=== PATIENT | male | born 1965 | race Caucasian/White ===

== ENCOUNTER 2019-10-13 05:04 | Day surgery (SDC) | payer OTHER ==
[2019-10-12 11:59] VITALS: BMI 52.5
[~2019-10-13 05:04] MED LIST: LIDOCAINE HCL 1%, 10 MG/ML (20ML VIAL) PNB ONE
[2019-10-13] MEDS ORDERED: LIDOCAINE HCL 1%, 10 MG/ML (20ML VIAL) ONE (07:21)
[2019-10-13] MEDS ORDERED: HEPARIN NA (PORCINE) 5,000 UNITS/ML 1ML VIAL ONE (07:21)
[2019-10-13] MEDS ORDERED: POVIDONE-IODINE OINTMENT 10% - 28.4 GM TUBE ONE (07:33)
--- NOTE | 2019-10-13 08:04 | HP ---
Admitting History and Physical - Admission Chief Complaint: Pt here for creation of right avf History Source: Patient Limitations to Obtaining History: No Limitations - Smoking History Smoking history: Never smoked Have you smoked in the past 12 months: No Home Medications - Allergies Allergies/Adverse Reactions: Allergies Allergy/AdvReac Type Severity Reaction Status Date / Time No Known Allergies Allergy Verified 10/13/19 07:05 - Home Medications Home Medications: Ambulatory Orders Acetaminophen [Tylenol] 2 tab PO Q48H 08/29/19 Allopurinol [Zyloprim -] 1 tab PO Q48H 08/29/19 Calcium Acetate 667 mg PO TID 08/29/19 Hydralazine HCl 1 tab PO Q8H 08/29/19 Ketoconazole 2% Cream [Nizoral 2% Cream -] 1 appful TP DAILY 08/29/19 Ketoconazole 2% Shampoo [Nizoral 2% Shampoo -] 1 appful TP DAILY 08/29/19 Metolazone 1 tab PO DAILY 08/29/19 Metoprolol Succinate [Toprol Xl] 1 tab PO DAILY 08/29/19 Nifedipine ER [Procardia XL -] 90 mg PO DAILY 08/29/19 Potassium Chloride 40 meq PO BID 08/29/19 Silver Sulfadiazine [Silvadene] 1 applic TP DAILY 08/29/19 Torsemide [Demadex -] 20 mg PO DAILY 08/29/19 Review of Systems - Review of Systems Constitutional: reports: No Symptoms Eyes: reports: No Symptoms HENT: reports: No Symptoms Neck: reports: No Symptoms Cardiovascular: reports: No Symptoms Respiratory: reports: No Symptoms Gastrointestinal: reports: No Symptoms Genitourinary: reports: No Symptoms Breasts: reports: No Symptoms Reported Musculoskeletal: reports: No Symptoms Integumentary: reports: No Symptoms Neurological: reports: No Symptoms Endocrine: reports: No Symptoms Hematology/Lymphatic: reports: No Symptoms Psychiatric: reports: No Symptoms Physical Examination Vital Signs: Vital Signs Temperature 97.8 F 10/13/19 07:01 Pulse Rate 81 10/13/19 07:01 Respiratory Rate 20 10/13/19 07:01 Blood Pressure 137/68 10/13/19 07:01 O2 Sat by Pulse Oximetry (%) 99 10/13/19 07:01 Constitutional: Yes: Well Nourished, No Distress, Calm Eyes: Yes: WNL, Conjunctiva Clear, EOM Intact HENT: Yes: WNL, Atraumatic, Normocephalic Neck: Yes: WNL, Supple, Trachea Midline Cardiovascular: Yes: WNL, Regular Rate and Rhythm Respiratory: Yes: WNL, Regular, CTA Bilaterally Gastrointestinal: Yes: WNL, Normal Bowel Sounds Musculoskeletal: Yes: WNL Extremities: Yes: WNL Edema: No Peripheral Pulses WNL: Yes Integumentary: Yes: WNL Neurological: Yes: WNL, Alert, Oriented ...Motor Strength: WNL Psychiatric: Yes: WNL Problem List - Problems (1) ESRD (end stage renal disease) Assessment/Plan: for right cephalic vein fistula creation David Garcia dO Problems reviewed: Yes Code(s): N18.6 - END STAGE RENAL DISEASE
[2019-10-13] MEDS ORDERED: MIDAZOLAM HCL 2 MG/2 ML SINGLE DOSE VIAL ONE ×2 (08:08→08:22)
[2019-10-13] MEDS ORDERED: ceFAZolin SODIUM 1 GM VIAL IVPB ONE (08:21)
[2019-10-13] MEDS ORDERED: PROPOFOL 20 ML ONE (08:21)
[2019-10-13] MEDS ORDERED: ROCURONIUM BROMIDE 50 MG/5 ML SYRINGE ONE (08:21)
[2019-10-13] MEDS ORDERED: LIDOCAINE HCL 1%, 10 MG/ML (20ML VIAL) PNB ONE (08:41)
[2019-10-13] MEDS ORDERED: ONDANSETRON 4 MG/2 ML VIAL IVPUSH PRN (10:02)
--- NOTE | 2019-10-13 10:08 | OP ---
Operative Note - Note: Operative Date: 10/13/19 Pre-Operative Diagnosis: CRF Operation: Creation of right cephalic vein fistula Post-Operative Diagnosis: Same as Pre-op Surgeon: David Garcia Anesthesia: MAC Estimated Blood Loss (mls): 30
[2019-10-13 13:19] VITALS: BP 150/70; PULSE 90; TEMP 97.8
--- NOTE | 2019-10-13 17:37 | OP ---
DATE OF OPERATION: 10/13/2019 PREOPERATIVE DIAGNOSIS: Chronic renal failure. POSTOPERATIVE DIAGNOSIS: Chronic renal failure. PROCEDURE: Creation of right brachial artery to cephalic vein fistula. SURGEON: David Khalil MD. ANESTHESIA: Fractional. BLOOD LOSS: 30 mL. INDICATION: The patient is a 53-year-old male who has chronic renal failure and needs to be prepared for permanent dialysis access. It was decided that he would need a right AV fistula in the form of systolic vein. He had a preoperative ultrasound that showed he has a good systolic vein in his right arm. Patient is left handed. Patient was cleared by medicine and cardiology. Patient was found to be COVID negative. Patient then came into ambulatory surgery. Patient was consented for the procedure understanding all risks, benefits, and alternatives and taken to the operating room. DESCRIPTION OF PROCEDURE: Once in the operating room, she was laid on the operating table in a supine manner, and the area of the right arm was prepped and draped in sterile surgical manner. Under ultrasound guidance, we visualized the cephalic vein and the brachial artery below the antecubital fossa and a transverse incision using the skin marker was drawn for about 4 cm. We then went ahead and injected 10 to 15 mL of lidocaine 1% in the area. We then went ahead and a number 15-blade and made a 4-cm incision. Bovie cautery was used to control hemostasis, and we got down through all the subcutaneous tissue. We then dissected out our cephalic vein and ligated all branches using 4-0 silk. We then went medially and we were able to get through the fascia and dissect down to the brachial artery. Brachial artery was then dissected anteriorly and posteriorly and Vesseloops were placed proximally and distally. We then ligated our vein distally and 4-Mauritanian feeding tub was placed, and the feeding tube went all the way up to the proximal cephalic vein, and then vein dilated up appropriately as well. At this point, 5000 units of IV heparin were administered to the patient. We then after 3 minutes, we got distal and proximal control on our artery; using a 15-blade we made an arteriotomy extending it to 7 mm using Bynum scissors and 6-0 stay sutures were placed. We then used a micro Bynum and we made a 7-mm venotomy on our vein. We then used a and ran the suture on for anastomosis between the vein and the artery. Once completed, we opened the distal artery first and the proximal artery, and there was a good thrill in our AV fistula. We then went ahead and irrigated the wound copiously. Surgicel was placed, 3-0 Vicryl was used and subcutaneous tissue was approximated and skin was closed with skin fracisco. Area was wet and dried, 4x4s and Tegaderm were placed. Patient tolerated procedure with no complication. Patient transferred to PACU in stable condition. DAVID KHALIL DO [id number]
== END 2019-10-13 12:30 | disposition home or self-care (01) ==
LOC: JASU-SURG 05:04
PROVIDERS: ATTEND Surgery Vascular Surgery
PROC: 03170ZD Bypass Right Brachial Artery to Upper Arm Vein, Open Approach (ICD-10-PCS; principal; 2019-10-13 08:00)
DX: I12.0 Hypertensive chronic kidney disease with stage 5 chronic kidney disease or end stage renal disease (principal); N18.6 End stage renal disease
CPT/HCPCS: 86850; 86900; 86901; 94760; J1644

== ENCOUNTER 2019-11-16 23:29 | Inpatient (IN) | payer OTHER ==
--- NOTE | 2019-11-16 23:37 | PDOC ---
History of Present Illness - General Chief Complaint: Injury Stated Complaint: FALL Time Seen by Provider: 11/16/19 23:33 History Source: Patient Exam Limitations: No Limitations - History of Present Illness Initial Comments: 11/16/19 23:36 53yM w PMHx CKD stage 5, morbid obesity Past History - Medical History Allergies/Adverse Reactions: Allergies Allergy/AdvReac Type Severity Reaction Status Date / Time No Known Allergies Allergy Verified 10/13/19 07:05 Home Medications: Ambulatory Orders Acetaminophen [Tylenol] 2 tab PO Q48H 08/29/19 Allopurinol [Zyloprim -] 1 tab PO Q48H 08/29/19 Calcium Acetate 667 mg PO TID 08/29/19 Hydralazine HCl 1 tab PO Q8H 08/29/19 Metolazone 1 tab PO DAILY 08/29/19 Metoprolol Succinate [Toprol Xl] 1 tab PO DAILY 08/29/19 Nifedipine ER [Procardia XL -] 90 mg PO DAILY 08/29/19 Potassium Chloride 40 meq PO TID 08/29/19 Torsemide [Demadex -] 20 mg PO DAILY 08/29/19 Gabapentin 300 mg PO TID 11/14/19 Nifedipine ER 30 mg PO DAILY 11/14/19 Anemia: No Asthma: No Cancer: No Cardiac Disorders: No CVA: No COPD: No CHF: Yes Dementia: No Diabetes: No GI Disorders: No Disorders: Yes (tage 3 renal disease) HTN: Yes Hypercholesterolemia: No Liver Disease: No Seizures: No Thyroid Disease: No - Surgical History Orthopedic Surgery: Yes (Left Fx ankle s/p surgical repair) - Psycho-Social/Smoking History Smoking History: Unknown if ever smoked Have you smoked in the past 12 months: No *Physical Exam - Vital Signs Last Vital Signs Temp Pulse Resp BP Pulse Ox 103.1 F H 120 H 20 164/88 96 11/16/19 23:31 11/16/19 23:31 11/16/19 23:31 11/16/19 23:31 11/16/19 23:31 Discharge - Discharge Information Condition: Fair - Follow up/Referral - Patient Discharge Instructions - Post Discharge Activity
--- NOTE | 2019-11-16 23:41 | PDOC ---
Attending Attestation - Resident Resident Name: Tahir Alvarado - ED Attending Attestation I have performed the following: I have examined & evaluated the patient, The case was reviewed & discussed with the resident, I agree w/resident's findings & plan - HPI HPI: 11/17/19 03:18 see resident hpi - Physicial Exam PE: 11/17/19 03:18 see resident exam - Medical Decision Making 11/17/19 03:18 53-year-old morbidly obese male who [facility] a [facility] sent for evaluation of fever altered mental status and fall Labs consistent with urinary tract infection with significant white blood cell elevation Antibiotics initiated, will admit to medical service for further management Discharge - Discharge Information Problems reviewed: Yes Clinical Impression/Diagnosis: Sepsis, UTI (urinary tract infection), Morbid obesity Condition: Fair - Follow up/Referral Referrals: Nishant Mansfield MD [Primary Care Provider] - - Patient Discharge Instructions - Post Discharge Activity
[2019-11-16] MEDS ORDERED: SODIUM CHLORIDE IV ONE (23:59)
[2019-11-17] MEDS: PIPERACILLIN/TAZOB 2.25 GM 2.25 GM in DEXTROSE 5%-WATER - 50 ML IVPB SCH
[2019-11-17] MEDS ORDERED: ACETAMINOPHEN 1000 MG/100 ML VIAL (NON FORMULARY) IVPB ONE ×2 (00:25→08:51)
[2019-11-17] MEDS ORDERED: VANCOMYCIN HCL 2,000 MG in DEXTROSE 5%-WATER - 500 ML IVPB ONE (00:55)
[2019-11-17] MEDS ORDERED: PIPERACILLIN/TAZOB 2.25 GM 2.25 GM in DEXTROSE 5%-WATER - 50 ML IVPB ONE (00:58)
[2019-11-17] MEDS ORDERED: ACETAMINOPHEN INJECTION 100 ML IVPB ONE ×2 (01:17→08:54)
[2019-11-17] MEDS ORDERED: PIPERACILLIN/TAZOB 2.25 GM 2.25 GM/50 ML BAG IVPB ONE (01:18)
--- NOTE | 2019-11-17 01:30 | PDOC ---
History of Present Illness - General Chief Complaint: Injury Stated Complaint: FALL Time Seen by Provider: 11/16/19 23:33 - History of Present Illness Initial Comments: 11/17/19 02:57 53 M with CKD, HF, HTN BIBA from subacute rehab after unwitnessed fall. He stated when he stood up, he fell presyncope and fell. He denies head hitting, LOC, N/V/D, chest pain, abdominal pain. He endorsed shoulder pain, but admitted this is chronic. PMH: HF, CKD, HTN PSH: Med: 80mg Furosemide. ALlergy: none PCP: yolanda. ROS GENERAL/CONSTITUTIONAL: No fever or chills. No weakness. HEAD, EYES, EARS, NOSE AND THROAT: No change in vision. No ear pain or discharge. No sore throat. CARDIOVASCULAR: No chest pain or shortness of breath RESPIRATORY: No cough, wheezing, or hemoptysis. GASTROINTESTINAL: No nausea, vomiting, diarrhea or constipation. GENITOURINARY: No dysuria, frequency, or change in urination. MUSCULOSKELETAL: No joint or muscle swelling or pain. No neck or back pain. SKIN: No rash NEUROLOGIC: No headache, vertigo, loss of consciousness, or change in strength/sensation. ENDOCRINE: No increased thirst. No abnormal weight change HEMATOLOGIC/LYMPHATIC: No anemia, easy bleeding, or history of blood clots. ALLERGIC/IMMUNOLOGIC: No hives or skin allergy. PE HR 140. Tempt 103F GENERAL: AOx2 in mild acute distress, morbidly obese on 4 L NC. HEAD: No signs of trauma, normocephalic, atraumatic EYES: PERRLA, EOMI, sclera anicteric, conjunctiva clear ENT: Auricles normal inspection, hearing grossly normal, nares patent, oropharynx clear without exudates. Moist mucosa NECK: Normal ROM, supple, no lymphadenopathy, JVD, or masses LUNGS: No distress, speaks full sentences, clear to auscultation bilaterally HEART: Regular rate and rhythm, normal S1 and S2, no murmurs, rubs or gallops, peripheral pulses normal and equal bilaterally. ABDOMEN: Soft, nontender, normoactive bowel sounds. No guarding, no rebound. No masses. Protrubing, but nondistended. : wear diaper. EXTREMITIES : Bilateral elephanitist legs, Normal range of motion, No clubbing or cyanosis. AV fistula on the right arm. NEUROLOGICAL: Cranial nerves II through XII grossly intact. Normal speech, normal gait, no focal sensorimotor deficits SKIN: hot, Dry, normal turgor, no rashes or lesions noted 11/17/19 03:16 11/17/19 03:17 Past History - Medical History Allergies/Adverse Reactions: Allergies Allergy/AdvReac Type Severity Reaction Status Date / Time No Known Allergies Allergy Verified 11/16/19 23:36 Home Medications: Ambulatory Orders Acetaminophen [Tylenol] 2 tab PO Q48H 08/29/19 Allopurinol [Zyloprim -] 1 tab PO Q48H 08/29/19 Calcium Acetate 667 mg PO TID 08/29/19 Hydralazine HCl 1 tab PO Q8H 08/29/19 Metolazone 1 tab PO DAILY 08/29/19 Metoprolol Succinate [Toprol Xl] 1 tab PO DAILY 08/29/19 Nifedipine ER [Procardia XL -] 90 mg PO DAILY 08/29/19 Potassium Chloride 40 meq PO TID 08/29/19 Torsemide [Demadex -] 20 mg PO DAILY 08/29/19 Gabapentin 300 mg PO TID 11/14/19 Nifedipine ER 30 mg PO DAILY 11/14/19 Anemia: No Asthma: No Cancer: No Cardiac Disorders: No CVA: No COPD: No CHF: Yes Dementia: No Diabetes: No GI Disorders: No Disorders: Yes (tage 3 renal disease) HTN: Yes Hypercholesterolemia: No Liver Disease: No Seizures: No Thyroid Disease: No - Surgical History Orthopedic Surgery: Yes (Left Fx ankle s/p surgical repair) - Psycho-Social/Smoking History Smoking History: Unknown if ever smoked Have you smoked in the past 12 months: No *Physical Exam - Vital Signs Last Vital Signs Temp Pulse Resp BP Pulse Ox 103.1 F H 120 H 20 164/88 96 11/16/19 23:31 11/16/19 23:31 11/16/19 23:31 11/16/19 23:31 11/16/19 23:31 ED Treatment Course - LABORATORY CBC & Chemistry Diagram: 11/17/19 00:50 11/17/19 00:50 - RADIOLOGY Radiology Studies Ordered: Category Date Time Status CHEST X-RAY PORTABLE* [RAD] Stat Radiology 11/17/19 00:32 Taken - Medications Given in the ED: ED Medications Discontinued Medications Generic Name Dose Route Start Last Admin Trade Name Isabella PRN Reason Stop Dose Admin Acetaminophen 1,000 mg 11/17/19 00:25 11/17/19 01:23 Ofirmev Injection - IVPB 11/17/19 00:26 1,000 mg ONCE ONE Administration Sodium Chloride 4,899 mls @ 2,449.5 mls/hr 11/16/19 23:59 11/17/19 01:24 Normal Saline - 30 ml/kg infuse over 2 hr (4899 ml) 11/17/19 01:58 Not Given IV ONCE ONE Piperacillin Sod/Tazobactam 50 mls @ 100 mls/hr 11/17/19 00:58 11/17/19 01:29 Sod 2.25 gm/ Dextrose IVPB 11/17/19 01:27 100 mls/hr ONCE ONE Administration Protocol Medical Decision Making - Medical Decision Making 11/17/19 03:05 Patient BIBA from subacute rehab after a fall with tachycardic 140 , and fever 103. Will be doing a sepsis workup Head CT Med: tylenol for fever. EKG: nellie rate 129, sinus tachycardia with 1st degree AV block. QTc 325. 11/17/19 03:07 WBC 34 with left shift. Trop is 0.21 (no baseline). BUN/Cr 88/4.4 CT head showed no bleeding, but has periapical abcess in the maxilla. However, patient is not complain of the pain. 11/17/19 03:20 MBMD sent. 11/17/19 04:[address] esquivel. Per Miss Stein, will replenish Mag. New tempt is 99.1 Discharge - Discharge Information Problems reviewed: Yes Clinical Impression/Diagnosis: UTI (urinary tract infection), Morbid obesity Sepsis Qualifiers: Sepsis type: sepsis due to unspecified organism Condition: Fair - Admission Yes - Follow up/Referral - Patient Discharge Instructions - Post Discharge Activity
[2019-11-17 01:43] LABS: HEMATOCRIT 26.6 % (35.4-49); HEMOGLOBIN 8.2 GM/dL (11.7-16.9); LYMPH % 0.9 % (8-40); MCH 23.5 pg (25.7-33.7); MCHC 30.7 g/dl (32.0-35.9); MEAN CELL VOLUME 76.4 fl (80-96); MEAN PLT VOLUME 7.4 fl (7.5-11.1); MONO % 2.6 % (3.8-10.2); NEUT % 96.5 % (42.8-82.8); PLATELET COUNT 261 K/MM3 (134-434); RBC 3.48 M/mm3 (4.00-5.60); RDW 19.7 % (11.9-15.9)
[2019-11-17 01:58] LABS: INR 1.18 (0.83-1.09); PROTHROMBIN TIME (PATIENT) 13.9 SEC (9.7-13.0)
[2019-11-17 01:59] LABS: WHITE BLOOD COUNT 34.2 K/mm3 (4.0-10.0)
[2019-11-17 02:01] LABS: ACTIVATED PTT 29.5 SECONDS (25.2-36.5)
[2019-11-17 02:02] LABS: PHOSPHOROUS 1.9 mg/dL (2.5-4.9)
[2019-11-17 02:04] LABS: ALBUMIN 2.7 g/dl (3.4-5.0); CALCIUM 8.1 mg/dL (8.5-10.1); CREATININE 4.4 mg/dL (0.55-1.3); POTASSIUM 3.8 mmol/L (3.5-5.1)
[2019-11-17 02:05] LABS: BILIRUBIN,TOTAL 0.3 mg/dL (0.2-1)
[2019-11-17 03:10] LABS: EPI CELLS >36 /uL (0-25.1); HYALINE CASTS 2 /uL (0-3.1); URINE APPEARANCE CLEAR; URINE BACTERIA 7 /uL (0-1359); URINE BILIRUBIN NEGATIVE (NEGATIVE); URINE COLOR YELLOW; URINE GLUCOSE (UA) NEGATIVE (NEGATIVE); URINE KETONE NEGATIVE (NEGATIVE); URINE LEUK ESTERASE 1+ (NEGATIVE); URINE NITRITE NEGATIVE (NEGATIVE); URINE PROTEIN 3+ (NEGATIVE); URINE RBC 145 /uL (0-23.9); URINE UROBILINOGEN 0.2 mg/dL (0.2-1.0); URINE WBC 144 /uL (0-25.8)
[2019-11-17] MEDS ORDERED: MAGNESIUM SULF 50% (8.12 MEQ/2 ML-1 GM VIAL) IVPB ONE (03:44)
--- NOTE | 2019-11-17 03:47 | HP ---
Admitting History and Physical - Primary Care Physician PCP: Nishant Mansfield ([facility]) - Admission Chief Complaint: Fall, Syncope History of Present Illness: This is a 53 y/o male from [facility] with a significant PMHx of CHF, HTN, CKD Stage 3, Chronic Venous Stasis, Erythema Intertrigo, Severe Obesity. Who presents to the ED s/p unwitnessed fall. Patient reports while getting OOB he fell. Patient denies head trauma or LOC. Patient reports chronic lumbar pain exacerbated while laying on the stretcher. Patient denies fever, chills, cough, SOB, dizziness, HERNANDEZ, CP, palpitations, AP, N/V/D, constipation, dysura. History Source: Patient, Transfer Record Limitations to Obtaining History: Physical Impairment - Past Medical History Cardiovascular: Yes: CHF, HTN, Hyperlipdemia Renal/: Yes: Renal Failure Dermatology: Yes: Other (venous stasis) - Advance Directives Advance Directives: Yes: DNR, MOLST (DNR, DNI) - Smoking History Smoking history: Unknown if ever smoked Have you smoked in the past 12 months: No - Alcohol/Substance Use Hx Alcohol Use: No History of Substance Use: reports: None - Social History Usual Living Arrangement: Yes: [facility] ADL: Support Services History of Recent Travel: No Home Medications - Allergies Allergies/Adverse Reactions: Allergies Allergy/AdvReac Type Severity Reaction Status Date / Time No Known Allergies Allergy Verified 11/16/19 23:36 - Home Medications Home Medications: Ambulatory Orders Acetaminophen [Tylenol] 2 tab PO Q48H 08/29/19 Allopurinol [Zyloprim -] 1 tab PO Q48H 08/29/19 Calcium Acetate 667 mg PO TID 08/29/19 Hydralazine HCl 1 tab PO Q8H 08/29/19 Metolazone 1 tab PO DAILY 08/29/19 Metoprolol Succinate [Toprol Xl] 1 tab PO DAILY 08/29/19 Nifedipine ER [Procardia XL -] 90 mg PO DAILY 08/29/19 Potassium Chloride 40 meq PO TID 08/29/19 Torsemide [Demadex -] 20 mg PO DAILY 08/29/19 Gabapentin 300 mg PO TID 11/14/19 Nifedipine ER 30 mg PO DAILY 11/14/19 Family Medical History Family History: Unable to Obtain Physical Examination Vital Signs: Vital Signs Temperature 99.9 F H 11/17/19 03:43 Pulse Rate 120 H 11/16/19 23:31 Respiratory Rate 20 11/16/19 23:31 Blood Pressure 164/88 11/16/19 23:31 O2 Sat by Pulse Oximetry (%) 96 11/16/19 23:31 Constitutional: Yes: Anxious, Mild Distress, Obese Eyes: Yes: WNL, Conjunctiva Clear, EOM Intact, PERRL HENT: Yes: WNL, Atraumatic, Normocephalic Neck: Yes: Supple, Trachea Midline Cardiovascular: Yes: Tachycardia, S1, S2 Respiratory: Yes: Diminished, On Nasal O2, SOB on Exertion Gastrointestinal: Yes: Abdomen, Obese, Hypoactive Bowel Sounds Renal/: Yes: Other (erythema to groin folds, scrotum) Breast(s): Yes: WNL Musculoskeletal: Yes: Back Pain Edema: Yes Edema: LLE: 3+, RLE: 3+ Peripheral Pulses WNL: Yes Integumentary: Yes: Erythema, Venous Stasis Changes Neurological: Yes: WNL, Alert, Oriented, Cran Nerves II-XII Intact ...Motor Strength: WNL Psychiatric: Yes: WNL, Alert, Oriented Labs: CBC, BMP 11/17/19 00:50 11/17/19 00:50 Laboratory Results - last 24 hr 11/17/19 11/17/19 11/17/19 00:50 00:50 00:50 WBC 34.2 H* RBC 3.48 L Hgb 8.2 L Hct 26.6 L MCV 76.4 L MCH 23.5 L MCHC 30.7 L RDW 19.7 H Plt Count 261 MPV 7.4 L Absolute Neuts (auto) 33.0 H Total Counted 100 Neutrophils % 96.5 H Neutrophils % (Manual) 88.0 H Band Neutrophils % 7.0 Lymphocytes % 0.9 L Lymphocytes % (Manual) 1.0 L Monocytes % 2.6 L Monocytes % (Manual) 4 Eosinophils % 0.0 Basophils % 0.0 Nucleated RBC % 0 Hypochromia 2+ Platelet Estimate Adequate Platelet Comment No clotting detected Microcytosis 1+ PT with INR 13.90 H INR 1.18 H PTT (Actin FS) 29.5 Sodium Potassium Chloride Carbon Dioxide Anion Gap BUN Creatinine Est GFR (CKD-EPI)AfAm Est GFR (CKD-EPI)NonAf Random Glucose Lactic Acid Calcium Phosphorus Magnesium Total Bilirubin AST ALT Alkaline Phosphatase Creatine Kinase Troponin I 0.21 H Total Protein Albumin Urine Color Urine Appearance Urine pH Ur Specific [place] Urine Protein Urine Glucose (UA) Urine Ketones Urine Blood Urine Nitrite Urine Bilirubin Urine Urobilinogen Ur Leukocyte Esterase Urine WBC (Auto) Urine RBC (Auto) Urine Casts (Auto) U Epithel Cells (Auto) Urine Bacteria (Auto) 11/17/19 11/17/19 11/17/19 00:50 00:50 00:50 WBC RBC Hgb Hct MCV MCH MCHC RDW Plt Count MPV Absolute Neuts (auto) Total Counted Neutrophils % Neutrophils % (Manual) Band Neutrophils % Lymphocytes % Lymphocytes % (Manual) Monocytes % Monocytes % (Manual) Eosinophils % Basophils % Nucleated RBC % Hypochromia Platelet Estimate Platelet Comment Microcytosis PT with INR INR PTT (Actin FS) Sodium 141 Potassium 3.8 Chloride 106 Carbon Dioxide 23 Anion Gap 13 BUN 86.0 H Creatinine 4.4 H Est GFR (CKD-EPI)AfAm 16.65 Est GFR (CKD-EPI)NonAf 14.37 Random Glucose 93 Lactic Acid 1.7 Calcium 8.1 L Phosphorus 1.9 L Magnesium 1.0 L Total Bilirubin 0.3 AST 16 ALT 13 Alkaline Phosphatase 61 Creatine Kinase Troponin I Total Protein 7.0 Albumin 2.7 L Urine Color Urine Appearance Urine pH Ur Specific [place] Urine Protein Urine Glucose (UA) Urine Ketones Urine Blood Urine Nitrite Urine Bilirubin Urine Urobilinogen Ur Leukocyte Esterase Urine WBC (Auto) Urine RBC (Auto) Urine Casts (Auto) U Epithel Cells (Auto) Urine Bacteria (Auto) 11/17/19 11/17/19 02:00 02:45 WBC RBC Hgb Hct MCV MCH MCHC RDW Plt Count MPV Absolute Neuts (auto) Total Counted Neutrophils % Neutrophils % (Manual) Band Neutrophils % Lymphocytes % Lymphocytes % (Manual) Monocytes % Monocytes % (Manual) Eosinophils % Basophils % Nucleated RBC % Hypochromia Platelet Estimate Platelet Comment Microcytosis PT with INR INR PTT (Actin FS) Sodium Potassium Chloride Carbon Dioxide Anion Gap BUN Creatinine Est GFR (CKD-EPI)AfAm Est GFR (CKD-EPI)NonAf Random Glucose Lactic Acid Calcium Phosphorus Magnesium Total Bilirubin AST ALT Alkaline Phosphatase Creatine Kinase Cancelled Troponin I Cancelled Total Protein Albumin Urine Color Yellow Urine Appearance Clear Urine pH 5.0 Ur Specific [place] 1.012 Urine Protein 3+ H Urine Glucose (UA) Negative Urine Ketones Negative Urine Blood 1+ H Urine Nitrite Negative Urine Bilirubin Negative Urine Urobilinogen 0.2 Ur Leukocyte Esterase 1+ H Urine WBC (Auto) 144 Urine RBC (Auto) 145 Urine Casts (Auto) 2 U Epithel Cells (Auto) >36 Urine Bacteria (Auto) 7 Intake & Output 11/14/19 11/15/19 11/16/19 11/17/19 23:59 23:59 23:59 23:59 Weight 163.293 kg Imaging - Results Chest X-ray: Report Reviewed, Image Reviewed Cat Scan: Image Reviewed EKG: Image Reviewed Problem List - Problems (1) Sepsis Assessment/Plan: Likely due to UTI qSOFA 2, high risk Sepsis Criteria Met: T 103.1, P 120, R 24, BUN 86.0, WBC 34.2 UA- reviewed Urine Culture-pending Lactic Acid 1.7 Continue Zosyn ID Consulted appreciated Monitor CBC, CMP Monitor vitals Maintain MAP> 65 Code(s): A41.9 - SEPSIS, UNSPECIFIED ORGANISM Qualifiers: Sepsis type: sepsis due to unspecified organism (2) UTI (urinary tract infection) Assessment/Plan: UA-+3 protein, +1 blood, +1 leukocyte esterase, 144 wbc Urine Culture-pending T Max 103.1 Zosyn given in ED, will continue renal dosing Appreciate ID consult Moniotr CBC Monitor vitals Code(s): N39.0 - URINARY TRACT INFECTION, SITE NOT SPECIFIED (3) HTN (hypertension) Assessment/Plan: stable Monitor BP Continue home meds with parameters Monitor CMP Code(s): I10 - ESSENTIAL (PRIMARY) HYPERTENSION (4) CKD (chronic kidney disease) Assessment/Plan: unknown baseline Monitor CMP Avoid Nephrotoxic drugs Appreciate Nephrology consult Monitor vitals Code(s): N18.9 - CHRONIC KIDNEY DISEASE, UNSPECIFIED (5) HLD (hyperlipidemia) Assessment/Plan: stable Continue current med Monitor LFTs Code(s): E78.5 - HYPERLIPIDEMIA, UNSPECIFIED (6) Elevated troponin Assessment/Plan: Likely due to Demand Ischemia Cardiac Monitoring Serial Enzymes Appreciate Cardiology consult Monitor CMP Chest Xray- elevated right hemidiaphragm. Large Heart, clear lungs EKG reviewed Code(s): R79.89 - OTHER SPECIFIED ABNORMAL FINDINGS OF BLOOD CHEMISTRY (7) Hypomagnesemia Assessment/Plan: Likely secondary to medication To be repleted with Mg Sulfate discussed with ED resident Monitor Mg EKG-reviewed Code(s): E83.42 - HYPOMAGNESEMIA (8) Hypocalcemia Assessment/Plan: calcium corrected 9.1 Will continue to monitor CMP and treat with interventions accordingly Code(s): E83.51 - HYPOCALCEMIA (9) Morbid obesity Assessment/Plan: Counseled on weight reduction Code(s): E66.01 - MORBID (SEVERE) OBESITY DUE TO EXCESS CALORIES (10) Encounter for screening laboratory testing for COVID-19 virus Assessment/Plan: Low Risk COVID PCR-pending Isolation Precautions Code(s): Z11.59 - ENCOUNTER FOR SCREENING FOR OTHER VIRAL DISEASES Assessment/Plan This is a 53 y/o male from [facility] with a significant PMHx of CHF, HTN, CKD Stage 3, Chronic Venous Stasis, Erythema Intertrigo, Severe Obesity. Admitted to M/S for Sepsis, UTI, Fall for further evaluation of their emergent condition. Plan: See Problem List FEN Fluid Restriction 1L Replete lytes prn Low Na, Diabetic Diet- Thin liquids DVT ppx OOB SCDs Heparin SQ Code Status: MOLST- DNR/DNI Dispo: Requires Inpatient Care Visit type - Emergency Visit Emergency Visit: Yes ED Registration Date: 11/16/19 Care time: The patient presented to the Emergency Department on the above date and was hospitalized for further evaluation of their emergent condition. - New Patient This patient is new to me today: Yes Date on this admission: 11/17/19 - Critical Care Critical Care patient: No
[2019-11-17] MEDS ORDERED: MAGNESIUM 1GM/D5W 100ML - 100 ML IVPB IVPB ONE (04:00)
[2019-11-17] MEDS ORDERED: MAGNESIUM 1GM/D5W - 1 GM/100 ML IVPB IVPB ONE (04:03)
[2019-11-17 07:51] LABS: PLATELET ESTIMATE ADEQUATE
--- NOTE | 2019-11-17 08:07 | CONSULT ---
Consult Consult Specialty:: Nephrology Reason for Consultation:: CKD - History of Present Illness Chief Complaint: sent in s/p fall History of Present Illness: Pt is a 53 year old male with pmhx of chf, ckd, htn, and obesity who was sent in after a fall. 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 He has ckd and follows with me. He does have a fistula but is not yet on HD. He denies nausea. He has appetite. He does get chills at times. He complains of lower ext edema. He denies shortness of breath. - History Source History Provided By: Patient - Past Medical History Cardio/Vascular: Yes: CHF, HTN, Hyperlipdemia Renal/: Yes: Renal Failure, Renal Inusuff Dermatology: Yes: Other (venous stasis) - Past Surgical History Past Surgical History: Yes: AV Fistula/Graft - Alcohol/Substance Use Hx Alcohol Use: No History of Substance Use: reports: None - Smoking History Smoking history: Unknown if ever smoked Have you smoked in the past 12 months: No - Social History ADL: Support Services History of Recent Travel: No Home Medications - Allergies Allergies/Adverse Reactions: Allergies Allergy/AdvReac Type Severity Reaction Status Date / Time No Known Allergies Allergy Verified 11/16/19 23:36 - Home Medications Home Medications: Ambulatory Orders Acetaminophen [Tylenol] 2 tab PO Q48H 08/29/19 RX: Allopurinol [Zyloprim -] 1 tab PO Q48H 08/29/19 RX: Calcium Acetate 667 mg PO TID 08/29/19 RX: Hydralazine HCl 1 tab PO Q8H 08/29/19 RX: Metolazone 1 tab PO DAILY 08/29/19 RX: Metoprolol Succinate [Toprol Xl] 1 tab PO DAILY 08/29/19 RX: Nifedipine ER [Procardia XL -] 90 mg PO DAILY 08/29/19 RX: Potassium Chloride 40 meq PO TID 08/29/19 RX: Torsemide [Demadex -] 20 mg PO DAILY 08/29/19 Gabapentin 300 mg PO TID 11/14/19 Nifedipine ER 30 mg PO DAILY 11/14/19 Family Medical History Family History: Denies Review of Systems - Review of Systems Constitutional: reports: Weakness Eyes: reports: No Symptoms HENT: reports: No Symptoms Neck: reports: No Symptoms Cardiovascular: reports: No Symptoms Respiratory: reports: No Symptoms Gastrointestinal: reports: No Symptoms Genitourinary: reports: No Symptoms Musculoskeletal: reports: Muscle Weakness Integumentary: reports: Erythema Neurological: reports: No Symptoms Endocrine: reports: No Symptoms Hematology/Lymphatic: reports: No Symptoms Psychiatric: reports: No Symptoms Physical Exam Vital Signs: Vital Signs Temperature 99.8 F H 11/17/19 05:58 Pulse Rate 110 H 11/17/19 05:58 Respiratory Rate 20 11/17/19 05:58 Blood Pressure 161/72 11/17/19 05:58 O2 Sat by Pulse Oximetry (%) 95 11/17/19 05:58 Constitutional: Yes: Calm Eyes: Yes: Conjunctiva Clear HENT: Yes: Atraumatic Neck: Yes: Supple Cardiovascular: Yes: S1, S2 Respiratory: Yes: On Nasal O2 Gastrointestinal: Yes: Normal Bowel Sounds, Soft, Abdomen, Obese Renal/: Yes: Incontinence Musculoskeletal: Yes: Muscle Weakness Edema: Yes Edema: LLE: 2+, RLE: 2+ Neurological: Yes: Oriented Psychiatric: Yes: Oriented Labs: CBC, BMP 11/17/19 00:50 11/17/19 00:50 Imaging - Results Cat Scan: Report Reviewed Problem List - Problems (1) Anemia Code(s): D64.9 - ANEMIA, UNSPECIFIED (2) CKD (chronic kidney disease) Code(s): N18.9 - CHRONIC KIDNEY DISEASE, UNSPECIFIED (3) Fall Code(s): W19.XXXA - UNSPECIFIED FALL, INITIAL ENCOUNTER Assessment/Plan Current Medications Generic Name Dose Route Start Last Admin Trade Name Freq PRN Reason Stop Dose Admin Acetaminophen 650 mg 11/17/19 11:06 11/17/19 16:43 Tylenol - PO 650 mg Q4H PRN Administration fever>100.0F Allopurinol 100 mg 11/17/19 11:15 11/17/19 12:20 Zyloprim - PO 100 mg Q48H [place] Administration Calcium Acetate 667 mg 11/17/19 12:00 11/17/19 12:20 Phoslo - PO 667 mg TIDCM [place] Administration Ferrous Sulfate 325 mg 11/17/19 17:30 Feosol - PO BIDWM [place] Gabapentin 300 mg 11/17/19 14:00 11/17/19 15:25 Neurontin - PO 300 mg TID [place] Administration Heparin Sodium (Porcine) 5,000 unit 11/17/19 11:15 11/17/19 12:16 Heparin - SQ 5,000 unit BID [facility] Administration Hydralazine HCl 100 mg 11/17/19 09:00 11/17/19 15:25 Apresoline - PO 100 mg TID [place] Administration Vancomycin HCl 1,500 mg/ 500 mls @ 250 mls/hr 11/17/19 16:45 11/17/19 16:46 Dextrose IVPB 11/17/19 18:44 250 mls/hr ONCE ONE Administration Protocol Piperacillin Sod/Tazobactam 50 mls @ 100 mls/hr 11/17/19 18:00 Sod 2.25 gm/ Dextrose IVPB Q8H-IV [facility] Protocol Metoprolol Succinate 25 mg 11/17/19 10:00 11/17/19 09:38 Toprol Xl - PO 25 mg DAILY [facility] Administration Nifedipine 90 mg 11/17/19 10:00 11/17/19 09:34 Procardia Xl - PO 90 mg DAILY [place] Administration Impression 1. CKD 2. htn 3. dm 4. obesity 5. sepsis 6. cellulitis 7. gout 8. chf Plan - cont to monitor renal function - vascular to evaluate his fistula - repeat labs in am - restart torsemide - cont abx, renal dose - no indication for hd today
[2019-11-17] MEDS ORDERED: hydrALAZINE HCL 50 MG TABLET (FP) PO SCH (09:00)
--- NOTE | 2019-11-17 09:29 | CON.CARD ---
Consult Consult Specialty:: Cardiology Referred by:: Angela Reason for Consultation:: Status post fall - History of Present Illness Chief Complaint: Status post fall History of Present Illness: The patient is a 53-year-old morbidly obese man, with a history of hypertension, hyperlipidemia, congestive heart failure, chronic kidney disease approaching dialysis. Chronic venous stasis, now admitted after a fall. The patient stated that he was getting up from bed and could not sustain his weight and fell down. Denied chest pains and shortness of breath. No palpitations. Also denied paroxysmal nocturnal dyspnea and orthopnea. No loss of consciousness. The patient was supine in no apparent distress at the time of my exam. - History Source History Provided By: Patient, Medical Record Limitations to Obtaining History: No Limitations - Past Medical History Cardio/Vascular: Yes: CHF, HTN, Hyperlipdemia Renal/: Yes: Renal Failure Dermatology: Yes: Other (venous stasis) - Alcohol/Substance Use Hx Alcohol Use: No History of Substance Use: reports: None - Smoking History Smoking history: Unknown if ever smoked Have you smoked in the past 12 months: No - Social History ADL: Support Services History of Recent Travel: No Home Medications - Allergies Allergies/Adverse Reactions: Allergies Allergy/AdvReac Type Severity Reaction Status Date / Time No Known Allergies Allergy Verified 11/16/19 23:36 - Home Medications Home Medications: Ambulatory Orders Acetaminophen [Tylenol] 2 tab PO Q48H 08/29/19 Allopurinol [Zyloprim -] 1 tab PO Q48H 08/29/19 Calcium Acetate 667 mg PO TID 08/29/19 Hydralazine HCl 1 tab PO Q8H 08/29/19 Metolazone 1 tab PO DAILY 08/29/19 Metoprolol Succinate [Toprol Xl] 1 tab PO DAILY 08/29/19 Nifedipine ER [Procardia XL -] 90 mg PO DAILY 08/29/19 Potassium Chloride 40 meq PO TID 08/29/19 Torsemide [Demadex -] 20 mg PO DAILY 08/29/19 Gabapentin 300 mg PO TID 11/14/19 Nifedipine ER 30 mg PO DAILY 11/14/19 Review of Systems - Review of Systems Constitutional: reports: Lethargy, Weakness Eyes: reports: No Symptoms HENT: reports: No Symptoms Neck: reports: No Symptoms Cardiovascular: reports: No Symptoms Respiratory: reports: No Symptoms Gastrointestinal: reports: No Symptoms Genitourinary: reports: No Symptoms Breasts: reports: No Symptoms Reported Musculoskeletal: reports: Back Pain, Muscle Pain Integumentary: reports: No Symptoms Neurological: reports: No Symptoms Endocrine: reports: No Symptoms Hematology/Lymphatic: reports: No Symptoms Psychiatric: reports: No Symptoms Vital Signs: Vital Signs Temperature 99.9 F H 11/17/19 08:10 Pulse Rate 107 H 11/17/19 08:10 Respiratory Rate 30 H 11/17/19 08:10 Blood Pressure 127/84 11/17/19 08:10 O2 Sat by Pulse Oximetry (%) 97 11/17/19 08:10 Constitutional: Yes: Obese, Other (Severe obesity) Eyes: Yes: WNL, Conjunctiva Clear, EOM Intact HENT: Yes: WNL, Atraumatic, Normocephalic Neck: Yes: WNL, Supple, Trachea Midline Respiratory: Yes: WNL, Regular, CTA Bilaterally Gastrointestinal: Yes: WNL, Normal Bowel Sounds, Soft Renal/: Yes: WNL Cardiovascular: Yes: WNL, Regular Rate and Rhythm JVD: No Carotid Bruit: No PMI: Non-Displaced Heart Sounds: Yes: S1, S2 Murmur: Yes: Systolic Murmur, Grade 2 Musculoskeletal: Yes: Back Pain, Muscle Pain Extremities: Yes: Other (Chronic venous stasis) Edema: Yes Edema: LLE: 1+, RLE: 1+ Peripheral Pulses: 1+ Left Doralis Pedis, 1+ Right Dorsalis Pedis Neurological: Yes: WNL, Alert, Oriented ...Motor Strength: WNL - Other Data Labs, Other Data: CBC, BMP 11/17/19 00:50 11/17/19 00:50 INR, PTT INR 1.18 (0.83-1.09) H 11/17/19 00:50 Troponin, BNP 11/17/19 11/17/19 11/17/19 00:50 02:00 06:50 Troponin I 0.21 H Cancelled 0.36 H Troponin, BNP 11/17/19 11/17/19 11/17/19 00:50 02:00 06:50 Troponin I 0.21 H Cancelled 0.36 H Assessment/Plan The patient is a 53-year-old morbidly obese man, with a history of hypertension, hyperlipidemia, congestive heart failure, chronic kidney disease approaching dialysis. Chronic venous stasis, now admitted after a fall. The patient stated that he was getting up from bed and could not sustain his weight and fell down. Denied chest pains and shortness of breath. No palpitations. Also denied paroxysmal nocturnal dyspnea and orthopnea. No loss of consciousness. The patient was supine in no apparent distress at the time of my exam. Most likely an orthostatic event in this morbidly obese patient. There is no evidence of ischemia nor acute coronary syndrome. No CHF. No arrhythmias documented. Please perform orthostatics as possible. Adjust blood pressure medications accordingly. There is no need for cardiac monitoring. No need for further cardiac testing at this point. Please do not hesitate to call us PRN.
[2019-11-17] MEDS: hydrALAZINE HCL 50 MG TABLET (FP) PO SCH ×3 (09:34→22:00)
[2019-11-17] MEDS: NIFEdipine E.R. 90 MG TABLET PO SCH (09:34)
[2019-11-17] MEDS ORDERED: metoPROLOL SUCCINATE 25 MG TAB.SR.24H (FP) ONE (09:36)
[2019-11-17] MEDS: metoPROLOL SUCCINATE 25 MG TAB.SR.24H (FP) PO SCH (09:38)
--- NOTE | 2019-11-17 11:04 | PN ---
Progress Note, Physician Chief Complaint: Fall UTI Hypomagnesemia Anemia Leukocytosis Elevated troponin History of Present Illness: This is a 53 y/o male from [facility] with a significant PMHx of CHF, HTN, CKD Stage 3, Chronic Venous Stasis, Erythema Intertrigo, Severe Obesity. Who presents to the ED s/p unwitnessed fall. Patient reports while getting OOB he fell. Patient denies head trauma or LOC. Patient reports chronic lumbar pain exacerbated while laying on the stretcher. Patient denies fever, chills, cough, SOB, dizziness, HERNANDEZ, CP, palpitations, AP, N/V/D, constipation, dysura. MAD denies any SOB or pain Rigors noted- states he normally has tremors BLLE chronic lymphedema - Current Medication List Current Medications: Active Medications Hydralazine HCl (Apresoline -) 100 mg PO TID [facility] Last Admin: 11/17/19 09:34 Dose: 100 mg Documented by: Metoprolol Succinate (Toprol Xl -) 25 mg PO DAILY [facility] Last Admin: 11/17/19 09:38 Dose: 25 mg Documented by: Nifedipine (Procardia Xl -) 90 mg PO DAILY [facility] Last Admin: 11/17/19 09:34 Dose: 90 mg Documented by: - Objective Vital Signs: Vital Signs Temperature 99.9 F H 11/17/19 08:10 Pulse Rate 107 H 11/17/19 08:10 Respiratory Rate 30 H 11/17/19 08:10 Blood Pressure 127/84 11/17/19 08:10 O2 Sat by Pulse Oximetry (%) 97 11/17/19 08:10 Constitutional: Yes: Well Nourished, No Distress, Calm, Obese Cardiovascular: Yes: Regular Rate and Rhythm Respiratory: Yes: Regular, Diminished Gastrointestinal: Yes: Normal Bowel Sounds, Soft, Abdomen, Obese Genitourinary: Yes: WNL Musculoskeletal: Yes: Muscle Weakness Extremities: Yes: WNL Edema: Yes (BLLE non pitting edema) Peripheral Pulses WNL: Yes Neurological: Yes: Alert, Oriented Psychiatric: Yes: Alert, Oriented Labs: CBC, BMP 11/17/19 00:50 11/17/19 00:50 INR, PTT INR 1.18 (0.83-1.09) H 11/17/19 00:50 Problem List - Problems (1) Anemia Assessment/Plan: -no previous records available -Check Iron,B12,FA,Thyroid profile -Check stool OB Problems reviewed: Yes Code(s): D64.9 - ANEMIA, UNSPECIFIED (2) Fall Assessment/Plan: -Physical therapy -Safety precautions -Check orthostatic vitals Problems reviewed: Yes Code(s): W19.XXXA - UNSPECIFIED FALL, INITIAL ENCOUNTER (3) Elevated troponin Assessment/Plan: -likely demand ischemia -Seen by cardiology -recommended no telemetry Problems reviewed: Yes Code(s): R79.89 - OTHER SPECIFIED ABNORMAL FINDINGS OF BLOOD CHEMISTRY (4) HTN (hypertension) Assessment/Plan: -Resume home meds -Low sodium diet Problems reviewed: Yes Code(s): I10 - ESSENTIAL (PRIMARY) HYPERTENSION (5) Hypocalcemia Assessment/Plan: -nephrology consult Problems reviewed: Yes Code(s): E83.51 - HYPOCALCEMIA (6) Hypomagnesemia Assessment/Plan: -Received 1 gm Mg in ER -Repeat labs pending Problems reviewed: Yes Code(s): E83.42 - HYPOMAGNESEMIA (7) Morbid obesity Assessment/Plan: -RD consult -Low calorie diet Problems reviewed: Yes Code(s): E66.01 - MORBID (SEVERE) OBESITY DUE TO EXCESS CALORIES (8) Leukocytosis Problems reviewed: Yes Code(s): D72.829 - ELEVATED WHITE BLOOD CELL COUNT, UNSPECIFIED (9) UTI (urinary tract infection) Assessment/Plan: -UA + protein,+1 blood, -nitrites, +1 leuks -UC pending -ID consult Problems reviewed: Yes Code(s): N39.0 - URINARY TRACT INFECTION, SITE NOT SPECIFIED (10) Fever Assessment/Plan: -CXR negative -UC/BC pending -ID consult -acetaminophen for fever>100.0F -Received IV zosyn + Vanco in ER Problems reviewed: Yes Code(s): R50.9 - FEVER, UNSPECIFIED Assessment/Plan See problem list
[2019-11-17] MEDS ORDERED: HEPARIN NA (PORCINE) 5,000 UNITS/ML 1ML VIAL ONE (11:59)
[2019-11-17] MEDS: HEPARIN NA (PORCINE) 5,000 UNITS/ML 1ML VIAL SQ SCH ×2 (12:16→22:00)
[2019-11-17] MEDS: ALLOPURINOL 100 MG TABLET (FP) PO SCH (12:20)
[2019-11-17] MEDS: CALCIUM ACETATE 667 MG CAPSULE (FP) PO SCH ×2 (12:20→18:26)
[2019-11-17 13:33] LABS: BASO % 0.3 % (0-2.0); HEMATOCRIT 26.2 % (35.4-49); HEMOGLOBIN 8.1 GM/dL (11.7-16.9); LYMPH % 0.7 % (8-40); MCH 23.7 pg (25.7-33.7); MCHC 30.9 g/dl (32.0-35.9); MEAN CELL VOLUME 76.5 fl (80-96); MONO % 1.7 % (3.8-10.2); NEUT % 97.3 % (42.8-82.8); PLATELET COUNT 215 K/MM3 (134-434); RBC 3.43 M/mm3 (4.00-5.60); RDW 19.6 % (11.9-15.9)
[2019-11-17 14:08] LABS: WHITE BLOOD COUNT 38.4 K/mm3 (4.0-10.0)
[2019-11-17 14:14] LABS: ALBUMIN 2.4 g/dl (3.4-5.0); BILIRUBIN,TOTAL 0.4 mg/dL (0.2-1); BLOOD UREA NITROGEN 85.9 mg/dL (7-18); CALCIUM 7.9 mg/dL (8.5-10.1); CREATININE 4.6 mg/dL (0.55-1.3); POTASSIUM 4.2 mmol/L (3.5-5.1); TOT PROT 6.8 g/dl (6.4-8.2)
[2019-11-17] MEDS: GABAPENTIN 300 MG CAPSULE PO SCH ×2 (15:25→22:00)
--- NOTE | 2019-11-17 15:28 | EKG ---
Test Reason : Blood Pressure : / mmHG Vent. Rate : 129 BPM Atrial Rate : 129 BPM P-R Int : 240 ms QRS Dur : 082 ms QT Int : 222 ms P-R-T Axes : 050 060 152 degrees QTc Int : 325 ms SINUS TACHYCARDIA WITH 1ST DEGREE A-V BLOCK NONSPECIFIC T WAVE ABNORMALITY ABNORMAL ECG NO PREVIOUS ECGS AVAILABLE Confirmed by FRANCO BOWER MD ([id number]) on 11/17/2019 3:27:53 PM Referred By: Confirmed By:FRANCO BOWER MD
[2019-11-17 15:33] LABS: ANISOCYTOSIS 1+; MACROCYTOSIS 0; PLATELET ESTIMATE NORMAL
--- NOTE | 2019-11-17 16:09 | PN ---
Progress Note (short form) - Note Progress Note: SEPSIS HIGH GRADE FEVER/LEUKOCYTOSIS UTI R/O SEPSIS SECONDARY TO UTI ? B/L LE CELLULITIS CKD MORBID OBESITY PENDING SEPSIS W/U EMPIRIC VANCOMYCIN/ ZOSYN, ADJUSTED FOR RENAL FAILURE
[2019-11-17] MEDS ORDERED: ACETAMINOPHEN 325 MG TABLET (FP) ONE (16:42)
[2019-11-17] MEDS: ACETAMINOPHEN 325 MG TABLET (FP) PO PRN (16:43)
[2019-11-17] MEDS ORDERED: VANCOMYCIN HCL 1,500 MG in DEXTROSE 5%-WATER - 500 ML IVPB ONE (16:45)
--- NOTE | 2019-11-17 17:18 | CONS ---
DATE OF CONSULTATION: DATE OF DICTATION: 11/17/2019 INFECTIOUS DISEASE CONSULTATION HISTORY OF PRESENT ILLNESS: The patient is a 53-year-old morbidly obese male who is evaluated for sepsis. He is a senior living resident. He was transferred to the hospital on November 16, 2019, after he was noted to have fever, altered mental status, and an unwitnessed fall. Patient apparently had a mechanical fall without loss of consciousness or head trauma. He denied any associated fever or chills. He was brought to the emergency room, where he was noted to have a temperature of 103, markedly elevated white blood cell count of 38,000. In addition, he had urinary incontinence. Cultures were obtained. He was empirically treated with vancomycin and Zosyn. At the present time, he is awake. He looks like he is having rigors. He denies any focal complaint, no complaints of pain. He denies any chest pain, shortness of breath, cough, or sputum production. No complaints of vomiting or diarrhea. No complaints of dysuria or hematuria. PAST MEDICAL HISTORY: Positive for morbid obesity, chronic kidney disease, hypertension, hyperlipidemia, congestive heart failure, chronic venous stasis, dermatitis of the lower extremities. ALLERGIES: No known allergies. MEDICATION: Include vancomycin, Zosyn, iron, heparin, hydralazine, metoprolol, nifedipine, Tylenol, Neurontin, albuterol. SOCIAL HISTORY: He resides in a senior care facility. He is a nonsmoker, nondrinker. SYSTEMS REVIEW: Neurologic: No loss of consciousness, seizure activity, focal weakness. Cardiac: Negative for chest pain or palpitations. Respiratory: Negative for cough or sputum production. Gastrointestinal: Negative vomiting or diarrhea. Genitourinary: Negative for urinary tract infection. LABORATORY DATA: White count 34.2, 96 neutrophils, 7 bands, 1 lymphocytes, 2 monocytes. Hematocrit 36.6, platelet count 261, creatinine 4.4. Urinalysis 144 white cells. Liver enzymes normal. Blood and urine cultures pending. Chest x-ray, poor film, no gross infiltrate. PHYSICAL EXAMINATION: General: On exam, he is awake. He is noted to have rigors. Vital signs: Temperature 99.9, T-max 103.1, blood pressure 127/84, pulse 104 regular, respirations 30 per minute. HEENT: Sclerae anicteric. Patient is morbidly obese. Cardiovascular: Heart sounds tachycardic. S1, S2. Lungs: Grossly clear. Abdomen: Soft, nontender. Extremities: Positive for chronic venous stasis, dermatitis to lower extremities are warm to touch bilaterally. IMPRESSION: 1. Rigors, rule out sepsis. 2. Fever, marked leukocytosis. 3. Urinary tract infection, rule out sepsis secondary to urinary tract infection. 4. Bilateral lower extremity cellulitis/chronic venous stasis dermatitis. 5. Chronic kidney disease. Pending sepsis workup, empiric antibiotic coverage with vancomycin and Zosyn. Vancomycin and Zosyn adjusted for renal failure. Will follow. Thank you for the kind referral. IAN LUNA M.D. DANISH/[id number]
[2019-11-17] MEDS ORDERED: PIPERACILLIN/TAZOB 3.375 GM 3.375 GM/50 ML BAG IVPB ONE (18:21)
[2019-11-17] MEDS ORDERED: FERROUS SO4 325 MG TABLET (FP) ONE (18:21)
[2019-11-17] MEDS: FERROUS SO4 325 MG TABLET (FP) PO SCH (18:26)
[2019-11-17] MEDS: TORSEMIDE 20 MG TABLET (FP) PO SCH (18:26)
[2019-11-18] MEDS ORDERED: DEXTROSE 5%-WATER - 50 ML IVPB ONE ×3 (00:32→17:13)
[2019-11-18] MEDS ORDERED: PIPERACILLIN/TAZOBACTAM 2.25 GM VIAL IVPB ONE ×3 (00:32→17:12)
[2019-11-18] MEDS: PIPERACILLIN/TAZOB 2.25 GM 2.25 GM in DEXTROSE 5%-WATER - 50 ML IVPB SCH ×3 (01:15→17:19)
[2019-11-18] MEDS: GABAPENTIN 300 MG CAPSULE PO SCH ×3 (05:33→21:54)
[2019-11-18] MEDS: hydrALAZINE HCL 50 MG TABLET (FP) PO SCH ×3 (05:33→21:54)
[2019-11-18] MEDS: TORSEMIDE 20 MG TABLET (FP) PO SCH ×2 (05:33→15:18)
[2019-11-18] MEDS: ACETAMINOPHEN 325 MG TABLET (FP) PO PRN (06:13)
[2019-11-18] MEDS: CALCIUM ACETATE 667 MG CAPSULE (FP) PO SCH ×3 (08:28→17:19)
[2019-11-18] MEDS: FERROUS SO4 325 MG TABLET (FP) PO SCH ×2 (08:28→17:19)
--- NOTE | 2019-11-18 10:35 | PN ---
Progress Note, Physician Chief Complaint: Fall UTI Hypomagnesemia Anemia Leukocytosis Elevated troponin History of Present Illness: This is a 53 y/o male from [facility] with a significant PMHx of CHF, HTN, CKD Stage 3, Chronic Venous Stasis, Erythema Intertrigo, Severe Obesity. Who presents to the ED s/p unwitnessed fall. Patient reports while getting OOB he fell. Patient denies head trauma or LOC. Patient reports chronic lumbar pain exacerbated while laying on the stretcher. Patient denies fever, chills, cough, SOB, dizziness, HERNANDEZ, CP, palpitations, AP, N/V/D, constipation, dysura. denies any SOB or pain Rigors noted- states he normally has tremors BLLE chronic lymphedema 11/18/19: NAD, looks better, denies any pain or SOB Afebrile Labs pending UC +Lcatose fermenting GNB BC + On Zosyn - Current Medication List Current Medications: Active Medications Acetaminophen (Tylenol -) 650 mg PO Q4H PRN PRN Reason: fever>100.0F Last Admin: 11/18/19 06:13 Dose: 650 mg Documented by: Allopurinol (Zyloprim -) 100 mg PO Q48H [facility] Last Admin: 11/17/19 12:20 Dose: 100 mg Documented by: Calcium Acetate (Phoslo -) 667 mg PO TIDCM [facility] Last Admin: 11/18/19 08:28 Dose: 667 mg Documented by: Ferrous Sulfate (Feosol -) 325 mg PO BIDWM [facility] Last Admin: 11/18/19 08:28 Dose: 325 mg Documented by: Gabapentin (Neurontin -) 300 mg PO TID [facility] Last Admin: 11/18/19 05:33 Dose: 300 mg Documented by: Heparin Sodium (Porcine) (Heparin -) 5,000 unit SQ BID [facility] Last Admin: 11/17/19 22:00 Dose: 5,000 unit Documented by: Hydralazine HCl (Apresoline -) 100 mg PO TID [facility] Last Admin: 11/18/19 05:33 Dose: 100 mg Documented by: Piperacillin Sod/Tazobactam (Sod 2.25 gm/ Dextrose) 50 mls @ 100 mls/hr IVPB Q8H-IV [facility]; Protocol Last Admin: 11/18/19 01:15 Dose: 100 mls/hr Documented by: Metoprolol Succinate (Toprol Xl -) 25 mg PO DAILY [facility] Last Admin: 11/17/19 09:38 Dose: 25 mg Documented by: Nifedipine (Procardia Xl -) 90 mg PO DAILY [facility] Last Admin: 11/17/19 09:34 Dose: 90 mg Documented by: Torsemide (Demadex -) 40 mg PO BIDLASIX [facility] Last Admin: 11/18/19 05:33 Dose: 40 mg Documented by: - Objective Vital Signs: Vital Signs Temperature 98.6 F 11/18/19 06:00 Pulse Rate 116 H 11/18/19 06:00 Respiratory Rate 18 11/18/19 06:00 Blood Pressure 148/91 11/18/19 06:00 O2 Sat by Pulse Oximetry (%) 94 L 11/18/19 06:00 Constitutional: Yes: Well Nourished, No Distress, Calm, Obese Cardiovascular: Yes: Tachycardia Respiratory: Yes: Regular, Diminished Gastrointestinal: Yes: Normal Bowel Sounds, Soft, Abdomen, Obese Genitourinary: Yes: Incontinence Musculoskeletal: Yes: Muscle Weakness Extremities: Yes: WNL Edema: Yes (BLLE non pitting edema) Peripheral Pulses WNL: Yes Neurological: Yes: Alert, Oriented Psychiatric: Yes: Alert, Oriented Labs: CBC, BMP 11/17/19 13:15 11/17/19 13:15 INR, PTT INR 1.18 (0.83-1.09) H 11/17/19 00:50 Problem List - Problems (1) Anemia Assessment/Plan: -no previous records available -Iron% low -Start Feosol -B12,FA,Thyroid profile normal -Check stool OB Problems reviewed: Yes Code(s): D64.9 - ANEMIA, UNSPECIFIED (2) Fall Assessment/Plan: -Physical therapy -Safety precautions -Orthostatic vitals pending Problems reviewed: Yes Code(s): W19.XXXA - UNSPECIFIED FALL, INITIAL ENCOUNTER (3) Elevated troponin Assessment/Plan: -likely demand ischemia -Seen by cardiology -recommended no telemetry Problems reviewed: Yes Code(s): R79.89 - OTHER SPECIFIED ABNORMAL FINDINGS OF BLOOD CHEMISTRY (4) HTN (hypertension) Assessment/Plan: -Resume home meds -Low sodium diet -Monitor trend for now Problems reviewed: Yes Code(s): I10 - ESSENTIAL (PRIMARY) HYPERTENSION (5) Hypocalcemia Assessment/Plan: -nephrology consult Problems reviewed: Yes Code(s): E83.51 - HYPOCALCEMIA (6) Hypomagnesemia Assessment/Plan: -Received 1 gm Mg in ER -Repeat labs pending Problems reviewed: Yes Code(s): E83.42 - HYPOMAGNESEMIA (7) Morbid obesity Assessment/Plan: -RD consult -Low calorie diet Problems reviewed: Yes Code(s): E66.01 - MORBID (SEVERE) OBESITY DUE TO EXCESS CALORIES (8) Leukocytosis Problems reviewed: Yes Code(s): D72.829 - ELEVATED WHITE BLOOD CELL COUNT, UNSPECIFIED (9) UTI (urinary tract infection) Assessment/Plan: -UA + protein,+1 blood, -nitrites, +1 leuks -UC: Microbiology 11/17/19 02:45 Urine Culture - Final Urine - Urine Clean Catch Lactose Fermenting Neg Bacilli 11/17/19 00:50 Blood Culture - Preliminary Blood - Peripheral Venous NO GROWTH OBTAINED AFTER 24 HOURS, INCUBATION TO CONTINUE FOR 4 DAYS. 11/17/19 00:50 Blood Culture - Preliminary Blood - Peripheral Venous Pending Organism -ID consult -Continue IV zosyn Problems reviewed: Yes Code(s): N39.0 - URINARY TRACT INFECTION, SITE NOT SPECIFIED (10) Fever Assessment/Plan: -CXR negative -UC/BC: Microbiology 11/17/19 02:45 Urine Culture - Final Urine - Urine Clean Catch Lactose Fermenting Neg Bacilli 11/17/19 00:50 Blood Culture - Preliminary Blood - Peripheral Venous NO GROWTH OBTAINED AFTER 24 HOURS, INCUBATION TO CONTINUE FOR 4 DAYS. 11/17/19 00:50 Blood Culture - Preliminary Blood - Peripheral Venous Pending Organism -ID consult -acetaminophen for fever>100.0F -Received IV zosyn + Vanco in ER, continue zosyn for now Problems reviewed: Yes Code(s): R50.9 - FEVER, UNSPECIFIED (11) Sepsis Assessment/Plan: -as above Problems reviewed: Yes Code(s): A41.9 - SEPSIS, UNSPECIFIED ORGANISM Qualifiers: Sepsis type: sepsis due to unspecified organism Assessment/Plan See problem list
[2019-11-18 10:53] LABS: BASO % 0.3 % (0-2.0); EOS % 0.1 % (0-4.5); HEMATOCRIT 24.6 % (35.4-49); HEMOGLOBIN 7.5 GM/dL (11.7-16.9); LYMPH % 1.7 % (8-40); MCH 23.2 pg (25.7-33.7); MCHC 30.6 g/dl (32.0-35.9); MEAN CELL VOLUME 75.8 fl (80-96); MEAN PLT VOLUME 7.6 fl (7.5-11.1); MONO % 2.1 % (3.8-10.2); NEUT % 95.8 % (42.8-82.8); PLATELET COUNT 180 K/MM3 (134-434); RBC 3.25 M/mm3 (4.00-5.60)
[2019-11-18 11:06] LABS: ALBUMIN 2.3 g/dl (3.4-5.0); BILIRUBIN,TOTAL 0.4 mg/dL (0.2-1); BLOOD UREA NITROGEN 85.9 mg/dL (7-18); CALCIUM 7.9 mg/dL (8.5-10.1); CREATININE 5.1 mg/dL (0.55-1.3); MAGNESIUM 1.6 mg/dL (1.8-2.4); TOT PROT 6.7 g/dl (6.4-8.2)
[2019-11-18] MEDS: NIFEdipine E.R. 90 MG TABLET PO SCH (11:20)
[2019-11-18] MEDS: HEPARIN NA (PORCINE) 5,000 UNITS/ML 1ML VIAL SQ SCH ×2 (11:20→21:54)
[2019-11-18] MEDS: metoPROLOL SUCCINATE 25 MG TAB.SR.24H (FP) PO SCH (11:21)
--- NOTE | 2019-11-18 11:49 | PN ---
Progress Note (short form) - Note Progress Note: PULMONARY CONSULTATION DICTATED 11/18/19 IMP SEPSIS FEVERS ? CELULITIS,? ALTERED MENTAL STATUS LIKELY TOXIC METABOLIC ENCEPHALOPATHY DYSPNEA S/P MECHANICAL FALL CHF CKD HTN HLD MORBID OBESITY SUSPECTED OSAS/OHS ANEMIA PLAN SUPPLEMENTAL O2 ABG ABX PER ID CULTURES DVT PROPHYLAXIS OUTPATIENT SLEEP STUDIES MONITOR LYTES,RENAL FUNCTION,CBC MONITOR URINE OUTPUT F/U CHEST X-RAY DR ELY Problem List - Problems (1) Anemia Code(s): D64.9 - ANEMIA, UNSPECIFIED (2) CKD (chronic kidney disease) Code(s): N18.9 - CHRONIC KIDNEY DISEASE, UNSPECIFIED (3) Fall Code(s): W19.XXXA - UNSPECIFIED FALL, INITIAL ENCOUNTER (4) Fever Code(s): R50.9 - FEVER, UNSPECIFIED (5) HLD (hyperlipidemia) Code(s): E78.5 - HYPERLIPIDEMIA, UNSPECIFIED (6) HTN (hypertension) Code(s): I10 - ESSENTIAL (PRIMARY) HYPERTENSION (7) Leukocytosis Code(s): D72.829 - ELEVATED WHITE BLOOD CELL COUNT, UNSPECIFIED (8) Morbid obesity Code(s): E66.01 - MORBID (SEVERE) OBESITY DUE TO EXCESS CALORIES (9) Sepsis Code(s): A41.9 - SEPSIS, UNSPECIFIED ORGANISM Qualifiers: Sepsis type: sepsis due to unspecified organism (10) UTI (urinary tract infection) Code(s): N39.0 - URINARY TRACT INFECTION, SITE NOT SPECIFIED (11) ESRD (end stage renal disease) Code(s): N18.6 - END STAGE RENAL DISEASE
[2019-11-18 11:57] LABS: ANISOCYTOSIS 1+; MACROCYTOSIS 1+; PLATELET ESTIMATE NORMAL
--- NOTE | 2019-11-18 13:16 | CONSULT ---
- Consultation REQUESTING PROVIDER: CONSULT REQUEST: We have been asked to surgically evaluate this patient for rue avf Hospitalist:Nishant Mansfield HISTORY OF PRESENT ILLNESS: 53 y/o M from [facility] w/ PMHx CHF, HTN, CKD Stage 3, Chronic Venous Stasis, Erythema Intertrigo, morbid Obesity sent to ed after unwitnessed fall. vascular consulted for evaluation of RUE AVF. Pt had creation of RUE radio-cephalic avf on 10/12. Had a PC at that time for temporary dialysis, which has since been removed. No with UTI and mrsa bacteremia. PMHx: as above PSHx: as above Home Medications Medication Instructions Recorded Acetaminophen [Tylenol] 2 tab PO Q48H 08/29/19 Allopurinol [Zyloprim -] 1 tab PO Q48H 08/29/19 Calcium Acetate 667 mg PO TID 08/29/19 Hydralazine HCl 1 tab PO Q8H 08/29/19 Metolazone 1 tab PO DAILY 08/29/19 Metoprolol Succinate [Toprol Xl] 1 tab PO DAILY 08/29/19 Nifedipine ER [Procardia XL -] 90 mg PO DAILY 08/29/19 Potassium Chloride 40 meq PO TID 08/29/19 Torsemide [Demadex -] 20 mg PO DAILY 08/29/19 Gabapentin 300 mg PO TID 11/14/19 Nifedipine ER 30 mg PO DAILY 11/14/19 Allergies Allergy/AdvReac Type Severity Reaction Status Date / Time No Known Allergies Allergy Verified 11/16/19 23:36 REVIEW OF SYSTEMS: CONSTITUTIONAL: Absent: fever, chills CARDIOVASCULAR: Absent: chest pain, syncope RESPIRATORY: Absent: cough, shortness of breath GASTROINTESTINAL: Absent: abdominal pain, abdominal distension PHYSICAL EXAM: GENERAL: Awake, alert, and fully oriented, in no acute distress. HEAD: Normal with no signs of trauma. LUNGS: Unlabored on RA. No accessory muscle use. UPPER EXTREMITIES: RUE with well healed incision at AC fossa, + strong thrill palpable, hand warm, well-perfused. No cyanosis. Cap refill <2 seconds. Palpable radial/ulnar pulse LOWER EXTREMITIES: b/l les with chronic hyperkeratosis and papillomatosis, no open wounds visible, no erythema noted. Vital Signs Temperature 98.6 F 11/18/19 06:00 Pulse Rate 116 H 11/18/19 06:00 Respiratory Rate 18 11/18/19 06:00 Blood Pressure 148/91 11/18/19 06:00 O2 Sat by Pulse Oximetry (%) 94 L 11/18/19 06:00 Lab Results WBC 28.0 K/mm3 (4.0-10.0) H 11/18/19 07:30 RBC 3.25 M/mm3 (4.00-5.60) L 11/18/19 07:30 Hgb 7.5 GM/dL (11.7-16.9) L 11/18/19 07:30 Hct 24.6 % (35.4-49) L 11/18/19 07:30 MCV 75.8 fl (80-96) L 11/18/19 07:30 MCHC 30.6 g/dl (32.0-35.9) L 11/18/19 07:30 RDW 20.0 % (11.9-15.9) H 11/18/19 07:30 Plt Count 180 K/MM3 (134-434) 11/18/19 07:30 INR 1.18 (0.83-1.09) H 11/17/19 00:50 Sodium 137 mmol/L (136-145) 11/18/19 07:30 Potassium 4.0 mmol/L (3.5-5.1) 11/18/19 07:30 Chloride 101 mmol/L (98-107) 11/18/19 07:30 Carbon Dioxide 23 mmol/L (21-32) 11/18/19 07:30 Anion Gap 13 MMOL/L (8-16) 11/18/19 07:30 BUN 85.9 mg/dL (7-18) H 11/18/19 07:30 Creatinine 5.1 mg/dL (0.55-1.3) H 11/18/19 07:30 Random Glucose 111 mg/dL (74-106) H 11/18/19 07:30 Calcium 7.9 mg/dL (8.5-10.1) L 11/18/19 07:30 A/P: 53 y/o M from [facility] w/ PMHx CHF, HTN, CKD Stage 3, Chronic Venous Stasis, Erythema Intertrigo, morbid Obesity sent to ed after unwitnessed fall. vascular consulted for evaluation of RUE AVF. duplex done 11/08, reviewed by attending Dr Garcia, avf ready for use when pt needs HD Call with any questions/concerns d/w attending Dr Garcia
--- NOTE | 2019-11-18 13:26 | PN ---
Progress Note, Physician History of Present Illness: Pt seen and examined at bedside. He is awake and alert. - Current Medication List Current Medications: Active Medications Acetaminophen (Tylenol -) 650 mg PO Q4H PRN PRN Reason: fever>100.0F Last Admin: 11/18/19 06:13 Dose: 650 mg Documented by: Allopurinol (Zyloprim -) 100 mg PO Q48H [facility] Last Admin: 11/17/19 12:20 Dose: 100 mg Documented by: Calcium Acetate (Phoslo -) 667 mg PO TIDCM [facility] Last Admin: 11/18/19 11:20 Dose: 667 mg Documented by: Ferrous Sulfate (Feosol -) 325 mg PO BIDWM [facility] Last Admin: 11/18/19 08:28 Dose: 325 mg Documented by: Gabapentin (Neurontin -) 300 mg PO TID [facility] Last Admin: 11/18/19 05:33 Dose: 300 mg Documented by: Heparin Sodium (Porcine) (Heparin -) 5,000 unit SQ BID [facility] Last Admin: 11/18/19 11:20 Dose: 5,000 unit Documented by: Hydralazine HCl (Apresoline -) 100 mg PO TID [facility] Last Admin: 11/18/19 05:33 Dose: 100 mg Documented by: Piperacillin Sod/Tazobactam (Sod 2.25 gm/ Dextrose) 50 mls @ 100 mls/hr IVPB Q8H-IV [facility]; Protocol Last Admin: 11/18/19 11:21 Dose: 100 mls/hr Documented by: Metoprolol Succinate (Toprol Xl -) 25 mg PO DAILY [facility] Last Admin: 11/18/19 11:21 Dose: 25 mg Documented by: Nifedipine (Procardia Xl -) 90 mg PO DAILY [facility] Last Admin: 11/18/19 11:20 Dose: 90 mg Documented by: Torsemide (Demadex -) 40 mg PO BIDLASIX [facility] Last Admin: 11/18/19 05:33 Dose: 40 mg Documented by: - Objective Vital Signs: Vital Signs Temperature 98.6 F 11/18/19 06:00 Pulse Rate 116 H 11/18/19 06:00 Respiratory Rate 18 11/18/19 06:00 Blood Pressure 148/91 11/18/19 06:00 O2 Sat by Pulse Oximetry (%) 94 L 11/18/19 06:00 Constitutional: Yes: Calm Eyes: Yes: Conjunctiva Clear HENT: Yes: Atraumatic Neck: Yes: Supple Cardiovascular: Yes: S1, S2 Respiratory: Yes: On Nasal O2 Gastrointestinal: Yes: Soft, Abdomen, Obese Genitourinary: Yes: Incontinence Musculoskeletal: Yes: WNL Edema: Yes Edema: LLE: 2+, RLE: 2+ Neurological: Yes: Oriented Psychiatric: Yes: Oriented Labs: CBC, BMP 11/18/19 07:30 11/18/19 07:30 INR, PTT INR 1.18 (0.83-1.09) H 11/17/19 00:50 Problem List - Problems (1) Anemia Code(s): D64.9 - ANEMIA, UNSPECIFIED (2) CKD (chronic kidney disease) Code(s): N18.9 - CHRONIC KIDNEY DISEASE, UNSPECIFIED (3) Fall Code(s): W19.XXXA - UNSPECIFIED FALL, INITIAL ENCOUNTER Assessment/Plan Current Medications Generic Name Dose Route Start Last Admin Trade Name Freq PRN Reason Stop Dose Admin Acetaminophen 650 mg 11/17/19 11:06 11/18/19 06:13 Tylenol - PO 650 mg Q4H PRN Administration fever>100.0F Allopurinol 100 mg 11/17/19 11:15 11/17/19 12:20 Zyloprim - PO 100 mg Q48H [place] Administration Calcium Acetate 667 mg 11/17/19 12:00 11/18/19 11:20 Phoslo - PO 667 mg TIDCM [place] Administration Ferrous Sulfate 325 mg 11/17/19 17:30 11/18/19 08:28 Feosol - PO 325 mg BIDWM [place] Administration Gabapentin 300 mg 11/17/19 14:00 11/18/19 05:33 Neurontin - PO 300 mg TID [place] Administration Heparin Sodium (Porcine) 5,000 unit 11/17/19 11:15 11/18/19 11:20 Heparin - SQ 5,000 unit BID [place] Administration Hydralazine HCl 100 mg 11/17/19 09:00 11/18/19 05:33 Apresoline - PO 100 mg TID [place] Administration Piperacillin Sod/Tazobactam 50 mls @ 100 mls/hr 11/17/19 18:00 11/18/19 11:21 Sod 2.25 gm/ Dextrose IVPB 100 mls/hr Q8H-IV [facility] Administration Protocol Metoprolol Succinate 25 mg 11/17/19 10:00 11/18/19 11:21 Toprol Xl - PO 25 mg DAILY [facility] Administration Nifedipine 90 mg 11/17/19 10:00 11/18/19 11:20 Procardia Xl - PO 90 mg DAILY [place] Administration Torsemide 40 mg 11/17/19 17:30 11/18/19 05:33 Demadex - PO 40 mg BIDLASIX [place] Administration Impression 1. CKD 2. htn 3. dm 4. obesity 5. sepsis 6. cellulitis 7. gout 8. chf Plan - cont to monitor renal function - will hold torsemide - monitor volume statu - vascular to evaluate fistula - cont abx - follow cultures - wbc improving
[2019-11-18 13:28] LABS: ARTERIAL BLD GAS O2 SATURATION 90.2 mmHg (95-98); ARTERIAL BLOOD GAS BASE EXCESS -3.3 mmol/L (-2-2); ARTERIAL BLOOD GAS PO2 64.6 mmHg (80-100); ARTERIAL BLOOD GAS pH 7.294 (7.350-7.450)
[2019-11-18 13:34] LABS: ALLENS TEST POSITIVE
--- NOTE | 2019-11-18 23:19 | PN ---
Progress Note, Physician Chief Complaint: AWAKE, ALERT IN BED FEELING BETTER NO FOCAL COMPLAINT LOW GRADE TEMP WBC REMAINS ELEVATED VANCO TROUGH NOTED - Current Medication List Current Medications: Active Medications Acetaminophen (Tylenol -) 650 mg PO Q4H PRN PRN Reason: fever>100.0F Last Admin: 11/18/19 06:13 Dose: 650 mg Documented by: Allopurinol (Zyloprim -) 100 mg PO Q48H [facility] Last Admin: 11/17/19 12:20 Dose: 100 mg Documented by: Calcium Acetate (Phoslo -) 667 mg PO TIDCM [facility] Last Admin: 11/18/19 17:19 Dose: 667 mg Documented by: Ferrous Sulfate (Feosol -) 325 mg PO BIDWM [facility] Last Admin: 11/18/19 17:19 Dose: 325 mg Documented by: Gabapentin (Neurontin -) 300 mg PO TID [facility] Last Admin: 11/18/19 21:54 Dose: 300 mg Documented by: Heparin Sodium (Porcine) (Heparin -) 5,000 unit SQ BID [facility] Last Admin: 11/18/19 21:54 Dose: 5,000 unit Documented by: Hydralazine HCl (Apresoline -) 100 mg PO TID [facility] Last Admin: 11/18/19 21:54 Dose: 100 mg Documented by: Piperacillin Sod/Tazobactam (Sod 2.25 gm/ Dextrose) 50 mls @ 100 mls/hr IVPB Q8H-IV [facility]; Protocol Last Admin: 11/18/19 17:19 Dose: 100 mls/hr Documented by: Metoprolol Succinate (Toprol Xl -) 25 mg PO DAILY [facility] Last Admin: 11/18/19 11:21 Dose: 25 mg Documented by: Nifedipine (Procardia Xl -) 90 mg PO DAILY [facility] Last Admin: 11/18/19 11:20 Dose: 90 mg Documented by: Torsemide (Demadex -) 40 mg PO BIDLASIX [facility] Last Admin: 11/18/19 15:18 Dose: 40 mg Documented by: - Objective Vital Signs: Vital Signs Temperature 99.3 F 11/18/19 22:00 Pulse Rate 110 H 11/18/19 22:00 Respiratory Rate 22 H 11/18/19 22:00 Blood Pressure 150/81 11/18/19 22:00 O2 Sat by Pulse Oximetry (%) 93 L 11/18/19 22:00 Constitutional: Yes: Obese Eyes: Yes: Conjunctiva Clear Cardiovascular: Yes: Regular Rate and Rhythm, S1, S2 Respiratory: Yes: CTA Bilaterally Gastrointestinal: Yes: Normal Bowel Sounds, Soft, Abdomen, Obese Extremities: Yes: Other (+ LE EDEMA, CHRONIC VENOUS STASIS, WARMTH) Labs: CBC, BMP 11/18/19 07:30 11/18/19 07:30 INR, PTT INR 1.18 (0.83-1.09) H 11/17/19 00:50 Assessment/Plan SEPSIS UTI ? SEPSIS SECONDARY TO UTI R/O B/L LE CELLULITIS CKD MORBID OBESITY MARKED LEUKOCYTOSIS CONTINUE EMPIRIC ZOSYN
[2019-11-19] MEDS ORDERED: DEXTROSE 5%-WATER - 50 ML IVPB ONE ×3 (00:23→17:25)
[2019-11-19] MEDS ORDERED: PIPERACILLIN/TAZOBACTAM 2.25 GM VIAL IVPB ONE ×3 (00:23→17:24)
[2019-11-19] MEDS: PIPERACILLIN/TAZOB 2.25 GM 2.25 GM in DEXTROSE 5%-WATER - 50 ML IVPB SCH ×3 (01:02→17:26)
[2019-11-19] MEDS: TORSEMIDE 20 MG TABLET (FP) PO SCH (06:15)
[2019-11-19] MEDS: GABAPENTIN 300 MG CAPSULE PO SCH ×3 (06:16→21:23)
[2019-11-19] MEDS: hydrALAZINE HCL 50 MG TABLET (FP) PO SCH ×3 (06:16→21:23)
--- NOTE | 2019-11-19 06:45 | PN ---
Progress Note, Physician History of Present Illness: PULMONARY PT DEVELOPED RESP ISTRESS,HYPOXEMIA EARLIER PLACED ON ON BIPAP. PT CURRENTLY POORLY RESPONSIVE - Current Medication List Current Medications: Active Medications Acetaminophen (Tylenol -) 650 mg PO Q4H PRN PRN Reason: fever>100.0F Last Admin: 11/18/19 06:13 Dose: 650 mg Documented by: Allopurinol (Zyloprim -) 100 mg PO Q48H [facility] Last Admin: 11/17/19 12:20 Dose: 100 mg Documented by: Calcium Acetate (Phoslo -) 667 mg PO TIDCM [facility] Last Admin: 11/18/19 17:19 Dose: 667 mg Documented by: Ferrous Sulfate (Feosol -) 325 mg PO BIDWM [facility] Last Admin: 11/18/19 17:19 Dose: 325 mg Documented by: Gabapentin (Neurontin -) 300 mg PO TID [facility] Last Admin: 11/19/19 06:16 Dose: Not Given Documented by: Heparin Sodium (Porcine) (Heparin -) 5,000 unit SQ BID [facility] Last Admin: 11/18/19 21:54 Dose: 5,000 unit Documented by: Hydralazine HCl (Apresoline -) 100 mg PO TID [facility] Last Admin: 11/19/19 06:16 Dose: Not Given Documented by: Piperacillin Sod/Tazobactam (Sod 2.25 gm/ Dextrose) 50 mls @ 100 mls/hr IVPB Q8H-IV [facility]; Protocol Last Admin: 11/19/19 01:02 Dose: 100 mls/hr Documented by: Metoprolol Succinate (Toprol Xl -) 25 mg PO DAILY [facility] Last Admin: 11/18/19 11:21 Dose: 25 mg Documented by: Nifedipine (Procardia Xl -) 90 mg PO DAILY [facility] Last Admin: 11/18/19 11:20 Dose: 90 mg Documented by: Torsemide (Demadex -) 40 mg PO BIDLASIX [facility] Last Admin: 11/19/19 06:15 Dose: Not Given Documented by: - Objective Vital Signs: Vital Signs Temperature 99.8 F H 11/19/19 05:59 Pulse Rate 95 H 11/19/19 05:59 Respiratory Rate 22 H 11/19/19 05:59 Blood Pressure 139/74 11/19/19 05:59 O2 Sat by Pulse Oximetry (%) 94 L 11/19/19 05:59 Constitutional: Yes: Obese (MORBIDLY OBESE), Other (POORLY RESPONSIVE) Eyes: Yes: WNL HENT: Yes: WNL Neck: Yes: WNL Cardiovascular: Yes: Regular Rate and Rhythm, S1, S2 Respiratory: Yes: Diminished Gastrointestinal: Yes: Normal Bowel Sounds, Abdomen, Obese Extremities: Yes: WNL Edema: Yes Labs: CBC, BMP Laboratory Tests 11/18/19 12:54 ABG pH 7.294 L ABG pCO2 49.00 H ABG pO2 64.6 L ABG HCO3 23.2 ABG O2 Sat (Measured) 90.2 L - ....Imaging Chest X-ray: Report Reviewed, Image Reviewed (R PLEURAL EFFUSION,?CONSOLIDATION) Problem List - Problems (1) Anemia Code(s): D64.9 - ANEMIA, UNSPECIFIED (2) CKD (chronic kidney disease) Code(s): N18.9 - CHRONIC KIDNEY DISEASE, UNSPECIFIED (3) Fall Code(s): W19.XXXA - UNSPECIFIED FALL, INITIAL ENCOUNTER (4) Fever Code(s): R50.9 - FEVER, UNSPECIFIED (5) HLD (hyperlipidemia) Code(s): E78.5 - HYPERLIPIDEMIA, UNSPECIFIED (6) HTN (hypertension) Code(s): I10 - ESSENTIAL (PRIMARY) HYPERTENSION (7) Leukocytosis Code(s): D72.829 - ELEVATED WHITE BLOOD CELL COUNT, UNSPECIFIED (8) Morbid obesity Code(s): E66.01 - MORBID (SEVERE) OBESITY DUE TO EXCESS CALORIES (9) Sepsis Code(s): A41.9 - SEPSIS, UNSPECIFIED ORGANISM Qualifiers: Sepsis type: sepsis due to unspecified organism (10) UTI (urinary tract infection) Code(s): N39.0 - URINARY TRACT INFECTION, SITE NOT SPECIFIED (11) ESRD (end stage renal disease) Code(s): N18.6 - END STAGE RENAL DISEASE Assessment/Plan IMP SEPSIS FEVERS ? CELULITIS,? ALTERED MENTAL STATUS LIKELY TOXIC METABOLIC ENCEPHALOPATHY DYSPNEA S/P MECHANICAL FALL CHF ACUTE ON CKD WORSENING HTN HLD MORBID OBESITY SUSPECTED OSAS/OHS ANEMIA ACUTE HYPOXEMIC/HYPERCAPNEIC RESP FAILURE PLAN SUPPLEMENTAL O2 ABG NIPPV ABX PER ID DVT PROPHYLAXIS OUTPATIENT SLEEP STUDIES MONITOR LYTES,RENAL FUNCTION,CBC MONITOR URINE OUTPUT F/U CHEST X-RAY DR ELY Problem List - Problems (1) Anemia Code(s): D64.9 - ANEMIA, UNSPECIFIED (2) CKD (chronic kidney disease) Code(s): N18.9 - CHRONIC KIDNEY DISEASE, UNSPECIFIED (3) Fall Code(s): W19.XXXA - UNSPECIFIED FALL, INITIAL ENCOUNTER (4) Fever Code(s): R50.9 - FEVER, UNSPECIFIED (5) HLD (hyperlipidemia) Code(s): E78.5 - HYPERLIPIDEMIA, UNSPECIFIED (6) HTN (hypertension) Code(s): I10 - ESSENTIAL (PRIMARY) HYPERTENSION (7) Leukocytosis Code(s): D72.829 - ELEVATED WHITE BLOOD CELL COUNT, UNSPECIFIED (8) Morbid obesity Code(s): E66.01 - MORBID (SEVERE) OBESITY DUE TO EXCESS CALORIES (9) Sepsis Code(s): A41.9 - SEPSIS, UNSPECIFIED ORGANISM Qualifiers: Sepsis type: sepsis due to unspecified organism (10) UTI (urinary tract infection) Code(s): N39.0 - URINARY TRACT INFECTION, SITE NOT SPECIFIED (11) ESRD (end stage renal disease) Code(s): N18.6 - END STAGE RENAL DISEASE
[2019-11-19] MEDS: FERROUS SO4 325 MG TABLET (FP) PO SCH ×2 (08:02→16:45)
[2019-11-19] MEDS: CALCIUM ACETATE 667 MG CAPSULE (FP) PO SCH ×3 (08:03→16:45)
--- NOTE | 2019-11-19 08:04 | RAPID ---
Physical Examination Vital Signs: Rapid response paged overhead at 7:47AM. pest control specialist team responded immediately. On arrival patient lying in bed in mild distress due to SOB. Vital Signs Temperature 99.8 F H 11/19/19 05:59 Pulse Rate 95 H 11/19/19 05:59 Respiratory Rate 22 H 11/19/19 05:59 Blood Pressure 139/74 11/19/19 05:59 O2 Sat by Pulse Oximetry (%) 94 L 11/19/19 05:59 SaO2 84% on NRB on arrival. Improved to 87%. Labs: CBC, BMP 11/18/19 07:30 11/18/19 07:30 Rapid Response - Rapid Response Assessment: A/P CXR ABG BIPAP settings 02/22/18/100% pt is making urine, will f/u cxr & assess need for diuresis medications were reviewed, no recent new introduction of medications noted
[2019-11-19 08:31] LABS: BASO % 0.3 % (0-2.0); EOS % 0.2 % (0-4.5); HEMATOCRIT 26.2 % (35.4-49); LYMPH % 3.5 % (8-40); MCH 23.8 pg (25.7-33.7); MCHC 30.5 g/dl (32.0-35.9); MEAN PLT VOLUME 7.8 fl (7.5-11.1); MONO % 1.4 % (3.8-10.2); NEUT % 94.6 % (42.8-82.8); PLATELET COUNT 181 K/MM3 (134-434); RBC 3.36 M/mm3 (4.00-5.60); RDW 19.4 % (11.9-15.9); WHITE BLOOD COUNT 23.4 K/mm3 (4.0-10.0)
[2019-11-19 09:00] LABS: ALBUMIN 2.4 g/dl (3.4-5.0); BILIRUBIN,TOTAL 0.3 mg/dL (0.2-1); CALCIUM 8.2 mg/dL (8.5-10.1); CREATININE 6.6 mg/dL (0.55-1.3); POTASSIUM 5.4 mmol/L (3.5-5.1); TOT PROT 7.4 g/dl (6.4-8.2)
[2019-11-19] MEDS: NIFEdipine E.R. 90 MG TABLET PO SCH (09:05)
[2019-11-19] MEDS: metoPROLOL SUCCINATE 25 MG TAB.SR.24H (FP) PO SCH (09:05)
[2019-11-19] MEDS: HEPARIN NA (PORCINE) 5,000 UNITS/ML 1ML VIAL SQ SCH ×2 (09:15→21:22)
[2019-11-19 10:29] LABS: BLOOD UREA NITROGEN 108.3 mg/dL (7-18)
--- NOTE | 2019-11-19 10:34 | PN ---
Progress Note, Physician History of Present Illness: This is a 53 y/o male from [facility] with a significant PMHx of CHF, HTN, CKD Stage 3, Chronic Venous Stasis, Erythema Intertrigo, Severe Obesity. Who presents to the ED s/p unwitnessed fall. Patient reports while getting OOB he fell. Patient denies head trauma or LOC. Patient reports chronic lumbar pain exacerbated while laying on the stretcher. Patient denies fever, chills, cough, SOB, dizziness, HERNANDEZ, CP, palpitations, AP, N/V/D, constipation, dysura. denies any SOB or pain Rigors noted- states he normally has tremors BLLE chronic lymphedema 11/18/19: NAD, looks better, denies any pain or SOB Afebrile Labs pending UC +Lcatose fermenting GNB BC + On Zosyn - Current Medication List Current Medications: Active Medications Acetaminophen (Tylenol -) 650 mg PO Q4H PRN PRN Reason: fever>100.0F Last Admin: 11/18/19 06:13 Dose: 650 mg Documented by: Albuterol/Ipratropium (Duoneb -) 1 amp NEB RQID [facility] Allopurinol (Zyloprim -) 100 mg PO Q48H [facility] Last Admin: 11/17/19 12:20 Dose: 100 mg Documented by: Calcium Acetate (Phoslo -) 667 mg PO TIDCM [facility] Last Admin: 11/19/19 08:03 Dose: Not Given Documented by: Ferrous Sulfate (Feosol -) 325 mg PO BIDWM [facility] Last Admin: 11/19/19 08:02 Dose: Not Given Documented by: Gabapentin (Neurontin -) 300 mg PO TID [facility] Last Admin: 11/19/19 06:16 Dose: Not Given Documented by: Heparin Sodium (Porcine) (Heparin -) 5,000 unit SQ BID [facility] Last Admin: 11/19/19 09:15 Dose: 5,000 unit Documented by: Hydralazine HCl (Apresoline -) 100 mg PO TID [facility] Last Admin: 11/19/19 06:16 Dose: Not Given Documented by: Piperacillin Sod/Tazobactam (Sod 2.25 gm/ Dextrose) 50 mls @ 100 mls/hr IVPB Q8H-IV [facility]; Protocol Last Admin: 11/19/19 09:15 Dose: 100 mls/hr Documented by: Metoprolol Succinate (Toprol Xl -) 25 mg PO DAILY [facility] Last Admin: 11/19/19 09:05 Dose: Not Given Documented by: Nifedipine (Procardia Xl -) 90 mg PO DAILY [facility] Last Admin: 11/19/19 09:05 Dose: Not Given Documented by: Torsemide (Demadex -) 40 mg PO BIDLASIX [facility] Last Admin: 11/19/19 06:15 Dose: Not Given Documented by: - Objective Vital Signs: Vital Signs Temperature 97.3 F L 11/19/19 08:34 Pulse Rate 91 H 11/19/19 08:34 Respiratory Rate 20 11/19/19 08:34 Blood Pressure 102/51 L 11/19/19 08:34 O2 Sat by Pulse Oximetry (%) 99 11/19/19 08:34 Cardiovascular: Yes: S1, S2 Respiratory: Yes: On BiPap Gastrointestinal: Yes: Normal Bowel Sounds, Soft Edema: No Labs: CBC, BMP 11/19/19 07:40 11/19/19 07:40 INR, PTT INR 1.18 (0.83-1.09) H 11/17/19 00:50 Assessment/Plan - Problems (1) Anemia Assessment/Plan: -no previous records available -Iron% low -Start Feosol -B12,FA,Thyroid profile normal -Check stool OB Problems reviewed: Yes Code(s): D64.9 - ANEMIA, UNSPECIFIED (2) Fall Assessment/Plan: -Physical therapy -Safety precautions -Orthostatic vitals pending Problems reviewed: Yes Code(s): W19.XXXA - UNSPECIFIED FALL, INITIAL ENCOUNTER (3) Elevated troponin Assessment/Plan: -likely demand ischemia -Seen by cardiology -recommended no telemetry Problems reviewed: Yes Code(s): R79.89 - OTHER SPECIFIED ABNORMAL FINDINGS OF BLOOD CHEMISTRY (4) HTN (hypertension) Assessment/Plan: -Resume home meds -Low sodium diet -Monitor trend for now Problems reviewed: Yes Code(s): I10 - ESSENTIAL (PRIMARY) HYPERTENSION (5) Hypocalcemia Assessment/Plan: -nephrology consult Problems reviewed: Yes Code(s): E83.51 - HYPOCALCEMIA (6) Hypomagnesemia Assessment/Plan: -Received 1 gm Mg in ER -Repeat labs pending Problems reviewed: Yes Code(s): E83.42 - HYPOMAGNESEMIA (7) Morbid obesity Assessment/Plan: -RD consult -Low calorie diet Problems reviewed: Yes Code(s): E66.01 - MORBID (SEVERE) OBESITY DUE TO EXCESS CALORIES (8) Respiratory failure cxr noted--new rt base changes on zosyn npo ivf Problems reviewed: Yes (9) UTI (urinary tract infection) Assessment/Plan: -UA + protein,+1 blood, -nitrites, +1 leuks -UC: Microbiolo
[2019-11-19] MEDS: ALLOPURINOL 100 MG TABLET (FP) PO SCH (10:43)
[2019-11-19 11:38] LABS: ARTERIAL BLD GAS O2 SATURATION 98.4 mmHg (95-98); ARTERIAL BLOOD GAS BASE EXCESS -6.1 mmol/L (-2-2); ARTERIAL BLOOD GAS PO2 142.1 mmHg (80-100); ARTERIAL BLOOD GAS pH 7.231 (7.350-7.450)
[2019-11-19 11:43] LABS: ANISOCYTOSIS 1+; MACROCYTOSIS 0; OVALOCYTE 1+; PLATELET ESTIMATE NORMAL; TEAR DROP CELLS 1+
[2019-11-19 11:44] LABS: ALLENS TEST POSITIVE
[2019-11-19 11:45] LABS: VENT MODE S/T; VENT RATE 18
[2019-11-19] MEDS ORDERED: SODIUM CHLORIDE 0.45% 1,000 ML IV SCH (12:00)
[2019-11-19] MEDS: ALBUTEROL SO4 2.5/IPRATROPIUM 0.5 INH SOL 3 ML VIAL.NEB. NEB SCH (12:05)
[2019-11-19] MEDS ORDERED: FUROSEMIDE 100 MG/10 ML INJECTABLE VIAL IVPB ONE (14:51)
--- NOTE | 2019-11-19 14:59 | PN ---
Progress Note, Physician History of Present Illness: Seen and examined at the bedside s/p rapid response this AM for hypoxia placed on BIPAP CXR shows effusion/central congestion - Current Medication List Current Medications: Active Medications Acetaminophen (Tylenol -) 650 mg PO Q4H PRN PRN Reason: fever>100.0F Last Admin: 11/18/19 06:13 Dose: 650 mg Documented by: Albuterol/Ipratropium (Duoneb -) 1 amp NEB RQID [facility] Last Admin: 11/19/19 12:05 Dose: 1 amp Documented by: Allopurinol (Zyloprim -) 100 mg PO Q48H [facility] Last Admin: 11/19/19 10:43 Dose: Not Given Documented by: Calcium Acetate (Phoslo -) 667 mg PO TIDCM [facility] Last Admin: 11/19/19 12:33 Dose: Not Given Documented by: Ferrous Sulfate (Feosol -) 325 mg PO BIDWM [facility] Last Admin: 11/19/19 08:02 Dose: Not Given Documented by: Gabapentin (Neurontin -) 300 mg PO TID [facility] Last Admin: 11/19/19 14:15 Dose: Not Given Documented by: Heparin Sodium (Porcine) (Heparin -) 5,000 unit SQ BID [facility] Last Admin: 11/19/19 09:15 Dose: 5,000 unit Documented by: Hydralazine HCl (Apresoline -) 100 mg PO TID [facility] Last Admin: 11/19/19 14:15 Dose: Not Given Documented by: Piperacillin Sod/Tazobactam (Sod 2.25 gm/ Dextrose) 50 mls @ 100 mls/hr IVPB Q8H-IV [facility]; Protocol Last Admin: 11/19/19 09:15 Dose: 100 mls/hr Documented by: Metoprolol Succinate (Toprol Xl -) 25 mg PO DAILY [facility] Last Admin: 11/19/19 09:05 Dose: Not Given Documented by: Nifedipine (Procardia Xl -) 90 mg PO DAILY [facility] Last Admin: 11/19/19 09:05 Dose: Not Given Documented by: - Objective Vital Signs: Vital Signs Temperature 98.8 F 11/19/19 14:42 Pulse Rate 89 11/19/19 14:42 Respiratory Rate 23 H 11/19/19 14:42 Blood Pressure 132/71 11/19/19 14:42 O2 Sat by Pulse Oximetry (%) 97 11/19/19 14:42 Constitutional: Yes: No Distress, Calm HENT: Yes: Atraumatic Neck: Yes: Supple Cardiovascular: Yes: Regular Rate and Rhythm. No: Murmur Respiratory: Yes: Regular, Diminished, On BiPap. No: Rales, Rhonchi Gastrointestinal: Yes: Soft, Abdomen, Obese. No: Tenderness Genitourinary: No: Bladder Distention Extremities: No: Cold, Cool, Cyanosis Edema: Yes Neurological: Yes: Alert Labs: CBC, BMP 11/19/19 07:40 11/19/19 07:40 INR, PTT INR 1.18 (0.83-1.09) H 11/17/19 00:50 Assessment/Plan Impression 1. CKD 2. htn 3. dm 4. obesity 5. sepsis 6. cellulitis 7. gout 8. chf Plan Renal function worse today. Etiology or acute worsening unclear but may be due to relative hypotension in setting in Sepsis. Given hypoxia and worsening congestion will give Lasix 100mg IV x 1 to help promote urine output. Insert foely to document urine output and r/o obstruction Continue antibiotics as per ID If renal function/potassium does not improve pt may need dialysis this admission however given bacteremia would like to avoid catheter insertion and AVF likely not mature yet. Repeat BMP this evening. Continue BIPAP Redose Lasix if there is not improvement in clinical status. Tez Roldan DO
[2019-11-19 15:17] LABS: ARTERIAL BLD GAS O2 SATURATION 94.3 mmHg (95-98); ARTERIAL BLOOD GAS BASE EXCESS -6.7 mmol/L (-2-2); ARTERIAL BLOOD GAS PO2 82.4 mmHg (80-100); ARTERIAL BLOOD GAS pH 7.247 (7.350-7.450)
[2019-11-19 15:23] LABS: ALLENS TEST POSITIVE; VENT MODE S/T
[2019-11-19 15:24] LABS: VENT RATE 22
[2019-11-20] MEDS ORDERED: PIPERACILLIN/TAZOBACTAM 2.25 GM VIAL IVPB ONE ×3 (01:53→17:13)
[2019-11-20] MEDS ORDERED: DEXTROSE 5%-WATER - 50 ML IVPB ONE ×3 (01:53→17:14)
[2019-11-20] MEDS: PIPERACILLIN/TAZOB 2.25 GM 2.25 GM in DEXTROSE 5%-WATER - 50 ML IVPB SCH ×3 (02:25→17:16)
[2019-11-20] MEDS: hydrALAZINE HCL 50 MG TABLET (FP) PO SCH ×3 (06:27→22:22)
[2019-11-20] MEDS: GABAPENTIN 300 MG CAPSULE PO SCH ×3 (06:27→22:22)
[2019-11-20] MEDS ORDERED: INSULIN (NOVOLOG) ASPART 100 UNITS/ML 10ML VIAL ONE (06:55)
--- NOTE | 2019-11-20 07:04 | PN ---
Progress Note, Physician History of Present Illness: pulmonary more alert, comfortable on bipap ,-resp distress - Current Medication List Current Medications: Active Medications Acetaminophen (Tylenol -) 650 mg PO Q4H PRN PRN Reason: fever>100.0F Last Admin: 11/18/19 06:13 Dose: 650 mg Documented by: Albuterol/Ipratropium (Duoneb -) 1 amp NEB RQID [facility] Last Admin: 11/19/19 12:05 Dose: 1 amp Documented by: Allopurinol (Zyloprim -) 100 mg PO Q48H [facility] Last Admin: 11/19/19 10:43 Dose: Not Given Documented by: Calcium Acetate (Phoslo -) 667 mg PO TIDCM [facility] Last Admin: 11/19/19 16:45 Dose: Not Given Documented by: Ferrous Sulfate (Feosol -) 325 mg PO BIDWM [facility] Last Admin: 11/19/19 16:45 Dose: Not Given Documented by: Gabapentin (Neurontin -) 300 mg PO TID [facility] Last Admin: 11/20/19 06:27 Dose: Not Given Documented by: Heparin Sodium (Porcine) (Heparin -) 5,000 unit SQ BID [facility] Last Admin: 11/19/19 21:22 Dose: 5,000 unit Documented by: Hydralazine HCl (Apresoline -) 100 mg PO TID [facility] Last Admin: 11/20/19 06:27 Dose: Not Given Documented by: Piperacillin Sod/Tazobactam (Sod 2.25 gm/ Dextrose) 50 mls @ 100 mls/hr IVPB Q8H-IV [facility]; Protocol Last Admin: 11/20/19 02:25 Dose: 100 mls/hr Documented by: Metoprolol Succinate (Toprol Xl -) 25 mg PO DAILY [facility] Last Admin: 11/19/19 09:05 Dose: Not Given Documented by: Nifedipine (Procardia Xl -) 90 mg PO DAILY [facility] Last Admin: 11/19/19 09:05 Dose: Not Given Documented by: - Objective Vital Signs: Vital Signs Temperature 98.7 F 11/20/19 06:00 Pulse Rate 91 H 11/20/19 06:00 Respiratory Rate 19 11/19/19 21:00 Blood Pressure 140/77 11/20/19 06:00 O2 Sat by Pulse Oximetry (%) 97 11/20/19 06:00 Constitutional: Yes: Calm, Obese Eyes: Yes: WNL HENT: Yes: WNL Neck: Yes: WNL Cardiovascular: Yes: Regular Rate and Rhythm, S1, S2 Respiratory: Yes: Diminished, On BiPap Gastrointestinal: Yes: Normal Bowel Sounds, Soft, Abdomen, Obese Extremities: Yes: WNL Edema: Yes Labs: INR, PTT INR 1.18 (0.83-1.09) H 11/17/19 00:50 Laboratory Tests 11/20/19 11/20/19 08:52 08:52 WBC 16.5 H Hgb 7.4 L Hct 23.9 L Plt Count 160 BUN 122.9 H* Creatinine 7.5 H* Problem List - Problems (1) Anemia Code(s): D64.9 - ANEMIA, UNSPECIFIED (2) CKD (chronic kidney disease) Code(s): N18.9 - CHRONIC KIDNEY DISEASE, UNSPECIFIED (3) Fall Code(s): W19.XXXA - UNSPECIFIED FALL, INITIAL ENCOUNTER (4) Fever Code(s): R50.9 - FEVER, UNSPECIFIED (5) HLD (hyperlipidemia) Code(s): E78.5 - HYPERLIPIDEMIA, UNSPECIFIED (6) HTN (hypertension) Code(s): I10 - ESSENTIAL (PRIMARY) HYPERTENSION (7) Leukocytosis Code(s): D72.829 - ELEVATED WHITE BLOOD CELL COUNT, UNSPECIFIED (8) Morbid obesity Code(s): E66.01 - MORBID (SEVERE) OBESITY DUE TO EXCESS CALORIES (9) Sepsis Code(s): A41.9 - SEPSIS, UNSPECIFIED ORGANISM Qualifiers: Sepsis type: sepsis due to unspecified organism (10) UTI (urinary tract infection) Code(s): N39.0 - URINARY TRACT INFECTION, SITE NOT SPECIFIED (11) ESRD (end stage renal disease) Code(s): N18.6 - END STAGE RENAL DISEASE Assessment/Plan IMP SEPSIS FEVERS ? CELULITIS,? ALTERED MENTAL STATUS LIKELY TOXIC METABOLIC ENCEPHALOPATHY DYSPNEA S/P MECHANICAL FALL CHF ACUTE ON CKD WORSENING HTN HLD MORBID OBESITY SUSPECTED OSAS/OHS ANEMIA ACUTE HYPOXEMIC/HYPERCAPNEIC RESP FAILURE PLAN SUPPLEMENTAL O2 ABG NIPPV ABX PER ID DVT PROPHYLAXIS OUTPATIENT SLEEP STUDIES MONITOR LYTES,RENAL FUNCTION,CBC MONITOR URINE OUTPUT F/U CHEST X-RAY DR ELY Problem List - Problems (1) Anemia Code(s): D64.9 - ANEMIA, UNSPECIFIED (2) CKD (chronic kidney disease) Code(s): N18.9 - CHRONIC KIDNEY DISEASE, UNSPECIFIED (3) Fall Code(s): W19.XXXA - UNSPECIFIED FALL, INITIAL ENCOUNTER (4) Fever Code(s): R50.9 - FEVER, UNSPECIFIED (5) HLD (hyperlipidemia) Code(s): E78.5 - HYPERLIPIDEMIA, UNSPECIFIED (6) HTN (hypertension) Code(s): I10 - ESSENTIAL (PRIMARY) HYPERTENSION (7) Leukocytosis Code(s): D72.829 - ELEVATED WHITE BLOOD CELL COUNT, UNSPECIFIED (8) Morbid obesity Code(s): E66.01 - MORBID (SEVERE) OBESITY DUE TO EXCESS CALORIES (9) Sepsis Code(s): A41.9 - SEPSIS, UNSPECIFIED ORGANISM Qualifiers: Sepsis type: sepsis due to unspecified organism (10) UTI (urinary tract infection) Code(s): N39.0 - URINARY TRACT INFECTION, SITE NOT SPECIFIED (11) ESRD (end stage renal disease) Code(s): N18.6 - END STAGE RENAL DISEASE
[2019-11-20] MEDS: FERROUS SO4 325 MG TABLET (FP) PO SCH ×2 (08:16→17:07)
[2019-11-20] MEDS: CALCIUM ACETATE 667 MG CAPSULE (FP) PO SCH ×3 (08:16→17:07)
[2019-11-20] MEDS: ALBUTEROL SO4 2.5/IPRATROPIUM 0.5 INH SOL 3 ML VIAL.NEB. NEB SCH ×4 (08:42→20:03)
[2019-11-20] MEDS: NIFEdipine E.R. 90 MG TABLET PO SCH (09:28)
[2019-11-20] MEDS: metoPROLOL SUCCINATE 25 MG TAB.SR.24H (FP) PO SCH (09:28)
[2019-11-20] MEDS: HEPARIN NA (PORCINE) 5,000 UNITS/ML 1ML VIAL SQ SCH ×2 (09:34→22:22)
[2019-11-20 09:55] LABS: BASO % 0.3 % (0-2.0); EOS % 0.1 % (0-4.5); HEMATOCRIT 23.9 % (35.4-49); HEMOGLOBIN 7.4 GM/dL (11.7-16.9); LYMPH % 5.7 % (8-40); MCH 23.2 pg (25.7-33.7); MCHC 30.9 g/dl (32.0-35.9); MEAN PLT VOLUME 7.8 fl (7.5-11.1); MONO % 4.3 % (3.8-10.2); NEUT % 89.6 % (42.8-82.8); PLATELET COUNT 160 K/MM3 (134-434); RBC 3.19 M/mm3 (4.00-5.60); RDW 19.2 % (11.9-15.9); WHITE BLOOD COUNT 16.5 K/mm3 (4.0-10.0)
[2019-11-20 10:24] LABS: ALBUMIN 2.4 g/dl (3.4-5.0); BILIRUBIN,TOTAL 0.4 mg/dL (0.2-1); CALCIUM 7.5 mg/dL (8.5-10.1); POTASSIUM 4.2 mmol/L (3.5-5.1)
[2019-11-20 10:26] LABS: BLOOD UREA NITROGEN 122.9 mg/dL (7-18); CREATININE 7.5 mg/dL (0.55-1.3)
--- NOTE | 2019-11-20 11:13 | PN ---
Progress Note, Physician - Current Medication List Current Medications: Active Medications Acetaminophen (Tylenol -) 650 mg PO Q4H PRN PRN Reason: fever>100.0F Last Admin: 11/18/19 06:13 Dose: 650 mg Documented by: Albuterol/Ipratropium (Duoneb -) 1 amp NEB RQID [facility] Last Admin: 11/20/19 08:42 Dose: 1 amp Documented by: Allopurinol (Zyloprim -) 100 mg PO Q48H [facility] Last Admin: 11/19/19 10:43 Dose: Not Given Documented by: Calcium Acetate (Phoslo -) 667 mg PO TIDCM [facility] Last Admin: 11/20/19 08:16 Dose: Not Given Documented by: Ferrous Sulfate (Feosol -) 325 mg PO BIDWM [facility] Last Admin: 11/20/19 08:16 Dose: Not Given Documented by: Gabapentin (Neurontin -) 300 mg PO TID [facility] Last Admin: 11/20/19 06:27 Dose: Not Given Documented by: Heparin Sodium (Porcine) (Heparin -) 5,000 unit SQ BID [facility] Last Admin: 11/20/19 09:34 Dose: 5,000 unit Documented by: Hydralazine HCl (Apresoline -) 100 mg PO TID [facility] Last Admin: 11/20/19 06:27 Dose: Not Given Documented by: Piperacillin Sod/Tazobactam (Sod 2.25 gm/ Dextrose) 50 mls @ 100 mls/hr IVPB Q8H-IV [facility]; Protocol Last Admin: 11/20/19 09:34 Dose: 100 mls/hr Documented by: Metoprolol Succinate (Toprol Xl -) 25 mg PO DAILY [facility] Last Admin: 11/20/19 09:28 Dose: Not Given Documented by: Nifedipine (Procardia Xl -) 90 mg PO DAILY [facility] Last Admin: 11/20/19 09:28 Dose: Not Given Documented by: - Objective Vital Signs: Vital Signs Temperature 98.0 F 11/20/19 10:00 Pulse Rate 90 11/20/19 10:00 Respiratory Rate 20 11/20/19 10:00 Blood Pressure 136/73 11/20/19 10:00 O2 Sat by Pulse Oximetry (%) 98 11/20/19 10:00 Cardiovascular: Yes: S1, S2 Respiratory: Yes: On BiPap Neurological: Yes: Lethargy Labs: CBC, BMP 11/20/19 08:52 11/20/19 08:52 INR, PTT INR 1.18 (0.83-1.09) H 11/17/19 00:50 Assessment/Plan - Problems (1) Anemia Assessment/Plan: -no previous records available -Iron% low -Start Feosol -B12,FA,Thyroid profile normal -Check stool OB Problems reviewed: Yes Code(s): D64.9 - ANEMIA, UNSPECIFIED (2) Fall Assessment/Plan: -Physical therapy -Safety precautions -Orthostatic vitals pending Problems reviewed: Yes Code(s): W19.XXXA - UNSPECIFIED FALL, INITIAL ENCOUNTER (3) Elevated troponin Assessment/Plan: -likely demand ischemia -Seen by cardiology -recommended no telemetry Problems reviewed: Yes Code(s): R79.89 - OTHER SPECIFIED ABNORMAL FINDINGS OF BLOOD CHEMISTRY (4) HTN (hypertension) Assessment/Plan: -Resume home meds -Low sodium diet -Monitor trend for now Problems reviewed: Yes Code(s): I10 - ESSENTIAL (PRIMARY) HYPERTENSION (5) Hypocalcemia Assessment/Plan: -nephrology consult Problems reviewed: Yes Code(s): E83.51 - HYPOCALCEMIA (6) Hypomagnesemia Assessment/Plan: -Received 1 gm Mg in ER -Repeat labs pending Problems reviewed: Yes Code(s): E83.42 - HYPOMAGNESEMIA (7) Morbid obesity Assessment/Plan: -RD consult -Low calorie diet Problems reviewed: Yes Code(s): E66.01 - MORBID (SEVERE) OBESITY DUE TO EXCESS CALORIES (8) Respiratory failure cxr noted--new rt base changes on zosyn npo ivf Problems reviewed: Yes (9) UTI (urinary tract infection) Assessment/Plan: -UA + protein,+1 blood, -nitrites, +1 leuks -UC: Microbiolo
[2019-11-20 11:58] LABS: ARTERIAL BLD GAS O2 SATURATION 95.9 mmHg (95-98); ARTERIAL BLOOD GAS PO2 86.3 mmHg (80-100); ARTERIAL BLOOD GAS pH 7.324 (7.350-7.450)
--- NOTE | 2019-11-20 11:58 | PN ---
Progress Note, Physician History of Present Illness: Seen and examined at the bedside awake and alert on BIPAP making urine via beaulieu no acute complaints denies any fever, chills, N/V/D - Current Medication List Current Medications: Active Medications Acetaminophen (Tylenol -) 650 mg PO Q4H PRN PRN Reason: fever>100.0F Last Admin: 11/18/19 06:13 Dose: 650 mg Documented by: Albuterol/Ipratropium (Duoneb -) 1 amp NEB RQID [facility] Last Admin: 11/20/19 08:42 Dose: 1 amp Documented by: Allopurinol (Zyloprim -) 100 mg PO Q48H [facility] Last Admin: 11/19/19 10:43 Dose: Not Given Documented by: Calcium Acetate (Phoslo -) 667 mg PO TIDCM [facility] Last Admin: 11/20/19 08:16 Dose: Not Given Documented by: Ferrous Sulfate (Feosol -) 325 mg PO BIDWM [facility] Last Admin: 11/20/19 08:16 Dose: Not Given Documented by: Gabapentin (Neurontin -) 300 mg PO TID [facility] Last Admin: 11/20/19 06:27 Dose: Not Given Documented by: Heparin Sodium (Porcine) (Heparin -) 5,000 unit SQ BID [facility] Last Admin: 11/20/19 09:34 Dose: 5,000 unit Documented by: Hydralazine HCl (Apresoline -) 100 mg PO TID [facility] Last Admin: 11/20/19 06:27 Dose: Not Given Documented by: Piperacillin Sod/Tazobactam (Sod 2.25 gm/ Dextrose) 50 mls @ 100 mls/hr IVPB Q8H-IV [facility]; Protocol Last Admin: 11/20/19 09:34 Dose: 100 mls/hr Documented by: Metoprolol Succinate (Toprol Xl -) 25 mg PO DAILY [facility] Last Admin: 11/20/19 09:28 Dose: Not Given Documented by: Nifedipine (Procardia Xl -) 90 mg PO DAILY [facility] Last Admin: 11/20/19 09:28 Dose: Not Given Documented by: - Objective Vital Signs: Vital Signs Temperature 98.0 F 11/20/19 10:00 Pulse Rate 90 11/20/19 10:00 Respiratory Rate 20 11/20/19 10:00 Blood Pressure 136/73 11/20/19 10:00 O2 Sat by Pulse Oximetry (%) 98 11/20/19 10:00 Constitutional: Yes: No Distress HENT: Yes: Atraumatic Neck: Yes: Supple Cardiovascular: Yes: Regular Rate and Rhythm Respiratory: Yes: Regular, Diminished, On BiPap Gastrointestinal: Yes: Soft, Abdomen, Obese Extremities: No: Cyanosis Edema: Yes Neurological: Yes: Alert Labs: CBC, BMP 11/20/19 08:52 11/20/19 08:52 INR, PTT INR 1.18 (0.83-1.09) H 11/17/19 00:50 Assessment/Plan Impression 1. CKD 2. htn 3. dm 4. obesity 5. sepsis 6. cellulitis 7. gout 8. chf Plan Renal function continues to worsen. Hyperkalemia improved. Likely will need renal replacement therapy in next 24-48 hours. will ask vascular to eval AVF to see if it is mature to use. Respiratory status stable on BIPAP Maintain beaulieu for now Continue antibiotics as per ID Repeat BMP this evening. Continue BIPAP Redose Lasix if there is any worsening in his respiratory status. Tez Roldan DO
[2019-11-20 12:01] LABS: ALLENS TEST POSITIVE
[2019-11-20 12:02] LABS: VENT MODE BIPAP; VENT RATE 24
[2019-11-21] MEDS ORDERED: DEXTROSE 5%-WATER - 50 ML IVPB ONE ×2 (02:55→09:22)
[2019-11-21] MEDS ORDERED: PIPERACILLIN/TAZOBACTAM 2.25 GM VIAL IVPB ONE ×3 (02:55→17:31)
[2019-11-21] MEDS: PIPERACILLIN/TAZOB 2.25 GM 2.25 GM in DEXTROSE 5%-WATER - 50 ML IVPB SCH ×3 (03:08→17:35)
[2019-11-21] MEDS: hydrALAZINE HCL 50 MG TABLET (FP) PO SCH ×3 (06:36→21:20)
[2019-11-21] MEDS: GABAPENTIN 300 MG CAPSULE PO SCH ×3 (06:36→21:20)
[2019-11-21] MEDS: ALBUTEROL SO4 2.5/IPRATROPIUM 0.5 INH SOL 3 ML VIAL.NEB. NEB SCH ×4 (08:46→20:28)
[2019-11-21] MEDS: CALCIUM ACETATE 667 MG CAPSULE (FP) PO SCH ×3 (09:06→17:36)
[2019-11-21] MEDS: FERROUS SO4 325 MG TABLET (FP) PO SCH ×2 (09:06→17:36)
[2019-11-21] MEDS: HEPARIN NA (PORCINE) 5,000 UNITS/ML 1ML VIAL SQ SCH ×2 (09:27→22:08)
[2019-11-21] MEDS: metoPROLOL SUCCINATE 25 MG TAB.SR.24H (FP) PO SCH (10:32)
[2019-11-21] MEDS: NIFEdipine E.R. 90 MG TABLET PO SCH (10:32)
--- NOTE | 2019-11-21 10:59 | PN ---
Progress Note (short form) - Note Progress Note: PULMONARY Remains on BiPAP, arousable. States breathing is improving. Vital Signs Period Temp Pulse Resp BP Sys/Rodríguez Pulse Ox Last 24 Hr 97.5 F-98.2 F 87-106 18-18 134-155/79-94 95-100 Gen: NAD on BiPAP Heart: RRR Lung: distant breath sounds Abd: soft, obese, nontender Ext: + edema, chronic changes CBC, BMP 11/20/19 08:52 11/20/19 08:52 Active Medications Acetaminophen (Tylenol -) 650 mg PO Q4H PRN PRN Reason: fever>100.0F Last Admin: 11/18/19 06:13 Dose: 650 mg Documented by: Albuterol/Ipratropium (Duoneb -) 1 amp NEB RQID [facility] Last Admin: 11/21/19 08:46 Dose: 1 amp Documented by: Allopurinol (Zyloprim -) 100 mg PO Q48H [facility] Last Admin: 11/19/19 10:43 Dose: Not Given Documented by: Calcium Acetate (Phoslo -) 667 mg PO TIDCM [facility] Last Admin: 11/21/19 09:06 Dose: Not Given Documented by: Ferrous Sulfate (Feosol -) 325 mg PO BIDWM [facility] Last Admin: 11/21/19 09:06 Dose: Not Given Documented by: Gabapentin (Neurontin -) 300 mg PO TID [facility] Last Admin: 11/21/19 06:36 Dose: Not Given Documented by: Heparin Sodium (Porcine) (Heparin -) 5,000 unit SQ BID [facility] Last Admin: 11/21/19 09:27 Dose: 5,000 unit Documented by: Hydralazine HCl (Apresoline -) 100 mg PO TID [facility] Last Admin: 11/21/19 06:36 Dose: Not Given Documented by: Piperacillin Sod/Tazobactam (Sod 2.25 gm/ Dextrose) 50 mls @ 100 mls/hr IVPB Q8H-IV [facility]; Protocol Last Admin: 11/21/19 09:27 Dose: 100 mls/hr Documented by: Metoprolol Succinate (Toprol Xl -) 25 mg PO DAILY [facility] Last Admin: 11/21/19 10:32 Dose: Not Given Documented by: Nifedipine (Procardia Xl -) 90 mg PO DAILY [facility] Last Admin: 11/21/19 10:32 Dose: Not Given Documented by: A/P Acute Hypoxic Respiratory Failure Acute on Chronic Renal Failure CHF Cellulitis Morbid Obesity ALEXANDRA/OHS HTN Hyperlipidemia Anemia - continue antibiotics - HD per renal - monitor urine output, creatinine - O2 to keep SpO2 >90% - BiPAP as needed to assist in work of breathing - DVT prophylaxis
[2019-11-21] MEDS ORDERED: SODIUM CHLORIDE 250 ML IV PRN (11:32)
--- NOTE | 2019-11-21 11:50 | PN ---
Progress Note, Physician History of Present Illness: This is a 53 y/o male from [facility] with a significant PMHx of CHF, HTN, CKD Stage 3, Chronic Venous Stasis, Erythema Intertrigo, Severe Obesity. Who presents to the ED s/p unwitnessed fall. Patient reports while getting OOB he fell. Patient denies head trauma or LOC. Patient reports chronic lumbar pain exacerbated while laying on the stretcher. Patient denies fever, chills, cough, SOB, dizziness, HERNANDEZ, CP, palpitations, AP, N/V/D, constipation, dysura. denies any SOB or pain Rigors noted- states he normally has tremors BLLE chronic lymphedema 11/18/19: NAD, looks better, denies any pain or SOB Afebrile Labs pending UC +Lcatose fermenting GNB BC + On Zosyn awake this am - Current Medication List Current Medications: Active Medications Acetaminophen (Tylenol -) 650 mg PO Q4H PRN PRN Reason: fever>100.0F Last Admin: 11/18/19 06:13 Dose: 650 mg Documented by: Albuterol/Ipratropium (Duoneb -) 1 amp NEB RQID [facility] Last Admin: 11/21/19 08:46 Dose: 1 amp Documented by: Allopurinol (Zyloprim -) 100 mg PO Q48H [facility] Last Admin: 11/19/19 10:43 Dose: Not Given Documented by: Calcium Acetate (Phoslo -) 667 mg PO TIDCM [facility] Last Admin: 11/21/19 09:06 Dose: Not Given Documented by: Ferrous Sulfate (Feosol -) 325 mg PO BIDWM [facility] Last Admin: 11/21/19 09:06 Dose: Not Given Documented by: Gabapentin (Neurontin -) 300 mg PO TID [facility] Last Admin: 11/21/19 06:36 Dose: Not Given Documented by: Heparin Sodium (Porcine) (Heparin -) 5,000 unit SQ BID [facility] Last Admin: 11/21/19 09:27 Dose: 5,000 unit Documented by: Hydralazine HCl (Apresoline -) 100 mg PO TID [facility] Last Admin: 11/21/19 06:36 Dose: Not Given Documented by: Piperacillin Sod/Tazobactam (Sod 2.25 gm/ Dextrose) 50 mls @ 100 mls/hr IVPB Q8H-IV [facility]; Protocol Last Admin: 11/21/19 09:27 Dose: 100 mls/hr Documented by: Sodium Chloride (Normal Saline -) 250 mls @ 3,000 mls/hr IV PRN PRN PRN Reason: Hypotension during Dialysis Stop: 11/22/19 11:32 Metoprolol Succinate (Toprol Xl -) 25 mg PO DAILY [facility] Last Admin: 11/21/19 10:32 Dose: Not Given Documented by: Nifedipine (Procardia Xl -) 90 mg PO DAILY [facility] Last Admin: 11/21/19 10:32 Dose: Not Given Documented by: - Objective Vital Signs: Vital Signs Temperature 98.2 F 11/21/19 05:42 Pulse Rate 87 11/21/19 05:42 Respiratory Rate 18 11/21/19 05:42 Blood Pressure 155/94 11/21/19 05:42 O2 Sat by Pulse Oximetry (%) 99 11/21/19 08:46 Cardiovascular: Yes: S1, S2 Respiratory: Yes: On BiPap Gastrointestinal: Yes: Normal Bowel Sounds, Soft Neurological: Yes: Alert, Oriented Labs: CBC, BMP 11/20/19 08:52 11/20/19 08:52 INR, PTT INR 1.18 (0.83-1.09) H 11/17/19 00:50 Assessment/Plan - Problems (1) Anemia Assessment/Plan: -no previous records available -Iron% low -Start Feosol -B12,FA,Thyroid profile normal -Check stool OB Problems reviewed: Yes Code(s): D64.9 - ANEMIA, UNSPECIFIED (2) Fall Assessment/Plan: -Physical therapy -Safety precautions -Orthostatic vitals pending Problems reviewed: Yes Code(s): W19.XXXA - UNSPECIFIED FALL, INITIAL ENCOUNTER (3) Elevated troponin Assessment/Plan: -likely demand ischemia -Seen by cardiology -recommended no telemetry Problems reviewed: Yes Code(s): R79.89 - OTHER SPECIFIED ABNORMAL FINDINGS OF BLOOD CHEMISTRY (4) HTN (hypertension) Assessment/Plan: -Resume home meds -Low sodium diet -Monitor trend for now Problems reviewed: Yes Code(s): I10 - ESSENTIAL (PRIMARY) HYPERTENSION (5) Hypocalcemia Assessment/Plan: -nephrology consult Problems reviewed: Yes Code(s): E83.51 - HYPOCALCEMIA (6) Hypomagnesemia Assessment/Plan: -Received 1 gm Mg in ER -Repeat labs pending Problems reviewed: Yes Code(s): E83.42 - HYPOMAGNESEMIA (7) Morbid obesity Assessment/Plan: -RD consult -Low calorie diet Problems reviewed: Yes Code(s): E66.01 - MORBID (SEVERE) OBESITY DUE TO EXCESS CALORIES (8) Respiratory failure cxr noted--new rt base changes on zosyn npo ivf bipap--trial of nc Problems reviewed: Yes (9) UTI (urinary tract infection) Assessment/Plan: -UA + protein,+1 blood, -nitrites, +1 leuks -UC: Microbiolo
--- NOTE | 2019-11-21 11:56 | PN ---
Progress Note, Physician Chief Complaint: AWAKE, ALERT IN BED C/O B/L LEG PAIN TEMPS DOWN AFEBRILE WBC IMPROVED VANCO TROUGH NOTED WORSENING AZOTEMIA - Current Medication List Current Medications: Active Medications Acetaminophen (Tylenol -) 650 mg PO Q4H PRN PRN Reason: fever>100.0F Last Admin: 11/18/19 06:13 Dose: 650 mg Documented by: Albuterol/Ipratropium (Duoneb -) 1 amp NEB RQID [facility] Last Admin: 11/21/19 08:46 Dose: 1 amp Documented by: Allopurinol (Zyloprim -) 100 mg PO Q48H [facility] Last Admin: 11/19/19 10:43 Dose: Not Given Documented by: Calcium Acetate (Phoslo -) 667 mg PO TIDCM [facility] Last Admin: 11/21/19 09:06 Dose: Not Given Documented by: Ferrous Sulfate (Feosol -) 325 mg PO BIDWM [facility] Last Admin: 11/21/19 09:06 Dose: Not Given Documented by: Gabapentin (Neurontin -) 300 mg PO TID [facility] Last Admin: 11/21/19 06:36 Dose: Not Given Documented by: Heparin Sodium (Porcine) (Heparin -) 5,000 unit SQ BID [facility] Last Admin: 11/21/19 09:27 Dose: 5,000 unit Documented by: Hydralazine HCl (Apresoline -) 100 mg PO TID [facility] Last Admin: 11/21/19 06:36 Dose: Not Given Documented by: Piperacillin Sod/Tazobactam (Sod 2.25 gm/ Dextrose) 50 mls @ 100 mls/hr IVPB Q8H-IV [facility]; Protocol Last Admin: 11/21/19 09:27 Dose: 100 mls/hr Documented by: Sodium Chloride (Normal Saline -) 250 mls @ 3,000 mls/hr IV PRN PRN PRN Reason: Hypotension during Dialysis Stop: 11/22/19 11:32 Metoprolol Succinate (Toprol Xl -) 25 mg PO DAILY [facility] Last Admin: 11/21/19 10:32 Dose: Not Given Documented by: Nifedipine (Procardia Xl -) 90 mg PO DAILY [facility] Last Admin: 11/21/19 10:32 Dose: Not Given Documented by: - Objective Vital Signs: Vital Signs Temperature 98.2 F 11/21/19 05:42 Pulse Rate 87 11/21/19 05:42 Respiratory Rate 18 11/21/19 05:42 Blood Pressure 155/94 11/21/19 05:42 O2 Sat by Pulse Oximetry (%) 99 11/21/19 08:46 Constitutional: Yes: No Distress, Obese Cardiovascular: Yes: Regular Rate and Rhythm, S1, S2 Respiratory: Yes: CTA Bilaterally Gastrointestinal: Yes: Normal Bowel Sounds, Soft, Abdomen, Obese. No: Tenderness Extremities: Yes: Other (+ B/L LE EDEMA + ERYTHEMA/ WARMTH R LE) Labs: CBC, BMP 11/20/19 08:52 11/20/19 08:52 INR, PTT INR 1.18 (0.83-1.09) H 11/17/19 00:50 Assessment/Plan SEPSIS +BC MRSA LIKELY SKIN SOURCE B/L LE CELLULITIS CKD MORBID OBESITY MARKED LEUKOCYTOSIS IMPROVED CHECK RANDOM VANCO LEVEL REPEAT BC ECHO
[2019-11-21] MEDS: ALLOPURINOL 100 MG TABLET (FP) PO SCH (12:10)
--- NOTE | 2019-11-21 12:35 | PN ---
Progress Note, Physician History of Present Illness: Pt seen and examined at bedside. He is awake and alert. He is on bipap. - Current Medication List Current Medications: Active Medications Acetaminophen (Tylenol -) 650 mg PO Q4H PRN PRN Reason: fever>100.0F Last Admin: 11/18/19 06:13 Dose: 650 mg Documented by: Albuterol/Ipratropium (Duoneb -) 1 amp NEB RQID [facility] Last Admin: 11/21/19 08:46 Dose: 1 amp Documented by: Allopurinol (Zyloprim -) 100 mg PO Q48H [facility] Last Admin: 11/21/19 12:10 Dose: Not Given Documented by: Calcium Acetate (Phoslo -) 667 mg PO TIDCM [facility] Last Admin: 11/21/19 12:10 Dose: Not Given Documented by: Ferrous Sulfate (Feosol -) 325 mg PO BIDWM [facility] Last Admin: 11/21/19 09:06 Dose: Not Given Documented by: Gabapentin (Neurontin -) 300 mg PO TID [facility] Last Admin: 11/21/19 06:36 Dose: Not Given Documented by: Heparin Sodium (Porcine) (Heparin -) 5,000 unit SQ BID [facility] Last Admin: 11/21/19 09:27 Dose: 5,000 unit Documented by: Hydralazine HCl (Apresoline -) 100 mg PO TID [facility] Last Admin: 11/21/19 06:36 Dose: Not Given Documented by: Piperacillin Sod/Tazobactam (Sod 2.25 gm/ Dextrose) 50 mls @ 100 mls/hr IVPB Q8H-IV [facility]; Protocol Last Admin: 11/21/19 09:27 Dose: 100 mls/hr Documented by: Sodium Chloride (Normal Saline -) 250 mls @ 3,000 mls/hr IV PRN PRN PRN Reason: Hypotension during Dialysis Stop: 11/22/19 11:32 Metoprolol Succinate (Toprol Xl -) 25 mg PO DAILY [facility] Last Admin: 11/21/19 10:32 Dose: Not Given Documented by: Nifedipine (Procardia Xl -) 90 mg PO DAILY [facility] Last Admin: 11/21/19 10:32 Dose: Not Given Documented by: - Objective Vital Signs: Vital Signs Temperature 97.8 F 11/21/19 10:00 Pulse Rate 92 H 11/21/19 10:00 Respiratory Rate 11/21/19 10:00 Blood Pressure 160/88 11/21/19 10:00 O2 Sat by Pulse Oximetry (%) 99 11/21/19 10:00 Constitutional: Yes: Calm Eyes: Yes: Conjunctiva Clear HENT: Yes: Atraumatic Cardiovascular: Yes: S1, S2 Respiratory: Yes: On BiPap Gastrointestinal: Yes: Soft, Abdomen, Obese Genitourinary: Yes: WNL Musculoskeletal: Yes: WNL Edema: Yes Edema: LLE: 2+, RLE: 2+ Neurological: Yes: Oriented Psychiatric: Yes: Oriented Labs: CBC, BMP 11/20/19 08:52 11/20/19 08:52 INR, PTT INR 1.18 (0.83-1.09) H 11/17/19 00:50 Problem List - Problems (1) Anemia Code(s): D64.9 - ANEMIA, UNSPECIFIED (2) CKD (chronic kidney disease) Code(s): N18.9 - CHRONIC KIDNEY DISEASE, UNSPECIFIED (3) Fall Code(s): W19.XXXA - UNSPECIFIED FALL, INITIAL ENCOUNTER Assessment/Plan Current Medications Generic Name Dose Route Start Last Admin Trade Name Freq PRN Reason Stop Dose Admin Acetaminophen 650 mg 11/17/19 11:06 11/18/19 06:13 Tylenol - PO 650 mg Q4H PRN Administration fever>100.0F Albuterol/Ipratropium 1 amp 11/19/19 12:00 11/21/19 08:46 Duoneb - NEB 1 amp RQID [facility] Administration Allopurinol 100 mg 11/17/19 11:15 11/21/19 12:10 Zyloprim - PO Not Given Q48H [facility] Calcium Acetate 667 mg 11/17/19 12:00 11/21/19 12:10 Phoslo - PO Not Given TIDCM [facility] Ferrous Sulfate 325 mg 11/17/19 17:30 11/21/19 09:06 Feosol - PO Not Given BIDWM [facility] Gabapentin 300 mg 11/17/19 14:00 11/21/19 06:36 Neurontin - PO Not Given TID [facility] Heparin Sodium (Porcine) 5,000 unit 11/17/19 11:15 11/21/19 09:27 Heparin - SQ 5,000 unit BID [facility] Administration Hydralazine HCl 100 mg 11/17/19 09:00 11/21/19 06:36 Apresoline - PO Not Given TID [facility] Piperacillin Sod/Tazobactam 50 mls @ 100 mls/hr 11/17/19 18:00 11/21/19 09:27 Sod 2.25 gm/ Dextrose IVPB 100 mls/hr Q8H-IV [facility] Administration Protocol Sodium Chloride 250 mls @ 3,000 mls/hr 11/21/19 11:32 Normal Saline - IV 11/22/19 11:32 PRN PRN Hypotension during Dialysis Metoprolol Succinate 25 mg 11/17/19 10:00 11/21/19 10:32 Toprol Xl - PO Not Given DAILY [facility] Nifedipine 90 mg 11/17/19 10:00 11/21/19 10:32 Procardia Xl - PO Not Given DAILY [facility] Impression 1. CKD 2. htn 3. dm 4. obesity 5. sepsis 6. cellulitis 7. gout 8. chf Plan - discussed HD with patient and he is agreeable to start HD - discussed with vascular, they recommend to use fistula - will start HD today - pulm follow up - will uf 1 liter today - will assess for hd again tomorrow - repeat labs in am - discussed risks associated with HD, he says he is familiar wit dialysis
[2019-11-21 15:44] LABS: BASO % 0.5 % (0-2.0); EOS % 0.7 % (0-4.5); HEMATOCRIT 22.9 % (35.4-49); HEMOGLOBIN 7.2 GM/dL (11.7-16.9); LYMPH % 6.2 % (8-40); MCH 23.5 pg (25.7-33.7); MCHC 31.3 g/dl (32.0-35.9); MEAN PLT VOLUME 7.8 fl (7.5-11.1); MONO % 4.9 % (3.8-10.2); NEUT % 87.7 % (42.8-82.8); PLATELET COUNT 142 K/MM3 (134-434); RBC 3.05 M/mm3 (4.00-5.60); RDW 19.5 % (11.9-15.9); WHITE BLOOD COUNT 12.8 K/mm3 (4.0-10.0)
[2019-11-21 16:12] LABS: ALBUMIN 2.2 g/dl (3.4-5.0); BILIRUBIN,TOTAL 0.3 mg/dL (0.2-1); MAGNESIUM 2.3 mg/dL (1.8-2.4); PHOSPHOROUS 8.6 mg/dL (2.5-4.9); POTASSIUM 3.6 mmol/L (3.5-5.1); TOT PROT 6.5 g/dl (6.4-8.2)
[2019-11-21 16:16] LABS: BLOOD UREA NITROGEN 132.4 mg/dL (7-18); CREATININE 7.7 mg/dL (0.55-1.3)
[2019-11-21 16:17] LABS: CALCIUM 6.6 mg/dL (8.5-10.1)
[2019-11-21 16:48] LABS: ANISOCYTOSIS 2+; MACROCYTOSIS 0; PLATELET ESTIMATE DECREASED; TARGET CELLS 1+
[2019-11-22] MEDS ORDERED: PIPERACILLIN/TAZOBACTAM 2.25 GM VIAL IVPB ONE ×4 (00:19→23:52)
[2019-11-22] MEDS ORDERED: DEXTROSE 5%-WATER - 50 ML IVPB ONE ×4 (00:19→23:52)
[2019-11-22] MEDS ORDERED: ACETAMINOPHEN 1000 MG/100 ML VIAL (NON FORMULARY) IVPB PRN (00:53)
[2019-11-22] MEDS: PIPERACILLIN/TAZOB 2.25 GM 2.25 GM in DEXTROSE 5%-WATER - 50 ML IVPB SCH ×3 (00:59→17:45)
[2019-11-22] MEDS: GABAPENTIN 300 MG CAPSULE PO SCH ×3 (06:07→21:12)
[2019-11-22] MEDS: hydrALAZINE HCL 50 MG TABLET (FP) PO SCH ×3 (06:07→21:12)
[2019-11-22] MEDS: ALBUTEROL SO4 2.5/IPRATROPIUM 0.5 INH SOL 3 ML VIAL.NEB. NEB SCH ×4 (08:01→20:47)
[2019-11-22 08:21] LABS: BASO % 0.4 % (0-2.0); EOS % 0.6 % (0-4.5); HEMOGLOBIN 7.2 GM/dL (11.7-16.9); LYMPH % 8.4 % (8-40); MCH 23.1 pg (25.7-33.7); MCHC 31.1 g/dl (32.0-35.9); MEAN CELL VOLUME 74.3 fl (80-96); MEAN PLT VOLUME 7.6 fl (7.5-11.1); MONO % 7.6 % (3.8-10.2); PLATELET COUNT 157 K/MM3 (134-434); WHITE BLOOD COUNT 12.7 K/mm3 (4.0-10.0)
[2019-11-22 08:32] LABS: ALBUMIN 2.2 g/dl (3.4-5.0); BILIRUBIN,TOTAL 0.4 mg/dL (0.2-1); CREATININE 6.8 mg/dL (0.55-1.3); POTASSIUM 3.4 mmol/L (3.5-5.1); TOT PROT 6.6 g/dl (6.4-8.2)
--- NOTE | 2019-11-22 08:36 | CONS ---
DATE OF CONSULTATION: 11/18/2019 PULMONARY CONSULTATION REFERRING PHYSICIAN: Nurse practitioner Bob Diaz HISTORY: The patient is a 53-year-old male with past medical history of morbid obesity; hypertension; hyperlipidemia; end-stage renal disease, not yet on hemodialysis; likely obstructive sleep apnea; congestive heart failure; chronic venous stasis dermatitis of the lower extremities, resident of [facility], transferred to [facility] secondary to fever, altered mental status, and unwitnessed fall at the prison. Apparently, the patient had a mechanical fall without loss of consciousness or head trauma at the prison. At the time he denied any fevers or chills. In the emergency room he was noted to have a temp of 103, a markedly elevated white count of 38,000, urinary incontinence. Initially he was started on empiric antibiotic therapy with vancomycin and Zosyn. He was transferred up to medical floor for further management. Blood cultures came back 1 set MRSA, as well as urine culture returned lactose fermenting gram-negative bacteremia. Patient has been complaining of some shortness of breath. He denies any history of COPD or asthma. There is no history of occupational exposure to chemicals or fumes, and he is a nonsmoker. He states that he feels tired during the day and feels he might have sleep apnea, although he has never been tested. On admission, he was also evaluated by Infectious Disease and placed on broad-spectrum antibiotics. PAST MEDICAL HISTORY: Again includes congestive heart failure, chronic kidney disease, hypertension, hyperlipidemia, CHF, chronic venous stasis dermatitis of the lower extremities. CURRENT MEDICATIONS: Include Tylenol, piperacillin, heparin, Neurontin, Zyloprim, Toprol, Procardia, Apresoline, Feosol, Demadex, and PhosLo. REVIEW OF SYSTEMS: Positive dyspnea. No chest pain, no palpitations. Positive fever, chills. No hemoptysis. No abdominal pain. PHYSICAL EXAMINATION: General: The patient is a morbidly obese male, awake, alert, mildly dyspneic, but in no acute distress. Vital Signs: He is currently afebrile. Blood pressure is 148/91. Respiratory rate is 18. O2 saturation is 94% on 2 L nasal cannula. HEENT: Normocephalic, atraumatic. Neck: Supple. Heart: Regular S1, S2. Chest: Diminished breath sounds bilaterally. Abdomen: Soft. Bowel sounds are positive. Extremities: Bilateral chronic stasis changes, positive edema. LABORATORY: WBC is 28,000, hemoglobin 7.5, hematocrit 24.6, with a platelet count of 180,000. INR is 1.18. BUN is 85. Creatinine 5.1. Chest x-ray: No acute infiltrates or effusions. Blood cultures as noted earlier. Urine is positive as noted earlier. IMPRESSION: 1. Sepsis, fevers, cellulitis, likely genitourinary, urinary tract infection, urosepsis. 2. Altered mental status, likely toxic metabolic encephalopathy. 3. Dyspnea mild congestive heart failure. 4. Morbid obesity . 5. Status post mechanical fall. 6. Congestive heart failure. 7. Qchej-qo-wcnpuwj kidney disease. 8. Hypertension. 9. Hyperlipidemia. 10. Suspected obstructive sleep apnea, obesity hypoventilation syndrome. 11. Anemia. PLAN: Supplemental O2, antibiotics as per Infectious Disease. Obtain cultures. Check arterial blood gas. DVT prophylaxis. Outpatient sleep study. Monitor electrolytes, renal function, CBC, and hemoglobin and hematocrit. Monitor urine output. Followup chest x-ray. VLADIMIR ELY M.D. HELENE/[id number]
[2019-11-22 08:44] LABS: BLOOD UREA NITROGEN 108.9 mg/dL (7-18); CALCIUM 6.7 mg/dL (8.5-10.1)
[2019-11-22] MEDS: FERROUS SO4 325 MG TABLET (FP) PO SCH ×2 (08:50→17:45)
[2019-11-22] MEDS: CALCIUM ACETATE 667 MG CAPSULE (FP) PO SCH ×3 (08:51→17:45)
--- NOTE | 2019-11-22 08:55 | PN ---
Progress Note, Physician - Current Medication List Current Medications: Active Medications Acetaminophen (Tylenol -) 650 mg PO Q4H PRN PRN Reason: fever>100.0F Last Admin: 11/18/19 06:13 Dose: 650 mg Documented by: Albuterol/Ipratropium (Duoneb -) 1 amp NEB RQID [facility] Last Admin: 11/22/19 08:01 Dose: 1 amp Documented by: Allopurinol (Zyloprim -) 100 mg PO Q48H [facility] Last Admin: 11/21/19 12:10 Dose: Not Given Documented by: Calcium Acetate (Phoslo -) 667 mg PO TIDCM [facility] Last Admin: 11/21/19 17:36 Dose: Not Given Documented by: Ferrous Sulfate (Feosol -) 325 mg PO BIDWM [facility] Last Admin: 11/21/19 17:36 Dose: Not Given Documented by: Gabapentin (Neurontin -) 300 mg PO TID [facility] Last Admin: 11/22/19 06:07 Dose: Not Given Documented by: Heparin Sodium (Porcine) (Heparin -) 5,000 unit SQ BID [facility] Last Admin: 11/21/19 22:08 Dose: 5,000 unit Documented by: Hydralazine HCl (Apresoline -) 100 mg PO TID [facility] Last Admin: 11/22/19 06:07 Dose: Not Given Documented by: Piperacillin Sod/Tazobactam (Sod 2.25 gm/ Dextrose) 50 mls @ 100 mls/hr IVPB Q8H-IV [facility]; Protocol Last Admin: 11/22/19 00:59 Dose: 100 mls/hr Documented by: Sodium Chloride (Normal Saline -) 250 mls @ 3,000 mls/hr IV PRN PRN PRN Reason: Hypotension during Dialysis Stop: 11/22/19 11:32 Metoprolol Succinate (Toprol Xl -) 25 mg PO DAILY [facility] Last Admin: 11/21/19 10:32 Dose: Not Given Documented by: Nifedipine (Procardia Xl -) 90 mg PO DAILY [facility] Last Admin: 11/21/19 10:32 Dose: Not Given Documented by: - Objective Vital Signs: Vital Signs Temperature 98.6 F 11/22/19 05:58 Pulse Rate 99 H 11/22/19 05:58 Respiratory Rate 20 11/22/19 05:58 Blood Pressure 157/80 11/22/19 05:58 O2 Sat by Pulse Oximetry (%) 97 11/22/19 05:58 Cardiovascular: Yes: S1 Respiratory: Yes: On Venti-Mask Gastrointestinal: Yes: Normal Bowel Sounds, Soft Labs: CBC, BMP 11/22/19 07:42 11/22/19 07:42 INR, PTT INR 1.18 (0.83-1.09) H 11/17/19 00:50 Assessment/Plan - Problems (1) Anemia Assessment/Plan: -Monitor -Iron% low -Start Feosol -B12,FA,Thyroid profile normal Problems reviewed: Yes Code(s): D64.9 - ANEMIA, UNSPECIFIED (2) Fall Assessment/Plan: -Physical therapy -Safety precautions Problems reviewed: Yes Code(s): W19.XXXA - UNSPECIFIED FALL, INITIAL ENCOUNTER (3) Elevated troponin Assessment/Plan: -likely demand ischemia -Seen by cardiology -recommended no telemetry Problems reviewed: Yes Code(s): R79.89 - OTHER SPECIFIED ABNORMAL FINDINGS OF BLOOD CHEMISTRY (4) HTN (hypertension) Assessment/Plan: -Resume home meds -Low sodium diet -Monitor trend for now Problems reviewed: Yes Code(s): I10 - ESSENTIAL (PRIMARY) HYPERTENSION (5) Hypocalcemia Assessment/Plan: -nephrology consult Problems reviewed: Yes Code(s): E83.51 - HYPOCALCEMIA (6) Hypomagnesemia Assessment/Plan: -Received 1 gm Mg in ER -Repeat labs pending Problems reviewed: Yes Code(s): E83.42 - HYPOMAGNESEMIA (7) Morbid obesity Assessment/Plan: -RD consult -Low calorie diet Problems reviewed: Yes Code(s): E66.01 - MORBID (SEVERE) OBESITY DUE TO EXCESS CALORIES (8) Respiratory failure cxr noted--new rt base changes on zosyn npo ivf bipap--trial of nc Problems reviewed: Yes (9) UTI (urinary tract infection) Assessment/Plan: -UA + protein,+1 blood, -nitrites, +1 leuks -UC: Microbiology 11/17/19 00:50 Blood - Peripheral Venous Blood Culture - Final NO GROWTH AFTER 5 DAYS INCUBATION 11/17/19 00:50 Blood - Peripheral Venous Blood Culture - Final S Aureus 11/17/19 02:45 Urine - Urine Clean Catch Urine Culture - Final Lactose Fermenting Neg Bacilli
--- NOTE | 2019-11-22 10:37 | CONSULT ---
Admitting History and Physical - Primary Care Physician PCP: Chris Modi - Admission History of Present Illness: 53 y/o male from [facility] with a significant PMHx of CHF, HTN, CKD Stage 3, Chronic Venous Stasis, Erythema Intertrigo, Severe Obesity. Who presents to the ED s/p unwitnessed fall. Patient reports while getting OOB he fell. Rapid response on 11/19/2019 for hypoxia, he remains on BiPap assist for breathing A/P Acute Hypoxic Respiratory Failure Acute on Chronic Renal Failure CHF Cellulitis Morbid Obesity ALEXANDRA/OHS HTN Hyperlipidemia Anemia Selected Entries 11/18/19 11/18/19 11/19/19 14:27 23:04 05:59 Breakfast 25% Lunch 25% Supper 0 Temperature Pulse Rate Blood Pressure O2 Sat by Pulse 94 L Oximetry (%) Oxygen Delivery Method Fraction of Inspired Oxygen (FIO2) 11/19/19 11/19/19 11/19/19 07:58 08:20 08:34 Breakfast Lunch Supper Temperature Pulse Rate Blood Pressure O2 Sat by Pulse 85 L 95 99 Oximetry (%) Oxygen Delivery Method Fraction of Inspired Oxygen (FIO2) 11/19/19 11/19/19 11/19/19 09:00 11:29 11:50 Breakfast Lunch Supper Temperature Pulse Rate Blood Pressure O2 Sat by Pulse 99 99 100 Oximetry (%) Oxygen Delivery Bi-pap Method Fraction of Inspired Oxygen (FIO2) 11/19/19 11/19/19 11/19/19 14:42 15:43 18:00 Breakfast Lunch Supper Temperature Pulse Rate Blood Pressure O2 Sat by Pulse 97 98 97 Oximetry (%) Oxygen Delivery Method Fraction of Inspired Oxygen (FIO2) 11/19/19 11/19/19 11/19/19 21:00 21:20 21:23 Breakfast Lunch Supper Temperature Pulse Rate Blood Pressure O2 Sat by Pulse 98 99 98 Oximetry (%) Oxygen Delivery Bi-pap Method Fraction of Inspired Oxygen (FIO2) 11/21/19 11/21/19 11/21/19 00:21 04:31 05:42 Breakfast Lunch Supper Temperature Pulse Rate Blood Pressure O2 Sat by Pulse 96 96 99 Oximetry (%) Oxygen Delivery Method Fraction of 60 60 Inspired Oxygen (FIO2) 11/21/19 11/21/19 11/21/19 08:46 09:00 10:00 Breakfast Lunch Supper Temperature Pulse Rate Blood Pressure O2 Sat by Pulse 99 95 99 Oximetry (%) Oxygen Delivery Venturi Mask Method Fraction of 60 50 Inspired Oxygen (FIO2) 11/21/19 11/21/19 11/21/19 18:00 21:00 21:27 Breakfast Lunch Supper NPO Temperature Pulse Rate Blood Pressure O2 Sat by Pulse 94 L 94 L Oximetry (%) Oxygen Delivery Venturi Mask Method Fraction of 50 Inspired Oxygen (FIO2) 11/21/19 11/21/19 11/22/19 22:00 23:00 00:45 Breakfast Lunch Supper NPO Temperature Pulse Rate Blood Pressure O2 Sat by Pulse 94 L 94 L Oximetry (%) Oxygen Delivery Method Fraction of Inspired Oxygen (FIO2) 11/22/19 11/22/19 11/22/19 02:00 03:10 05:58 Breakfast Lunch Supper Temperature 97.6 F 98.6 F Pulse Rate 99 H 99 H Blood Pressure 161/75 157/80 O2 Sat by Pulse 96 96 97 Oximetry (%) Oxygen Delivery Method Fraction of Inspired Oxygen (FIO2) Laboratory Tests 11/17/19 11/19/19 11/19/19 03:30 07:40 07:40 WBC 23.4 H BUN 108.3 H* COVID-19 ([facility]) Not detected 11/20/19 11/20/19 11/21/19 08:52 08:52 14:50 WBC 16.5 H 12.8 H BUN 122.9 H* COVID-19 ([facility]) 11/21/19 11/22/19 11/22/19 14:50 07:42 07:42 WBC 12.7 H BUN 132.4 H* 108.9 H* COVID-19 ([facility]) Selected Entries 11/22/19 11/22/19 11:01 14:01 Breakfast 50% 50% Lunch 25% Laboratory Tests 11/17/19 03:30 COVID-19 ([facility]) Not detected CXR 11/18 new R base changes Off BiPAP since this AM on ventimask. Dialyzed yesterday Started on reg diet/thin liquids today This is my first consult on this pt History Source: Patient Limitations to Obtaining History: No Limitations - Past Medical History Cardiovascular: Yes: CHF, HTN, Hyperlipdemia Renal/: Yes: Renal Failure, Renal Inusuff Dermatology: Yes: Other (venous stasis) - Past Surgical History Past Surgical History: Yes: AV Fistula/Graft - Advance Directives Advance Directives: Yes: DNR, MOLST - Smoking History Smoking history: Unknown if ever smoked Have you smoked in the past 12 months: No - Alcohol/Substance Use Hx Alcohol Use: No History of Substance Use: reports: None - Social History ADL: Support Services History of Recent Travel: No History - Admission Reason For Visit: URINARY TRACT INFECTION,MORBID OBESITY,SEPSIS, - Diagnostics X-ray: Report Reviewed - General Mental Status: Alert and Oriented, Awake and Alert, Able to Follow Commands Attention: Intact Ability to Follow Directions: Excellent Head/Neck Control: WFL - Hearing Hearing: Functional Hearing: Normal Hearing Aide: No With Patient: No Speech Evaluation - Communication Primary Language: LAO Communication: Yes: Within Normal Limits - Speech Production Able to Make Needs Known: Yes: WNL Intelligibility: Yes: WNL - Speech Characteristics Voice Loudness: Normal Voice Pitch: Yes: Normal Voice Phonatory-based Quality: Yes: Dysphonia (mild) Speech Pattern: Normal Speech Clarity: < 100% Nasal Resonance: Normal Articulation: Yes: Precise Rate of Speech: Intact - Language/Auditory Comprehension Follows: Yes: 2 Stage Simple Commands Observation: Able to respond to yes/no queries: Yes, Comprehends Conversational Speech: Yes - Language/Verbal Expression Able to Communicate Wants and Needs: Yes: WNL Functional Communication Status: Yes: WNL - Memory/Perception nursing home Memory: Yes: WNL Short Term Memory: Yes: WNL - Swallow Evaluation/Bedside Assessment Current Nutritional Intake: Regular, Thin Liquids Oral Secretions: Yes: WFL Dentition: Yes: Adequate Facial Symmetry at Rest: Symmetrical Facial Symmetry on Retraction: Symmetrical Facial Movement: Controlled Against Resistance Opening: Normal Against Resistance Closing: Normal Pucker Lips: Normal Smile: Normal Lingual Movement: Normal, Symmetric Lingual Speed of Movement: Normal Lingual Movement Strgth Against Opposition: Normal Lingual Movement Characteristics: Normal Rate of Intake: WFL Labial Seal: WFL Chewing: WFL Oral Prep Time: WFL A-P Transit: WFL Pocketing: None Timing of Swallow: WFL Coughing/Throat Clear: No Change in Voice: No Recommendations - Speech Evaluation, Impression/Plan Impression: c/o difficulty if food is dry. He says he sometimes becomes SOB when eating. Overtly no coughing or c/o stasis in pharynx. Pt is morbidly obese, unable to9 fit in flouro for MBS. Palpated mobile "mass"? below right side of chin which pt says is residential - Dysphagia Impressions/Plan Dysphagia Impressions: Mild Impairment *Silent aspiration: cannot be R/O at bedside Dysphagia Treatment Plan: Small Bites, Chin Tuck/Down, Safe Rate, 1/2 tsp. at a time, Elevate HOB during feed, Other (alternate solids with liquids) - Recommendations Diet Consistency: Regular (soft, moist foods) Medication Administration: Whole with water Liquids: Thin Liquids
--- NOTE | 2019-11-22 10:40 | PN ---
Progress Note (short form) - Note Progress Note: PULMONARY Off BiPAP since this AM on ventimask. Dialyzed yesterday. States breathing is improving. Vital Signs Period Temp Pulse Resp BP Sys/Rodríguez Pulse Ox Last 24 Hr 97.6 F-98.6 F 90-100 18-20 151-191/68-97 94-97 Intake & Output 11/19/19 11/20/19 11/21/19 11/22/19 23:59 23:59 23:59 23:59 Intake Total 482 150 650 Output Total 965 623 3869 700 Balance -268 -100 -5440 -700 Weight 172.365 kg 173.726 kg 173.839 kg Gen: mildly tachypneic with speaking Heart: RRR Lung: distant breath sounds Abd: soft, obese, nontender Ext: + edema, chronic changes CBC, BMP 11/22/19 07:42 11/22/19 07:42 Active Medications Acetaminophen (Tylenol -) 650 mg PO Q4H PRN PRN Reason: fever>100.0F Last Admin: 11/18/19 06:13 Dose: 650 mg Documented by: Albuterol/Ipratropium (Duoneb -) 1 amp NEB RQID [facility] Last Admin: 11/22/19 08:01 Dose: 1 amp Documented by: Allopurinol (Zyloprim -) 100 mg PO Q48H [facility] Last Admin: 11/21/19 12:10 Dose: Not Given Documented by: Calcium Acetate (Phoslo -) 667 mg PO TIDCM [facility] Last Admin: 11/22/19 08:51 Dose: 667 mg Documented by: Ferrous Sulfate (Feosol -) 325 mg PO BIDWM [facility] Last Admin: 11/22/19 08:50 Dose: 325 mg Documented by: Gabapentin (Neurontin -) 300 mg PO TID [facility] Last Admin: 11/22/19 06:07 Dose: Not Given Documented by: Heparin Sodium (Porcine) (Heparin -) 5,000 unit SQ BID [facility] Last Admin: 11/21/19 22:08 Dose: 5,000 unit Documented by: Hydralazine HCl (Apresoline -) 100 mg PO TID [facility] Last Admin: 11/22/19 06:07 Dose: Not Given Documented by: Piperacillin Sod/Tazobactam (Sod 2.25 gm/ Dextrose) 50 mls @ 100 mls/hr IVPB Q8H-IV [facility]; Protocol Last Admin: 11/22/19 00:59 Dose: 100 mls/hr Documented by: Sodium Chloride (Normal Saline -) 250 mls @ 3,000 mls/hr IV PRN PRN PRN Reason: Hypotension during Dialysis Stop: 11/22/19 11:32 Metoprolol Succinate (Toprol Xl -) 25 mg PO DAILY [facility] Last Admin: 11/21/19 10:32 Dose: Not Given Documented by: Nifedipine (Procardia Xl -) 90 mg PO DAILY [facility] Last Admin: 11/21/19 10:32 Dose: Not Given Documented by: A/P Acute Hypoxic Respiratory Failure Acute on Chronic Renal Failure CHF Cellulitis Morbid Obesity ALEXANDRA/OHS HTN Hyperlipidemia Anemia - continue antibiotics - HD per renal - monitor urine output, creatinine - O2 to keep SpO2 >90% - BiPAP as needed to assist in work of breathing - DVT prophylaxis
[2019-11-22] MEDS: HEPARIN NA (PORCINE) 5,000 UNITS/ML 1ML VIAL SQ SCH ×2 (11:03→21:12)
[2019-11-22] MEDS: metoPROLOL SUCCINATE 25 MG TAB.SR.24H (FP) PO SCH (11:04)
[2019-11-22] MEDS: NIFEdipine E.R. 90 MG TABLET PO SCH (11:04)
[2019-11-22 12:57] LABS: ANISOCYTOSIS 1+; MACROCYTOSIS 0; PLATELET ESTIMATE DECREASED
[2019-11-22] MEDS ORDERED: FUROSEMIDE 40 MG/4 ML INJECTABLE VIAL IVPUSH ONE (14:00)
[2019-11-22] MEDS ORDERED: SODIUM CHLORIDE 250 ML IV PRN (14:00)
[2019-11-22] MEDS ORDERED: POTASSIUM CHLORIDE ORAL LIQUID 20 MEQ/15 ML PO ONE (14:00)
--- NOTE | 2019-11-22 14:00 | PN ---
Progress Note, Physician History of Present Illness: Pt seen and examined at bedside. He is more awake and alert today. - Current Medication List Current Medications: Active Medications Acetaminophen (Tylenol -) 650 mg PO Q4H PRN PRN Reason: fever>100.0F Last Admin: 11/18/19 06:13 Dose: 650 mg Documented by: Albuterol/Ipratropium (Duoneb -) 1 amp NEB RQID [facility] Last Admin: 11/22/19 11:30 Dose: 1 amp Documented by: Allopurinol (Zyloprim -) 100 mg PO Q48H [facility] Last Admin: 11/21/19 12:10 Dose: Not Given Documented by: Calcium Acetate (Phoslo -) 667 mg PO TIDCM [facility] Last Admin: 11/22/19 11:51 Dose: 667 mg Documented by: Ferrous Sulfate (Feosol -) 325 mg PO BIDWM [facility] Last Admin: 11/22/19 08:50 Dose: 325 mg Documented by: Gabapentin (Neurontin -) 300 mg PO TID [facility] Last Admin: 11/22/19 06:07 Dose: Not Given Documented by: Heparin Sodium (Porcine) (Heparin -) 5,000 unit SQ BID [facility] Last Admin: 11/22/19 11:03 Dose: 5,000 unit Documented by: Hydralazine HCl (Apresoline -) 100 mg PO TID [facility] Last Admin: 11/22/19 06:07 Dose: Not Given Documented by: Piperacillin Sod/Tazobactam (Sod 2.25 gm/ Dextrose) 50 mls @ 100 mls/hr IVPB Q8H-IV [facility]; Protocol Last Admin: 11/22/19 11:04 Dose: 100 mls/hr Documented by: Metoprolol Succinate (Toprol Xl -) 25 mg PO DAILY [facility] Last Admin: 11/22/19 11:04 Dose: 25 mg Documented by: Nifedipine (Procardia Xl -) 90 mg PO DAILY [facility] Last Admin: 11/22/19 11:04 Dose: 90 mg Documented by: - Objective Vital Signs: Vital Signs Temperature 98.6 F 11/22/19 05:58 Pulse Rate 99 H 11/22/19 05:58 Respiratory Rate 20 11/22/19 05:58 Blood Pressure 157/80 11/22/19 05:58 O2 Sat by Pulse Oximetry (%) 97 11/22/19 05:58 Constitutional: Yes: Calm Eyes: Yes: Conjunctiva Clear HENT: Yes: Atraumatic Cardiovascular: Yes: S1, S2 Respiratory: Yes: CTA Bilaterally Gastrointestinal: Yes: Soft, Abdomen, Obese Genitourinary: Yes: WNL Musculoskeletal: Yes: Muscle Weakness Edema: Yes Edema: LLE: 3+, RLE: 3+ Neurological: Yes: Oriented Psychiatric: Yes: Oriented Labs: CBC, BMP 11/22/19 07:42 11/22/19 07:42 INR, PTT INR 1.18 (0.83-1.09) H 11/17/19 00:50 Problem List - Problems (1) Anemia Code(s): D64.9 - ANEMIA, UNSPECIFIED (2) CKD (chronic kidney disease) Code(s): N18.9 - CHRONIC KIDNEY DISEASE, UNSPECIFIED (3) Fall Code(s): W19.XXXA - UNSPECIFIED FALL, INITIAL ENCOUNTER Assessment/Plan Current Medications Generic Name Dose Route Start Last Admin Trade Name Freq PRN Reason Stop Dose Admin Acetaminophen 650 mg 11/17/19 11:06 11/18/19 06:13 Tylenol - PO 650 mg Q4H PRN Administration fever>100.0F Albuterol/Ipratropium 1 amp 11/19/19 12:00 11/22/19 11:30 Duoneb - NEB 1 amp RQID [facility] Administration Allopurinol 100 mg 11/17/19 11:15 11/21/19 12:10 Zyloprim - PO Not Given Q48H [facility] Calcium Acetate 667 mg 11/17/19 12:00 11/22/19 11:51 Phoslo - PO 667 mg TIDCM [facility] Administration Ferrous Sulfate 325 mg 11/17/19 17:30 11/22/19 08:50 Feosol - PO 325 mg BIDWM [facility] Administration Gabapentin 300 mg 11/17/19 14:00 11/22/19 06:07 Neurontin - PO Not Given TID [facility] Heparin Sodium (Porcine) 5,000 unit 11/17/19 11:15 11/22/19 11:03 Heparin - SQ 5,000 unit BID [facility] Administration Hydralazine HCl 100 mg 11/17/19 09:00 11/22/19 06:07 Apresoline - PO Not Given TID [facility] Piperacillin Sod/Tazobactam 50 mls @ 100 mls/hr 11/17/19 18:00 11/22/19 11:04 Sod 2.25 gm/ Dextrose IVPB 100 mls/hr Q8H-IV [facility] Administration Protocol Metoprolol Succinate 25 mg 11/17/19 10:00 11/22/19 11:04 Toprol Xl - PO 25 mg DAILY [facility] Administration Nifedipine 90 mg 11/17/19 10:00 11/22/19 11:04 Procardia Xl - PO 90 mg DAILY [facility] Administration Impression 1. CKD 2. htn 3. dm 4. obesity 5. sepsis 6. cellulitis 7. gout 8. chf Plan - HD tomorrow - repeat labs in am - start epogen - start venofer - will UF more volume tomorrow - can give lasix and potassium today
--- NOTE | 2019-11-22 14:38 | CONSULT ---
Consult Consult Specialty:: Physiatry consult Dr Rivera for Dr Cedillo - History of Present Illness Chief Complaint: diffuse RUE/ BLE pain History of Present Illness: This is a 53 year old man with a medical history of severe obesity, CHF, HTN, CKD3, chronic venous stasis, erythema intertrigo, who presented to the ED 11/16/2019 following a fall while getting OOB. Renal was consulted for CKD, who recommended Vascular consult for check AVF, which was performed. Cards was consulted for falls, who recommended orthostatics. ID was consulted for sepsis 2/2 cellulitis vs UTI. Pulm was consulted, who recommended outpt sleep study and supplemental O2. PT was requested, who attempted PT x4 but was unable to perform (either due to pt refusal or held 2/2 medical instability). Physiatry is consulted for further recommendations. - Past Medical History Cardio/Vascular: Yes: CHF, HTN, Hyperlipdemia Renal/: Yes: Renal Failure, Renal Inusuff Dermatology: Yes: Other (venous stasis) - Past Surgical History Past Surgical History: Yes: AV Fistula/Graft - Alcohol/Substance Use Hx Alcohol Use: No History of Substance Use: reports: None - Smoking History Smoking history: Unknown if ever smoked Have you smoked in the past 12 months: No - Social History Usual Living Arrangement: Detention ([facility], ambulated with ) ADL: Support Services History of Recent Travel: No Home Medications - Allergies Allergies/Adverse Reactions: Allergies Allergy/AdvReac Type Severity Reaction Status Date / Time No Known Allergies Allergy Verified 11/16/19 23:36 - Home Medications Home Medications: Ambulatory Orders Acetaminophen [Tylenol] 2 tab PO Q48H 08/29/19 Allopurinol [Zyloprim -] 1 tab PO Q48H 08/29/19 Calcium Acetate 667 mg PO TID 08/29/19 Hydralazine HCl 1 tab PO Q8H 08/29/19 Metolazone 1 tab PO DAILY 08/29/19 Metoprolol Succinate [Toprol Xl] 1 tab PO DAILY 08/29/19 Nifedipine ER [Procardia XL -] 90 mg PO DAILY 08/29/19 Potassium Chloride 40 meq PO TID 08/29/19 Torsemide [Demadex -] 20 mg PO DAILY 08/29/19 Gabapentin 300 mg PO TID 11/14/19 Nifedipine ER 30 mg PO DAILY 11/14/19 Family Medical History Family History: Denies Review of Systems Findings/Remarks: Denies fevers, chills, changes in vision/ hearing/ mood, CP, SOB, abdominal pain, nausea, vomiting, constipation, diarrhea. Holder in place, with chronic RUE/ BLE pain and B foot paresthesias. Physical Exam Vital Signs: Vital Signs Temperature 99.6 F 11/22/19 14:01 Pulse Rate 96 H 11/22/19 14:01 Respiratory Rate 18 11/22/19 14:01 Blood Pressure 163/94 11/22/19 14:01 O2 Sat by Pulse Oximetry (%) 98 11/22/19 14:01 Musculoskeletal: Yes: Other (calm obese M sitting in bed NAD on supplemental O2 via face mask; refuses RUE/ BLE ROM/ MMT, L shoulder flexion to 120 degrees, 4+/5 LUE; chronic BLE skin changes, +B heel protectors in place) Labs: CBC, BMP 11/22/19 07:42 11/22/19 07:42 Assessment/Plan Impression: 1) Deficits mobility/ ADLS 2) Deconditioning 3) Gait abnormality 4) MRSA bacteremia 5) Sepsis 6) Cellulitis 7) Morbid obesity 8) CHF, HTN 9) CKD3 10) DM 11) Gout 12) Chronic venous stasis 13) Erythema intertrigo 14) Up to date flu shot/ pneumovax 15) Anemia Recommendations: 1) PT for stretching strengthening ROM and functional mobility 2) Falls, safety precautions 3) Cardiopulmonary precautions 4) Diabetic precautions 5) DVT ppx: on hep sc 6) Skin protection: float heels, frequent turning 7) Denies constipation on current bowel regimen 8) Monitor CBC given anemia 9) Monitor BMP given renal function 10) Nutrition consult for obesity 11) Continue plan per primary team 12) Discharge planning: he would benefit from inpatient rehabilitation once medically stable Thank you for this referral.
[2019-11-22] MEDS: ACETAMINOPHEN 325 MG TABLET (FP) PO PRN (21:13)
--- NOTE | 2019-11-22 22:42 | PN ---
Progress Note, Physician Chief Complaint: AWAKE, ALERT IN BED REPORTS FEELING BETTER TEMPS DOWN AFEBRILE WBC IMPROVED VANCO TROUGH NOTED WORSENING AZOTEMIA - Current Medication List Current Medications: Active Medications Acetaminophen (Tylenol -) 650 mg PO Q4H PRN PRN Reason: fever>100.0F Last Admin: 11/22/19 21:13 Dose: 650 mg Documented by: Albuterol/Ipratropium (Duoneb -) 1 amp NEB RQID [facility] Last Admin: 11/22/19 20:47 Dose: 1 amp Documented by: Allopurinol (Zyloprim -) 100 mg PO Q48H [facility] Last Admin: 11/21/19 12:10 Dose: Not Given Documented by: Calcium Acetate (Phoslo -) 667 mg PO TIDCM [facility] Last Admin: 11/22/19 17:45 Dose: 667 mg Documented by: Epoetin Raffi (Procrit -) 10,000 unit IVPUSH ONCE ONE Stop: 11/23/19 14:01 Ferrous Sulfate (Feosol -) 325 mg PO BIDWM [facility] Last Admin: 11/22/19 17:45 Dose: 325 mg Documented by: Gabapentin (Neurontin -) 300 mg PO TID [facility] Last Admin: 11/22/19 21:12 Dose: 300 mg Documented by: Heparin Sodium (Porcine) (Heparin -) 5,000 unit SQ BID [facility] Last Admin: 11/22/19 21:12 Dose: 5,000 unit Documented by: Hydralazine HCl (Apresoline -) 100 mg PO TID [facility] Last Admin: 11/22/19 21:12 Dose: 100 mg Documented by: Piperacillin Sod/Tazobactam (Sod 2.25 gm/ Dextrose) 50 mls @ 100 mls/hr IVPB Q8H-IV [facility]; Protocol Last Admin: 11/22/19 17:45 Dose: 100 mls/hr Documented by: Sodium Chloride (Normal Saline -) 250 mls @ 3,000 mls/hr IV PRN PRN PRN Reason: Hypotension during Dialysis Stop: 11/23/19 14:00 Iron Sucrose 100 mg/ Sodium (Chloride) 100 mls @ 200 mls/hr IVPB ONCE ONE Stop: 11/23/19 14:29 Metoprolol Succinate (Toprol Xl -) 25 mg PO DAILY [facility] Last Admin: 11/22/19 11:04 Dose: 25 mg Documented by: Nifedipine (Procardia Xl -) 90 mg PO DAILY [facility] Last Admin: 11/22/19 11:04 Dose: 90 mg Documented by: - Objective Vital Signs: Vital Signs Temperature 98.6 F 11/22/19 20:43 Pulse Rate 96 H 11/22/19 20:43 Respiratory Rate 22 H 11/22/19 20:43 Blood Pressure 151/63 11/22/19 20:43 O2 Sat by Pulse Oximetry (%) 94 L 11/22/19 21:00 Constitutional: Yes: No Distress, Obese Eyes: Yes: Conjunctiva Clear Cardiovascular: Yes: Regular Rate and Rhythm, S1, S2 Respiratory: Yes: Diminished Gastrointestinal: Yes: Normal Bowel Sounds, Soft Extremities: Yes: Other (DECREASED ERYTHEMA/ WARMTH R LE) Edema: Yes Edema: LLE: 3+, RLE: 3+ Labs: CBC, BMP 11/22/19 07:42 11/22/19 07:42 INR, PTT INR 1.18 (0.83-1.09) H 11/17/19 00:50 Assessment/Plan SEPSIS +BC MRSA LIKELY SKIN SOURCE B/L LE CELLULITIS IMPROVED CKD MORBID OBESITY MARKED LEUKOCYTOSIS IMPROVED REPEAT BC NO GROWTH REPEAT VANCOMYCIN LEVEL ECHO
[2019-11-23] MEDS: PIPERACILLIN/TAZOB 2.25 GM 2.25 GM in DEXTROSE 5%-WATER - 50 ML IVPB SCH (01:05)
[2019-11-23] MEDS: GABAPENTIN 300 MG CAPSULE PO SCH ×3 (06:57→20:59)
[2019-11-23] MEDS: hydrALAZINE HCL 50 MG TABLET (FP) PO SCH ×3 (06:57→20:59)
--- NOTE | 2019-11-23 07:58 | PN ---
Progress Note, Physician History of Present Illness: PULMONARY AWAKE,ALERT,COMFORTABLE,-SOB ON NASAL O2 - Current Medication List Current Medications: Active Medications Acetaminophen (Tylenol -) 650 mg PO Q4H PRN PRN Reason: fever>100.0F Last Admin: 11/22/19 21:13 Dose: 650 mg Documented by: Albuterol/Ipratropium (Duoneb -) 1 amp NEB RQID [facility] Last Admin: 11/22/19 20:47 Dose: 1 amp Documented by: Allopurinol (Zyloprim -) 100 mg PO Q48H [facility] Last Admin: 11/21/19 12:10 Dose: Not Given Documented by: Calcium Acetate (Phoslo -) 667 mg PO TIDCM [facility] Last Admin: 11/22/19 17:45 Dose: 667 mg Documented by: Epoetin Raffi (Procrit -) 10,000 unit IVPUSH ONCE ONE Stop: 11/23/19 14:01 Ferrous Sulfate (Feosol -) 325 mg PO BIDWM [facility] Last Admin: 11/22/19 17:45 Dose: 325 mg Documented by: Gabapentin (Neurontin -) 300 mg PO TID [facility] Last Admin: 11/23/19 06:57 Dose: 300 mg Documented by: Heparin Sodium (Porcine) (Heparin -) 5,000 unit SQ BID [facility] Last Admin: 11/22/19 21:12 Dose: 5,000 unit Documented by: Hydralazine HCl (Apresoline -) 100 mg PO TID [facility] Last Admin: 11/23/19 06:57 Dose: 100 mg Documented by: Sodium Chloride (Normal Saline -) 250 mls @ 3,000 mls/hr IV PRN PRN PRN Reason: Hypotension during Dialysis Stop: 11/23/19 14:00 Iron Sucrose 100 mg/ Sodium (Chloride) 100 mls @ 200 mls/hr IVPB ONCE ONE Stop: 11/23/19 14:29 Metoprolol Succinate (Toprol Xl -) 25 mg PO DAILY [facility] Last Admin: 11/22/19 11:04 Dose: 25 mg Documented by: Nifedipine (Procardia Xl -) 90 mg PO DAILY [facility] Last Admin: 11/22/19 11:04 Dose: 90 mg Documented by: - Objective Vital Signs: Vital Signs Temperature 98.6 F 11/23/19 06:00 Pulse Rate 96 H 11/23/19 06:00 Respiratory Rate 22 H 11/23/19 06:00 Blood Pressure 123/62 11/23/19 06:00 O2 Sat by Pulse Oximetry (%) 93 L 11/23/19 06:00 Constitutional: Yes: Calm, Obese Eyes: Yes: WNL HENT: Yes: WNL Neck: Yes: WNL Cardiovascular: Yes: Regular Rate and Rhythm, S2 Respiratory: Yes: Diminished Gastrointestinal: Yes: Normal Bowel Sounds, Soft Extremities: Yes: WNL Edema: Yes Labs: CBC, BMP 11/22/19 07:42 Problem List - Problems (1) Anemia Code(s): D64.9 - ANEMIA, UNSPECIFIED (2) CKD (chronic kidney disease) Code(s): N18.9 - CHRONIC KIDNEY DISEASE, UNSPECIFIED (3) Fall Code(s): W19.XXXA - UNSPECIFIED FALL, INITIAL ENCOUNTER (4) Fever Code(s): R50.9 - FEVER, UNSPECIFIED (5) HLD (hyperlipidemia) Code(s): E78.5 - HYPERLIPIDEMIA, UNSPECIFIED (6) HTN (hypertension) Code(s): I10 - ESSENTIAL (PRIMARY) HYPERTENSION (7) Leukocytosis Code(s): D72.829 - ELEVATED WHITE BLOOD CELL COUNT, UNSPECIFIED (8) Morbid obesity Code(s): E66.01 - MORBID (SEVERE) OBESITY DUE TO EXCESS CALORIES (9) Sepsis Code(s): A41.9 - SEPSIS, UNSPECIFIED ORGANISM Qualifiers: Sepsis type: sepsis due to unspecified organism (10) UTI (urinary tract infection) Code(s): N39.0 - URINARY TRACT INFECTION, SITE NOT SPECIFIED (11) ESRD (end stage renal disease) Code(s): N18.6 - END STAGE RENAL DISEASE Assessment/Plan IMP SEPSIS FEVERS ? CELULITIS,? ALTERED MENTAL STATUS LIKELY TOXIC METABOLIC ENCEPHALOPATHY DYSPNEA S/P MECHANICAL FALL CHF ACUTE ON CKD WORSENING HTN HLD MORBID OBESITY SUSPECTED OSAS/OHS ANEMIA ACUTE HYPOXEMIC/HYPERCAPNEIC RESP FAILURE PLAN SUPPLEMENTAL O2 ABG NIPPV ABX PER ID DVT PROPHYLAXIS OUTPATIENT SLEEP STUDIES MONITOR LYTES,RENAL FUNCTION,CBC F/U CHEST X-RAY HD PER RENAL DR ELY Problem List - Problems (1) Anemia Code(s): D64.9 - ANEMIA, UNSPECIFIED (2) CKD (chronic kidney disease) Code(s): N18.9 - CHRONIC KIDNEY DISEASE, UNSPECIFIED (3) Fall Code(s): W19.XXXA - UNSPECIFIED FALL, INITIAL ENCOUNTER (4) Fever Code(s): R50.9 - FEVER, UNSPECIFIED (5) HLD (hyperlipidemia) Code(s): E78.5 - HYPERLIPIDEMIA, UNSPECIFIED (6) HTN (hypertension) Code(s): I10 - ESSENTIAL (PRIMARY) HYPERTENSION (7) Leukocytosis Code(s): D72.829 - ELEVATED WHITE BLOOD CELL COUNT, UNSPECIFIED (8) Morbid obesity Code(s): E66.01 - MORBID (SEVERE) OBESITY DUE TO EXCESS CALORIES (9) Sepsis Code(s): A41.9 - SEPSIS, UNSPECIFIED ORGANISM Qualifiers: Sepsis type: sepsis due to unspecified organism (10) UTI (urinary tract infection) Code(s): N39.0 - URINARY TRACT INFECTION, SITE NOT SPECIFIED (11) ESRD (end stage renal disease) Code(s): N18.6 - END STAGE RENAL DISEASE
[2019-11-23] MEDS: ALBUTEROL SO4 2.5/IPRATROPIUM 0.5 INH SOL 3 ML VIAL.NEB. NEB SCH ×4 (08:15→20:23)
[2019-11-23] MEDS: FERROUS SO4 325 MG TABLET (FP) PO SCH ×2 (08:42→17:20)
[2019-11-23] MEDS: CALCIUM ACETATE 667 MG CAPSULE (FP) PO SCH ×3 (08:42→17:20)
--- NOTE | 2019-11-23 08:50 | PN ---
Progress Note, Physician - Current Medication List Current Medications: Active Medications Acetaminophen (Tylenol -) 650 mg PO Q4H PRN PRN Reason: fever>100.0F Last Admin: 11/22/19 21:13 Dose: 650 mg Documented by: Albuterol/Ipratropium (Duoneb -) 1 amp NEB RQID [facility] Last Admin: 11/23/19 08:15 Dose: 1 amp Documented by: Allopurinol (Zyloprim -) 100 mg PO Q48H [facility] Last Admin: 11/21/19 12:10 Dose: Not Given Documented by: Calcium Acetate (Phoslo -) 667 mg PO TIDCM [facility] Last Admin: 11/23/19 08:42 Dose: 667 mg Documented by: Epoetin Raffi (Procrit -) 10,000 unit IVPUSH ONCE ONE Stop: 11/23/19 14:01 Ferrous Sulfate (Feosol -) 325 mg PO BIDWM [facility] Last Admin: 11/23/19 08:42 Dose: 325 mg Documented by: Gabapentin (Neurontin -) 300 mg PO TID [facility] Last Admin: 11/23/19 06:57 Dose: 300 mg Documented by: Heparin Sodium (Porcine) (Heparin -) 5,000 unit SQ BID [facility] Last Admin: 11/22/19 21:12 Dose: 5,000 unit Documented by: Hydralazine HCl (Apresoline -) 100 mg PO TID [facility] Last Admin: 11/23/19 06:57 Dose: 100 mg Documented by: Sodium Chloride (Normal Saline -) 250 mls @ 3,000 mls/hr IV PRN PRN PRN Reason: Hypotension during Dialysis Stop: 11/23/19 14:00 Iron Sucrose 100 mg/ Sodium (Chloride) 100 mls @ 200 mls/hr IVPB ONCE ONE Stop: 11/23/19 14:29 Metoprolol Succinate (Toprol Xl -) 25 mg PO DAILY [facility] Last Admin: 11/22/19 11:04 Dose: 25 mg Documented by: Nifedipine (Procardia Xl -) 90 mg PO DAILY [facility] Last Admin: 11/22/19 11:04 Dose: 90 mg Documented by: - Objective Vital Signs: Vital Signs Temperature 98.6 F 11/23/19 06:00 Pulse Rate 96 H 11/23/19 06:00 Respiratory Rate 22 H 09/09/20 06:00 Blood Pressure 123/62 09/09/20 06:00 O2 Sat by Pulse Oximetry (%) 93 L 11/23/19 06:00 Cardiovascular: Yes: S1, S2 Respiratory: Yes: On Venti-Mask Gastrointestinal: Yes: Normal Bowel Sounds, Soft Labs: CBC, BMP 11/22/19 07:42 11/22/19 07:42 INR, PTT INR 1.18 (0.83-1.09) H 11/17/19 00:50 Assessment/Plan - Problems (1) Anemia Assessment/Plan: -Monitor -Iron% low -Start Feosol -B12,FA,Thyroid profile normal Problems reviewed: Yes Code(s): D64.9 - ANEMIA, UNSPECIFIED (2) Fall Assessment/Plan: -Physical therapy -Safety precautions Problems reviewed: Yes Code(s): W19.XXXA - UNSPECIFIED FALL, INITIAL ENCOUNTER (3) Elevated troponin Assessment/Plan: -likely demand ischemia -Seen by cardiology -recommended no telemetry Problems reviewed: Yes Code(s): R79.89 - OTHER SPECIFIED ABNORMAL FINDINGS OF BLOOD CHEMISTRY (4) HTN (hypertension) Assessment/Plan: -Resume home meds -Low sodium diet -Monitor trend for now Problems reviewed: Yes Code(s): I10 - ESSENTIAL (PRIMARY) HYPERTENSION (5) Hypocalcemia Assessment/Plan: -nephrology consult Problems reviewed: Yes Code(s): E83.51 - HYPOCALCEMIA (6) Hypomagnesemia Assessment/Plan: -Received 1 gm Mg in ER -Repeat labs pending Problems reviewed: Yes Code(s): E83.42 - HYPOMAGNESEMIA (7) Morbid obesity Assessment/Plan: -RD consult -Low calorie diet Problems reviewed: Yes Code(s): E66.01 - MORBID (SEVERE) OBESITY DUE TO EXCESS CALORIES (8) Respiratory failure cxr noted--new rt base changes on zosyn npo ivf bipap--trial of nc Problems reviewed: Yes (9) UTI (urinary tract infection) Assessment/Plan: -UA + protein,+1 blood, -nitrites, +1 leuks -UC: Microbiology 11/17/19 00:50 Blood - Peripheral Venous Blood Culture - Final NO GROWTH AFTER 5 DAYS INCUBATION 11/17/19 00:50 Blood - Peripheral Venous Blood Culture - Final S Aureus 11/17/19 02:45 Urine - Urine Clean Catch Urine Culture - Final Lactose Fermenting Neg Bacilli
[2019-11-23] MEDS: ACETAMINOPHEN 325 MG TABLET (FP) PO PRN ×3 (09:59→20:58)
[2019-11-23] MEDS: HEPARIN NA (PORCINE) 5,000 UNITS/ML 1ML VIAL SQ SCH ×2 (10:00→20:59)
[2019-11-23] MEDS: metoPROLOL SUCCINATE 25 MG TAB.SR.24H (FP) PO SCH (10:00)
[2019-11-23] MEDS: NIFEdipine E.R. 90 MG TABLET PO SCH (10:00)
[2019-11-23] MEDS ORDERED: EPOETIN ALFA 10,000 UNIT/1 ML VIAL IVPUSH ONE (11:30)
[2019-11-23] MEDS ORDERED: EPOETIN ALFA-EPBX 10,000 UNIT/ML VIAL IVPUSH ONE (11:30)
[2019-11-23] MEDS ORDERED: IRON SUCROSE INJECTION 100 MG in SODIUM CHLORIDE 95 ML IVPB ONE (14:00)
[2019-11-23] MEDS: ALLOPURINOL 100 MG TABLET (FP) PO SCH (15:09)
--- NOTE | 2019-11-23 15:50 | ECHO ---
Version: 1 Name: MIRIAN DAVID Exam: Adult Echocardiogram Study Date: 11/23/2019, 3:03 PM Age: 53 Years MMode/2D Measurements & Calculations IVSd: 1.39 cm LVIDs: 3.3 cm LVIDd: 5.0 cm LVPWd: 1.37 cm ACS: 2.07 cm Ao root diam: 3.6 cm LVOT diam: 1.98 cm LA dimension: 3.6 cm Doppler Measurements & Calculations MV E max abdias: 122.1 cm/sec Med E/e': 22.8 MV A max abdias: 114.3 cm/sec Med Peak E' Abdias: 5.4 cm/sec MV E/A: 1.07 Lat E/e': 9.3 Lat Peak E' Abdias: 13.2 cm/sec Ao max P.1 mmHg SHUKRI(I,D): 2.9 cm Ao mean P.5 mmHg LV V1 mean: 116.0 cm/sec Ao V2 max: 200.9 cm/sec LV V1 mean P.6 mmHg TR max abdias: 257.9 cm/sec TR max P.7 mmHg Procedure The study was technically difficult with many images being suboptimal in quality. The study was tech nically limited with all images being suboptimal in quality. The patient was in normal sinus rhythm during t he exam. Left Ventricle The left ventricle is grossly normal size. There is mild concentric left ventricular hypertrophy. Le ft ventricular systolic function is grossly normal. Ejection Fraction = 60%. The transmitral spectral D oppler flow pattern is normal for age. Right Ventricle The right ventricle is grossly normal size. The right ventricular systolic function is grossly stacai l. Atria The left atrial size is normal. Mitral Valve There is mild mitral annular calcification. The mitral valve is normal. There is no mitral regurgita tion noted. Tricuspid Valve The tricuspid valve is normal. There is mild tricuspid regurgitation. Right ventricular systolic pre ssure is elevated at 35 mmhg. Aortic Valve The aortic valve is normal in structure and function. No aortic regurgitation is present. Pulmonic Valve The pulmonic valve is not well seen, but is grossly normal. Great Vessels The aortic root is normal size. Normal aortic arch, descending and ascending aorta. Pericardium/Pleura There is no pericardial effusion. No obvious intracardia vegetations seen. Tech Comments TDS due to morbid obesity. LIMITED STUDY. Patient scanned right lateral decubitus, slightly elevated , on BiPap, in severe pain. Summary Statements The study was technically difficult with many images being suboptimal in quality. There is mild concentric left ventricular hypertrophy. Left ventricular systolic function is grossly normal. The right ventricular systolic function is grossly normal. There is mild mitral annular calcification. There is mild tricuspid regurgitation. No obvious intracardia vegetations seen. MD Larry Fuentes 11/23/2019, 3:49 PM Ordering Physician: Chris Modi Referring Physician: CHRIS MODI Performed By: Isela Ryan
--- NOTE | 2019-11-23 17:48 | PN ---
Progress Note, Physician History of Present Illness: Pt seen and examined at bedside. He is awake and alert. He is tolerating HD. - Current Medication List Current Medications: Active Medications Acetaminophen (Tylenol -) 650 mg PO Q4H PRN PRN Reason: fever>100.0F Last Admin: 11/23/19 15:10 Dose: 650 mg Documented by: Albuterol/Ipratropium (Duoneb -) 1 amp NEB RQID [facility] Last Admin: 11/23/19 15:17 Dose: Not Given Documented by: Allopurinol (Zyloprim -) 100 mg PO Q48H [facility] Last Admin: 11/23/19 15:09 Dose: 100 mg Documented by: Calcium Acetate (Phoslo -) 1,334 mg PO TIDCM [facility] Last Admin: 11/23/19 17:20 Dose: 1,334 mg Documented by: Ferrous Sulfate (Feosol -) 325 mg PO BIDWM [facility] Last Admin: 11/23/19 17:20 Dose: 325 mg Documented by: Gabapentin (Neurontin -) 300 mg PO TID [facility] Last Admin: 11/23/19 15:10 Dose: 300 mg Documented by: Heparin Sodium (Porcine) (Heparin -) 5,000 unit SQ BID [facility] Last Admin: 11/23/19 10:00 Dose: 5,000 unit Documented by: Hydralazine HCl (Apresoline -) 100 mg PO TID [facility] Last Admin: 11/23/19 15:10 Dose: 100 mg Documented by: Metoprolol Succinate (Toprol Xl -) 25 mg PO DAILY [facility] Last Admin: 11/23/19 10:00 Dose: 25 mg Documented by: Nifedipine (Procardia Xl -) 90 mg PO DAILY [facility] Last Admin: 11/23/19 10:00 Dose: 90 mg Documented by: - Objective Vital Signs: Vital Signs Temperature 99.6 F 11/23/19 15:06 Pulse Rate 102 H 11/23/19 15:06 Respiratory Rate 20 11/23/19 15:06 Blood Pressure 120/56 L 11/23/19 15:06 O2 Sat by Pulse Oximetry (%) 95 11/23/19 15:06 Constitutional: Yes: Calm Eyes: Yes: Conjunctiva Clear HENT: Yes: Atraumatic Neck: Yes: Supple Cardiovascular: Yes: S1, S2 Respiratory: Yes: On Nasal O2 Gastrointestinal: Yes: Soft, Abdomen, Obese Genitourinary: Yes: Incontinence Edema: Yes Edema: LLE: 2+, RLE: 2+ Neurological: Yes: Oriented Psychiatric: Yes: Oriented Labs: CBC, BMP 11/22/19 07:42 11/22/19 07:42 INR, PTT INR 1.18 (0.83-1.09) H 11/17/19 00:50 Problem List - Problems (1) Anemia Code(s): D64.9 - ANEMIA, UNSPECIFIED (2) CKD (chronic kidney disease) Code(s): N18.9 - CHRONIC KIDNEY DISEASE, UNSPECIFIED (3) Fall Code(s): W19.XXXA - UNSPECIFIED FALL, INITIAL ENCOUNTER Assessment/Plan Current Medications Generic Name Dose Route Start Last Admin Trade Name Freq PRN Reason Stop Dose Admin Acetaminophen 650 mg 11/17/19 11:06 11/23/19 15:10 Tylenol - PO 650 mg Q4H PRN Administration fever>100.0F Albuterol/Ipratropium 1 amp 11/19/19 12:00 11/23/19 15:17 Duoneb - NEB Not Given RQID [facility] Allopurinol 100 mg 11/17/19 11:15 11/23/19 15:09 Zyloprim - PO 100 mg Q48H [facility] Administration Calcium Acetate 1,334 mg 11/23/19 09:55 11/23/19 17:20 Phoslo - PO 1,334 mg TIDCM [facility] Administration Ferrous Sulfate 325 mg 11/17/19 17:30 11/23/19 17:20 Feosol - PO 325 mg BIDWM [facility] Administration Gabapentin 300 mg 11/17/19 14:00 11/23/19 15:10 Neurontin - PO 300 mg TID [facility] Administration Heparin Sodium (Porcine) 5,000 unit 11/17/19 11:15 11/23/19 10:00 Heparin - SQ 5,000 unit BID [facility] Administration Hydralazine HCl 100 mg 11/17/19 09:00 11/23/19 15:10 Apresoline - PO 100 mg TID [facility] Administration Metoprolol Succinate 25 mg 11/17/19 10:00 11/23/19 10:00 Toprol Xl - PO 25 mg DAILY [facility] Administration Nifedipine 90 mg 11/17/19 10:00 11/23/19 10:00 Procardia Xl - PO 90 mg DAILY [facility] Administration Impression 1. CKD 2. htn 3. dm 4. obesity 5. sepsis 6. cellulitis 7. gout 8. chf Plan - HD today - cont epogen - repeat labs in am - cont abx - will evaluate for diuretics on non HD days - pt on venofer as well
[2019-11-23 22:00] LABS: BASO % 0.9 % (0-2.0); EOS % 1.1 % (0-4.5); HEMATOCRIT 22.3 % (35.4-49); HEMOGLOBIN 7.1 GM/dL (11.7-16.9); LYMPH % 6.8 % (8-40); MCH 23.7 pg (25.7-33.7); MCHC 31.8 g/dl (32.0-35.9); MEAN CELL VOLUME 74.7 fl (80-96); MEAN PLT VOLUME 7.8 fl (7.5-11.1); MONO % 6.3 % (3.8-10.2); NEUT % 84.9 % (42.8-82.8); PLATELET COUNT 191 K/MM3 (134-434); RBC 2.99 M/mm3 (4.00-5.60); RDW 18.7 % (11.9-15.9); WHITE BLOOD COUNT 17.8 K/mm3 (4.0-10.0)
--- NOTE | 2019-11-23 22:17 | PN ---
Progress Note, Physician Chief Complaint: AWAKE, ALERT IN BED REPORTS FEELING BETTER TEMPS DOWN AFEBRILE WBC REMAINS ELEVATED VANCO TROUGH NOTED - Current Medication List Current Medications: Active Medications Acetaminophen (Tylenol -) 650 mg PO Q4H PRN PRN Reason: fever>100.0F Last Admin: 11/23/19 20:58 Dose: 650 mg Documented by: Albuterol/Ipratropium (Duoneb -) 1 amp NEB RQID [facility] Last Admin: 11/23/19 20:23 Dose: 1 amp Documented by: Allopurinol (Zyloprim -) 100 mg PO Q48H [facility] Last Admin: 11/23/19 15:09 Dose: 100 mg Documented by: Calcium Acetate (Phoslo -) 1,334 mg PO TIDCM [facility] Last Admin: 11/23/19 17:20 Dose: 1,334 mg Documented by: Ferrous Sulfate (Feosol -) 325 mg PO BIDWM [facility] Last Admin: 11/23/19 17:20 Dose: 325 mg Documented by: Gabapentin (Neurontin -) 300 mg PO TID [facility] Last Admin: 11/23/19 20:59 Dose: 300 mg Documented by: Heparin Sodium (Porcine) (Heparin -) 5,000 unit SQ BID [facility] Last Admin: 11/23/19 20:59 Dose: 5,000 unit Documented by: Hydralazine HCl (Apresoline -) 100 mg PO TID [facility] Last Admin: 11/23/19 20:59 Dose: 100 mg Documented by: Metoprolol Succinate (Toprol Xl -) 25 mg PO DAILY [facility] Last Admin: 11/23/19 10:00 Dose: 25 mg Documented by: Nifedipine (Procardia Xl -) 90 mg PO DAILY [facility] Last Admin: 11/23/19 10:00 Dose: 90 mg Documented by: - Objective Vital Signs: Vital Signs Temperature 98.8 F 11/23/19 18:29 Pulse Rate 76 11/23/19 18:29 Respiratory Rate 21 H 11/23/19 18:29 Blood Pressure 114/59 L 11/23/19 18:29 O2 Sat by Pulse Oximetry (%) 97 11/23/19 20:23 Constitutional: Yes: No Distress, Obese Eyes: Yes: Conjunctiva Clear Cardiovascular: Yes: Regular Rate and Rhythm, S1, S2 Respiratory: Yes: Diminished Gastrointestinal: Yes: Normal Bowel Sounds, Soft Edema: Yes Integumentary: Yes: Other (DECREASED ERYTHEMA R LE) Labs: CBC, BMP 11/23/19 21:35 INR, PTT INR 1.18 (0.83-1.09) H 11/17/19 00:50 Assessment/Plan SEPSIS +BC MRSA LIKELY SKIN SOURCE B/L LE CELLULITIS IMPROVED CKD MORBID OBESITY MARKED LEUKOCYTOSIS REPEAT BC NO GROWTH REPEAT VANCOMYCIN LEVEL, BC ECHO NOTED
[2019-11-23 22:18] LABS: ANISOCYTOSIS 2+; PLATELET ESTIMATE ADEQUATE; TARGET CELLS 1+
[2019-11-23] MEDS ORDERED: traMADol HCL 50 MG TABLET PO PRN (22:29)
[2019-11-23 22:32] LABS: ALBUMIN 2.1 g/dl (3.4-5.0); BILIRUBIN,TOTAL 0.4 mg/dL (0.2-1); CALCIUM 7.6 mg/dL (8.5-10.1); CREATININE 5.5 mg/dL (0.55-1.3); POTASSIUM 3.7 mmol/L (3.5-5.1); TOT PROT 6.7 g/dl (6.4-8.2)
[2019-11-23 22:46] LABS: BLOOD UREA NITROGEN 80.1 mg/dL (7-18)
[2019-11-24] MEDS: hydrALAZINE HCL 50 MG TABLET (FP) PO SCH ×3 (05:46→21:37)
[2019-11-24] MEDS: GABAPENTIN 300 MG CAPSULE PO SCH ×3 (05:46→21:38)
--- NOTE | 2019-11-24 07:18 | PN ---
Progress Note, Physician - Current Medication List Current Medications: Active Medications Acetaminophen (Tylenol -) 650 mg PO Q4H PRN PRN Reason: fever>100.0F Last Admin: 11/23/19 20:58 Dose: 650 mg Documented by: Albuterol/Ipratropium (Duoneb -) 1 amp NEB RQID [facility] Last Admin: 11/23/19 20:23 Dose: 1 amp Documented by: Allopurinol (Zyloprim -) 100 mg PO Q48H [facility] Last Admin: 11/23/19 15:09 Dose: 100 mg Documented by: Calcium Acetate (Phoslo -) 1,334 mg PO TIDCM [facility] Last Admin: 11/23/19 17:20 Dose: 1,334 mg Documented by: Ferrous Sulfate (Feosol -) 325 mg PO BIDWM [facility] Last Admin: 11/23/19 17:20 Dose: 325 mg Documented by: Gabapentin (Neurontin -) 300 mg PO TID [facility] Last Admin: 11/24/19 05:46 Dose: 300 mg Documented by: Heparin Sodium (Porcine) (Heparin -) 5,000 unit SQ BID [facility] Last Admin: 11/23/19 20:59 Dose: 5,000 unit Documented by: Hydralazine HCl (Apresoline -) 100 mg PO TID [facility] Last Admin: 11/24/19 05:46 Dose: 100 mg Documented by: Metoprolol Succinate (Toprol Xl -) 25 mg PO DAILY [facility] Last Admin: 11/23/19 10:00 Dose: 25 mg Documented by: Nifedipine (Procardia Xl -) 90 mg PO DAILY [facility] Last Admin: 11/23/19 10:00 Dose: 90 mg Documented by: Tramadol HCl (Ultram -) 50 mg PO ONCE PRN PRN Reason: PAIN LEVEL 6-10 Last Admin: 11/23/19 23:36 Dose: 50 mg Documented by: - Objective Vital Signs: Vital Signs Temperature 97.5 F L 11/24/19 06:00 Pulse Rate 87 11/24/19 06:00 Respiratory Rate 20 11/24/19 06:00 Blood Pressure 112/64 11/24/19 06:00 O2 Sat by Pulse Oximetry (%) 98 11/24/19 06:00 Labs: CBC, BMP 11/23/19 21:35 11/23/19 21:35 INR, PTT INR 1.18 (0.83-1.09) H 11/17/19 00:50
[2019-11-24] MEDS: ALBUTEROL SO4 2.5/IPRATROPIUM 0.5 INH SOL 3 ML VIAL.NEB. NEB SCH (07:30)
[2019-11-24 08:11] LABS: BASO % 0.9 % (0-2.0); EOS % 2.1 % (0-4.5); HEMATOCRIT 22.4 % (35.4-49); HEMOGLOBIN 7.1 GM/dL (11.7-16.9); LYMPH % 9.3 % (8-40); MCH 23.7 pg (25.7-33.7); MCHC 31.6 g/dl (32.0-35.9); MEAN PLT VOLUME 8.1 fl (7.5-11.1); MONO % 6.5 % (3.8-10.2); NEUT % 81.2 % (42.8-82.8); PLATELET COUNT 217 K/MM3 (134-434); RBC 2.99 M/mm3 (4.00-5.60); RDW 19.1 % (11.9-15.9); WHITE BLOOD COUNT 17.5 K/mm3 (4.0-10.0)
[2019-11-24 08:34] LABS: ALBUMIN 2.1 g/dl (3.4-5.0); BILIRUBIN,TOTAL 0.4 mg/dL (0.2-1); BLOOD UREA NITROGEN 88.8 mg/dL (7-18); CALCIUM 7.6 mg/dL (8.5-10.1); CREATININE 5.9 mg/dL (0.55-1.3); POTASSIUM 3.9 mmol/L (3.5-5.1); TOT PROT 6.7 g/dl (6.4-8.2)
[2019-11-24] MEDS ORDERED: FUROSEMIDE 40 MG/4 ML INJECTABLE VIAL IVPUSH ONE (08:52)
--- NOTE | 2019-11-24 08:55 | DS ---
Physical Examination Vital Signs: Vital Signs Temperature 97.5 F L 11/24/19 06:00 Pulse Rate 87 11/24/19 06:00 Respiratory Rate 20 11/24/19 06:00 Blood Pressure 112/64 11/24/19 06:00 O2 Sat by Pulse Oximetry (%) 100 11/24/19 08:10 Cardiovascular: Yes: S1, S2 Respiratory: Yes: On BiPap Gastrointestinal: Yes: Normal Bowel Sounds, Soft, Abdomen, Obese Musculoskeletal: Yes: Muscle Weakness Edema: Yes Integumentary: Yes: Venous Stasis Changes Labs: CBC, BMP 11/24/19 06:34 11/24/19 06:34 Discharge Summary Problems reviewed: Yes Reason For Visit: URINARY TRACT INFECTION,MORBID OBESITY,SEPSIS, Current Active Problems Anemia (Acute) CKD (chronic kidney disease) (Acute) Elevated troponin (Acute) Encounter for screening laboratory testing for COVID-19 virus (Acute) Fall (Acute) Fever (Acute) HLD (hyperlipidemia) (Acute) HTN (hypertension) (Acute) Hypocalcemia (Acute) Hypomagnesemia (Acute) Leukocytosis (Acute) Morbid obesity (Acute) Sepsis (Acute) UTI (urinary tract infection) (Acute) Hospital Course: - Problems (1) Anemia Assessment/Plan: -Monitor--One unit prior to dc -Iron% low -Start Feosol -B12,FA,Thyroid profile normal Problems reviewed: Yes Code(s): D64.9 - ANEMIA, UNSPECIFIED (2) Fall Assessment/Plan: -Physical therapy -Safety precautions Problems reviewed: Yes Code(s): W19.XXXA - UNSPECIFIED FALL, INITIAL ENCOUNTER (3) Elevated troponin Assessment/Plan: -likely demand ischemia -Seen by cardiology -recommended no telemetry Problems reviewed: Yes Code(s): R79.89 - OTHER SPECIFIED ABNORMAL FINDINGS OF BLOOD CHEMISTRY (4) HTN (hypertension) Assessment/Plan: -Resume home meds -Low sodium diet -Monitor trend for now Problems reviewed: Yes Code(s): I10 - ESSENTIAL (PRIMARY) HYPERTENSION (5) Hypocalcemia Assessment/Plan: -nephrology consult Problems reviewed: Yes Code(s): E83.51 - HYPOCALCEMIA (6) Hypomagnesemia Assessment/Plan: -Received 1 gm Mg in ER -Repeat labs pending Problems reviewed: Yes Code(s): E83.42 - HYPOMAGNESEMIA (7) Morbid obesity Assessment/Plan: -RD consult -Low calorie diet Problems reviewed: Yes Code(s): E66.01 - MORBID (SEVERE) OBESITY DUE TO EXCESS CALORIES (8) Respiratory failure cxr noted--new rt base changes on zosyn npo ivf bipap--trial of nc Problems reviewed: Yes (9) UTI (urinary tract infection) Assessment/Plan: -UA + protein,+1 blood, -nitrites, +1 leuks -UC: Microbiology 11/17/19 00:50 Blood - Peripheral Venous Blood Culture - Final NO GROWTH AFTER 5 DAYS INCUBATION 11/17/19 00:50 Blood - Peripheral Venous Blood Culture - Final S Aureus 11/17/19 02:45 Urine - Urine Clean Catch Urine Culture - Final Lactose Fermenting Neg Bacilli will discuss with id iv abx dc planning Condition: Fair - Instructions Referrals: Nishant Mansfield MD [Primary Care Provider] - - Home Medications Comprehensive Discharge Medication List: Ambulatory Orders Acetaminophen [Tylenol] 2 tab PO Q48H 08/29/19 Allopurinol [Zyloprim -] 1 tab PO Q48H 08/29/19 Calcium Acetate 667 mg PO TID 08/29/19 Hydralazine HCl 1 tab PO Q8H 08/29/19 Metoprolol Succinate [Toprol Xl] 1 tab PO DAILY 08/29/19 Nifedipine ER [Procardia XL -] 90 mg PO DAILY 08/29/19 Gabapentin 300 mg PO TID 11/14/19 Albuterol 2.5/Ipratropium 0.5 [Duoneb -] 1 amp NEB RQID amp 11/24/19 Ferrous Sulfate [Feosol] 325 mg PO BIDWM ud 11/24/19 Heparin - 5,000 unit SQ BID vial 11/24/19 Piperacillin/Tazob 2.25 gm [Zosyn -] 2.25 gm IVPB Q8H-IV vial 11/24/19
[2019-11-24] MEDS: FERROUS SO4 325 MG TABLET (FP) PO SCH ×2 (09:59→18:12)
[2019-11-24] MEDS: CALCIUM ACETATE 667 MG CAPSULE (FP) PO SCH ×3 (09:59→18:12)
[2019-11-24] MEDS: NIFEdipine E.R. 90 MG TABLET PO SCH (09:59)
[2019-11-24] MEDS: ACETAMINOPHEN 325 MG TABLET (FP) PO PRN (09:59)
[2019-11-24] MEDS: metoPROLOL SUCCINATE 25 MG TAB.SR.24H (FP) PO SCH (10:00)
[2019-11-24] MEDS: HEPARIN NA (PORCINE) 5,000 UNITS/ML 1ML VIAL SQ SCH (10:00)
--- NOTE | 2019-11-24 10:11 | PN ---
Progress Note (short form) - Note Progress Note: PULMONARY On ventimask, used BiPAP overnight. Dialyzed yesterday. States breathing is improving. Vital Signs Period Temp Pulse Resp BP Sys/Rodríguez Pulse Ox Last 24 Hr 97.5 F-99.6 F 76-109 19-24 112-143/52-75 95-100 Gen: mildly tachypneic with speaking Heart: RRR Lung: distant breath sounds Abd: soft, obese, nontender Ext: + edema, chronic changes CBC, BMP 11/24/19 06:34 11/24/19 06:34 Active Medications Acetaminophen (Tylenol -) 650 mg PO Q4H PRN PRN Reason: fever>100.0F Last Admin: 11/24/19 09:59 Dose: 650 mg Documented by: Albuterol/Ipratropium (Duoneb -) 1 amp NEB RQID [facility] Last Admin: 11/24/19 07:30 Dose: 1 amp Documented by: Allopurinol (Zyloprim -) 100 mg PO Q48H [facility] Last Admin: 11/23/19 15:09 Dose: 100 mg Documented by: Calcium Acetate (Phoslo -) 1,334 mg PO TIDCM [facility] Last Admin: 11/24/19 09:59 Dose: 1,334 mg Documented by: Ferrous Sulfate (Feosol -) 325 mg PO BIDWM [facility] Last Admin: 11/24/19 09:59 Dose: 325 mg Documented by: Gabapentin (Neurontin -) 300 mg PO TID [facility] Last Admin: 11/24/19 05:46 Dose: 300 mg Documented by: Heparin Sodium (Porcine) (Heparin -) 5,000 unit SQ BID [facility] Last Admin: 11/24/19 10:00 Dose: 5,000 unit Documented by: Hydralazine HCl (Apresoline -) 100 mg PO TID [facility] Last Admin: 11/24/19 05:46 Dose: 100 mg Documented by: Metoprolol Succinate (Toprol Xl -) 25 mg PO DAILY [facility] Last Admin: 11/24/19 10:00 Dose: 25 mg Documented by: Nifedipine (Procardia Xl -) 90 mg PO DAILY [facility] Last Admin: 11/24/19 09:59 Dose: 90 mg Documented by: Tramadol HCl (Ultram -) 50 mg PO ONCE PRN PRN Reason: PAIN LEVEL 6-10 Last Admin: 11/23/19 23:36 Dose: 50 mg Documented by: A/P Acute Hypoxic Respiratory Failure Acute on Chronic Renal Failure CHF Cellulitis Morbid Obesity ALEXANDRA/OHS HTN Hyperlipidemia Anemia - completed antibiotics - HD per renal - monitor urine output, creatinine - O2 to keep SpO2 >90% - BiPAP at night and PRN during day - DVT prophylaxis
[2019-11-24 10:33] LABS: ANISOCYTOSIS 1+; MACROCYTOSIS 0; PLATELET ESTIMATE NORMAL
--- NOTE | 2019-11-24 10:56 | PN ---
Progress Note, [employer] - Note Progress Note: Selected Entries 11/22/19 11/22/19 11/22/19 00:45 02:00 03:10 Breakfast Diet Tolerated Lunch Supper Temperature Pulse Rate Blood Pressure O2 Sat by Pulse 94 L 96 96 Oximetry (%) Oxygen Delivery Method Fraction of 50 50 Inspired Oxygen (FIO2) 11/22/19 11/22/19 11/22/19 05:58 09:00 11:01 Breakfast 50% Diet Tolerated Lunch Supper Temperature Pulse Rate Blood Pressure O2 Sat by Pulse 97 97 Oximetry (%) Oxygen Delivery Method Fraction of Inspired Oxygen (FIO2) 11/22/19 11/22/19 11/22/19 14:01 20:35 20:43 Breakfast 50% Diet Tolerated Lunch 25% Supper Temperature Pulse Rate Blood Pressure O2 Sat by Pulse 98 94 L 91 L Oximetry (%) Oxygen Delivery Venturi Mask Method Fraction of 50 Inspired Oxygen (FIO2) 11/22/19 11/23/19 11/23/19 21:00 00:51 04:00 Breakfast Diet Tolerated Lunch Supper Temperature Pulse Rate Blood Pressure O2 Sat by Pulse 94 L Oximetry (%) Oxygen Delivery Method Fraction of 50 50 50 Inspired Oxygen (FIO2) 11/23/19 11/23/19 11/23/19 06:00 09:00 10:00 Breakfast Diet Tolerated Lunch Supper Temperature Pulse Rate Blood Pressure O2 Sat by Pulse 93 L 97 98 Oximetry (%) Oxygen Delivery Venturi Mask Method Fraction of 50 Inspired Oxygen (FIO2) 11/23/19 11/23/19 11/23/19 14:00 15:00 15:06 Breakfast 0 Diet Tolerated Fair Lunch 25% Supper Temperature Pulse Rate Blood Pressure O2 Sat by Pulse 95 95 Oximetry (%) Oxygen Delivery Method Fraction of Inspired Oxygen (FIO2) 11/23/19 11/23/19 11/23/19 18:29 20:23 21:00 Breakfast Diet Tolerated Lunch Supper Temperature Pulse Rate Blood Pressure O2 Sat by Pulse 97 97 98 Oximetry (%) Oxygen Delivery Bi-pap Method Fraction of 50 40 Inspired Oxygen (FIO2) 11/23/19 11/23/19 11/24/19 22:00 22:07 01:13 Breakfast Diet Tolerated Poor Lunch Supper 25% Temperature Pulse Rate Blood Pressure O2 Sat by Pulse 98 Oximetry (%) Oxygen Delivery Method Fraction of 40 Inspired Oxygen (FIO2) 09/01/0211/24/19 11/24/19 04:34 06:00 08:10 Breakfast Diet Tolerated Lunch Supper Temperature 97.5 F L Pulse Rate 87 Blood Pressure 112/64 O2 Sat by Pulse 98 98 100 Oximetry (%) Oxygen Delivery Method Fraction of 40 50 Inspired Oxygen (FIO2) Laboratory Tests 11/21/19 11/22/19 11/23/19 14:50 07:42 21:35 WBC 12.8 H 12.7 H 17.8 H 11/24/19 06:34 WBC 17.5 H On ventimask, used BiPAP overnight. Dialyzed yesterday On reg diet/thin liquids Refusing most food, reporting its too dry, but refusing diet consistency alteration. No thrush identified Lying flat, NC on his forehead, looks comfortable Pt obese but not eating- needs nourishment Suggest very moist, soft foods extra gravy Supplements per RD Monitor PO tolerance with reg diet. May benefit from downgrade if insufficient PO accepted at MD
[2019-11-24] MEDS ORDERED: FUROSEMIDE 100 MG/10 ML INJECTABLE VIAL IVPB ONE (13:03)
--- NOTE | 2019-11-24 13:06 | PN ---
Progress Note, Physician History of Present Illness: Pt seen and examined at bedside. He remains on - Current Medication List Current Medications: Active Medications Acetaminophen (Tylenol -) 650 mg PO Q4H PRN PRN Reason: fever>100.0F Last Admin: 11/24/19 09:59 Dose: 650 mg Documented by: Allopurinol (Zyloprim -) 100 mg PO Q48H [facility] Last Admin: 11/23/19 15:09 Dose: 100 mg Documented by: Calcium Acetate (Phoslo -) 1,334 mg PO TIDCM [facility] Last Admin: 11/24/19 09:59 Dose: 1,334 mg Documented by: Ferrous Sulfate (Feosol -) 325 mg PO BIDWM [facility] Last Admin: 11/24/19 09:59 Dose: 325 mg Documented by: Furosemide (Lasix Injection -) 100 mg IVPB ONCE ONE Stop: 11/24/19 13:04 Gabapentin (Neurontin -) 300 mg PO TID [facility] Last Admin: 11/24/19 05:46 Dose: 300 mg Documented by: Hydralazine HCl (Apresoline -) 100 mg PO TID [facility] Last Admin: 11/24/19 05:46 Dose: 100 mg Documented by: Metoprolol Succinate (Toprol Xl -) 25 mg PO DAILY [facility] Last Admin: 11/24/19 10:00 Dose: 25 mg Documented by: Nifedipine (Procardia Xl -) 90 mg PO DAILY [facility] Last Admin: 11/24/19 09:59 Dose: 90 mg Documented by: Tramadol HCl (Ultram -) 50 mg PO ONCE PRN PRN Reason: PAIN LEVEL 6-10 Last Admin: 11/23/19 23:36 Dose: 50 mg Documented by: - Objective Vital Signs: Vital Signs Temperature 97.5 F L 11/24/19 06:00 Pulse Rate 87 11/24/19 06:00 Respiratory Rate 20 11/24/19 06:00 Blood Pressure 112/64 11/24/19 06:00 O2 Sat by Pulse Oximetry (%) 100 11/24/19 11:42 Constitutional: Yes: Calm Eyes: Yes: Conjunctiva Clear HENT: Yes: Atraumatic Neck: Yes: Supple Cardiovascular: Yes: S1, S2 Respiratory: Yes: On Venti-Mask Gastrointestinal: Yes: Soft, Abdomen, Obese Genitourinary: Yes: Incontinence Edema: Yes Edema: LLE: 2+, RLE: 2+ Neurological: Yes: Oriented Psychiatric: Yes: Oriented Labs: CBC, BMP 11/24/19 06:34 11/24/19 06:34 INR, PTT INR 1.18 (0.83-1.09) H 11/17/19 00:50 Problem List - Problems (1) Anemia Code(s): D64.9 - ANEMIA, UNSPECIFIED (2) CKD (chronic kidney disease) Code(s): N18.9 - CHRONIC KIDNEY DISEASE, UNSPECIFIED (3) Fall Code(s): W19.XXXA - UNSPECIFIED FALL, INITIAL ENCOUNTER Assessment/Plan Current Medications Generic Name Dose Route Start Last Admin Trade Name Freq PRN Reason Stop Dose Admin Acetaminophen 650 mg 11/17/19 11:06 11/24/19 09:59 Tylenol - PO 650 mg Q4H PRN Administration fever>100.0F Allopurinol 100 mg 11/17/19 11:15 11/23/19 15:09 Zyloprim - PO 100 mg Q48H [facility] Administration Calcium Acetate 1,334 mg 11/23/19 09:55 11/24/19 09:59 Phoslo - PO 1,334 mg TIDCM [facility] Administration Ferrous Sulfate 325 mg 11/17/19 17:30 11/24/19 09:59 Feosol - PO 325 mg BIDWM [facility] Administration Furosemide 100 mg 11/24/19 13:03 Lasix Injection - IVPB 11/24/19 13:04 ONCE ONE Gabapentin 300 mg 11/17/19 14:00 11/24/19 05:46 Neurontin - PO 300 mg TID [facility] Administration Hydralazine HCl 100 mg 11/17/19 09:00 11/24/19 05:46 Apresoline - PO 100 mg TID [facility] Administration Metoprolol Succinate 25 mg 11/17/19 10:00 11/24/19 10:00 Toprol Xl - PO 25 mg DAILY [facility] Administration Nifedipine 90 mg 11/17/19 10:00 11/24/19 09:59 Procardia Xl - PO 90 mg DAILY [facility] Administration Tramadol HCl 50 mg 11/23/19 22:29 11/23/19 23:36 Ultram - PO 50 mg ONCE PRN Administration PAIN LEVEL 6-10 Impression 1. CKD 2. htn 3. dm 4. obesity 5. sepsis 6. cellulitis 7. gout 8. chf 9. ESRD Plan - HD tomorrow - will give a dose of lasix - 3 k bath on hd - pt still overloaded - cont epogen - pt on venofer as well
[2019-11-24] MEDS ORDERED: VANCOMYCIN 1 GRAM (PRE-DOCKED) 1,000 MG/250 ML BAG IVPB ONE (22:17)
--- NOTE | 2019-11-24 22:21 | PN ---
Progress Note, Physician Chief Complaint: AWAKE, ALERT IN BED REPORTS FEELING BETTER TEMPS DOWN AFEBRILE WBC REMAINS ELEVATED VANCO TROUGH NOTED - Current Medication List Current Medications: Active Medications Acetaminophen (Tylenol -) 650 mg PO Q4H PRN PRN Reason: fever>100.0F Last Admin: 11/24/19 09:59 Dose: 650 mg Documented by: Allopurinol (Zyloprim -) 100 mg PO Q48H [facility] Last Admin: 11/23/19 15:09 Dose: 100 mg Documented by: Calcium Acetate (Phoslo -) 1,334 mg PO TIDCM [facility] Last Admin: 11/24/19 18:12 Dose: 1,334 mg Documented by: Epoetin Raffi (Procrit -) 10,000 unit IVPUSH ONCE ONE Stop: 11/25/19 13:07 Ferrous Sulfate (Feosol -) 325 mg PO BIDWM [facility] Last Admin: 11/24/19 18:12 Dose: 325 mg Documented by: Gabapentin (Neurontin -) 300 mg PO TID [facility] Last Admin: 11/24/19 21:38 Dose: 300 mg Documented by: Hydralazine HCl (Apresoline -) 100 mg PO TID [facility] Last Admin: 11/24/19 21:37 Dose: 100 mg Documented by: Sodium Chloride (Normal Saline -) 250 mls @ 3,000 mls/hr IV PRN PRN PRN Reason: Hypotension during Dialysis Stop: 11/25/19 13:06 Iron Sucrose 100 mg/ Sodium (Chloride) 100 mls @ 200 mls/hr IVPB ONCE ONE Stop: 11/25/19 13:35 Vancomycin HCl 1,000 mg/ (Dextrose) 250 mls @ 166.667 mls/hr IVPB ONCE ONE; Protocol Stop: 11/24/19 23:46 Metoprolol Succinate (Toprol Xl -) 25 mg PO DAILY [facility] Last Admin: 11/24/19 10:00 Dose: 25 mg Documented by: Nifedipine (Procardia Xl -) 90 mg PO DAILY [facility] Last Admin: 11/24/19 09:59 Dose: 90 mg Documented by: Tramadol HCl (Ultram -) 50 mg PO ONCE PRN PRN Reason: PAIN LEVEL 6-10 Last Admin: 11/23/19 23:36 Dose: 50 mg Documented by: - Objective Vital Signs: Vital Signs Temperature 98.6 F 11/24/19 14:00 Pulse Rate 87 11/24/19 14:00 Respiratory Rate 20 11/24/19 14:00 Blood Pressure 139/68 11/24/19 14:00 O2 Sat by Pulse Oximetry (%) 98 11/24/19 14:00 Constitutional: Yes: No Distress Eyes: Yes: Conjunctiva Clear Cardiovascular: Yes: Regular Rate and Rhythm, S1, S2 Respiratory: Yes: CTA Bilaterally Gastrointestinal: Yes: Normal Bowel Sounds, Soft Extremities: Yes: Other (DECREASED ERYTHEMA R LE) Edema: Yes Labs: CBC, BMP 11/24/19 06:34 11/24/19 06:34 INR, PTT INR 1.18 (0.83-1.09) H 11/17/19 00:50 Assessment/Plan SEPSIS +BC MRSA LIKELY SKIN SOURCE B/L LE CELLULITIS IMPROVED CKD MORBID OBESITY LEUKOCYTOSIS REPEAT BC NO GROWTH REPEAT VANCOMYCIN LEVEL, BC ECHO NOTED
[2019-11-25] MEDS: GABAPENTIN 300 MG CAPSULE PO SCH ×3 (06:41→21:18)
[2019-11-25] MEDS: hydrALAZINE HCL 50 MG TABLET (FP) PO SCH ×3 (06:41→21:18)
[2019-11-25] MEDS: ACETAMINOPHEN 325 MG TABLET (FP) PO PRN ×2 (07:52→15:05)
[2019-11-25] MEDS: FERROUS SO4 325 MG TABLET (FP) PO SCH ×2 (07:53→17:37)
[2019-11-25] MEDS: CALCIUM ACETATE 667 MG CAPSULE (FP) PO SCH ×3 (07:53→17:37)
[2019-11-25 08:13] LABS: HEMATOCRIT 22.1 % (35.4-49); HEMOGLOBIN 7.1 GM/dL (11.7-16.9); MCH 24.4 pg (25.7-33.7); MCHC 32.1 g/dl (32.0-35.9); MEAN CELL VOLUME 75.9 fl (80-96); MEAN PLT VOLUME 8.1 fl (7.5-11.1); PLATELET COUNT 249 K/MM3 (134-434); RBC 2.91 M/mm3 (4.00-5.60); RDW 19.3 % (11.9-15.9); WHITE BLOOD COUNT 17.8 K/mm3 (4.0-10.0)
[2019-11-25] MEDS ORDERED: IRON SUCROSE INJECTION 100 MG in SODIUM CHLORIDE 95 ML IVPB ONE (08:30)
[2019-11-25] MEDS ORDERED: SODIUM CHLORIDE 250 ML IV PRN (08:30)
[2019-11-25] MEDS ORDERED: EPOETIN ALFA 10,000 UNIT/1 ML VIAL IVPUSH ONE (08:30)
[2019-11-25 08:45] LABS: CALCIUM 7.8 mg/dL (8.5-10.1); CREATININE 6.9 mg/dL (0.55-1.3); POTASSIUM 4.3 mmol/L (3.5-5.1)
[2019-11-25 09:21] LABS: BLOOD UREA NITROGEN 109.2 mg/dL (7-18)
[2019-11-25] MEDS: NIFEdipine E.R. 90 MG TABLET PO SCH (10:10)
[2019-11-25] MEDS: metoPROLOL SUCCINATE 25 MG TAB.SR.24H (FP) PO SCH (10:11)
--- NOTE | 2019-11-25 10:39 | PN ---
Progress Note, [facility] - Note Progress Note: Selected Entries 11/24/19 11/24/19 11/25/19 10:00 23:40 02:00 Breakfast 0 Diet Tolerated Refused Refused Lunch 0 Temperature 99.1 F Pulse Rate 87 Blood Pressure 111/62 11/25/19 11/25/19 11/25/19 06:00 07:25 09:05 Breakfast Diet Tolerated Refused Lunch Temperature 98.6 F 98.5 F Pulse Rate 91 H 88 90 Blood Pressure 132/70 141/64 11/25/19 11/25/19 11/25/19 09:10 09:40 10:10 Breakfast Diet Tolerated Lunch Temperature Pulse Rate 90 94 H 94 H Blood Pressure 144/68 122/70 130/70 Laboratory Tests 11/24/19 11/25/19 06:34 06:57 WBC 17.5 H 17.8 H Feed only when alert. Encourage PO acceptance. Encourage Nepro
--- NOTE | 2019-11-25 13:27 | PN ---
Progress Note, Physician - Current Medication List Current Medications: Active Medications Acetaminophen (Tylenol -) 650 mg PO Q4H PRN PRN Reason: fever>100.0F Last Admin: 11/25/19 07:52 Dose: 650 mg Documented by: Allopurinol (Zyloprim -) 100 mg PO Q48H [facility] Last Admin: 11/23/19 15:09 Dose: 100 mg Documented by: Calcium Acetate (Phoslo -) 1,334 mg PO TIDCM [facility] Last Admin: 11/25/19 12:24 Dose: Not Given Documented by: Ferrous Sulfate (Feosol -) 325 mg PO BIDWM [facility] Last Admin: 11/25/19 07:53 Dose: 325 mg Documented by: Gabapentin (Neurontin -) 300 mg PO TID [facility] Last Admin: 11/25/19 06:41 Dose: 300 mg Documented by: Hydralazine HCl (Apresoline -) 100 mg PO TID [facility] Last Admin: 11/25/19 06:41 Dose: 100 mg Documented by: Metoprolol Succinate (Toprol Xl -) 25 mg PO DAILY [facility] Last Admin: 11/25/19 10:11 Dose: Not Given Documented by: Nifedipine (Procardia Xl -) 90 mg PO DAILY [facility] Last Admin: 11/25/19 10:10 Dose: Not Given Documented by: Tramadol HCl (Ultram -) 50 mg PO ONCE PRN PRN Reason: PAIN LEVEL 6-10 Last Admin: 11/23/19 23:36 Dose: 50 mg Documented by: - Objective Vital Signs: Vital Signs Temperature 98.5 F 11/25/19 09:05 Pulse Rate 91 H 11/25/19 12:15 Respiratory Rate 18 11/25/19 12:15 Blood Pressure 133/75 11/25/19 12:15 O2 Sat by Pulse Oximetry (%) 98 11/25/19 11:25 Cardiovascular: Yes: S1, S2 Respiratory: Yes: Diminished, On Venti-Mask Gastrointestinal: Yes: Normal Bowel Sounds, Soft Edema: Yes Integumentary: Yes: Venous Stasis Changes Labs: CBC, BMP 11/25/19 06:57 11/25/19 06:57 INR, PTT INR 1.18 (0.83-1.09) H 11/17/19 00:50 Assessment/Plan - Problems (1) Anemia Assessment/Plan: -Monitor -Iron% low -Start Feosol -B12,FA,Thyroid profile normal Problems reviewed: Yes Code(s): D64.9 - ANEMIA, UNSPECIFIED (2) Fall Assessment/Plan: -Physical therapy -Safety precautions Problems reviewed: Yes Code(s): W19.XXXA - UNSPECIFIED FALL, INITIAL ENCOUNTER (3) Elevated troponin Assessment/Plan: -likely demand ischemia -Seen by cardiology -recommended no telemetry Problems reviewed: Yes Code(s): R79.89 - OTHER SPECIFIED ABNORMAL FINDINGS OF BLOOD CHEMISTRY (4) HTN (hypertension) Assessment/Plan: -Resume home meds -Low sodium diet -Monitor trend for now Problems reviewed: Yes Code(s): I10 - ESSENTIAL (PRIMARY) HYPERTENSION (5) Hypocalcemia Assessment/Plan: -nephrology consult Problems reviewed: Yes Code(s): E83.51 - HYPOCALCEMIA (6) Hypomagnesemia Assessment/Plan: -Received 1 gm Mg in ER -Repeat labs pending Problems reviewed: Yes Code(s): E83.42 - HYPOMAGNESEMIA (7) Morbid obesity Assessment/Plan: -RD consult -Low calorie diet Problems reviewed: Yes Code(s): E66.01 - MORBID (SEVERE) OBESITY DUE TO EXCESS CALORIES (8) Respiratory failure cxr noted--new rt base changes on zosyn npo ivf bipap--trial of nc Problems reviewed: Yes (9) UTI (urinary tract infection) Assessment/Plan: -UA + protein,+1 blood, -nitrites, +1 leuks -UC: Microbiology 11/17/19 00:50 Blood - Peripheral Venous Blood Culture - Final NO GROWTH AFTER 5 DAYS INCUBATION 11/17/19 00:50 Blood - Peripheral Venous Blood Culture - Final S Aureus 11/17/19 02:45 Urine - Urine Clean Catch Urine Culture - Final Lactose Fermenting Neg Bacilli dc planing --dc to snf once dialysis arranged
--- NOTE | 2019-11-25 13:53 | PN ---
Progress Note, Physician History of Present Illness: Pt seen and examined at bedside. He is awake and alert. He is tolerating HD. - Current Medication List Current Medications: Active Medications Acetaminophen (Tylenol -) 650 mg PO Q4H PRN PRN Reason: fever>100.0F Last Admin: 11/25/19 07:52 Dose: 650 mg Documented by: Allopurinol (Zyloprim -) 100 mg PO Q48H [facility] Last Admin: 11/23/19 15:09 Dose: 100 mg Documented by: Calcium Acetate (Phoslo -) 1,334 mg PO TIDCM [facility] Last Admin: 11/25/19 12:24 Dose: Not Given Documented by: Ferrous Sulfate (Feosol -) 325 mg PO BIDWM [facility] Last Admin: 11/25/19 07:53 Dose: 325 mg Documented by: Gabapentin (Neurontin -) 300 mg PO TID [facility] Last Admin: 11/25/19 06:41 Dose: 300 mg Documented by: Hydralazine HCl (Apresoline -) 100 mg PO TID [facility] Last Admin: 11/25/19 06:41 Dose: 100 mg Documented by: Metoprolol Succinate (Toprol Xl -) 25 mg PO DAILY [facility] Last Admin: 11/25/19 10:11 Dose: Not Given Documented by: Nifedipine (Procardia Xl -) 90 mg PO DAILY [facility] Last Admin: 11/25/19 10:10 Dose: Not Given Documented by: Tramadol HCl (Ultram -) 50 mg PO ONCE PRN PRN Reason: PAIN LEVEL 6-10 Last Admin: 11/23/19 23:36 Dose: 50 mg Documented by: - Objective Vital Signs: Vital Signs Temperature 98.5 F 11/25/19 09:05 Pulse Rate 91 H 11/25/19 12:15 Respiratory Rate 18 11/25/19 12:15 Blood Pressure 133/75 11/25/19 12:15 O2 Sat by Pulse Oximetry (%) 98 11/25/19 11:25 Constitutional: Yes: Calm Eyes: Yes: Conjunctiva Clear HENT: Yes: Atraumatic Neck: Yes: Supple Cardiovascular: Yes: S1, S2 Respiratory: Yes: On Venti-Mask Gastrointestinal: Yes: Normal Bowel Sounds, Soft, Abdomen, Obese Genitourinary: Yes: WNL Musculoskeletal: Yes: WNL Edema: Yes Edema: LLE: 2+, RLE: 2+ Neurological: Yes: Oriented Psychiatric: Yes: Oriented Labs: CBC, BMP 11/25/19 06:57 11/25/19 06:57 INR, PTT INR 1.18 (0.83-1.09) H 11/17/19 00:50 Problem List - Problems (1) Anemia Code(s): D64.9 - ANEMIA, UNSPECIFIED (2) CKD (chronic kidney disease) Code(s): N18.9 - CHRONIC KIDNEY DISEASE, UNSPECIFIED (3) Fall Code(s): W19.XXXA - UNSPECIFIED FALL, INITIAL ENCOUNTER Assessment/Plan Current Medications Generic Name Dose Route Start Last Admin Trade Name Freq PRN Reason Stop Dose Admin Acetaminophen 650 mg 11/17/19 11:06 11/25/19 07:52 Tylenol - PO 650 mg Q4H PRN Administration fever>100.0F Allopurinol 100 mg 11/17/19 11:15 11/23/19 15:09 Zyloprim - PO 100 mg Q48H [facility] Administration Calcium Acetate 1,334 mg 11/23/19 09:55 11/25/19 12:24 Phoslo - PO Not Given TIDCM [facility] Ferrous Sulfate 325 mg 11/17/19 17:30 11/25/19 07:53 Feosol - PO 325 mg BIDWM [facility] Administration Gabapentin 300 mg 11/17/19 14:00 11/25/19 06:41 Neurontin - PO 300 mg TID [facility] Administration Hydralazine HCl 100 mg 11/17/19 09:00 11/25/19 06:41 Apresoline - PO 100 mg TID [facility] Administration Metoprolol Succinate 25 mg 11/17/19 10:00 11/25/19 10:11 Toprol Xl - PO Not Given DAILY [facility] Nifedipine 90 mg 11/17/19 10:00 11/25/19 10:10 Procardia Xl - PO Not Given DAILY [facility] Tramadol HCl 50 mg 11/23/19 22:29 11/23/19 23:36 Ultram - PO 50 mg ONCE PRN Administration PAIN LEVEL 6-10 Impression 1. CKD 2. htn 3. dm 4. obesity 5. sepsis 6. cellulitis 7. gout 8. chf 9. ESRD Plan - HD today - will evaluate for diuretics daily - pending HD to be set up as outpt - pt will need oysterman HD - pt still overloaded - cont epogen - pt on venofer as well
--- NOTE | 2019-11-25 14:56 | PN ---
Progress Note, Physician Chief Complaint: RECEIVED HD AWAKE, ALERT IN BED REPORTS FEELING BETTER TEMPS DOWN AFEBRILE VANCO TROUGH NOTED BC 11/23 (-) - Current Medication List Current Medications: Active Medications Acetaminophen (Tylenol -) 650 mg PO Q4H PRN PRN Reason: fever>100.0F Last Admin: 11/25/19 07:52 Dose: 650 mg Documented by: Allopurinol (Zyloprim -) 100 mg PO Q48H [facility] Last Admin: 11/23/19 15:09 Dose: 100 mg Documented by: Calcium Acetate (Phoslo -) 1,334 mg PO TIDCM [facility] Last Admin: 11/25/19 12:24 Dose: Not Given Documented by: Ferrous Sulfate (Feosol -) 325 mg PO BIDWM [facility] Last Admin: 11/25/19 07:53 Dose: 325 mg Documented by: Gabapentin (Neurontin -) 300 mg PO TID [facility] Last Admin: 11/25/19 06:41 Dose: 300 mg Documented by: Hydralazine HCl (Apresoline -) 100 mg PO TID [facility] Last Admin: 11/25/19 06:41 Dose: 100 mg Documented by: Metoprolol Succinate (Toprol Xl -) 25 mg PO DAILY [facility] Last Admin: 11/25/19 10:11 Dose: Not Given Documented by: Nifedipine (Procardia Xl -) 90 mg PO DAILY [facility] Last Admin: 11/25/19 10:10 Dose: Not Given Documented by: Tramadol HCl (Ultram -) 50 mg PO ONCE PRN PRN Reason: PAIN LEVEL 6-10 Last Admin: 11/23/19 23:36 Dose: 50 mg Documented by: - Objective Vital Signs: Vital Signs Temperature 98.5 F 11/25/19 09:05 Pulse Rate 91 H 11/25/19 12:15 Respiratory Rate 18 11/25/19 12:15 Blood Pressure 133/75 11/25/19 12:15 O2 Sat by Pulse Oximetry (%) 98 11/25/19 11:25 Constitutional: Yes: No Distress, Obese Eyes: Yes: Conjunctiva Clear Cardiovascular: Yes: Regular Rate and Rhythm, S1, S2 Respiratory: Yes: CTA Bilaterally Gastrointestinal: Yes: Soft, Abdomen, Obese. No: Tenderness Extremities: Yes: Other (ERYHEMA LE NEARLY ALL RESOLVED) Edema: Yes Labs: CBC, BMP 11/25/19 06:57 11/25/19 06:57 INR, PTT INR 1.18 (0.83-1.09) H 11/17/19 00:50 Assessment/Plan SEPSIS +BC MRSA LIKELY SKIN SOURCE B/L LE CELLULITIS IMPROVED CKD MORBID OBESITY LEUKOCYTOSIS REPEAT BC NO GROWTH REPEAT VANCOMYCIN LEVEL, BC NOTED ECHO NOTED
[2019-11-25] MEDS: ALLOPURINOL 100 MG TABLET (FP) PO SCH (15:06)
[2019-11-26] MEDS: hydrALAZINE HCL 50 MG TABLET (FP) PO SCH ×3 (06:30→21:03)
[2019-11-26] MEDS: ACETAMINOPHEN 325 MG TABLET (FP) PO PRN ×2 (06:30→20:45)
[2019-11-26] MEDS: GABAPENTIN 300 MG CAPSULE PO SCH ×3 (06:30→21:03)
[2019-11-26] MEDS: metoPROLOL SUCCINATE 25 MG TAB.SR.24H (FP) PO SCH (10:10)
[2019-11-26] MEDS: FERROUS SO4 325 MG TABLET (FP) PO SCH ×2 (10:10→16:59)
[2019-11-26] MEDS: NIFEdipine E.R. 90 MG TABLET PO SCH (10:10)
[2019-11-26] MEDS: CALCIUM ACETATE 667 MG CAPSULE (FP) PO SCH ×3 (10:10→16:59)
--- NOTE | 2019-11-26 10:49 | PN ---
Progress Note, Physician Chief Complaint: Fall UTI Hypomagnesemia Anemia Leukocytosis Elevated troponin History of Present Illness: This is a 53 y/o male from [facility] with a significant PMHx of CHF, HTN, CKD Stage 3, Chronic Venous Stasis, Erythema Intertrigo, Severe Obesity. Who presents to the ED s/p unwitnessed fall. Patient reports while getting OOB he fell. Patient denies head trauma or LOC. Patient reports chronic lumbar pain exacerbated while laying on the stretcher. Patient denies fever, chills, cough, SOB, dizziness, HERNANDEZ, CP, palpitations, AP, N/V/D, constipation, dysura. denies any SOB or pain Rigors noted- states he normally has tremors BLLE chronic lymphedema 11/18/19: NAD, looks better, denies any pain or SOB, on BIPAP Afebrile Labs pending UC +Lcatose fermenting GNB BC + On Zosyn - Current Medication List Current Medications: Active Medications Acetaminophen (Tylenol -) 650 mg PO Q4H PRN PRN Reason: fever>100.0F Last Admin: 11/26/19 06:30 Dose: 650 mg Documented by: Allopurinol (Zyloprim -) 100 mg PO Q48H [facility] Last Admin: 11/25/19 15:06 Dose: 100 mg Documented by: Calcium Acetate (Phoslo -) 1,334 mg PO TIDCM [facility] Last Admin: 11/26/19 10:10 Dose: 1,334 mg Documented by: Ferrous Sulfate (Feosol -) 325 mg PO BIDWM [facility] Last Admin: 11/26/19 10:10 Dose: 325 mg Documented by: Gabapentin (Neurontin -) 300 mg PO TID [facility] Last Admin: 11/26/19 06:30 Dose: 300 mg Documented by: Hydralazine HCl (Apresoline -) 100 mg PO TID [facility] Last Admin: 11/26/19 06:30 Dose: 100 mg Documented by: Metoprolol Succinate (Toprol Xl -) 25 mg PO DAILY [facility] Last Admin: 11/26/19 10:10 Dose: 25 mg Documented by: Nifedipine (Procardia Xl -) 90 mg PO DAILY [facility] Last Admin: 11/26/19 10:10 Dose: 90 mg Documented by: Tramadol HCl (Ultram -) 50 mg PO ONCE PRN PRN Reason: PAIN LEVEL 6-10 Last Admin: 11/23/19 23:36 Dose: 50 mg Documented by: - Objective Vital Signs: Vital Signs Temperature 98.6 F 11/26/19 06:35 Pulse Rate 93 H 11/26/19 06:35 Respiratory Rate 11/26/19 06:35 Blood Pressure 156/71 11/26/19 06:35 O2 Sat by Pulse Oximetry (%) 100 11/26/19 07:27 Constitutional: Yes: Well Nourished, No Distress, Calm, Obese Cardiovascular: Yes: Regular Rate and Rhythm Respiratory: Yes: Regular, CTA Bilaterally, On BiPap Gastrointestinal: Yes: Normal Bowel Sounds, Soft, Abdomen, Obese Genitourinary: Yes: Holder Present Musculoskeletal: Yes: Muscle Weakness Extremities: Yes: WNL Edema: Yes (BLLE chronic lymphedema) Peripheral Pulses WNL: Yes Neurological: Yes: Alert, Oriented Psychiatric: Yes: Alert, Oriented Labs: CBC, BMP 11/25/19 06:57 11/25/19 06:57 INR, PTT INR 1.18 (0.83-1.09) H 11/17/19 00:50 Problem List - Problems (1) Anemia Assessment/Plan: -no previous records available -Iron% low -Start Feosol -B12,FA,Thyroid profile normal -Stool OB + -Consult GI Problems reviewed: Yes Code(s): D64.9 - ANEMIA, UNSPECIFIED (2) Fall Assessment/Plan: -Physical therapy -Safety precautions Problems reviewed: Yes Code(s): W19.XXXA - UNSPECIFIED FALL, INITIAL ENCOUNTER (3) Elevated troponin Assessment/Plan: -likely demand ischemia -Seen by cardiology Code(s): R79.89 - OTHER SPECIFIED ABNORMAL FINDINGS OF BLOOD CHEMISTRY (4) HTN (hypertension) Assessment/Plan: -Resume home meds -Low sodium diet -Monitor trend for now Problems reviewed: Yes Code(s): I10 - ESSENTIAL (PRIMARY) HYPERTENSION (5) Hypocalcemia Assessment/Plan: -nephrology consult Problems reviewed: Yes Code(s): E83.51 - HYPOCALCEMIA (6) Hypomagnesemia Assessment/Plan: -resolved Problems reviewed: Yes Code(s): E83.42 - HYPOMAGNESEMIA (7) Morbid obesity Assessment/Plan: -RD consult -Low calorie diet Problems reviewed: Yes Code(s): E66.01 - MORBID (SEVERE) OBESITY DUE TO EXCESS CALORIES (8) Leukocytosis Assessment/Plan: -improved Problems reviewed: Yes Code(s): D72.829 - ELEVATED WHITE BLOOD CELL COUNT, UNSPECIFIED (9) UTI (urinary tract infection) Assessment/Plan: -UA + protein,+1 blood, -nitrites, +1 leuks -UC: Microbiology 11/24/19 06:34 Blood - Peripheral Venous Blood Culture - Preliminary NO GROWTH OBTAINED AFTER 48 HOURS, INCUBATION TO CONTINUE FOR 3 DAYS. 11/24/19 06:34 Blood - Peripheral Venous Blood Culture - Preliminary NO GROWTH OBTAINED AFTER 48 HOURS, INCUBATION TO CONTINUE FOR 3 DAYS. 11/21/19 15:20 Blood - Peripheral Venous Blood Culture - Preliminary NO GROWTH OBTAINED AFTER 96 HOURS, INCUBATION TO CONTINUE FOR 1 DAYS. 11/21/19 14:50 Blood - Peripheral Venous Blood Culture - Preliminary NO GROWTH OBTAINED AFTER 96 HOURS, INCUBATION TO CONTINUE FOR 1 DAYS. 11/17/19 00:50 Blood - Peripheral Venous Blood Culture - Final NO GROWTH AFTER 5 DAYS INCUBATION 11/17/19 00:50 Blood - Peripheral Venous Blood Culture - Final S Aureus 11/17/19 02:45 Urine - Urine Clean Catch Urine Culture - Final Lactose Fermenting Neg Bacilli -repeat BC negative -ID consult appreciated -Received IV zosyn + vanco- finished Problems reviewed: Yes Code(s): N39.0 - URINARY TRACT INFECTION, SITE NOT SPECIFIED (10) Fever Assessment/Plan: -CXR negative -resolved -ID consult -acetaminophen for fever>100.0F -Received IV zosyn + Vanco -finished Problems reviewed: Yes Code(s): R50.9 - FEVER, UNSPECIFIED (11) Sepsis Assessment/Plan: -as above Problems reviewed: Yes Code(s): A41.9 - SEPSIS, UNSPECIFIED ORGANISM Qualifiers: Sepsis type: sepsis due to unspecified organism (12) ESRD (end stage renal disease) Assessment/Plan: -Nephrology on board -HD as per renal-tolerating well Problems reviewed: Yes Code(s): N18.6 - END STAGE RENAL DISEASE Assessment/Plan See problem list
--- NOTE | 2019-11-26 13:55 | PN ---
Progress Note (short form) - Note Progress Note: Drowsy but arousable on NIPPV support. No acute events overnight. Intake & Output 11/23/19 11/24/19 11/25/19 11/26/19 23:59 23:59 23:59 23:59 Intake Total 410 990 Output Total 55759 1100 98009 250 Balance -58235 -1100 -28570 -250 Weight 387 lb 376 lb Last Vital Signs Temp Pulse Resp BP Pulse Ox 98.6 F 93 H 20 156/71 100 11/26/19 06:35 11/26/19 06:35 11/26/19 06:35 11/26/19 06:35 11/26/19 07:27 Active Medications Acetaminophen (Tylenol -) 650 mg PO Q4H PRN PRN Reason: fever>100.0F Last Admin: 11/26/19 06:30 Dose: 650 mg Documented by: Allopurinol (Zyloprim -) 100 mg PO Q48H [facility] Last Admin: 11/25/19 15:06 Dose: 100 mg Documented by: Calcium Acetate (Phoslo -) 1,334 mg PO TIDCM [facility] Last Admin: 11/26/19 10:10 Dose: 1,334 mg Documented by: Ferrous Sulfate (Feosol -) 325 mg PO BIDWM [facility] Last Admin: 11/26/19 10:10 Dose: 325 mg Documented by: Gabapentin (Neurontin -) 300 mg PO TID [facility] Last Admin: 11/26/19 06:30 Dose: 300 mg Documented by: Hydralazine HCl (Apresoline -) 100 mg PO TID [facility] Last Admin: 11/26/19 06:30 Dose: 100 mg Documented by: Metoprolol Succinate (Toprol Xl -) 25 mg PO DAILY [facility] Last Admin: 11/26/19 10:10 Dose: 25 mg Documented by: Nifedipine (Procardia Xl -) 90 mg PO DAILY [facility] Last Admin: 11/26/19 10:10 Dose: 90 mg Documented by: Tramadol HCl (Ultram -) 50 mg PO ONCE PRN PRN Reason: PAIN LEVEL 6-10 Last Admin: 11/23/19 23:36 Dose: 50 mg Documented by: Gen: Drowsy but arousable on NIPPV Heart: RRR Lung: distant breath sounds Abd: soft, obese, nontender Ext: + edema, chronic changes Laboratory Results - last 24 hr 11/26/19 06:48 Random Vancomycin 13.7 A/P Acute Hypoxic Respiratory Failure Acute on Chronic Renal Failure CHF Cellulitis Morbid Obesity ALEXANDRA/OHS HTN Hyperlipidemia Anemia - completed antibiotics - HD per renal for volume removal - monitor urine output, creatinine - O2 to keep SpO2 >90% - NIPPV at night and PRN during day - DVT prophylaxis Dr Ledbetter
[2019-11-26 14:16] LABS: BASO % 0.9 % (0-2.0); EOS % 3.5 % (0-4.5); HEMATOCRIT 26.1 % (35.4-49); HEMOGLOBIN 8.1 GM/dL (11.7-16.9); LYMPH % 7.5 % (8-40); MCH 23.8 pg (25.7-33.7); MCHC 30.9 g/dl (32.0-35.9); MEAN CELL VOLUME 76.8 fl (80-96); MEAN PLT VOLUME 7.4 fl (7.5-11.1); NEUT % 82.1 % (42.8-82.8); PLATELET COUNT 290 K/MM3 (134-434); RDW 19.4 % (11.9-15.9)
[2019-11-26 14:45] LABS: ALBUMIN 2.1 g/dl (3.4-5.0); BILIRUBIN,TOTAL 0.3 mg/dL (0.2-1); BLOOD UREA NITROGEN 90.7 mg/dL (7-18); CALCIUM 7.9 mg/dL (8.5-10.1); CREATININE 5.8 mg/dL (0.55-1.3); POTASSIUM 4.4 mmol/L (3.5-5.1); TOT PROT 6.9 g/dl (6.4-8.2)
[2019-11-26 14:46] LABS: ANISOCYTOSIS 1+; MACROCYTOSIS 0; PLATELET ESTIMATE NORMAL
--- NOTE | 2019-11-26 15:21 | PN ---
Progress Note, Physician History of Present Illness: Pt seen and examined at bedside. He is awake and alert. He complains of edema. - Current Medication List Current Medications: Active Medications Acetaminophen (Tylenol -) 650 mg PO Q4H PRN PRN Reason: fever>100.0F Last Admin: 11/26/19 06:30 Dose: 650 mg Documented by: Allopurinol (Zyloprim -) 100 mg PO Q48H [facility] Last Admin: 11/25/19 15:06 Dose: 100 mg Documented by: Calcium Acetate (Phoslo -) 1,334 mg PO TIDCM [facility] Last Admin: 11/26/19 15:01 Dose: Not Given Documented by: Ferrous Sulfate (Feosol -) 325 mg PO BIDWM [facility] Last Admin: 11/26/19 10:10 Dose: 325 mg Documented by: Gabapentin (Neurontin -) 300 mg PO TID [facility] Last Admin: 11/26/19 15:03 Dose: 300 mg Documented by: Hydralazine HCl (Apresoline -) 100 mg PO TID [facility] Last Admin: 11/26/19 15:03 Dose: 100 mg Documented by: Metoprolol Succinate (Toprol Xl -) 25 mg PO DAILY [facility] Last Admin: 11/26/19 10:10 Dose: 25 mg Documented by: Nifedipine (Procardia Xl -) 90 mg PO DAILY [facility] Last Admin: 11/26/19 10:10 Dose: 90 mg Documented by: Tramadol HCl (Ultram -) 50 mg PO ONCE PRN PRN Reason: PAIN LEVEL 6-10 Last Admin: 11/23/19 23:36 Dose: 50 mg Documented by: - Objective Vital Signs: Vital Signs Temperature 97.8 F 11/26/19 14:00 Pulse Rate 96 H 11/26/19 14:00 Respiratory Rate 20 11/26/19 14:00 Blood Pressure 132/77 11/26/19 14:00 O2 Sat by Pulse Oximetry (%) 99 11/26/19 14:00 Constitutional: Yes: Calm Eyes: Yes: Conjunctiva Clear HENT: Yes: Atraumatic Cardiovascular: Yes: S1, S2 Respiratory: Yes: On Venti-Mask Gastrointestinal: Yes: Soft, Abdomen, Obese Genitourinary: Yes: Incontinence Musculoskeletal: Yes: Muscle Weakness Edema: Yes Edema: LLE: 2+, RLE: 2+ Neurological: Yes: Oriented Psychiatric: Yes: Oriented Labs: CBC, BMP 11/26/19 13:35 11/26/19 13:35 INR, PTT INR 1.18 (0.83-1.09) H 11/17/19 00:50 Problem List - Problems (1) Anemia Code(s): D64.9 - ANEMIA, UNSPECIFIED (2) CKD (chronic kidney disease) Code(s): N18.9 - CHRONIC KIDNEY DISEASE, UNSPECIFIED (3) Fall Code(s): W19.XXXA - UNSPECIFIED FALL, INITIAL ENCOUNTER Assessment/Plan Current Medications Generic Name Dose Route Start Last Admin Trade Name Freq PRN Reason Stop Dose Admin Acetaminophen 650 mg 11/17/19 11:06 11/26/19 06:30 Tylenol - PO 650 mg Q4H PRN Administration fever>100.0F Allopurinol 100 mg 11/17/19 11:15 11/25/19 15:06 Zyloprim - PO 100 mg Q48H [facility] Administration Calcium Acetate 1,334 mg 11/23/19 09:55 11/26/19 15:01 Phoslo - PO Not Given TIDCM [facility] Ferrous Sulfate 325 mg 11/17/19 17:30 11/26/19 10:10 Feosol - PO 325 mg BIDWM [facility] Administration Gabapentin 300 mg 11/17/19 14:00 11/26/19 15:03 Neurontin - PO 300 mg TID [facility] Administration Hydralazine HCl 100 mg 11/17/19 09:00 11/26/19 15:03 Apresoline - PO 100 mg TID [facility] Administration Metoprolol Succinate 25 mg 11/17/19 10:00 11/26/19 10:10 Toprol Xl - PO 25 mg DAILY [facility] Administration Nifedipine 90 mg 11/17/19 10:00 11/26/19 10:10 Procardia Xl - PO 90 mg DAILY [facility] Administration Tramadol HCl 50 mg 11/23/19 22:29 11/23/19 23:36 Ultram - PO 50 mg ONCE PRN Administration PAIN LEVEL 6-10 Impression 1. CKD 2. htn 3. dm 4. obesity 5. sepsis 6. cellulitis 7. gout 8. chf 9. ESRD Plan - HD on Thursday - will give lasix today - repeat labs in am - monitor output - renal diet - pending placement - pt still overloaded - cont epogen - pt on venofer as well
[2019-11-26] MEDS ORDERED: FUROSEMIDE 100 MG/10 ML INJECTABLE VIAL IVPB ONE (16:00)
[2019-11-26] MEDS ORDERED: VANCOMYCIN 1 GRAM (PRE-DOCKED) 1,000 MG/250 ML BAG IVPB ONE (19:30)
[2019-11-27] MEDS: hydrALAZINE HCL 50 MG TABLET (FP) PO SCH ×3 (06:18→21:07)
[2019-11-27] MEDS: GABAPENTIN 300 MG CAPSULE PO SCH ×3 (06:27→21:07)
[2019-11-27 08:17] LABS: BASO % 0.6 % (0-2.0); HEMATOCRIT 24.4 % (35.4-49); HEMOGLOBIN 7.6 GM/dL (11.7-16.9); LYMPH % 7.1 % (8-40); MCH 23.9 pg (25.7-33.7); MEAN PLT VOLUME 7.5 fl (7.5-11.1); NEUT % 84.3 % (42.8-82.8); PLATELET COUNT 303 K/MM3 (134-434); RBC 3.17 M/mm3 (4.00-5.60); RDW 19.3 % (11.9-15.9); WHITE BLOOD COUNT 21.1 K/mm3 (4.0-10.0)
[2019-11-27 08:52] LABS: ALBUMIN 1.9 g/dl (3.4-5.0); BLOOD UREA NITROGEN 98.8 mg/dL (7-18); CALCIUM 7.8 mg/dL (8.5-10.1); POTASSIUM 4.3 mmol/L (3.5-5.1)
[2019-11-27 08:57] LABS: BILIRUBIN,TOTAL 0.6 mg/dL (0.2-1); CREATININE 6.4 mg/dL (0.55-1.3); TOT PROT 6.8 g/dl (6.4-8.2)
[2019-11-27 10:13] LABS: ANISOCYTOSIS 3+; MACROCYTOSIS 0; PLATELET ESTIMATE NORMAL
[2019-11-27] MEDS: CALCIUM ACETATE 667 MG CAPSULE (FP) PO SCH ×3 (10:28→18:14)
[2019-11-27] MEDS: metoPROLOL SUCCINATE 25 MG TAB.SR.24H (FP) PO SCH (10:28)
[2019-11-27] MEDS: FERROUS SO4 325 MG TABLET (FP) PO SCH ×2 (10:28→18:14)
[2019-11-27] MEDS: NIFEdipine E.R. 90 MG TABLET PO SCH (10:28)
--- NOTE | 2019-11-27 10:53 | PN ---
Progress Note, Physician Chief Complaint: Fall UTI Hypomagnesemia Anemia Leukocytosis Elevated troponin History of Present Illness: This is a 53 y/o male from [facility] with a significant PMHx of CHF, HTN, CKD Stage 3, Chronic Venous Stasis, Erythema Intertrigo, Severe Obesity. Who presents to the ED s/p unwitnessed fall. Patient reports while getting OOB he fell. Patient denies head trauma or LOC. Patient reports chronic lumbar pain exacerbated while laying on the stretcher. Patient denies fever, chills, cough, SOB, dizziness, HERNANDEZ, CP, palpitations, AP, N/V/D, constipation, dysura. NAD, looks better, denies any pain or SOB, on BIPAP Afebrile Labs pending UC +Lactose fermenting GNB BC +, repeat preliminary negative On Zosyn - Current Medication List Current Medications: Active Medications Acetaminophen (Tylenol -) 650 mg PO Q4H PRN PRN Reason: fever>100.0F Last Admin: 11/26/19 20:45 Dose: 650 mg Documented by: Allopurinol (Zyloprim -) 100 mg PO Q48H [facility] Last Admin: 11/25/19 15:06 Dose: 100 mg Documented by: Calcium Acetate (Phoslo -) 1,334 mg PO TIDCM [facility] Last Admin: 11/27/19 10:28 Dose: Not Given Documented by: Ferrous Sulfate (Feosol -) 325 mg PO BIDWM [facility] Last Admin: 11/27/19 10:28 Dose: Not Given Documented by: Gabapentin (Neurontin -) 300 mg PO TID [facility] Last Admin: 11/27/19 06:27 Dose: 300 mg Documented by: Hydralazine HCl (Apresoline -) 100 mg PO TID [facility] Last Admin: 11/27/19 06:18 Dose: 100 mg Documented by: Metoprolol Succinate (Toprol Xl -) 25 mg PO DAILY [facility] Last Admin: 11/27/19 10:28 Dose: 25 mg Documented by: Nifedipine (Procardia Xl -) 90 mg PO DAILY [facility] Last Admin: 11/27/19 10:28 Dose: 90 mg Documented by: - Objective Vital Signs: Vital Signs Temperature 97.8 F 11/27/19 06:00 Pulse Rate 83 11/27/19 06:00 Respiratory Rate 18 11/27/19 06:00 Blood Pressure 136/77 11/27/19 06:00 O2 Sat by Pulse Oximetry (%) 99 11/27/19 07:25 Constitutional: Yes: Well Nourished, No Distress, Calm, Obese Cardiovascular: Yes: Regular Rate and Rhythm Respiratory: Yes: Regular, CTA Bilaterally, On BiPap Gastrointestinal: Yes: Normal Bowel Sounds, Soft, Abdomen, Obese Genitourinary: Yes: Holder Present Musculoskeletal: Yes: Muscle Weakness Extremities: Yes: WNL Edema: Yes (blle LYMPHEDEMA) Peripheral Pulses WNL: Yes Neurological: Yes: Alert, Oriented Psychiatric: Yes: Alert, Oriented Labs: CBC, BMP 11/27/19 06:55 11/27/19 06:55 INR, PTT INR 1.18 (0.83-1.09) H 11/17/19 00:50 Problem List - Problems (1) Anemia Assessment/Plan: -no previous records available -Iron% low -Start Feosol -B12,FA,Thyroid profile normal -Stool OB + -Consult GI Problems reviewed: Yes Code(s): D64.9 - ANEMIA, UNSPECIFIED (2) Fall Assessment/Plan: -Physical therapy -Safety precautions Problems reviewed: Yes Code(s): W19.XXXA - UNSPECIFIED FALL, INITIAL ENCOUNTER (3) Elevated troponin Assessment/Plan: -likely demand ischemia -Seen by cardiology Problems reviewed: Yes Code(s): R79.89 - OTHER SPECIFIED ABNORMAL FINDINGS OF BLOOD CHEMISTRY (4) HTN (hypertension) Assessment/Plan: -Resume home meds -Low sodium diet -Monitor trend for now Problems reviewed: Yes Code(s): I10 - ESSENTIAL (PRIMARY) HYPERTENSION (5) Hypocalcemia Assessment/Plan: -nephrology consult Problems reviewed: Yes Code(s): E83.51 - HYPOCALCEMIA (6) Hypomagnesemia Assessment/Plan: -resolved Problems reviewed: Yes Code(s): E83.42 - HYPOMAGNESEMIA (7) Morbid obesity Assessment/Plan: -RD consult -Low calorie diet Problems reviewed: Yes Code(s): E66.01 - MORBID (SEVERE) OBESITY DUE TO EXCESS CALORIES (8) Leukocytosis Assessment/Plan: -improved Problems reviewed: Yes Code(s): D72.829 - ELEVATED WHITE BLOOD CELL COUNT, UNSPECIFIED (9) UTI (urinary tract infection) Assessment/Plan: -UA + protein,+1 blood, -nitrites, +1 leuks -UC: Microbiology 11/24/19 06:34 Blood - Peripheral Venous Blood Culture - Preliminary NO GROWTH OBTAINED AFTER 48 HOURS, INCUBATION TO CONTINUE FOR 3 DAYS. 11/24/19 06:34 Blood - Peripheral Venous Blood Culture - Preliminary NO GROWTH OBTAINED AFTER 48 HOURS, INCUBATION TO CONTINUE FOR 3 DAYS. 11/21/19 15:20 Blood - Peripheral Venous Blood Culture - Preliminary NO GROWTH OBTAINED AFTER 96 HOURS, INCUBATION TO CONTINUE FOR 1 DAYS. 11/21/19 14:50 Blood - Peripheral Venous Blood Culture - Preliminary NO GROWTH OBTAINED AFTER 96 HOURS, INCUBATION TO CONTINUE FOR 1 DAYS. 11/17/19 00:50 Blood - Peripheral Venous Blood Culture - Final NO GROWTH AFTER 5 DAYS INCUBATION 11/17/19 00:50 Blood - Peripheral Venous Blood Culture - Final S Aureus 11/17/19 02:45 Urine - Urine Clean Catch Urine Culture - Final Lactose Fermenting Neg Bacilli -repeat BC negative -ID consult appreciated -IV vanco dose as per ID -Check Vanco level in AM Problems reviewed: Yes Code(s): N39.0 - URINARY TRACT INFECTION, SITE NOT SPECIFIED (10) Fever Assessment/Plan: -CXR negative -resolved -ID consult -acetaminophen for fever>100.0F Problems reviewed: Yes Code(s): R50.9 - FEVER, UNSPECIFIED (11) Sepsis Assessment/Plan: -as above Problems reviewed: Yes Code(s): A41.9 - SEPSIS, UNSPECIFIED ORGANISM Qualifiers: Sepsis type: sepsis due to unspecified organism (12) ESRD (end stage renal disease) Assessment/Plan: -Nephrology on board -HD as per renal-tolerating well Problems reviewed: Yes Code(s): N18.6 - END STAGE RENAL DISEASE (13) MRSA bacteremia Assessment/Plan: -Dose vanco as per ID Problems reviewed: Yes Code(s): R78.81 - BACTEREMIA; B95.62 - METHICILLIN RESIS STAPH INFCT CAUSING DISEASES CLASSD ELSWHR Assessment/Plan See problem list
[2019-11-27] MEDS: ALLOPURINOL 100 MG TABLET (FP) PO SCH (11:34)
[2019-11-27] MEDS: ACETAMINOPHEN 325 MG TABLET (FP) PO PRN ×2 (11:49→21:08)
--- NOTE | 2019-11-27 12:58 | PN ---
Progress Note (short form) - Note Progress Note: Drowsy but arousable on NIPPV support (06/03) No acute events overnight. Intake & Output 11/24/19 11/25/19 11/26/19 11/27/19 23:59 23:59 23:59 23:59 Intake Total 990 720 550 Output Total 1100 58306 1050 Balance -1100 -47388 -330 550 Weight 387 lb 376 lb 374 lb 12.8 oz Last Vital Signs Temp Pulse Resp BP Pulse Ox 97.8 F 67 16 127/68 98 11/27/19 06:00 11/27/19 10:00 11/27/19 10:00 11/27/19 10:00 11/27/19 10:00 Active Medications Acetaminophen (Tylenol -) 650 mg PO Q4H PRN PRN Reason: fever>100.0F Last Admin: 11/27/19 11:49 Dose: 650 mg Documented by: Allopurinol (Zyloprim -) 100 mg PO Q2D [facility] Calcium Acetate (Phoslo -) 1,334 mg PO TIDCM [facility] Last Admin: 11/27/19 11:48 Dose: 1,334 mg Documented by: Ferrous Sulfate (Feosol -) 325 mg PO BIDWM [facility] Last Admin: 11/27/19 10:28 Dose: Not Given Documented by: Gabapentin (Neurontin -) 300 mg PO TID [facility] Last Admin: 11/27/19 06:27 Dose: 300 mg Documented by: Hydralazine HCl (Apresoline -) 100 mg PO TID [facility] Last Admin: 11/27/19 06:18 Dose: 100 mg Documented by: Metoprolol Succinate (Toprol Xl -) 25 mg PO DAILY [facility] Last Admin: 11/27/19 10:28 Dose: 25 mg Documented by: Nifedipine (Procardia Xl -) 90 mg PO DAILY [facility] Last Admin: 11/27/19 10:28 Dose: 90 mg Documented by: Gen: Drowsy but arousable on NIPPV Heart: RRR Lung: distant breath sounds Abd: soft, obese, nontender Ext: + edema, chronic changes Laboratory Results - last 24 hr 11/24/19 11/26/19 11/26/19 09:35 13:35 13:35 WBC 18.0 H RBC 3.40 L Hgb 8.1 L Hct 26.1 L D MCV 76.8 L MCH 23.8 L MCHC 30.9 L RDW 19.4 H Plt Count 290 MPV 7.4 L Absolute Neuts (auto) 14.8 H Neutrophils % 82.1 Neutrophils % (Manual) 82.1 Band Neutrophils % 0.0 Lymphocytes % 7.5 L Lymphocytes % (Manual) 4.2 L D Monocytes % 6.0 Monocytes % (Manual) 6 Eosinophils % 3.5 Eosinophils % (Manual) 4.2 D Basophils % 0.9 Basophils % (Manual) 0.0 Myelocytes % (Man) 0 D Promyelocytes % (Man) 0 Blast Cells % (Manual) 0 Nucleated RBC % 0 Metamyelocytes 3 H D Hypochromia 0 Platelet Estimate Normal Polychromasia 0 Poikilocytosis Anisocytosis 1+ Microcytosis 1+ Macrocytosis 0 Sodium 140 Potassium 4.4 Chloride 100 Carbon Dioxide 30 Anion Gap 10 BUN 90.7 H Creatinine 5.8 H Est GFR (CKD-EPI)AfAm 11.92 Est GFR (CKD-EPI)NonAf 10.29 Random Glucose 90 Calcium 7.9 L Total Bilirubin 0.3 AST 38 H ALT 37 Alkaline Phosphatase 73 Total Protein 6.9 Albumin 2.1 L Random Vancomycin Blood Type AB NEGATIVE Antibody Screen Negative Crossmatch See Detail 11/27/19 11/27/19 11/27/19 06:55 06:55 06:55 WBC 21.1 H RBC 3.17 L Hgb 7.6 L Hct 24.4 L MCV 77.0 L MCH 23.9 L MCHC 31.0 L RDW 19.3 H Plt Count 303 MPV 7.5 Absolute Neuts (auto) 17.8 H Neutrophils % 84.3 H Neutrophils % (Manual) 92.0 H Band Neutrophils % 0.0 Lymphocytes % 7.1 L Lymphocytes % (Manual) 1.0 L D Monocytes % 5.0 Monocytes % (Manual) 5 Eosinophils % 3.0 Eosinophils % (Manual) 2.0 Basophils % 0.6 Basophils % (Manual) 0.0 Myelocytes % (Man) 0 Promyelocytes % (Man) 0 Blast Cells % (Manual) 0 Nucleated RBC % 0 Metamyelocytes 0 D Hypochromia 0 Platelet Estimate Normal Polychromasia 2+ Poikilocytosis 0 Anisocytosis 3+ Microcytosis 3+ Macrocytosis 0 Sodium 138 Potassium 4.3 Chloride 98 Carbon Dioxide 27 Anion Gap 13 BUN 98.8 H Creatinine 6.4 H Est GFR (CKD-EPI)AfAm 10.58 Est GFR (CKD-EPI)NonAf 9.13 Random Glucose 86 Calcium 7.8 L Total Bilirubin 0.6 AST 27 ALT 36 Alkaline Phosphatase 68 Total Protein 6.8 Albumin 1.9 L Random Vancomycin 25.2 Blood Type Antibody Screen Crossmatch A/P Acute Hypoxic Respiratory Failure Acute on Chronic Renal Failure CHF Cellulitis Morbid Obesity ALEXANDRA/OHS HTN Hyperlipidemia Anemia - completed antibiotics - HD per renal for volume removal - monitor urine output, creatinine - O2 to keep SpO2 >90% - NIPPV at night and PRN during day - DVT prophylaxis Dr Ledbetter
[2019-11-27] MEDS ORDERED: SODIUM CHLORIDE 250 ML IV PRN (13:57)
--- NOTE | 2019-11-27 13:57 | PN ---
Progress Note, Physician History of Present Illness: Pt seen and examined at bedside. He still requires oxygen. - Current Medication List Current Medications: Active Medications Acetaminophen (Tylenol -) 650 mg PO Q4H PRN PRN Reason: fever>100.0F Last Admin: 11/27/19 11:49 Dose: 650 mg Documented by: Allopurinol (Zyloprim -) 100 mg PO Q2D [facility] Calcium Acetate (Phoslo -) 1,334 mg PO TIDCM [facility] Last Admin: 11/27/19 11:48 Dose: 1,334 mg Documented by: Ferrous Sulfate (Feosol -) 325 mg PO BIDWM [facility] Last Admin: 11/27/19 10:28 Dose: Not Given Documented by: Furosemide (Lasix Injection -) 100 mg IVPB ONCE ONE Stop: 11/27/19 13:56 Gabapentin (Neurontin -) 300 mg PO TID [facility] Last Admin: 11/27/19 06:27 Dose: 300 mg Documented by: Hydralazine HCl (Apresoline -) 100 mg PO TID [facility] Last Admin: 11/27/19 06:18 Dose: 100 mg Documented by: Metoprolol Succinate (Toprol Xl -) 25 mg PO DAILY [facility] Last Admin: 11/27/19 10:28 Dose: 25 mg Documented by: Nifedipine (Procardia Xl -) 90 mg PO DAILY [facility] Last Admin: 11/27/19 10:28 Dose: 90 mg Documented by: - Objective Vital Signs: Vital Signs Temperature 97.8 F 11/27/19 06:00 Pulse Rate 67 11/27/19 10:00 Respiratory Rate 16 11/27/19 10:00 Blood Pressure 127/68 11/27/19 10:00 O2 Sat by Pulse Oximetry (%) 98 11/27/19 10:00 Constitutional: Yes: Calm Eyes: Yes: Conjunctiva Clear HENT: Yes: Atraumatic Neck: Yes: Supple Cardiovascular: Yes: S1, S2 Respiratory: Yes: CTA Bilaterally Gastrointestinal: Yes: Soft, Abdomen, Obese Genitourinary: Yes: Incontinence Musculoskeletal: Yes: Muscle Weakness Edema: Yes Edema: LLE: 2+, RLE: 2+ Neurological: Yes: Oriented Psychiatric: Yes: Oriented Labs: CBC, BMP 11/27/19 06:55 11/27/19 06:55 INR, PTT INR 1.18 (0.83-1.09) H 11/17/19 00:50 Problem List - Problems (1) Anemia Code(s): D64.9 - ANEMIA, UNSPECIFIED (2) CKD (chronic kidney disease) Code(s): N18.9 - CHRONIC KIDNEY DISEASE, UNSPECIFIED (3) Fall Code(s): W19.XXXA - UNSPECIFIED FALL, INITIAL ENCOUNTER Assessment/Plan Current Medications Generic Name Dose Route Start Last Admin Trade Name Freq PRN Reason Stop Dose Admin Acetaminophen 650 mg 11/17/19 11:06 11/27/19 11:49 Tylenol - PO 650 mg Q4H PRN Administration fever>100.0F Allopurinol 100 mg 11/27/19 11:24 Zyloprim - PO Q2D [facility] Calcium Acetate 1,334 mg 11/23/19 09:55 11/27/19 11:48 Phoslo - PO 1,334 mg TIDCM [facility] Administration Ferrous Sulfate 325 mg 11/17/19 17:30 11/27/19 10:28 Feosol - PO Not Given BIDWM [facility] Furosemide 100 mg 11/27/19 14:30 Lasix Injection - IVPB 11/27/19 14:31 ONCE ONE Gabapentin 300 mg 11/17/19 14:00 11/27/19 06:27 Neurontin - PO 300 mg TID [facility] Administration Hydralazine HCl 100 mg 11/17/19 09:00 11/27/19 06:18 Apresoline - PO 100 mg TID [facility] Administration Metoprolol Succinate 25 mg 11/17/19 10:00 11/27/19 10:28 Toprol Xl - PO 25 mg DAILY [facility] Administration Nifedipine 90 mg 11/17/19 10:00 11/27/19 10:28 Procardia Xl - PO 90 mg DAILY [facility] Administration Impression 1. CKD 2. htn 3. dm 4. obesity 5. sepsis 6. cellulitis 7. gout 8. chf 9. ESRD Plan - HD tomorrow - will give lasix - will UF volume on HD - renal diet - pt pending placement in HD - send HD info to [facility] - pt still overloaded - cont epogen - pt on venofer as well
[2019-11-27] MEDS ORDERED: FUROSEMIDE 100 MG/10 ML INJECTABLE VIAL IVPB ONE (14:30)
--- NOTE | 2019-11-27 16:11 | CON.GI ---
Consult Consult Specialty:: coverage for Dr Sung - History of Present Illness History of Present Illness: This is a 53 y/o male from [facility] with a significant PMHx of CHF, HTN, CKD Stage 3, Chronic Venous Stasis, Erythema Intertrigo, Severe Obesity. Who presents to the ED s/p unwitnessed fall. Patient reports while getting OOB he fell. Patient denies head trauma or LOC. Patient reports chronic lumbar pain exacerbated while laying on the stretcher. Patient denies fever, chills, cough, SOB, dizziness, HERNANDEZ, CP, palpitations, AP, N/V/D, constipation, dysura. Patient admitted with urosepsis. He was found anemic and guaiac positive. He had an EGD in [facility] results not available for review. - Past Medical History Cardio/Vascular: Yes: CHF, HTN, Hyperlipdemia Renal/: Yes: Renal Failure, Renal Inusuff Dermatology: Yes: Other (venous stasis) - Past Surgical History Past Surgical History: Yes: AV Fistula/Graft - Alcohol/Substance Use Hx Alcohol Use: No History of Substance Use: reports: None - Smoking History Smoking history: Unknown if ever smoked Have you smoked in the past 12 months: No - Social History Usual Living Arrangement: Skilled Nursing ([facility], ambulated with ) ADL: Support Services History of Recent Travel: No Home Medications - Allergies Allergies/Adverse Reactions: Allergies Allergy/AdvReac Type Severity Reaction Status Date / Time No Known Allergies Allergy Verified 11/16/19 23:36 - Home Medications Home Medications: Ambulatory Orders Acetaminophen [Tylenol] 2 tab PO Q48H 08/29/19 Allopurinol [Zyloprim -] 1 tab PO Q48H 08/29/19 Calcium Acetate 667 mg PO TID 08/29/19 Hydralazine HCl 1 tab PO Q8H 08/29/19 Metoprolol Succinate [Toprol Xl] 1 tab PO DAILY 08/29/19 Nifedipine ER [Procardia XL -] 90 mg PO DAILY 08/29/19 Gabapentin 300 mg PO TID 11/14/19 Albuterol 2.5/Ipratropium 0.5 [Duoneb -] 1 amp NEB RQID amp 11/24/19 Ferrous Sulfate [Feosol] 325 mg PO BIDWM ud 11/24/19 Heparin - 5,000 unit SQ BID vial 11/24/19 Piperacillin/Tazob 2.25 gm [Zosyn -] 2.25 gm IVPB Q8H-IV vial 11/24/19 Family Medical History Family History: Denies Physical Exam-GI Vital Signs: Vital Signs Temperature 99.0 F 11/27/19 14:00 Pulse Rate 89 11/27/19 14:00 Respiratory Rate 18 11/27/19 14:00 Blood Pressure 136/61 11/27/19 14:00 O2 Sat by Pulse Oximetry (%) 95 11/27/19 15:45 Constitutional: Yes: Other (Morbidly obese) Eyes: Yes: Conjunctiva Clear HENT: Yes: Atraumatic Neck: Yes: Supple Cardiovascular: Yes: Regular Rate and Rhythm Respiratory: Yes: CTA Bilaterally ...Palpate: Yes: Soft. No: Firm/Rigid, Guarding, Hepatomegaly, Mass, Pulsatile Mass, Splenomegaly, Tenderness Labs: CBC, BMP 11/27/19 06:55 11/27/19 06:55 INR, PTT INR 1.18 (0.83-1.09) H 11/17/19 00:50 Problem List - Problems (1) Occult GI bleeding Assessment/Plan: patient still receiving antibiotics for Urosepsis R> upper gi series to r/o peptic ulcer disease continue PPI daily Code(s): R19.5 - OTHER FECAL ABNORMALITIES
--- NOTE | 2019-11-27 20:18 | PN ---
Progress Note, Physician Chief Complaint: AWAKE, ALERT IN BED REPORTS FEELING BETTER LESS LEG PAIN TEMPS DOWN AFEBRILE VANCO TROUGH NOTED BC 11/23 (-) - Current Medication List Current Medications: Active Medications Acetaminophen (Tylenol -) 650 mg PO Q4H PRN PRN Reason: fever>100.0F Last Admin: 11/27/19 11:49 Dose: 650 mg Documented by: Allopurinol (Zyloprim -) 100 mg PO Q2D [facility] Calcium Acetate (Phoslo -) 1,334 mg PO TIDCM [facility] Last Admin: 11/27/19 18:14 Dose: 1,334 mg Documented by: Epoetin Raffi (Procrit -) 20,000 unit IVPUSH ONCE ONE Stop: 11/28/19 13:58 Ferrous Sulfate (Feosol -) 325 mg PO BIDWM [facility] Last Admin: 11/27/19 18:14 Dose: 325 mg Documented by: Gabapentin (Neurontin -) 300 mg PO TID [facility] Last Admin: 11/27/19 15:53 Dose: 300 mg Documented by: Hydralazine HCl (Apresoline -) 100 mg PO TID [facility] Last Admin: 11/27/19 15:52 Dose: 100 mg Documented by: Sodium Chloride (Normal Saline -) 250 mls @ 3,000 mls/hr IV PRN PRN PRN Reason: Hypotension during Dialysis Stop: 11/28/19 13:57 Iron Sucrose 100 mg/ Sodium (Chloride) 100 mls @ 200 mls/hr IVPB ONCE ONE Stop: 11/28/19 14:26 Metoprolol Succinate (Toprol Xl -) 25 mg PO DAILY [facility] Last Admin: 11/27/19 10:28 Dose: 25 mg Documented by: Nifedipine (Procardia Xl -) 90 mg PO DAILY [facility] Last Admin: 11/27/19 10:28 Dose: 90 mg Documented by: - Objective Vital Signs: Vital Signs Temperature 98.7 F 11/27/19 18:00 Pulse Rate 87 11/27/19 18:00 Respiratory Rate 18 11/27/19 18:00 Blood Pressure 126/59 L 11/27/19 18:00 O2 Sat by Pulse Oximetry (%) 96 11/27/19 18:00 Constitutional: Yes: No Distress, Obese Eyes: Yes: Conjunctiva Clear Cardiovascular: Yes: Regular Rate and Rhythm, S1, S2 Respiratory: Yes: CTA Bilaterally Gastrointestinal: Yes: Normal Bowel Sounds, Soft Extremities: Yes: Other (R LE ERYTHEMA RESOLVED) Edema: Yes Labs: CBC, BMP 11/27/19 06:55 11/27/19 06:55 INR, PTT INR 1.18 (0.83-1.09) H 11/17/19 00:50 Assessment/Plan SEPSIS +BC MRSA LIKELY SKIN SOURCE B/L LE CELLULITIS IMPROVED CKD MORBID OBESITY LEUKOCYTOSIS REPEAT BC NO GROWTH REPEAT VANCOMYCIN LEVEL, BC NOTED ECHO NOTED
[2019-11-28] MEDS: ACETAMINOPHEN 325 MG TABLET (FP) PO PRN (01:23)
[2019-11-28] MEDS: hydrALAZINE HCL 50 MG TABLET (FP) PO SCH ×3 (05:56→22:38)
[2019-11-28] MEDS: GABAPENTIN 300 MG CAPSULE PO SCH ×3 (05:57→22:37)
--- NOTE | 2019-11-28 07:16 | PN ---
Progress Note, Physician Chief Complaint: AWAKE ALERT EVENTS REVIEWED - Current Medication List Current Medications: Active Medications Acetaminophen (Tylenol -) 650 mg PO Q4H PRN PRN Reason: fever>100.0F Last Admin: 11/28/19 01:23 Dose: 650 mg Documented by: Allopurinol (Zyloprim -) 100 mg PO Q2D [facility] Calcium Acetate (Phoslo -) 1,334 mg PO TIDCM [facility] Last Admin: 11/27/19 18:14 Dose: 1,334 mg Documented by: Epoetin Raffi (Procrit -) 20,000 unit IVPUSH ONCE ONE Stop: 11/28/19 13:58 Ferrous Sulfate (Feosol -) 325 mg PO BIDWM [facility] Last Admin: 11/27/19 18:14 Dose: 325 mg Documented by: Gabapentin (Neurontin -) 300 mg PO TID [facility] Last Admin: 11/28/19 05:57 Dose: 300 mg Documented by: Hydralazine HCl (Apresoline -) 100 mg PO TID [facility] Last Admin: 11/28/19 05:56 Dose: 100 mg Documented by: Sodium Chloride (Normal Saline -) 250 mls @ 3,000 mls/hr IV PRN PRN PRN Reason: Hypotension during Dialysis Stop: 11/28/19 13:57 Iron Sucrose 100 mg/ Sodium (Chloride) 100 mls @ 200 mls/hr IVPB ONCE ONE Stop: 11/28/19 14:26 Metoprolol Succinate (Toprol Xl -) 25 mg PO DAILY [facility] Last Admin: 11/27/19 10:28 Dose: 25 mg Documented by: Nifedipine (Procardia Xl -) 90 mg PO DAILY [facility] Last Admin: 11/27/19 10:28 Dose: 90 mg Documented by: - Objective Vital Signs: Vital Signs Temperature 99.3 F 11/28/19 06:00 Pulse Rate 92 H 11/28/19 06:00 Respiratory Rate 20 11/28/19 06:00 Blood Pressure 141/51 L 11/28/19 06:00 O2 Sat by Pulse Oximetry (%) 96 11/28/19 06:00 Constitutional: Yes: No Distress, Obese, Other Cardiovascular: Yes: Regular Rate and Rhythm Respiratory: Yes: Diminished, On Nasal O2 Gastrointestinal: Yes: Abdomen, Obese Genitourinary: Yes: Incontinence Musculoskeletal: Yes: Muscle Weakness Edema: Yes Wound/Incision: Yes: Excoriated Neurological: Yes: Pre-Existing Deficit Labs: CBC, BMP 11/27/19 06:55 11/27/19 06:55 INR, PTT INR 1.18 (0.83-1.09) H 11/17/19 00:50 Problem List - Problems (1) Anemia Code(s): D64.9 - ANEMIA, UNSPECIFIED (2) CKD (chronic kidney disease) Code(s): N18.9 - CHRONIC KIDNEY DISEASE, UNSPECIFIED (3) HLD (hyperlipidemia) Code(s): E78.5 - HYPERLIPIDEMIA, UNSPECIFIED (4) HTN (hypertension) Code(s): I10 - ESSENTIAL (PRIMARY) HYPERTENSION (5) MRSA bacteremia Code(s): R78.81 - BACTEREMIA; B95.62 - METHICILLIN RESIS STAPH INFCT CAUSING DISEASES CLASSD ELSWHR (6) ESRD (end stage renal disease) Code(s): N18.6 - END STAGE RENAL DISEASE Assessment/Plan HD PER NEPHROLOGY ID F/U APPRECIATED PLAN ON ABX? DVT PROPHYLAXIS OOB TO CHAIR PT EVAL AWAIT CULTURES
[2019-11-28] MEDS: FERROUS SO4 325 MG TABLET (FP) PO SCH ×2 (09:31→18:38)
[2019-11-28] MEDS: NIFEdipine E.R. 90 MG TABLET PO SCH (09:31)
[2019-11-28] MEDS: metoPROLOL SUCCINATE 25 MG TAB.SR.24H (FP) PO SCH (09:31)
[2019-11-28] MEDS: CALCIUM ACETATE 667 MG CAPSULE (FP) PO SCH ×3 (09:31→18:37)
--- NOTE | 2019-11-28 10:24 | PN ---
Progress Note, REFRACTORY MANAGER - Note Progress Note: Selected Entries 11/24/19 11/24/19 11/25/19 10:00 23:40 02:00 Breakfast 0 Diet Tolerated Refused Refused Lunch 0 Temperature 99.1 F Pulse Rate 87 Blood Pressure 111/62 11/25/19 11/25/19 11/25/19 06:00 07:25 09:05 Breakfast Diet Tolerated Refused Lunch Temperature 98.6 F 98.5 F Pulse Rate 91 H 88 90 Blood Pressure 132/70 141/64 11/25/19 11/25/19 11/25/19 09:10 09:40 10:10 Breakfast Diet Tolerated Lunch Temperature Pulse Rate 90 94 H 94 H Blood Pressure 144/68 122/70 130/70 Laboratory Tests 11/24/19 11/25/19 06:34 06:57 WBC 17.5 H 17.8 H Breakfast tray untouched. However, pt drinking 1-2 Nepro per meal. Suggest very moist, soft foods extra gravy Supplements per RD Monitor PO tolerance with reg diet. Consider downgrade, if pt accepts. Feed only when alert. Encourage PO acceptance. Encourage Nepro
[2019-11-28] MEDS ORDERED: EPOETIN ALFA 20,000 UNIT/1 ML VIAL IVPUSH ONE (11:45)
[2019-11-28] MEDS ORDERED: IRON SUCROSE INJECTION 100 MG in SODIUM CHLORIDE 95 ML IVPB ONE (12:00)
[2019-11-28 12:55] LABS: BASO % 0.6 % (0-2.0); EOS % 1.8 % (0-4.5); HEMATOCRIT 23.8 % (35.4-49); HEMOGLOBIN 7.5 GM/dL (11.7-16.9); LYMPH % 3.7 % (8-40); MCH 24.1 pg (25.7-33.7); MCHC 31.4 g/dl (32.0-35.9); MEAN CELL VOLUME 76.9 fl (80-96); MEAN PLT VOLUME 7.3 fl (7.5-11.1); MONO % 4.8 % (3.8-10.2); NEUT % 89.1 % (42.8-82.8); PLATELET COUNT 314 K/MM3 (134-434); RBC 3.09 M/mm3 (4.00-5.60); RDW 19.6 % (11.9-15.9); WHITE BLOOD COUNT 23.7 K/mm3 (4.0-10.0)
--- NOTE | 2019-11-28 13:15 | PN ---
Progress Note (short form) - Note Progress Note: Awake and alert on 50% VM O2. Reports breathing feels better. Used NIPPV support overnight. No acute events overnight. Intake & Output 11/25/19 11/26/19 11/27/19 11/28/19 23:59 23:59 23:59 23:59 Intake Total 990 720 770 Output Total 64186 1050 450 700 Balance -10809 -330 320 -700 Weight 376 lb 374 lb 12.8 oz Last Vital Signs Temp Pulse Resp BP Pulse Ox 99.3 F 90 20 141/51 L 97 11/28/19 06:00 11/28/19 08:07 11/28/19 06:00 11/28/19 06:00 11/28/19 08:07 Active Medications Acetaminophen (Tylenol -) 650 mg PO Q4H PRN PRN Reason: fever>100.0F Last Admin: 11/28/19 01:23 Dose: 650 mg Documented by: Allopurinol (Zyloprim -) 100 mg PO Q2D [facility] Calcium Acetate (Phoslo -) 1,334 mg PO TIDCM [facility] Last Admin: 11/28/19 11:32 Dose: Not Given Documented by: Ferrous Sulfate (Feosol -) 325 mg PO BIDWM [facility] Last Admin: 11/28/19 09:31 Dose: Not Given Documented by: Gabapentin (Neurontin -) 300 mg PO TID [facility] Last Admin: 11/28/19 05:57 Dose: 300 mg Documented by: Hydralazine HCl (Apresoline -) 100 mg PO TID [facility] Last Admin: 11/28/19 05:56 Dose: 100 mg Documented by: Sodium Chloride (Normal Saline -) 250 mls @ 3,000 mls/hr IV PRN PRN PRN Reason: Hypotension during Dialysis Stop: 11/28/19 13:57 Metoprolol Succinate (Toprol Xl -) 25 mg PO DAILY [facility] Last Admin: 11/28/19 09:31 Dose: Not Given Documented by: Nifedipine (Procardia Xl -) 90 mg PO DAILY [facility] Last Admin: 11/28/19 09:31 Dose: Not Given Documented by: Gen: NAD on 50% VM O2 Heart: RRR Lung: distant breath sounds Abd: soft, obese, nontender Ext: + edema, chronic changes Laboratory Results - last 24 hr 11/28/19 12:30 WBC 23.7 H RBC 3.09 L Hgb 7.5 L Hct 23.8 L MCV 76.9 L MCH 24.1 L MCHC 31.4 L RDW 19.6 H Plt Count 314 MPV 7.3 L Absolute Neuts (auto) 21.2 H Neutrophils % 89.1 H Lymphocytes % 3.7 L D Monocytes % 4.8 Eosinophils % 1.8 Basophils % 0.6 Nucleated RBC % 0 A/P Acute Hypoxic Respiratory Failure Acute on Chronic Renal Failure CHF Cellulitis Morbid Obesity ALEXANDRA/OHS HTN Hyperlipidemia Anemia - completed antibiotics - HD per renal for volume removal - monitor urine output, creatinine - VM O2 as tolerated - NIPPV at night and PRN during day - DVT prophylaxis Dr Ledbetter
--- NOTE | 2019-11-28 13:29 | PN ---
Progress Note, Physician Chief Complaint: AWAKE, ALERT IN BED NO C/O LEG PAIN TEMPS DOWN AFEBRILE VANCO TROUGH NOTED BC 11/23 (-) - Current Medication List Current Medications: Active Medications Acetaminophen (Tylenol -) 650 mg PO Q4H PRN PRN Reason: fever>100.0F Last Admin: 11/28/19 01:23 Dose: 650 mg Documented by: Allopurinol (Zyloprim -) 100 mg PO Q2D [facility] Calcium Acetate (Phoslo -) 1,334 mg PO TIDCM [facility] Last Admin: 11/28/19 11:32 Dose: Not Given Documented by: Ferrous Sulfate (Feosol -) 325 mg PO BIDWM [facility] Last Admin: 11/28/19 09:31 Dose: Not Given Documented by: Gabapentin (Neurontin -) 300 mg PO TID [facility] Last Admin: 11/28/19 05:57 Dose: 300 mg Documented by: Hydralazine HCl (Apresoline -) 100 mg PO TID [facility] Last Admin: 11/28/19 05:56 Dose: 100 mg Documented by: Sodium Chloride (Normal Saline -) 250 mls @ 3,000 mls/hr IV PRN PRN PRN Reason: Hypotension during Dialysis Stop: 11/28/19 13:57 Metoprolol Succinate (Toprol Xl -) 25 mg PO DAILY [facility] Last Admin: 11/28/19 09:31 Dose: Not Given Documented by: Nifedipine (Procardia Xl -) 90 mg PO DAILY [facility] Last Admin: 11/28/19 09:31 Dose: Not Given Documented by: - Objective Vital Signs: Vital Signs Temperature 99.3 F 11/28/19 06:00 Pulse Rate 90 11/28/19 08:07 Respiratory Rate 20 11/28/19 06:00 Blood Pressure 141/51 L 11/28/19 06:00 O2 Sat by Pulse Oximetry (%) 97 11/28/19 08:07 Constitutional: Yes: No Distress Eyes: Yes: Conjunctiva Clear Cardiovascular: Yes: Regular Rate and Rhythm Respiratory: Yes: CTA Bilaterally Gastrointestinal: Yes: Normal Bowel Sounds, Soft. No: Tenderness Edema: Yes Labs: CBC, BMP 11/28/19 12:30 INR, PTT INR 1.18 (0.83-1.09) H 11/17/19 00:50 Assessment/Plan SEPSIS +BC MRSA LIKELY SKIN SOURCE B/L LE CELLULITIS IMPROVED CKD MORBID OBESITY LEUKOCYTOSIS REPEAT BC NO GROWTH REPEAT VANCOMYCIN LEVEL, BC NOTED ECHO NOTED
[2019-11-28 13:31] LABS: ALBUMIN 1.9 g/dl (3.4-5.0); BILIRUBIN,TOTAL 0.3 mg/dL (0.2-1); CALCIUM 7.7 mg/dL (8.5-10.1); CREATININE 6.5 mg/dL (0.55-1.3); POTASSIUM 4.4 mmol/L (3.5-5.1); TOT PROT 7.8 g/dl (6.4-8.2)
[2019-11-28 13:36] LABS: BLOOD UREA NITROGEN 107.6 mg/dL (7-18)
--- NOTE | 2019-11-28 14:57 | PN ---
Progress Note, Physician History of Present Illness: Pt seen and examined at bedside. He is awake and alert. He feels that his breathing is improved. - Current Medication List Current Medications: Active Medications Acetaminophen (Tylenol -) 650 mg PO Q4H PRN PRN Reason: fever>100.0F Last Admin: 11/28/19 01:23 Dose: 650 mg Documented by: Allopurinol (Zyloprim -) 100 mg PO Q2D [facility] Calcium Acetate (Phoslo -) 1,334 mg PO TIDCM [facility] Last Admin: 11/28/19 11:32 Dose: Not Given Documented by: Ferrous Sulfate (Feosol -) 325 mg PO BIDWM [facility] Last Admin: 11/28/19 09:31 Dose: Not Given Documented by: Gabapentin (Neurontin -) 300 mg PO TID [facility] Last Admin: 11/28/19 14:40 Dose: Not Given Documented by: Hydralazine HCl (Apresoline -) 100 mg PO TID [facility] Last Admin: 11/28/19 14:40 Dose: Not Given Documented by: Metoprolol Succinate (Toprol Xl -) 25 mg PO DAILY [facility] Last Admin: 11/28/19 09:31 Dose: Not Given Documented by: Nifedipine (Procardia Xl -) 90 mg PO DAILY [facility] Last Admin: 11/28/19 09:31 Dose: Not Given Documented by: - Objective Vital Signs: Vital Signs Temperature 97.8 F 11/28/19 12:20 Pulse Rate 88 11/28/19 14:30 Respiratory Rate 18 11/28/19 14:30 Blood Pressure 130/100 11/28/19 14:30 O2 Sat by Pulse Oximetry (%) 97 11/28/19 09:00 Constitutional: Yes: Calm Eyes: Yes: Conjunctiva Clear HENT: Yes: Atraumatic Neck: Yes: Supple Cardiovascular: Yes: S1, S2 Respiratory: Yes: CTA Bilaterally Gastrointestinal: Yes: Normal Bowel Sounds, Soft, Abdomen, Obese Genitourinary: Yes: WNL Edema: Yes Edema: LLE: 2+, RLE: 2+ Neurological: Yes: Oriented Psychiatric: Yes: Oriented Labs: CBC, BMP 11/28/19 12:30 11/28/19 12:30 INR, PTT INR 1.18 (0.83-1.09) H 11/17/19 00:50 Problem List - Problems (1) Anemia Code(s): D64.9 - ANEMIA, UNSPECIFIED (2) CKD (chronic kidney disease) Code(s): N18.9 - CHRONIC KIDNEY DISEASE, UNSPECIFIED (3) Fall Code(s): W19.XXXA - UNSPECIFIED FALL, INITIAL ENCOUNTER Assessment/Plan Current Medications Generic Name Dose Route Start Last Admin Trade Name Freq PRN Reason Stop Dose Admin Acetaminophen 650 mg 11/17/19 11:06 11/28/19 01:23 Tylenol - PO 650 mg Q4H PRN Administration fever>100.0F Allopurinol 100 mg 11/27/19 11:24 Zyloprim - PO Q2D [facility] Calcium Acetate 1,334 mg 11/23/19 09:55 11/28/19 11:32 Phoslo - PO Not Given TIDCM [facility] Ferrous Sulfate 325 mg 11/17/19 17:30 11/28/19 09:31 Feosol - PO Not Given BIDWM [facility] Gabapentin 300 mg 11/17/19 14:00 11/28/19 14:40 Neurontin - PO Not Given TID [facility] Hydralazine HCl 100 mg 11/17/19 09:00 11/28/19 14:40 Apresoline - PO Not Given TID [facility] Metoprolol Succinate 25 mg 11/17/19 10:00 11/28/19 09:31 Toprol Xl - PO Not Given DAILY [facility] Nifedipine 90 mg 11/17/19 10:00 11/28/19 09:31 Procardia Xl - PO Not Given DAILY [facility] Impression 1. CKD 2. htn 3. dm 4. obesity 5. sepsis 6. cellulitis 7. gout 8. chf 9. ESRD Plan - HD today - keep net negative - lasix on non HD days - pt remains fluid overloaded - renal diet with fluid restriction - pending placement for HD - rehab eval to see if pt can transfer - cont epogen - pt on venofer as well
--- NOTE | 2019-11-28 18:03 | PN.GI ---
GI Progress Note Subjective: No overt bleeding No abdominal pain Remains on supplemental facemask O2 Did not want me looking at his legs - Objective Vital Signs: Vital Signs Temperature 97.8 F 11/28/19 12:20 Pulse Rate 79 11/28/19 15:55 Respiratory Rate 18 11/28/19 15:55 Blood Pressure 155/100 11/28/19 15:55 O2 Sat by Pulse Oximetry (%) 97 11/28/19 09:00 Constitutional: Calm Cardiovascular: Yes: Regular Rate and Rhythm Respiratory: Yes: Diminished (at bases bilaterally) Gastrointestinal Inspection: No: Distention ...Auscultate: Yes: Normoactive Bowel Sounds ...Palpate: Yes: Soft. No: Hepatomegaly, Splenomegaly, Tenderness ...Percussion: No: Tympanitic ...Rectal Exam: Yes: Other (Patient did not want to be turned due to leg pain) Neurological: Yes: Alert Labs: CBC, BMP 11/28/19 12:30 11/28/19 12:30 INR, PTT INR 1.18 (0.83-1.09) H 11/17/19 00:50 Problem List - Problems (1) Anemia Assessment/Plan: Patient believes that he had an EGD @ [facility] but never had a colonoscopy. Explained that to evaluate for GI source of anemia, colonoscopy could be undertaken when he was medically optimized to exclude such causes as bleeding blood vessels, polyps or cancer of the GI tract such as colon cancer. We discussed potential risks of the procedure liek but not limited to bleeding, perforation requiring surgery to repair, infection, sedation medication effcts all of which could be potentially life threatening. He has declined the procedure. GI prophylaxis GI will sign off. Please recall when patient medically optimized for and is amenable to endoscopic evaluation Problems reviewed: Yes Code(s): D64.9 - ANEMIA, UNSPECIFIED
[2019-11-29] MEDS: hydrALAZINE HCL 50 MG TABLET (FP) PO SCH ×3 (06:11→22:01)
[2019-11-29] MEDS: GABAPENTIN 300 MG CAPSULE PO SCH ×3 (06:12→22:01)
--- NOTE | 2019-11-29 07:37 | PN ---
Progress Note, Physician - Current Medication List Current Medications: Active Medications Acetaminophen (Tylenol -) 650 mg PO Q4H PRN PRN Reason: fever>100.0F Last Admin: 11/28/19 01:23 Dose: 650 mg Documented by: Allopurinol (Zyloprim -) 100 mg PO Q2D [facility] Calcium Acetate (Phoslo -) 1,334 mg PO TIDCM [facility] Last Admin: 11/28/19 18:37 Dose: 1,334 mg Documented by: Ferrous Sulfate (Feosol -) 325 mg PO BIDWM [facility] Last Admin: 11/28/19 18:38 Dose: 325 mg Documented by: Gabapentin (Neurontin -) 300 mg PO TID [facility] Last Admin: 11/29/19 06:12 Dose: 300 mg Documented by: Hydralazine HCl (Apresoline -) 100 mg PO TID [facility] Last Admin: 11/29/19 06:11 Dose: 100 mg Documented by: Metoprolol Succinate (Toprol Xl -) 25 mg PO DAILY [facility] Last Admin: 11/28/19 09:31 Dose: Not Given Documented by: Nifedipine (Procardia Xl -) 90 mg PO DAILY [facility] Last Admin: 11/28/19 09:31 Dose: Not Given Documented by: Pantoprazole Sodium (Protonix -) 20 mg PO DAILY [facility] - Objective Vital Signs: Vital Signs Temperature 97.9 F 11/28/19 22:00 Pulse Rate 93 H 11/28/19 22:00 Respiratory Rate 20 11/28/19 22:00 Blood Pressure 119/64 11/28/19 22:00 O2 Sat by Pulse Oximetry (%) 98 11/28/19 22:19 Cardiovascular: Yes: S1, S2 Respiratory: Yes: On Venti-Mask Gastrointestinal: Yes: Normal Bowel Sounds, Soft Labs: CBC, BMP 11/28/19 12:30 11/28/19 12:30 INR, PTT INR 1.18 (0.83-1.09) H 11/17/19 00:50 Assessment/Plan - Problems (1) Anemia Assessment/Plan: -no previous records available -Iron% low -Start Feosol -B12,FA,Thyroid profile normal -Stool OB + -Consult GI Problems reviewed: Yes Code(s): D64.9 - ANEMIA, UNSPECIFIED (2) Fall Assessment/Plan: -Physical therapy -Safety precautions Problems reviewed: Yes Code(s): W19.XXXA - UNSPECIFIED FALL, INITIAL ENCOUNTER (3) Elevated troponin Assessment/Plan: -likely demand ischemia -Seen by cardiology Problems reviewed: Yes Code(s): R79.89 - OTHER SPECIFIED ABNORMAL FINDINGS OF BLOOD CHEMISTRY (4) HTN (hypertension) Assessment/Plan: -Resume home meds -Low sodium diet -Monitor trend for now Problems reviewed: Yes Code(s): I10 - ESSENTIAL (PRIMARY) HYPERTENSION (5) Hypocalcemia Assessment/Plan: -nephrology consult Problems reviewed: Yes Code(s): E83.51 - HYPOCALCEMIA (6) Hypomagnesemia Assessment/Plan: -resolved Problems reviewed: Yes Code(s): E83.42 - HYPOMAGNESEMIA (7) Morbid obesity Assessment/Plan: -RD consult -Low calorie diet Problems reviewed: Yes Code(s): E66.01 - MORBID (SEVERE) OBESITY DUE TO EXCESS CALORIES (8) Leukocytosis Assessment/Plan: -improved Problems reviewed: Yes Code(s): D72.829 - ELEVATED WHITE BLOOD CELL COUNT, UNSPECIFIED (9) UTI (urinary tract infection) Assessment/Plan: -UA + protein,+1 blood, -nitrites, +1 leuks -UC: Microbiology 11/24/19 06:34 Blood - Peripheral Venous Blood Culture - Preliminary NO GROWTH OBTAINED AFTER 48 HOURS, INCUBATION TO CONTINUE FOR 3 DAYS. 11/24/19 06:34 Blood - Peripheral Venous Blood Culture - Preliminary NO GROWTH OBTAINED AFTER 48 HOURS, INCUBATION TO CONTINUE FOR 3 DAYS. 11/21/19 15:20 Blood - Peripheral Venous Blood Culture - Preliminary NO GROWTH OBTAINED AFTER 96 HOURS, INCUBATION TO CONTINUE FOR 1 DAYS. 11/21/19 14:50 Blood - Peripheral Venous Blood Culture - Preliminary NO GROWTH OBTAINED AFTER 96 HOURS, INCUBATION TO CONTINUE FOR 1 DAYS. 11/17/19 00:50 Blood - Peripheral Venous Blood Culture - Final NO GROWTH AFTER 5 DAYS INCUBATION 11/17/19 00:50 Blood - Peripheral Venous Blood Culture - Final S Aureus 11/17/19 02:45 Urine - Urine Clean Catch Urine Culture - Final Lactose Fermenting Neg Bacilli -repeat BC negative -ID consult appreciated -IV vanco dose as per ID -Check Vanco level in AM Problems reviewed: Yes Code(s): N39.0 - URINARY TRACT INFECTION, SITE NOT SPECIFIED (10) Fever Assessment/Plan: -CXR negative -resolved -ID consult -acetaminophen for fever>100.0F Problems reviewed: Yes Code(s): R50.9 - FEVER, UNSPECIFIED (11) Sepsis Assessment/Plan: -as above Problems reviewed: Yes Code(s): A41.9 - SEPSIS, UNSPECIFIED ORGANISM Qualifiers: Sepsis type: sepsis due to unspecified organism (12) ESRD (end stage renal disease) Assessment/Plan: -Nephrology on board -HD as per renal-tolerating well Problems reviewed: Yes Code(s): N18.6 - END STAGE RENAL DISEASE (13) MRSA bacteremia Assessment/Plan: -Dose vanco as per ID Problems reviewed: Yes Code(s): R78.81 - BACTEREMIA; B95.62 - METHICILLIN RESIS STAPH INFCT CAUSING DISEASES CLASSD [id number]
[2019-11-29 08:05] LABS: BASO % 0.7 % (0-2.0); EOS % 2.9 % (0-4.5); HEMATOCRIT 24.9 % (35.4-49); HEMOGLOBIN 7.6 GM/dL (11.7-16.9); LYMPH % 6.5 % (8-40); MCH 23.6 pg (25.7-33.7); MCHC 30.7 g/dl (32.0-35.9); MEAN CELL VOLUME 76.8 fl (80-96); MEAN PLT VOLUME 7.4 fl (7.5-11.1); MONO % 5.9 % (3.8-10.2); PLATELET COUNT 337 K/MM3 (134-434); RBC 3.24 M/mm3 (4.00-5.60)
[2019-11-29 08:34] LABS: BILIRUBIN,TOTAL 0.7 mg/dL (0.2-1); BLOOD UREA NITROGEN 75.6 mg/dL (7-18); CREATININE 5.1 mg/dL (0.55-1.3); TOT PROT 7.4 g/dl (6.4-8.2)
[2019-11-29] MEDS: CALCIUM ACETATE 667 MG CAPSULE (FP) PO SCH ×3 (08:49→16:52)
[2019-11-29] MEDS: FERROUS SO4 325 MG TABLET (FP) PO SCH ×2 (08:49→16:52)
[2019-11-29] MEDS: ACETAMINOPHEN 325 MG TABLET (FP) PO PRN ×2 (10:21→15:35)
[2019-11-29] MEDS: ALLOPURINOL 100 MG TABLET (FP) PO SCH (10:22)
[2019-11-29] MEDS: metoPROLOL SUCCINATE 25 MG TAB.SR.24H (FP) PO SCH (10:22)
[2019-11-29] MEDS: NIFEdipine E.R. 90 MG TABLET PO SCH (10:22)
[2019-11-29] MEDS: PANTOPRAZOLE 20 MG TABLET PO SCH (10:22)
[2019-11-29 11:50] LABS: ANISOCYTOSIS 1+; MACROCYTOSIS 0
[2019-11-29] MEDS ORDERED: PT OWN MED DRAWER 7, Y5N ONE (12:27)
--- NOTE | 2019-11-29 15:37 | PN ---
Progress Note (short form) - Note Progress Note: Awake and alert on 50% VM O2. Reports breathing feels better. Used NIPPV support overnight. No acute events overnight. Intake & Output 11/26/19 11/27/19 11/28/19 11/29/19 23:59 23:59 23:59 23:59 Intake Total 720 770 760 Output Total 1050 450 50482 Balance -330 320 -88052 Weight 374 lb 12.8 oz 358 lb 360 lb 6.4 oz Last Vital Signs Temp Pulse Resp BP Pulse Ox 98.6 F 98 H 18 138/60 95 11/29/19 10:20 11/29/19 10:20 11/29/19 10:20 11/29/19 10:20 11/29/19 12:06 Active Medications Acetaminophen (Tylenol -) 650 mg PO Q4H PRN PRN Reason: fever>100.0F Last Admin: 11/29/19 15:35 Dose: 650 mg Documented by: Allopurinol (Zyloprim -) 100 mg PO Q2D [facility] Last Admin: 11/29/19 10:22 Dose: 100 mg Documented by: Calcium Acetate (Phoslo -) 1,334 mg PO TIDCM [facility] Last Admin: 11/29/19 12:32 Dose: 1,334 mg Documented by: Ferrous Sulfate (Feosol -) 325 mg PO BIDWM [facility] Last Admin: 11/29/19 08:49 Dose: 325 mg Documented by: Gabapentin (Neurontin -) 300 mg PO TID [facility] Last Admin: 11/29/19 15:36 Dose: 300 mg Documented by: Hydralazine HCl (Apresoline -) 100 mg PO TID [facility] Last Admin: 11/29/19 15:36 Dose: 100 mg Documented by: Metoprolol Succinate (Toprol Xl -) 25 mg PO DAILY [facility] Last Admin: 11/29/19 10:22 Dose: 25 mg Documented by: Nifedipine (Procardia Xl -) 90 mg PO DAILY [facility] Last Admin: 11/29/19 10:22 Dose: 90 mg Documented by: Pantoprazole Sodium (Protonix -) 20 mg PO DAILY [facility] Last Admin: 11/29/19 10:22 Dose: 20 mg Documented by: Gen: NAD on 50% VM O2 Heart: RRR Lung: distant breath sounds Abd: soft, obese, nontender Ext: + edema, chronic changes Laboratory Results - last 24 hr 11/29/19 11/29/19 06:25 06:25 WBC 21.0 H RBC 3.24 L Hgb 7.6 L Hct 24.9 L MCV 76.8 L MCH 23.6 L MCHC 30.7 L RDW 20.0 H Plt Count 337 MPV 7.4 L Absolute Neuts (auto) 17.6 H Neutrophils % 84.0 H Neutrophils % (Manual) 87.9 H Band Neutrophils % 2.0 Lymphocytes % 6.5 L D Lymphocytes % (Manual) 6.1 L D Monocytes % 5.9 Monocytes % (Manual) 2 L Eosinophils % 2.9 Eosinophils % (Manual) 1.0 Basophils % 0.7 Basophils % (Manual) 1.0 D Myelocytes % (Man) 0 Promyelocytes % (Man) 0 Blast Cells % (Manual) 0 Nucleated RBC % 0 Metamyelocytes 0 Hypochromia 1+ Platelet Comment Present Polychromasia 1+ Poikilocytosis 1+ Anisocytosis 1+ Microcytosis 1+ Macrocytosis 0 Stomatocytes 1+ Sodium 138 Potassium 4.0 Chloride 99 Carbon Dioxide 29 Anion Gap 9 BUN 75.6 H Creatinine 5.1 H Est GFR (CKD-EPI)AfAm 13.93 Est GFR (CKD-EPI)NonAf 12.02 Random Glucose 96 Calcium 8.0 L Total Bilirubin 0.7 AST 19 ALT 30 Alkaline Phosphatase 71 Total Protein 7.4 Albumin 2.0 L A/P Acute Hypoxic Respiratory Failure Acute on Chronic Renal Failure CHF Cellulitis Morbid Obesity ALEXANDRA/OHS HTN Hyperlipidemia Anemia - Wean Supplemental O2 as tolerated - completed antibiotics - HD per renal for volume removal - monitor urine output, creatinine - NIPPV at night and PRN during day - DVT prophylaxis Dr Ledbetter
[2019-11-29] MEDS ORDERED: FUROSEMIDE 40 MG/4 ML INJECTABLE VIAL IVPB ONE (16:20)
[2019-11-29] MEDS ORDERED: SODIUM CHLORIDE 250 ML IV PRN (16:20)
--- NOTE | 2019-11-29 16:20 | PN ---
Progress Note, Physician History of Present Illness: Pt seen and examined at bedside. He is awake and alert. He says he is too weak to stand. - Current Medication List Current Medications: Active Medications Acetaminophen (Tylenol -) 650 mg PO Q4H PRN PRN Reason: fever>100.0F Last Admin: 11/29/19 15:35 Dose: 650 mg Documented by: Allopurinol (Zyloprim -) 100 mg PO Q2D [facility] Last Admin: 11/29/19 10:22 Dose: 100 mg Documented by: Calcium Acetate (Phoslo -) 1,334 mg PO TIDCM [facility] Last Admin: 11/29/19 12:32 Dose: 1,334 mg Documented by: Ferrous Sulfate (Feosol -) 325 mg PO BIDWM [facility] Last Admin: 11/29/19 08:49 Dose: 325 mg Documented by: Gabapentin (Neurontin -) 300 mg PO TID [facility] Last Admin: 11/29/19 15:36 Dose: 300 mg Documented by: Hydralazine HCl (Apresoline -) 100 mg PO TID [facility] Last Admin: 11/29/19 15:36 Dose: 100 mg Documented by: Metoprolol Succinate (Toprol Xl -) 25 mg PO DAILY [facility] Last Admin: 11/29/19 10:22 Dose: 25 mg Documented by: Nifedipine (Procardia Xl -) 90 mg PO DAILY [facility] Last Admin: 11/29/19 10:22 Dose: 90 mg Documented by: Pantoprazole Sodium (Protonix -) 20 mg PO DAILY [facility] Last Admin: 11/29/19 10:22 Dose: 20 mg Documented by: - Objective Vital Signs: Vital Signs Temperature 98.6 F 11/29/19 10:20 Pulse Rate 98 H 11/29/19 10:20 Respiratory Rate 18 11/29/19 10:20 Blood Pressure 138/60 11/29/19 10:20 O2 Sat by Pulse Oximetry (%) 95 11/29/19 12:06 Constitutional: Yes: Calm Eyes: Yes: Conjunctiva Clear HENT: Yes: Atraumatic Neck: Yes: Supple Cardiovascular: Yes: S1, S2 Respiratory: Yes: On Nasal O2 Gastrointestinal: Yes: Normal Bowel Sounds, Soft, Abdomen, Obese Genitourinary: Yes: Incontinence Musculoskeletal: Yes: Muscle Weakness Edema: Yes Edema: LLE: 2+, RLE: 2+ Neurological: Yes: Oriented Psychiatric: Yes: Oriented Labs: CBC, BMP 11/29/19 06:25 11/29/19 06:25 INR, PTT INR 1.18 (0.83-1.09) H 11/17/19 00:50 Problem List - Problems (1) Anemia Code(s): D64.9 - ANEMIA, UNSPECIFIED (2) CKD (chronic kidney disease) Code(s): N18.9 - CHRONIC KIDNEY DISEASE, UNSPECIFIED (3) Fall Code(s): W19.XXXA - UNSPECIFIED FALL, INITIAL ENCOUNTER Assessment/Plan Current Medications Generic Name Dose Route Start Last Admin Trade Name Freq PRN Reason Stop Dose Admin Acetaminophen 650 mg 11/17/19 11:06 11/29/19 15:35 Tylenol - PO 650 mg Q4H PRN Administration fever>100.0F Allopurinol 100 mg 11/27/19 11:24 11/29/19 10:22 Zyloprim - PO 100 mg Q2D [facility] Administration Calcium Acetate 1,334 mg 11/23/19 09:55 11/29/19 12:32 Phoslo - PO 1,334 mg TIDCM [facility] Administration Ferrous Sulfate 325 mg 11/17/19 17:30 11/29/19 08:49 Feosol - PO 325 mg BIDWM [facility] Administration Gabapentin 300 mg 11/17/19 14:00 11/29/19 15:36 Neurontin - PO 300 mg TID [facility] Administration Hydralazine HCl 100 mg 11/17/19 09:00 11/29/19 15:36 Apresoline - PO 100 mg TID [facility] Administration Metoprolol Succinate 25 mg 11/17/19 10:00 11/29/19 10:22 Toprol Xl - PO 25 mg DAILY [facility] Administration Nifedipine 90 mg 11/17/19 10:00 11/29/19 10:22 Procardia Xl - PO 90 mg DAILY [facility] Administration Pantoprazole Sodium 20 mg 11/29/19 10:00 11/29/19 10:22 Protonix - PO 20 mg DAILY [facility] Administration Impression 1. CKD 2. htn 3. dm 4. obesity 5. sepsis 6. cellulitis 7. gout 8. chf 9. ESRD Plan - next HD tomorrow - will give lasix today - renal diet - check weights daily - pt remains volume overloaded - pending placement for HD - rehab eval to see if pt is stable in a wheelchair - cont epogen - pt on venofer as well
--- NOTE | 2019-11-29 21:57 | PN ---
Progress Note, Physician Chief Complaint: AWAKE, ALERT IN BED NO C/O LEG PAIN TEMP NOTED VANCO TROUGH NOTED BC 11/23 (-) - Current Medication List Current Medications: Active Medications Acetaminophen (Tylenol -) 650 mg PO Q4H PRN PRN Reason: fever>100.0F Last Admin: 11/29/19 15:35 Dose: 650 mg Documented by: Albumin Human (Albumin Human 25%) 12.5 gm IVPB Q30M [facility] Allopurinol (Zyloprim -) 100 mg PO Q2D [facility] Last Admin: 11/29/19 10:22 Dose: 100 mg Documented by: Calcium Acetate (Phoslo -) 1,334 mg PO TIDCM [facility] Last Admin: 11/29/19 16:52 Dose: 1,334 mg Documented by: Epoetin Raffi (Procrit -) 20,000 unit IVPUSH ONCE ONE Stop: 11/30/19 16:21 Ferrous Sulfate (Feosol -) 325 mg PO BIDWM [facility] Last Admin: 11/29/19 16:52 Dose: 325 mg Documented by: Gabapentin (Neurontin -) 300 mg PO TID [facility] Last Admin: 11/29/19 15:36 Dose: 300 mg Documented by: Hydralazine HCl (Apresoline -) 100 mg PO TID [facility] Last Admin: 11/29/19 15:36 Dose: 100 mg Documented by: Sodium Chloride (Normal Saline -) 250 mls @ 3,000 mls/hr IV PRN PRN PRN Reason: Hypotension during Dialysis Stop: 11/30/19 16:20 Iron Sucrose 100 mg/ Sodium (Chloride) 100 mls @ 200 mls/hr IVPB ONCE ONE Stop: 11/30/19 16:49 Metoprolol Succinate (Toprol Xl -) 25 mg PO DAILY [facility] Last Admin: 11/29/19 10:22 Dose: 25 mg Documented by: Nifedipine (Procardia Xl -) 90 mg PO DAILY [facility] Last Admin: 11/29/19 10:22 Dose: 90 mg Documented by: Pantoprazole Sodium (Protonix -) 20 mg PO DAILY [facility] Last Admin: 11/29/19 10:22 Dose: 20 mg Documented by: - Objective Vital Signs: Vital Signs Temperature 101.7 F H 11/29/19 17:00 Pulse Rate 90 11/29/19 17:00 Respiratory Rate 20 11/29/19 17:00 Blood Pressure 112/60 11/29/19 17:00 O2 Sat by Pulse Oximetry (%) 96 11/29/19 20:47 Constitutional: Yes: No Distress, Obese Eyes: Yes: Conjunctiva Clear Cardiovascular: Yes: Regular Rate and Rhythm, S1, S2 Respiratory: Yes: CTA Bilaterally Gastrointestinal: Yes: Normal Bowel Sounds, Soft, Abdomen, Obese Extremities: Yes: Other (+ B/L LYMPHEDEMA) Labs: CBC, BMP 11/29/19 06:25 11/29/19 06:25 INR, PTT INR 1.18 (0.83-1.09) H 11/17/19 00:50 Assessment/Plan FEVER +BC MRSA LIKELY SKIN SOURCE B/L LE CELLULITIS IMPROVED CKD MORBID OBESITY LEUKOCYTOSIS REPEAT BC NO GROWTH REPEAT VANCOMYCIN LEVEL, BC NOTED ECHO NOTED
[2019-11-30] MEDS: hydrALAZINE HCL 50 MG TABLET (FP) PO SCH ×4 (05:34→22:47)
[2019-11-30] MEDS: GABAPENTIN 300 MG CAPSULE PO SCH ×3 (05:35→22:47)
[2019-11-30] MEDS: ACETAMINOPHEN 325 MG TABLET (FP) PO PRN ×3 (05:38→22:46)
[2019-11-30] MEDS ORDERED: INSULIN (NOVOLOG) ASPART 100 UNITS/ML 10ML VIAL ONE (06:50)
--- NOTE | 2019-11-30 08:05 | PN ---
Progress Note, Physician - Current Medication List Current Medications: Active Medications Acetaminophen (Tylenol -) 650 mg PO Q4H PRN PRN Reason: fever>100.0F Last Admin: 11/30/19 05:38 Dose: 650 mg Documented by: Albumin Human (Albumin Human 25%) 12.5 gm IVPB Q30M [facility] Allopurinol (Zyloprim -) 100 mg PO Q2D [facility] Last Admin: 11/29/19 10:22 Dose: 100 mg Documented by: Calcium Acetate (Phoslo -) 1,334 mg PO TIDCM [facility] Last Admin: 11/29/19 16:52 Dose: 1,334 mg Documented by: Epoetin Raffi (Procrit -) 20,000 unit IVPUSH ONCE ONE Stop: 11/30/19 16:21 Ferrous Sulfate (Feosol -) 325 mg PO BIDWM [facility] Last Admin: 11/29/19 16:52 Dose: 325 mg Documented by: Gabapentin (Neurontin -) 300 mg PO TID [facility] Last Admin: 11/30/19 05:35 Dose: 300 mg Documented by: Hydralazine HCl (Apresoline -) 100 mg PO TID [facility] Last Admin: 11/30/19 05:34 Dose: 100 mg Documented by: Sodium Chloride (Normal Saline -) 250 mls @ 3,000 mls/hr IV PRN PRN PRN Reason: Hypotension during Dialysis Stop: 11/30/19 16:20 Iron Sucrose 100 mg/ Sodium (Chloride) 100 mls @ 200 mls/hr IVPB ONCE ONE Stop: 11/30/19 16:49 Metoprolol Succinate (Toprol Xl -) 25 mg PO DAILY [facility] Last Admin: 11/29/19 10:22 Dose: 25 mg Documented by: Nifedipine (Procardia Xl -) 90 mg PO DAILY [facility] Last Admin: 11/29/19 10:22 Dose: 90 mg Documented by: Pantoprazole Sodium (Protonix -) 20 mg PO DAILY [facility] Last Admin: 11/29/19 10:22 Dose: 20 mg Documented by: - Objective Vital Signs: Vital Signs Temperature 99.8 F H 11/30/19 06:00 Pulse Rate 96 H 11/30/19 06:00 Respiratory Rate 20 11/30/19 06:00 Blood Pressure 92/62 11/30/19 06:00 O2 Sat by Pulse Oximetry (%) 92 L 11/30/19 06:00 Cardiovascular: Yes: S1, S2 Respiratory: Yes: Diminished, On Nasal O2, Rhonchi Gastrointestinal: Yes: Normal Bowel Sounds, Soft Labs: CBC, BMP 11/29/19 06:25 11/29/19 06:25 INR, PTT INR 1.18 (0.83-1.09) H 11/17/19 00:50 Assessment/Plan - Problems (1) Anemia Assessment/Plan: -no previous records available -Iron% low -Start Feosol -B12,FA,Thyroid profile normal -Stool OB + -Consult GI Problems reviewed: Yes Code(s): D64.9 - ANEMIA, UNSPECIFIED (2) Fall Assessment/Plan: -Physical therapy -Safety precautions Problems reviewed: Yes Code(s): W19.XXXA - UNSPECIFIED FALL, INITIAL ENCOUNTER (3) Elevated troponin Assessment/Plan: -likely demand ischemia -Seen by cardiology Problems reviewed: Yes Code(s): R79.89 - OTHER SPECIFIED ABNORMAL FINDINGS OF BLOOD CHEMISTRY (4) HTN (hypertension) Assessment/Plan: -Resume home meds -Low sodium diet -Monitor trend for now Problems reviewed: Yes Code(s): I10 - ESSENTIAL (PRIMARY) HYPERTENSION (5) Hypocalcemia Assessment/Plan: -nephrology consult Problems reviewed: Yes Code(s): E83.51 - HYPOCALCEMIA (6) Hypomagnesemia Assessment/Plan: -resolved Problems reviewed: Yes Code(s): E83.42 - HYPOMAGNESEMIA (7) Morbid obesity Assessment/Plan: -RD consult -Low calorie diet Problems reviewed: Yes Code(s): E66.01 - MORBID (SEVERE) OBESITY DUE TO EXCESS CALORIES (8) Sleep Apnea Assessment/Plan: -Needs to keep bipap on -ABg (9) UTI (urinary tract infection) Assessment/Plan: -UA + protein,+1 blood, -nitrites, +1 leuks -UC: Microbiology 11/24/19 06:34 Blood - Peripheral Venous Blood Culture - Final NO GROWTH AFTER 5 DAYS INCUBATION 11/24/19 06:34 Blood - Peripheral Venous Blood Culture - Final NO GROWTH AFTER 5 DAYS INCUBATION 11/21/19 14:50 Blood - Peripheral Venous Blood Culture - Final NO GROWTH AFTER 5 DAYS INCUBATION 11/21/19 15:20 Blood - Peripheral Venous Blood Culture - Final NO GROWTH AFTER 5 DAYS INCUBATION 11/17/19 00:50 Blood - Peripheral Venous Blood Culture - Final NO GROWTH AFTER 5 DAYS INCUBATION 11/17/19 00:50 Blood - Peripheral Venous Blood Culture - Final S Aureus 11/17/19 02:45 Urine - Urine Clean Catch Urine Culture - Final Lactose Fermenting Neg Bacilli -repeat BC negative -ID consult appreciated -IV vanco dose as per ID -Check Vanco level in AM Problems reviewed: Yes Code(s): N39.0 - URINARY TRACT INFECTION, SITE NOT SPECIFIED (10) Fever Assessment/Plan: -Reculture and id follow up -ID consult -acetaminophen for fever>100.0F Problems reviewed: Yes Code(s): R50.9 - FEVER, UNSPECIFIED (11) Sepsis Assessment/Plan: -as above Problems reviewed: Yes Code(s): A41.9 - SEPSIS, UNSPECIFIED ORGANISM Qualifiers: Sepsis type: sepsis due to unspecified organism (12) ESRD (end stage renal disease) Assessment/Plan: -Nephrology on board -HD as per renal-tolerating well Problems reviewed: Yes Code(s): N18.6 - END STAGE RENAL DISEASE (13) MRSA bacteremia Assessment/Plan: -Dose vanco as per ID Problems reviewed: Yes Code(s): R78.81 - BACTEREMIA; B95.62 - METHICILLIN RESIS STAPH INFCT CAUSING DISEASES CLASSD ELSWHR
[2019-11-30 08:33] LABS: ARTERIAL BLD GAS O2 SATURATION 98.9 mmHg (95-98); ARTERIAL BLOOD GAS BASE EXCESS 2.2 mmol/L (-2-2); ARTERIAL BLOOD GAS PO2 147.8 mmHg (80-100); ARTERIAL BLOOD GAS pH 7.426 (7.350-7.450)
[2019-11-30 08:36] LABS: ALLENS TEST POSITIVE
[2019-11-30 08:37] LABS: VENT MODE S/T; VENT RATE 18
[2019-11-30] MEDS: CALCIUM ACETATE 667 MG CAPSULE (FP) PO SCH ×3 (08:40→16:45)
[2019-11-30] MEDS: FERROUS SO4 325 MG TABLET (FP) PO SCH ×2 (08:41→16:45)
[2019-11-30] MEDS ORDERED: IRON SUCROSE INJECTION 100 MG in SODIUM CHLORIDE 95 ML IVPB ONE ×2 (10:00→16:20)
[2019-11-30] MEDS: ALBUMIN HUMAN 25% 12.5 GM/50 ML VIAL IVPB SCH ×5 (10:00→15:54)
--- NOTE | 2019-11-30 12:10 | PN ---
Progress Note, Physician History of Present Illness: pulmonary alert,comfortable on nasal o2,-sob,on hd - Current Medication List Current Medications: Active Medications Acetaminophen (Tylenol -) 650 mg PO Q4H PRN PRN Reason: fever>100.0F Last Admin: 11/30/19 05:38 Dose: 650 mg Documented by: Allopurinol (Zyloprim -) 100 mg PO Q2D [facility] Last Admin: 11/29/19 10:22 Dose: 100 mg Documented by: Calcium Acetate (Phoslo -) 1,334 mg PO TIDCM [facility] Last Admin: 11/30/19 08:40 Dose: 1,334 mg Documented by: Ferrous Sulfate (Feosol -) 325 mg PO BIDWM [facility] Last Admin: 11/30/19 08:41 Dose: 325 mg Documented by: Gabapentin (Neurontin -) 300 mg PO TID [facility] Last Admin: 11/30/19 05:35 Dose: 300 mg Documented by: Hydralazine HCl (Apresoline -) 100 mg PO TID [facility] Last Admin: 11/30/19 05:34 Dose: 100 mg Documented by: Sodium Chloride (Normal Saline -) 250 mls @ 3,000 mls/hr IV PRN PRN PRN Reason: Hypotension during Dialysis Stop: 11/30/19 16:20 Metoprolol Succinate (Toprol Xl -) 25 mg PO DAILY [facility] Last Admin: 11/29/19 10:22 Dose: 25 mg Documented by: Nifedipine (Procardia Xl -) 90 mg PO DAILY [facility] Last Admin: 11/29/19 10:22 Dose: 90 mg Documented by: Pantoprazole Sodium (Protonix -) 20 mg PO DAILY [facility] Last Admin: 11/29/19 10:22 Dose: 20 mg Documented by: - Objective Vital Signs: Vital Signs Temperature 99.8 F H 11/30/19 06:00 Pulse Rate 89 11/30/19 11:00 Respiratory Rate 18 11/30/19 11:00 Blood Pressure 143/71 11/30/19 11:00 O2 Sat by Pulse Oximetry (%) 98 11/30/19 08:30 Constitutional: Yes: Calm, Obese Eyes: Yes: WNL HENT: Yes: WNL Neck: Yes: WNL Cardiovascular: Yes: Regular Rate and Rhythm, S1, S2 Respiratory: Yes: Diminished Gastrointestinal: Yes: Normal Bowel Sounds, Soft Extremities: Yes: Other (chronic changes bilaterallly) Edema: Yes Labs: CBC, BMP Problem List - Problems (1) Anemia Code(s): D64.9 - ANEMIA, UNSPECIFIED (2) CKD (chronic kidney disease) Code(s): N18.9 - CHRONIC KIDNEY DISEASE, UNSPECIFIED (3) Fall Code(s): W19.XXXA - UNSPECIFIED FALL, INITIAL ENCOUNTER (4) Fever Code(s): R50.9 - FEVER, UNSPECIFIED (5) HLD (hyperlipidemia) Code(s): E78.5 - HYPERLIPIDEMIA, UNSPECIFIED (6) HTN (hypertension) Code(s): I10 - ESSENTIAL (PRIMARY) HYPERTENSION (7) Leukocytosis Code(s): D72.829 - ELEVATED WHITE BLOOD CELL COUNT, UNSPECIFIED (8) Morbid obesity Code(s): E66.01 - MORBID (SEVERE) OBESITY DUE TO EXCESS CALORIES (9) Sepsis Code(s): A41.9 - SEPSIS, UNSPECIFIED ORGANISM Qualifiers: Sepsis type: sepsis due to unspecified organism (10) UTI (urinary tract infection) Code(s): N39.0 - URINARY TRACT INFECTION, SITE NOT SPECIFIED (11) ESRD (end stage renal disease) Code(s): N18.6 - END STAGE RENAL DISEASE Assessment/Plan IMP S/P SEPSIS ALTERED MENTAL STATUS LIKELY TOXIC METABOLIC ENCEPHALOPATHY IMPROVED DYSPNEA IMPROVED S/P MECHANICAL FALL CHF ACUTE ON CKD HTN HLD MORBID OBESITY SUSPECTED OSAS/OHS ANEMIA ACUTE HYPOXEMIC/HYPERCAPNEIC RESP FAILURE IMPROVED PLAN SUPPLEMENTAL O2 NIPPV AT NIGHT AND NEEDED DVT PROPHYLAXIS OUTPATIENT SLEEP STUDIES MONITOR LYTES,RENAL FUNCTION,CBC F/U CHEST X-RAY HD PER RENAL DR ELY Problem List - Problems (1) Anemia Code(s): D64.9 - ANEMIA, UNSPECIFIED (2) CKD (chronic kidney disease) Code(s): N18.9 - CHRONIC KIDNEY DISEASE, UNSPECIFIED (3) Fall Code(s): W19.XXXA - UNSPECIFIED FALL, INITIAL ENCOUNTER (4) Fever Code(s): R50.9 - FEVER, UNSPECIFIED (5) HLD (hyperlipidemia) Code(s): E78.5 - HYPERLIPIDEMIA, UNSPECIFIED (6) HTN (hypertension) Code(s): I10 - ESSENTIAL (PRIMARY) HYPERTENSION (7) Leukocytosis Code(s): D72.829 - ELEVATED WHITE BLOOD CELL COUNT, UNSPECIFIED (8) Morbid obesity Code(s): E66.01 - MORBID (SEVERE) OBESITY DUE TO EXCESS CALORIES (9) Sepsis Code(s): A41.9 - SEPSIS, UNSPECIFIED ORGANISM Qualifiers: Sepsis type: sepsis due to unspecified organism (10) UTI (urinary tract infection) Code(s): N39.0 - URINARY TRACT INFECTION, SITE NOT SPECIFIED (11) ESRD (end stage renal disease) Code(s): N18.6 - END STAGE RENAL DISEASE
[2019-11-30 12:22] LABS: HEMATOCRIT 22.9 % (35.4-49); HEMOGLOBIN 7.3 GM/dL (11.7-16.9); MCH 24.7 pg (25.7-33.7); MCHC 31.7 g/dl (32.0-35.9); MEAN CELL VOLUME 77.9 fl (80-96); MEAN PLT VOLUME 7.6 fl (7.5-11.1); PLATELET COUNT 335 K/MM3 (134-434); RBC 2.94 M/mm3 (4.00-5.60); RDW 20.2 % (11.9-15.9); WHITE BLOOD COUNT 16.3 K/mm3 (4.0-10.0)
[2019-11-30] MEDS: EPOETIN ALFA 20,000 UNIT/1 ML VIAL IVPUSH ONE ×2 (12:30→14:39)
[2019-11-30 12:46] LABS: BLOOD UREA NITROGEN 90.3 mg/dL (7-18); CALCIUM 7.9 mg/dL (8.5-10.1); CREATININE 6.1 mg/dL (0.55-1.3); POTASSIUM 4.1 mmol/L (3.5-5.1)
--- NOTE | 2019-11-30 13:46 | PN ---
Progress Note, Physician History of Present Illness: Pt seen and examined at bedside. He is awake and alert. He is tolerating HD. - Current Medication List Current Medications: Active Medications Acetaminophen (Tylenol -) 650 mg PO Q4H PRN PRN Reason: fever>100.0F Last Admin: 11/30/19 05:38 Dose: 650 mg Documented by: Allopurinol (Zyloprim -) 100 mg PO Q2D [facility] Last Admin: 11/29/19 10:22 Dose: 100 mg Documented by: Calcium Acetate (Phoslo -) 1,334 mg PO TIDCM [facility] Last Admin: 11/30/19 08:40 Dose: 1,334 mg Documented by: Ferrous Sulfate (Feosol -) 325 mg PO BIDWM [facility] Last Admin: 11/30/19 08:41 Dose: 325 mg Documented by: Gabapentin (Neurontin -) 300 mg PO TID [facility] Last Admin: 11/30/19 05:35 Dose: 300 mg Documented by: Hydralazine HCl (Apresoline -) 100 mg PO TID [facility] Last Admin: 11/30/19 05:34 Dose: 100 mg Documented by: Sodium Chloride (Normal Saline -) 250 mls @ 3,000 mls/hr IV PRN PRN PRN Reason: Hypotension during Dialysis Stop: 11/30/19 16:20 Metoprolol Succinate (Toprol Xl -) 25 mg PO DAILY [facility] Last Admin: 11/29/19 10:22 Dose: 25 mg Documented by: Nifedipine (Procardia Xl -) 90 mg PO DAILY [facility] Last Admin: 11/29/19 10:22 Dose: 90 mg Documented by: Pantoprazole Sodium (Protonix -) 20 mg PO DAILY [facility] Last Admin: 11/29/19 10:22 Dose: 20 mg Documented by: - Objective Vital Signs: Vital Signs Temperature 100.1 F H 11/30/19 08:04 Pulse Rate 84 11/30/19 11:40 Respiratory Rate 18 11/30/19 11:40 Blood Pressure 131/81 11/30/19 11:40 O2 Sat by Pulse Oximetry (%) 98 11/30/19 08:30 Constitutional: Yes: Calm Eyes: Yes: Conjunctiva Clear HENT: Yes: Atraumatic Cardiovascular: Yes: S1, S2 Respiratory: Yes: On Nasal O2 Gastrointestinal: Yes: Soft, Abdomen, Obese Genitourinary: Yes: Incontinence Musculoskeletal: Yes: Muscle Weakness Edema: Yes Edema: LLE: 2+, RLE: 2+ Neurological: Yes: Oriented Psychiatric: Yes: Oriented Labs: CBC, BMP 11/30/19 11:50 11/30/19 11:50 INR, PTT INR 1.18 (0.83-1.09) H 11/17/19 00:50 Problem List - Problems (1) Anemia Code(s): D64.9 - ANEMIA, UNSPECIFIED (2) CKD (chronic kidney disease) Code(s): N18.9 - CHRONIC KIDNEY DISEASE, UNSPECIFIED (3) Fall Code(s): W19.XXXA - UNSPECIFIED FALL, INITIAL ENCOUNTER Assessment/Plan Current Medications Generic Name Dose Route Start Last Admin Trade Name Freq PRN Reason Stop Dose Admin Acetaminophen 650 mg 11/17/19 11:06 11/30/19 05:38 Tylenol - PO 650 mg Q4H PRN Administration fever>100.0F Allopurinol 100 mg 11/27/19 11:24 11/29/19 10:22 Zyloprim - PO 100 mg Q2D [facility] Administration Calcium Acetate 1,334 mg 11/23/19 09:55 11/30/19 08:40 Phoslo - PO 1,334 mg TIDCM [facility] Administration Ferrous Sulfate 325 mg 11/17/19 17:30 11/30/19 08:41 Feosol - PO 325 mg BIDWM [facility] Administration Gabapentin 300 mg 11/17/19 14:00 11/30/19 05:35 Neurontin - PO 300 mg TID [facility] Administration Hydralazine HCl 100 mg 11/17/19 09:00 11/30/19 05:34 Apresoline - PO 100 mg TID [facility] Administration Sodium Chloride 250 mls @ 3,000 mls/hr 11/29/19 16:20 Normal Saline - IV 11/30/19 16:20 PRN PRN Hypotension during Dialysis Metoprolol Succinate 25 mg 11/17/19 10:00 11/29/19 10:22 Toprol Xl - PO 25 mg DAILY [facility] Administration Nifedipine 90 mg 11/17/19 10:00 11/29/19 10:22 Procardia Xl - PO 90 mg DAILY [facility] Administration Pantoprazole Sodium 20 mg 11/29/19 10:00 11/29/19 10:22 Protonix - PO 20 mg DAILY [facility] Administration Impression 1. CKD 2. htn 3. dm 4. obesity 5. sepsis 6. cellulitis 7. gout 8. chf 9. ESRD Plan - HD today - needs heparin with HD - cont epogen - lasix on non hd days - check weights - pt remains volume overloaded - pending placement for HD - rehab eval to see if pt is stable in a wheelchair - pt on venofer as well
--- NOTE | 2019-11-30 13:57 | PN ---
Progress Note, [employer] SET UP OPERATOR - Note Progress Note: Selected Entries 11/29/19 11/29/19 11/30/19 15:00 23:18 06:00 Breakfast 50% Diet Tolerated Lunch 50% Supper 50% Temperature 99.8 F H Pulse Rate 96 H 11/30/19 11/30/19 11/30/19 08:04 11:00 11:08 Breakfast 75% Diet Tolerated Well Lunch Supper Temperature 100.1 F H Pulse Rate 97 H 89 11/30/19 11/30/19 11:10 11:40 Breakfast Diet Tolerated Lunch Supper Temperature Pulse Rate 86 84 Laboratory Tests 11/29/19 11/30/19 06:25 11:50 WBC 21.0 H 16.3 H
[2019-11-30] MEDS: PANTOPRAZOLE 20 MG TABLET PO SCH (14:39)
[2019-11-30] MEDS: NIFEdipine E.R. 90 MG TABLET PO SCH (14:39)
[2019-11-30] MEDS: metoPROLOL SUCCINATE 25 MG TAB.SR.24H (FP) PO SCH (14:39)
--- NOTE | 2019-11-30 14:49 | CONSULT ---
- Consultation REQUESTING PROVIDER: CONSULT REQUEST: We have been asked to surgically evaluate this patient for clotted Rt arm AVF Hospitalist:Nishant Mansfield HISTORY OF PRESENT ILLNESS: 53yo M was in HD when it was found that his RUE AVF was continuously clotting during HD. Pt only got 1.5hours of HD, before they had to stop. Pt denies previous issues with his AVF. Pt denies pain or swelling in RUE. PMHx: CHF, HTN, ESRD, Chronic Venous Stasis, Erythema Intertrigo, Severe Obesity Home Medications Medication Instructions Recorded Acetaminophen [Tylenol] 2 tab PO Q48H 08/29/19 Allopurinol [Zyloprim -] 1 tab PO Q48H 08/29/19 Calcium Acetate 667 mg PO TID 08/29/19 Hydralazine HCl 1 tab PO Q8H 08/29/19 Metoprolol Succinate [Toprol Xl] 1 tab PO DAILY 08/29/19 Nifedipine ER [Procardia XL -] 90 mg PO DAILY 08/29/19 Gabapentin 300 mg PO TID 11/14/19 Albuterol 2.5/Ipratropium 0.5 1 amp NEB RQID amp 11/24/19 [Duoneb -] Ferrous Sulfate [Feosol] 325 mg PO BIDWM ud 11/24/19 Heparin - 5,000 unit SQ BID vial 11/24/19 Piperacillin/Tazob 2.25 gm [Zosyn 2.25 gm IVPB Q8H-IV vial 11/24/19 -] Allergies Allergy/AdvReac Type Severity Reaction Status Date / Time No Known Allergies Allergy Verified 11/16/19 23:36 REVIEW OF SYSTEMS: see above PHYSICAL EXAM: GENERAL: Awake, alert, and fully oriented, in no acute distress. HEAD: Normal with no signs of trauma. EYES: PERRL, sclera anicteric, conjunctiva clear. UPPER EXTREMITIES: 2+ pulses, warm, well-perfused. No cyanosis. No peripheral edema. RUE AVF no palpable thrill. NEUROLOGICAL: Normal speech, gait not observed. PSYCH: Cooperative. Good eye contact. Appropriate mood and affect. SKIN: Warm, dry, normal turgor, no rashes or lesions noted. Vital Signs Temperature 100.1 F H 11/30/19 08:04 Pulse Rate 84 11/30/19 11:40 Respiratory Rate 18 11/30/19 11:40 Blood Pressure 131/81 11/30/19 11:40 O2 Sat by Pulse Oximetry (%) 98 11/30/19 08:30 Lab Results WBC 16.3 K/mm3 (4.0-10.0) H 11/30/19 11:50 RBC 2.94 M/mm3 (4.00-5.60) L 11/30/19 11:50 Hgb 7.3 GM/dL (11.7-16.9) L 11/30/19 11:50 Hct 22.9 % (35.4-49) L 11/30/19 11:50 MCV 77.9 fl (80-96) L 11/30/19 11:50 MCHC 31.7 g/dl (32.0-35.9) L 11/30/19 11:50 RDW 20.2 % (11.9-15.9) H 11/30/19 11:50 Plt Count 335 K/MM3 (134-434) 11/30/19 11:50 INR 1.18 (0.83-1.09) H 11/17/19 00:50 Sodium 138 mmol/L (136-145) 11/30/19 11:50 Potassium 4.1 mmol/L (3.5-5.1) 11/30/19 11:50 Chloride 99 mmol/L (98-107) 11/30/19 11:50 Carbon Dioxide 29 mmol/L (21-32) 11/30/19 11:50 Anion Gap 10 MMOL/L (8-16) 11/30/19 11:50 BUN 90.3 mg/dL (7-18) H 11/30/19 11:50 Creatinine 6.1 mg/dL (0.55-1.3) H 11/30/19 11:50 Random Glucose 111 mg/dL (74-106) H 11/30/19 11:50 Calcium 7.9 mg/dL (8.5-10.1) L 11/30/19 11:50 Blood Type AB NEGATIVE 11/24/19 09:35 Antibody Screen Negative 11/24/19 09:35 Problem List - Problems (1) AV fistula thrombosis Assessment/Plan: Plan -will plan to take pt to OR tomorrow for angiogram and possible declot -npo after midnight -medical optimization Pt discussed with Dr. Garcia who agrees with plan Code(s): T82.868A - THROMBOSIS DUE TO VASCULAR PROSTH DEV/GRFT, INIT
[2019-11-30] MEDS ORDERED: FUROSEMIDE 40 MG/4 ML INJECTABLE VIAL IVPUSH ONE (17:00)
[2019-11-30 17:59] LABS: EPI CELLS 33 /uL (0-25.1); HYALINE CASTS 14 /uL (0-3.1); URINE APPEARANCE TURBID; URINE BACTERIA 96 /uL (0-1359); URINE BILIRUBIN NEGATIVE (NEGATIVE); URINE COLOR YELLOW; URINE GLUCOSE (UA) NEGATIVE (NEGATIVE); URINE KETONE NEGATIVE (NEGATIVE); URINE LEUK ESTERASE 3+ (NEGATIVE); URINE NITRITE NEGATIVE (NEGATIVE); URINE PROTEIN 3+ (NEGATIVE); URINE UROBILINOGEN 0.2 mg/dL (0.2-1.0); URINE WBC 6639 /uL (0-25.8)
[2019-11-30 19:23] LABS: YEAST NONE SEEN (NEGATIVE)
[2019-12-01] MEDS: ACETAMINOPHEN 325 MG TABLET (FP) PO PRN ×2 (04:47→21:36)
[2019-12-01] MEDS: hydrALAZINE HCL 50 MG TABLET (FP) PO SCH ×3 (06:29→21:36)
[2019-12-01] MEDS: GABAPENTIN 300 MG CAPSULE PO SCH ×3 (06:29→21:36)
[2019-12-01] MEDS ORDERED: traMADol HCL 50 MG TABLET PO ONE (08:15)
[2019-12-01] MEDS: CALCIUM ACETATE 667 MG CAPSULE (FP) PO SCH ×3 (08:46→21:18)
[2019-12-01] MEDS: FERROUS SO4 325 MG TABLET (FP) PO SCH ×2 (08:46→21:18)
[2019-12-01] MEDS: metoPROLOL SUCCINATE 25 MG TAB.SR.24H (FP) PO SCH (10:34)
[2019-12-01] MEDS: ALLOPURINOL 100 MG TABLET (FP) PO SCH (10:34)
[2019-12-01] MEDS: NIFEdipine E.R. 90 MG TABLET PO SCH (10:34)
[2019-12-01] MEDS: PANTOPRAZOLE 20 MG TABLET PO SCH (10:34)
--- NOTE | 2019-12-01 11:11 | PN ---
Progress Note, Physician Chief Complaint: Fall UTI Hypomagnesemia Anemia Leukocytosis Elevated troponin History of Present Illness: This is a 53 y/o male from [facility] with a significant PMHx of CHF, HTN, CKD Stage 3, Chronic Venous Stasis, Erythema Intertrigo, Severe Obesity. Who presents to the ED s/p unwitnessed fall. Patient reports while getting OOB he fell. Patient denies head trauma or LOC. Patient reports chronic lumbar pain exacerbated while laying on the stretcher. Patient denies fever, chills, cough, SOB, dizziness, HERNANDEZ, CP, palpitations, AP, N/V/D, constipation, dysura. NAD, looks better, denies any pain or SOB, Febrile yesterday BC from 11/30/19 pending UC + GNB Finished IV zosyn + Vanco RAVF thrombus Seen by Vascular surgery, Going to OR today - Current Medication List Current Medications: Active Medications Acetaminophen (Tylenol -) 650 mg PO Q4H PRN PRN Reason: fever>100.0F Last Admin: 12/01/19 04:47 Dose: 650 mg Documented by: Allopurinol (Zyloprim -) 100 mg PO Q2D [facility] Last Admin: 12/01/19 10:34 Dose: Not Given Documented by: Calcium Acetate (Phoslo -) 1,334 mg PO TIDCM [facility] Last Admin: 12/01/19 08:46 Dose: Not Given Documented by: Ferrous Sulfate (Feosol -) 325 mg PO BIDWM [facility] Last Admin: 12/01/19 08:46 Dose: Not Given Documented by: Gabapentin (Neurontin -) 300 mg PO TID [facility] Last Admin: 12/01/19 06:29 Dose: 300 mg Documented by: Hydralazine HCl (Apresoline -) 100 mg PO TID [facility] Last Admin: 12/01/19 06:29 Dose: 100 mg Documented by: Metoprolol Succinate (Toprol Xl -) 25 mg PO DAILY [facility] Last Admin: 12/01/19 10:34 Dose: 25 mg Documented by: Nifedipine (Procardia Xl -) 90 mg PO DAILY [facility] Last Admin: 12/01/19 10:34 Dose: 90 mg Documented by: Pantoprazole Sodium (Protonix -) 20 mg PO DAILY [facility] Last Admin: 12/01/19 10:34 Dose: Not Given Documented by: - Objective Vital Signs: Vital Signs Temperature 98 F 12/01/19 10:00 Pulse Rate 85 12/01/19 10:00 Respiratory Rate 20 12/01/19 10:00 Blood Pressure 149/55 L 12/01/19 10:00 O2 Sat by Pulse Oximetry (%) 97 12/01/19 10:00 Constitutional: Yes: Well Nourished, No Distress, Calm, Obese Cardiovascular: Yes: Regular Rate and Rhythm Respiratory: Yes: Regular, Diminished Gastrointestinal: Yes: Normal Bowel Sounds, Soft, Abdomen, Obese Genitourinary: Yes: Holder Present Musculoskeletal: Yes: Muscle Weakness Extremities: Yes: WNL Edema: Yes (BLLE chronic lymphedema) Peripheral Pulses WNL: Yes Neurological: Yes: Alert, Oriented Psychiatric: Yes: Alert, Oriented Labs: CBC, BMP 11/30/19 11:50 11/30/19 11:50 INR, PTT INR 1.18 (0.83-1.09) H 11/17/19 00:50 Problem List - Problems (1) Anemia Assessment/Plan: -no previous records available -Iron% low -Feosol -B12,FA,Thyroid profile normal -Stool OB + -Seen by GI, who recommended colonoscopy, pt has declined the procedure -No over bleeding, would monitor trend -Transfuse only if Hg<7.0 to avoid fluid overload Problems reviewed: Yes Code(s): D64.9 - ANEMIA, UNSPECIFIED (2) Fall Assessment/Plan: -Physical therapy -Safety precautions Problems reviewed: Yes Code(s): W19.XXXA - UNSPECIFIED FALL, INITIAL ENCOUNTER (3) Elevated troponin Assessment/Plan: -likely demand ischemia -Seen by cardiology Problems reviewed: Yes Code(s): R79.89 - OTHER SPECIFIED ABNORMAL FINDINGS OF BLOOD CHEMISTRY (4) HTN (hypertension) Assessment/Plan: -Resume home meds -Low sodium diet -Monitor trend for now Problems reviewed: Yes Code(s): I10 - ESSENTIAL (PRIMARY) HYPERTENSION (5) Hypocalcemia Assessment/Plan: -nephrology consult Problems reviewed: Yes Code(s): E83.51 - HYPOCALCEMIA (6) Hypomagnesemia Assessment/Plan: -resolved Problems reviewed: Yes Code(s): E83.42 - HYPOMAGNESEMIA (7) Morbid obesity Assessment/Plan: -RD consult -Low calorie diet Problems reviewed: Yes Code(s): E66.01 - MORBID (SEVERE) OBESITY DUE TO EXCESS CALORIES (8) Leukocytosis Assessment/Plan: -improved Problems reviewed: Yes Code(s): D72.829 - ELEVATED WHITE BLOOD CELL COUNT, UNSPECIFIED (9) UTI (urinary tract infection) Assessment/Plan: -UA + protein,+1 blood, -nitrites, +1 leuks -Cultures: Microbiology 11/30/19 14:45 Urine - Urine Holder Urine Culture - Preliminary Non Lactose Fermenting Gnb 11/24/19 06:34 Blood - Peripheral Venous Blood Culture - Final NO GROWTH AFTER 5 DAYS INCUBATION 11/24/19 06:34 Blood - Peripheral Venous Blood Culture - Final NO GROWTH AFTER 5 DAYS INCUBATION 11/21/19 14:50 Blood - Peripheral Venous Blood Culture - Final NO GROWTH AFTER 5 DAYS INCUBATION 11/21/19 15:20 Blood - Peripheral Venous Blood Culture - Final NO GROWTH AFTER 5 DAYS INCUBATION 11/17/19 00:50 Blood - Peripheral Venous Blood Culture - Final NO GROWTH AFTER 5 DAYS INCUBATION 11/17/19 00:50 Blood - Peripheral Venous Blood Culture - Final S Aureus 11/17/19 02:45 Urine - Urine Clean Catch Urine Culture - Final Lactose Fermenting Neg Bacilli -repeat BC pending -ID consult appreciated Problems reviewed: Yes Code(s): N39.0 - URINARY TRACT INFECTION, SITE NOT SPECIFIED (10) Fever Assessment/Plan: -CXR negative -Febrile yesterday, afebrile now -Repeat Cultures: Microbiology 11/30/19 14:45 Urine Culture - Preliminary Urine - Urine Holder Non Lactose Fermenting Gnb -BC-pending -ID consult -acetaminophen for fever>100.0F Problems reviewed: Yes Code(s): R50.9 - FEVER, UNSPECIFIED (11) Sepsis Assessment/Plan: -as above Problems reviewed: Yes Code(s): A41.9 - SEPSIS, UNSPECIFIED ORGANISM Qualifiers: Sepsis type: sepsis due to unspecified organism (12) ESRD (end stage renal disease) Assessment/Plan: -Nephrology on board -HD as per renal-tolerating well Problems reviewed: Yes Code(s): N18.6 - END STAGE RENAL DISEASE (13) MRSA bacteremia Assessment/Plan: -Dose vanco as per ID Problems reviewed: Yes Code(s): R78.81 - BACTEREMIA; B95.62 - METHICILLIN RESIS STAPH INFCT CAUSING DISEASES CLASSD ELSWHR (14) AV fistula thrombosis Assessment/Plan: -Vascular surgery consult -Angiogram today Problems reviewed: Yes Code(s): T82.868A - THROMBOSIS DUE TO VASCULAR PROSTH DEV/GRFT, INIT
--- NOTE | 2019-12-01 12:38 | PN ---
Progress Note (short form) - Note Progress Note: Awake and alert in NAD on 3 L NC O2. Breathing feels overall better. No acute events overnight. Intake & Output 11/28/19 11/29/19 11/30/19 12/01/19 23:59 23:59 23:59 23:59 Intake Total 760 485 600 Output Total 40099 4500 5699 250 Balance -04816 -4015 -5099 -250 Weight 358 lb 360 lb 6.4 oz 356 lb 1 oz 356 lb 6.4 oz Last Vital Signs Temp Pulse Resp BP Pulse Ox 98 F 85 20 149/55 L 97 12/01/19 10:00 12/01/19 10:00 12/01/19 10:00 12/01/19 10:00 12/01/19 10:00 Active Medications Acetaminophen (Tylenol -) 650 mg PO Q4H PRN PRN Reason: fever>100.0F Last Admin: 12/01/19 04:47 Dose: 650 mg Documented by: Allopurinol (Zyloprim -) 100 mg PO Q2D [facility] Last Admin: 12/01/19 10:34 Dose: Not Given Documented by: Calcium Acetate (Phoslo -) 1,334 mg PO TIDCM [facility] Last Admin: 12/01/19 08:46 Dose: Not Given Documented by: Ferrous Sulfate (Feosol -) 325 mg PO BIDWM [facility] Last Admin: 12/01/19 08:46 Dose: Not Given Documented by: Gabapentin (Neurontin -) 300 mg PO TID [facility] Last Admin: 12/01/19 06:29 Dose: 300 mg Documented by: Hydralazine HCl (Apresoline -) 100 mg PO TID [facility] Last Admin: 12/01/19 06:29 Dose: 100 mg Documented by: Metoprolol Succinate (Toprol Xl -) 25 mg PO DAILY [facility] Last Admin: 12/01/19 10:34 Dose: 25 mg Documented by: Nifedipine (Procardia Xl -) 90 mg PO DAILY [facility] Last Admin: 12/01/19 10:34 Dose: 90 mg Documented by: Pantoprazole Sodium (Protonix -) 20 mg PO DAILY [facility] Last Admin: 12/01/19 10:34 Dose: Not Given Documented by: Gen: NAD on 3 L NC O2 Heart: RRR Lung: distant breath sounds Abd: soft, obese, nontender Ext: + edema, chronic changes Laboratory Results - last 24 hr 11/30/19 11/30/19 11:50 17:20 Sodium 138 Potassium 4.1 Chloride 99 Carbon Dioxide 29 Anion Gap 10 BUN 90.3 H Creatinine 6.1 H Est GFR (CKD-EPI)AfAm 11.22 Est GFR (CKD-EPI)NonAf 9.68 Random Glucose 111 H Calcium 7.9 L Urine Color Yellow Urine Appearance Turbid Urine pH 5.0 Ur Specific Rogers 1.018 Urine Protein 3+ H Urine Glucose (UA) Negative Urine Ketones Negative Urine Blood 2+ H Urine Nitrite Negative Urine Bilirubin Negative Urine Urobilinogen 0.2 Ur Leukocyte Esterase 3+ H Urine WBC (Auto) 6639 Urine Casts (Auto) 14 U Pathogenic Cast Auto Few U Epithel Cells (Auto) 33 Urine Bacteria (Auto) 96 Urine Yeast (Auto) None seen A/P Acute Hypoxic Respiratory Failure Acute on Chronic Renal Failure CHF Cellulitis Morbid Obesity ALEXANDRA/OHS HTN Hyperlipidemia Anemia - Wean Supplemental O2 as tolerated - completed antibiotics - HD per renal for volume removal - monitor urine output, creatinine - NIPPV at night and PRN during day - DVT prophylaxis Dr Ledbetter
[2019-12-01 13:26] LABS: BASO % 1.2 % (0-2.0); EOS % 4.2 % (0-4.5); HEMATOCRIT 23.7 % (35.4-49); HEMOGLOBIN 7.3 GM/dL (11.7-16.9); LYMPH % 8.8 % (8-40); MCH 24.3 pg (25.7-33.7); MCHC 30.9 g/dl (32.0-35.9); MEAN CELL VOLUME 78.7 fl (80-96); MEAN PLT VOLUME 7.6 fl (7.5-11.1); MONO % 5.6 % (3.8-10.2); NEUT % 80.2 % (42.8-82.8); PLATELET COUNT 323 K/MM3 (134-434); RBC 3.01 M/mm3 (4.00-5.60); RDW 19.9 % (11.9-15.9); WHITE BLOOD COUNT 15.6 K/mm3 (4.0-10.0)
[2019-12-01 14:09] LABS: BILIRUBIN,TOTAL 0.2 mg/dL (0.2-1); CALCIUM 8.1 mg/dL (8.5-10.1); CREATININE 6.6 mg/dL (0.55-1.3); POTASSIUM 4.8 mmol/L (3.5-5.1); TOT PROT 7.5 g/dl (6.4-8.2)
--- NOTE | 2019-12-01 16:21 | PN ---
Progress Note, Physician History of Present Illness: Pt seen and examined at bedside. He is going for thrombectomy today. - Current Medication List Current Medications: Active Medications Acetaminophen (Tylenol -) 650 mg PO Q4H PRN PRN Reason: fever>100.0F Last Admin: 12/01/19 04:47 Dose: 650 mg Documented by: Allopurinol (Zyloprim -) 100 mg PO Q2D [facility] Last Admin: 12/01/19 10:34 Dose: Not Given Documented by: Calcium Acetate (Phoslo -) 1,334 mg PO TIDCM [facility] Last Admin: 12/01/19 15:16 Dose: Not Given Documented by: Ferrous Sulfate (Feosol -) 325 mg PO BIDWM [facility] Last Admin: 12/01/19 08:46 Dose: Not Given Documented by: Gabapentin (Neurontin -) 300 mg PO TID [facility] Last Admin: 12/01/19 15:16 Dose: Not Given Documented by: Hydralazine HCl (Apresoline -) 100 mg PO TID [facility] Last Admin: 12/01/19 15:16 Dose: Not Given Documented by: Metoprolol Succinate (Toprol Xl -) 25 mg PO DAILY [facility] Last Admin: 12/01/19 10:34 Dose: 25 mg Documented by: Nifedipine (Procardia Xl -) 90 mg PO DAILY [facility] Last Admin: 12/01/19 10:34 Dose: 90 mg Documented by: Pantoprazole Sodium (Protonix -) 20 mg PO DAILY [facility] Last Admin: 12/01/19 10:34 Dose: Not Given Documented by: - Objective Vital Signs: Vital Signs Temperature 98.7 F 12/01/19 14:10 Pulse Rate 82 12/01/19 14:10 Respiratory Rate 12/01/19 14:10 Blood Pressure 130/66 12/01/19 14:10 O2 Sat by Pulse Oximetry (%) 92 L 12/01/19 14:10 Constitutional: Yes: Calm Eyes: Yes: Conjunctiva Clear HENT: Yes: Atraumatic Neck: Yes: Supple Cardiovascular: Yes: S1, S2 Respiratory: Yes: On Nasal O2 Gastrointestinal: Yes: Soft, Abdomen, Obese Musculoskeletal: Yes: Muscle Weakness Edema: Yes Edema: LLE: 2+, RLE: 2+ Neurological: Yes: Oriented Psychiatric: Yes: Oriented Labs: CBC, BMP 12/01/19 12:28 12/01/19 12:28 INR, PTT INR 1.18 (0.83-1.09) H 11/17/19 00:50 Problem List - Problems (1) Anemia Code(s): D64.9 - ANEMIA, UNSPECIFIED (2) CKD (chronic kidney disease) Code(s): N18.9 - CHRONIC KIDNEY DISEASE, UNSPECIFIED (3) Fall Code(s): W19.XXXA - UNSPECIFIED FALL, INITIAL ENCOUNTER Assessment/Plan Current Medications Generic Name Dose Route Start Last Admin Trade Name Freq PRN Reason Stop Dose Admin Acetaminophen 650 mg 11/17/19 11:06 12/01/19 04:47 Tylenol - PO 650 mg Q4H PRN Administration fever>100.0F Allopurinol 100 mg 11/27/19 11:24 12/01/19 10:34 Zyloprim - PO Not Given Q2D [facility] Calcium Acetate 1,334 mg 11/23/19 09:55 12/01/19 15:16 Phoslo - PO Not Given TIDCM [facility] Ferrous Sulfate 325 mg 11/17/19 17:30 12/01/19 08:46 Feosol - PO Not Given BIDWM [facility] Gabapentin 300 mg 11/17/19 14:00 12/01/19 15:16 Neurontin - PO Not Given TID [facility] Hydralazine HCl 100 mg 11/17/19 09:00 12/01/19 15:16 Apresoline - PO Not Given TID [facility] Metoprolol Succinate 25 mg 11/17/19 10:00 12/01/19 10:34 Toprol Xl - PO 25 mg DAILY [facility] Administration Nifedipine 90 mg 11/17/19 10:00 12/01/19 10:34 Procardia Xl - PO 90 mg DAILY [facility] Administration Pantoprazole Sodium 20 mg 11/29/19 10:00 12/01/19 10:34 Protonix - PO Not Given DAILY [facility] Impression 1. CKD 2. htn 3. dm 4. obesity 5. sepsis 6. cellulitis 7. gout 8. chf 9. ESRD Plan - pt going for thrombectomy today - HD tomorrow - will give lasix today - check weights - pt remains volume overloaded - pending placement for HD - cont epogen an venofer
[2019-12-01] MEDS ORDERED: ONDANSETRON 4 MG/2 ML VIAL IVPUSH PRN (16:26)
[2019-12-01] MEDS ORDERED: HEPARIN NA (PORCINE) 5,000 UNITS/ML 1ML VIAL ONE (18:06)
[2019-12-01] MEDS ORDERED: MIDAZOLAM HCL 2 MG/2 ML SINGLE DOSE VIAL ONE (18:07)
[2019-12-01] MEDS ORDERED: ceFAZolin SODIUM 1 GM VIAL IVPB ONE (18:16)
--- NOTE | 2019-12-01 19:01 | OP ---
Operative Note - Note: Operative Date: 12/01/19 Pre-Operative Diagnosis: Clotted right avf Operation: Venogram right avf Findings: AVF is open Post-Operative Diagnosis: Same as Pre-op Surgeon: David Garcia Anesthesia: MAC Estimated Blood Loss (mls): 10 Operative Report Dictated: Yes
[2019-12-01] MEDS ORDERED: FUROSEMIDE 100 MG/10 ML INJECTABLE VIAL IVPB ONE (20:00)
[2019-12-02] MEDS: hydrALAZINE HCL 50 MG TABLET (FP) PO SCH ×3 (06:19→21:09)
[2019-12-02] MEDS: GABAPENTIN 300 MG CAPSULE PO SCH ×3 (06:20→21:09)
[2019-12-02] MEDS: ACETAMINOPHEN 325 MG TABLET (FP) PO PRN ×2 (06:22→21:12)
[2019-12-02 08:44] LABS: EOS % 3.8 % (0-4.5); HEMATOCRIT 24.6 % (35.4-49); HEMOGLOBIN 7.6 GM/dL (11.7-16.9); LYMPH % 7.9 % (8-40); MCH 24.2 pg (25.7-33.7); MCHC 30.8 g/dl (32.0-35.9); MEAN CELL VOLUME 78.5 fl (80-96); MEAN PLT VOLUME 7.5 fl (7.5-11.1); MONO % 4.5 % (3.8-10.2); NEUT % 82.8 % (42.8-82.8); PLATELET COUNT 339 K/MM3 (134-434); RBC 3.14 M/mm3 (4.00-5.60); WHITE BLOOD COUNT 16.3 K/mm3 (4.0-10.0)
[2019-12-02] MEDS: CALCIUM ACETATE 667 MG CAPSULE (FP) PO SCH ×3 (09:06→17:45)
[2019-12-02] MEDS: FERROUS SO4 325 MG TABLET (FP) PO SCH ×2 (09:06→17:44)
[2019-12-02] MEDS: metoPROLOL SUCCINATE 25 MG TAB.SR.24H (FP) PO SCH (09:06)
[2019-12-02] MEDS: NIFEdipine E.R. 90 MG TABLET PO SCH (09:06)
[2019-12-02] MEDS: PANTOPRAZOLE 20 MG TABLET PO SCH (09:06)
[2019-12-02 09:17] LABS: BILIRUBIN,TOTAL 0.6 mg/dL (0.2-1); POTASSIUM 4.6 mmol/L (3.5-5.1); TOT PROT 7.4 g/dl (6.4-8.2)
[2019-12-02 09:22] LABS: BLOOD UREA NITROGEN 106.6 mg/dL (7-18)
--- NOTE | 2019-12-02 10:10 | PN ---
Progress Note (short form) - Note Progress Note: VASCULAR 53yo M s/p RUE AVF declot. Pt denies any pain or numbness in his Rt arm. Pt is scheduled to get HD later today. Last Vital Signs Temp Pulse Resp BP Pulse Ox 98.4 F 88 20 132/55 L 98 12/02/19 06:00 12/02/19 06:00 12/02/19 06:00 12/02/19 06:00 12/02/19 06:00 CBC, BMP 12/02/19 07:18 12/02/19 07:18 PE: Gen: A&O X3 Resp: breathing comfortably RUE: good palpable thrill, no weakness or numbness. Problem List - Problems (1) AV fistula thrombosis Assessment/Plan: Plan -pt AV fistula is cleared for use today for HD, area was marked for needle insertion -pt should follow up with Dr. Garcia in the office in 2 weeks. Pt discussed with Dr. Garcia, who agrees with plan Code(s): T82.868A - THROMBOSIS DUE TO VASCULAR PROSTH DEV/GRFT, INIT
[2019-12-02] MEDS ORDERED: IRON SUCROSE INJECTION 100 MG in SODIUM CHLORIDE 100 ML IVPB ONE (10:15)
[2019-12-02] MEDS ORDERED: EPOETIN ALFA 20,000 UNIT/1 ML VIAL IVPUSH ONE (10:15)
--- NOTE | 2019-12-02 10:25 | PN ---
Progress Note, Physician Chief Complaint: Fall UTI Hypomagnesemia Anemia Leukocytosis Elevated troponin History of Present Illness: This is a 53 y/o male from [facility] with a significant PMHx of CHF, HTN, CKD Stage 3, Chronic Venous Stasis, Erythema Intertrigo, Severe Obesity. Who presents to the ED s/p unwitnessed fall. Patient reports while getting OOB he fell. Patient denies head trauma or LOC. Patient reports chronic lumbar pain exacerbated while laying on the stretcher. Patient denies fever, chills, cough, SOB, dizziness, HERNANDEZ, CP, palpitations, AP, N/V/D, constipation, dysura. NAD, looks better, denies any pain or SOB, Afebrile BC from 11/30/19 pending UC + ESBL Still gettign HD as per nephrology Operative Date: 12/01/19 Pre-Operative Diagnosis: Clotted right avf Operation: Venogram right avf Findings: AVF is open - Current Medication List Current Medications: Active Medications Acetaminophen (Tylenol -) 650 mg PO Q4H PRN PRN Reason: fever>100.0F Last Admin: 12/02/19 06:22 Dose: 650 mg Documented by: Albumin Human (Albumin Human 25%) 12.5 gm IVPB Q30M ON LICENSE OF [facility] Stop: 12/02/19 11:46 Allopurinol (Zyloprim -) 100 mg PO Q2D [facility] Last Admin: 12/01/19 10:34 Dose: Not Given Documented by: Calcium Acetate (Phoslo -) 1,334 mg PO TIDCM [facility] Last Admin: 12/02/19 09:06 Dose: 1,334 mg Documented by: Fentanyl (Sublimaze Injection -) 50 mcg IVPUSH [id number] PRN PRN Reason: PAIN-PACU ORDER X 4 DOSES ONLY Ferrous Sulfate (Feosol -) 325 mg PO BIDWM [facility] Last Admin: 12/02/19 09:06 Dose: 325 mg Documented by: Gabapentin (Neurontin -) 300 mg PO TID [facility] Last Admin: 12/02/19 06:20 Dose: 300 mg Documented by: Hydralazine HCl (Apresoline -) 100 mg PO TID [facility] Last Admin: 12/02/19 06:19 Dose: 100 mg Documented by: Iron Sucrose 100 mg/ Sodium (Chloride) 105 mls @ 210 mls/hr IVPB ONCE ONE Stop: 12/02/19 10:44 Metoprolol Succinate (Toprol Xl -) 25 mg PO DAILY [facility] Last Admin: 12/02/19 09:06 Dose: 25 mg Documented by: Nifedipine (Procardia Xl -) 90 mg PO DAILY [facility] Last Admin: 12/02/19 09:06 Dose: 90 mg Documented by: Ondansetron HCl (Zofran Injection) 4 mg IVPUSH Q6H PRN PRN Reason: NAUSEA AND/OR VOMITING Pantoprazole Sodium (Protonix -) 20 mg PO DAILY [facility] Last Admin: 12/02/19 09:06 Dose: 20 mg Documented by: - Objective Vital Signs: Vital Signs Temperature 98.4 F 12/02/19 06:00 Pulse Rate 88 12/02/19 06:00 Respiratory Rate 20 12/02/19 06:00 Blood Pressure 132/55 L 12/02/19 06:00 O2 Sat by Pulse Oximetry (%) 98 12/02/19 06:00 Constitutional: Yes: Well Nourished, No Distress, Calm, Obese Cardiovascular: Yes: Regular Rate and Rhythm Respiratory: Yes: Regular, Diminished (BLL) Gastrointestinal: Yes: Normal Bowel Sounds, Soft, Abdomen, Obese Genitourinary: Yes: Holder Present Musculoskeletal: Yes: Muscle Weakness Extremities: Yes: WNL Edema: Yes (BLLE chronic lymphedema) Peripheral Pulses WNL: Yes Neurological: Yes: Alert, Oriented, Lethargy Psychiatric: Yes: Alert, Oriented Labs: CBC, BMP 12/02/19 07:18 12/02/19 07:18 INR, PTT INR 1.18 (0.83-1.09) H 11/17/19 00:50 Problem List - Problems (1) Anemia Assessment/Plan: -no previous records available -Iron% low -Feosol -B12,FA,Thyroid profile normal -Stool OB + -Seen by GI, who recommended colonoscopy, pt has declined the procedure -No over bleeding, would monitor trend -Transfuse only if Hg<7.0 to avoid fluid overload Problems reviewed: Yes Code(s): D64.9 - ANEMIA, UNSPECIFIED (2) Fall Assessment/Plan: -Physical therapy- refusing- tolerating it poorly -Safety precautions Problems reviewed: Yes Code(s): W19.XXXA - UNSPECIFIED FALL, INITIAL ENCOUNTER (3) Elevated troponin Assessment/Plan: -likely demand ischemia -Seen by cardiology Problems reviewed: Yes Code(s): R79.89 - OTHER SPECIFIED ABNORMAL FINDINGS OF BLOOD CHEMISTRY (4) HTN (hypertension) Assessment/Plan: -Resume home meds -Monitor trend for now Problems reviewed: Yes Code(s): I10 - ESSENTIAL (PRIMARY) HYPERTENSION (5) Hypocalcemia Assessment/Plan: -nephrology consult Problems reviewed: Yes Code(s): E83.51 - HYPOCALCEMIA (6) Hypomagnesemia Assessment/Plan: -resolved Problems reviewed: Yes Code(s): E83.42 - HYPOMAGNESEMIA (7) Morbid obesity Assessment/Plan: -RD consult -Low calorie renal diet Problems reviewed: Yes Code(s): E66.01 - MORBID (SEVERE) OBESITY DUE TO EXCESS CALORIES (8) Leukocytosis Assessment/Plan: -improved Problems reviewed: Yes Code(s): D72.829 - ELEVATED WHITE BLOOD CELL COUNT, UNSPECIFIED (9) UTI (urinary tract infection) Assessment/Plan: -UA + protein,+1 blood, -nitrites, +1 leuks -Cultures: Microbiology 11/30/19 14:45 Urine - Urine Holder Urine Culture - Final Escherichia Coli Esbl Land Survey Technician 11/30/19 11:50 Blood - Peripheral Venous Blood Culture - Preliminary NO GROWTH OBTAINED AFTER 24 HOURS, INCUBATION TO CONTINUE FOR 4 DAYS. 11/30/19 11:50 Blood - Peripheral Venous Blood Culture - Preliminary NO GROWTH OBTAINED AFTER 24 HOURS, INCUBATION TO CONTINUE FOR 4 DAYS. 11/24/19 06:34 Blood - Peripheral Venous Blood Culture - Final NO GROWTH AFTER 5 DAYS INCUBATION 11/24/19 06:34 Blood - Peripheral Venous Blood Culture - Final NO GROWTH AFTER 5 DAYS INCUBATION 11/21/19 14:50 Blood - Peripheral Venous Blood Culture - Final NO GROWTH AFTER 5 DAYS INCUBATION 11/21/19 15:20 Blood - Peripheral Venous Blood Culture - Final NO GROWTH AFTER 5 DAYS INCUBATION 11/17/19 00:50 Blood - Peripheral Venous Blood Culture - Final NO GROWTH AFTER 5 DAYS INCUBATION 11/17/19 00:50 Blood - Peripheral Venous Blood Culture - Final S Aureus 11/17/19 02:45 Urine - Urine Clean Catch Urine Culture - Final Lactose Fermenting Neg Bacilli -ID consult appreciated Problems reviewed: Yes Code(s): N39.0 - URINARY TRACT INFECTION, SITE NOT SPECIFIED (10) Fever Assessment/Plan: -CXR negative -Afebrile -Repeat Cultures: Microbiology 11/30/19 14:45 Urine Culture - Final Urine - Urine Holder Escherichia Coli Esbl Land Survey Technician 11/30/19 11:50 Blood Culture - Preliminary Blood - Peripheral Venous NO GROWTH OBTAINED AFTER 24 HOURS, INCUBATION TO CONTINUE FOR 4 DAYS. 11/30/19 11:50 Blood Culture - Preliminary Blood - Peripheral Venous NO GROWTH OBTAINED AFTER 24 HOURS, INCUBATION TO CONTINUE FOR 4 DAYS. -ID consult -acetaminophen for fever>100.0F Problems reviewed: Yes Code(s): R50.9 - FEVER, UNSPECIFIED (11) Sepsis Assessment/Plan: -as above Problems reviewed: Yes Code(s): A41.9 - SEPSIS, UNSPECIFIED ORGANISM Qualifiers: Sepsis type: sepsis due to unspecified organism (12) ESRD (end stage renal disease) Assessment/Plan: -Nephrology on board -HD as per renal-tolerating well Problems reviewed: Yes Code(s): N18.6 - END STAGE RENAL DISEASE (13) MRSA bacteremia Assessment/Plan: -Dose vanco as per ID Problems reviewed: Yes Code(s): R78.81 - BACTEREMIA; B95.62 - METHICILLIN RESIS STAPH INFCT CAUSING DISEASES CLASSD ELSWHR (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
[2019-12-02] MEDS: ALBUMIN HUMAN 25% 12.5 GM/50 ML VIAL IVPB SCH ×3 (12:43→13:28)
--- NOTE | 2019-12-02 14:09 | PN ---
Progress Note, Physician History of Present Illness: Pt seen and examined at bedside. He is awake and alert. He is tolerating HD. - Current Medication List Current Medications: Active Medications Acetaminophen (Tylenol -) 650 mg PO Q4H PRN PRN Reason: fever>100.0F Last Admin: 12/02/19 06:22 Dose: 650 mg Documented by: Allopurinol (Zyloprim -) 100 mg PO Q2D [facility] Last Admin: 12/01/19 10:34 Dose: Not Given Documented by: Calcium Acetate (Phoslo -) 1,334 mg PO TIDCM [facility] Last Admin: 12/02/19 09:06 Dose: 1,334 mg Documented by: Fentanyl (Sublimaze Injection -) 50 mcg IVPUSH [id number] PRN PRN Reason: PAIN-PACU ORDER X 4 DOSES ONLY Ferrous Sulfate (Feosol -) 325 mg PO BIDWM [facility] Last Admin: 12/02/19 09:06 Dose: 325 mg Documented by: Gabapentin (Neurontin -) 300 mg PO TID [facility] Last Admin: 12/02/19 06:20 Dose: 300 mg Documented by: Hydralazine HCl (Apresoline -) 100 mg PO TID [facility] Last Admin: 12/02/19 06:19 Dose: 100 mg Documented by: Metoprolol Succinate (Toprol Xl -) 25 mg PO DAILY [facility] Last Admin: 12/02/19 09:06 Dose: 25 mg Documented by: Nifedipine (Procardia Xl -) 90 mg PO DAILY [facility] Last Admin: 12/02/19 09:06 Dose: 90 mg Documented by: Ondansetron HCl (Zofran Injection) 4 mg IVPUSH Q6H PRN PRN Reason: NAUSEA AND/OR VOMITING Pantoprazole Sodium (Protonix -) 20 mg PO DAILY [facility] Last Admin: 12/02/19 09:06 Dose: 20 mg Documented by: - Objective Vital Signs: Vital Signs Temperature 98.5 F 12/02/19 10:10 Pulse Rate 82 12/02/19 13:50 Respiratory Rate 18 12/02/19 13:50 Blood Pressure 164/65 12/02/19 13:50 O2 Sat by Pulse Oximetry (%) 90 L 12/02/19 10:00 Constitutional: Yes: Calm Eyes: Yes: Conjunctiva Clear HENT: Yes: Atraumatic Cardiovascular: Yes: S1, S2 Respiratory: Yes: On Nasal O2 Gastrointestinal: Yes: Soft, Abdomen, Obese Genitourinary: Yes: Incontinence Edema: Yes Edema: LLE: 2+, RLE: 2+ Neurological: Yes: Oriented Psychiatric: Yes: Oriented Labs: CBC, BMP 12/02/19 07:18 12/02/19 07:18 INR, PTT INR 1.18 (0.83-1.09) H 11/17/19 00:50 Problem List - Problems (1) Anemia Code(s): D64.9 - ANEMIA, UNSPECIFIED (2) CKD (chronic kidney disease) Code(s): N18.9 - CHRONIC KIDNEY DISEASE, UNSPECIFIED (3) Fall Code(s): W19.XXXA - UNSPECIFIED FALL, INITIAL ENCOUNTER Assessment/Plan Current Medications Generic Name Dose Route Start Last Admin Trade Name Freq PRN Reason Stop Dose Admin Acetaminophen 650 mg 11/17/19 11:06 12/02/19 06:22 Tylenol - PO 650 mg Q4H PRN Administration fever>100.0F Allopurinol 100 mg 11/27/19 11:24 12/01/19 10:34 Zyloprim - PO Not Given Q2D [facility] Calcium Acetate 1,334 mg 11/23/19 09:55 12/02/19 09:06 Phoslo - PO 1,334 mg TIDCM [facility] Administration Fentanyl 50 mcg 12/01/19 16:26 Sublimaze Injection - IVPUSH [id number] PRN PAIN-PACU ORDER X 4 DOSES ONLY Ferrous Sulfate 325 mg 11/17/19 17:30 12/02/19 09:06 Feosol - PO 325 mg BIDWM [facility] Administration Gabapentin 300 mg 11/17/19 14:00 12/02/19 06:20 Neurontin - PO 300 mg TID [facility] Administration Hydralazine HCl 100 mg 11/17/19 09:00 12/02/19 06:19 Apresoline - PO 100 mg TID [facility] Administration Metoprolol Succinate 25 mg 11/17/19 10:00 12/02/19 09:06 Toprol Xl - PO 25 mg DAILY [facility] Administration Nifedipine 90 mg 11/17/19 10:00 12/02/19 09:06 Procardia Xl - PO 90 mg DAILY [facility] Administration Ondansetron HCl 4 mg 12/01/19 16:26 Zofran Injection IVPUSH Q6H PRN NAUSEA AND/OR VOMITING Pantoprazole Sodium 20 mg 11/29/19 10:00 12/02/19 09:06 Protonix - PO 20 mg DAILY [facility] Administration Impression 1. CKD 2. htn 3. dm 4. obesity 5. sepsis 6. cellulitis 7. gout 8. chf 9. ESRD Plan - HD today - lasix on non HD days - heparin with HD - pt remains overloaded - repeat labs in am - renal diet - cont epogen - follow cultures - cont epogen an venofer
--- NOTE | 2019-12-02 14:43 | PN ---
Progress Note, Physician Chief Complaint: AWAKE, ALERT IN BED RECEIVED HD NO C/O LEG PAIN AFEBRILE VANCO TROUGH NOTED REPEAT BC (-) - Current Medication List Current Medications: Active Medications Acetaminophen (Tylenol -) 650 mg PO Q4H PRN PRN Reason: fever>100.0F Last Admin: 12/02/19 06:22 Dose: 650 mg Documented by: Allopurinol (Zyloprim -) 100 mg PO Q2D [facility] Last Admin: 12/01/19 10:34 Dose: Not Given Documented by: Calcium Acetate (Phoslo -) 1,334 mg PO TIDCM [facility] Last Admin: 12/02/19 09:06 Dose: 1,334 mg Documented by: Fentanyl (Sublimaze Injection -) 50 mcg IVPUSH [id number] PRN PRN Reason: PAIN-PACU ORDER X 4 DOSES ONLY Ferrous Sulfate (Feosol -) 325 mg PO BIDWM [facility] Last Admin: 12/02/19 09:06 Dose: 325 mg Documented by: Furosemide (Lasix Injection -) 80 mg IVPB DAILY [facility] Gabapentin (Neurontin -) 300 mg PO TID [facility] Last Admin: 12/02/19 06:20 Dose: 300 mg Documented by: Hydralazine HCl (Apresoline -) 100 mg PO TID [facility] Last Admin: 12/02/19 06:19 Dose: 100 mg Documented by: Metoprolol Succinate (Toprol Xl -) 25 mg PO DAILY [facility] Last Admin: 12/02/19 09:06 Dose: 25 mg Documented by: Nifedipine (Procardia Xl -) 90 mg PO DAILY [facility] Last Admin: 12/02/19 09:06 Dose: 90 mg Documented by: Ondansetron HCl (Zofran Injection) 4 mg IVPUSH Q6H PRN PRN Reason: NAUSEA AND/OR VOMITING Pantoprazole Sodium (Protonix -) 20 mg PO DAILY [facility] Last Admin: 12/02/19 09:06 Dose: 20 mg Documented by: - Objective Vital Signs: Vital Signs Temperature 98.5 F 12/02/19 10:10 Pulse Rate 82 12/02/19 13:50 Respiratory Rate 18 12/02/19 13:50 Blood Pressure 164/65 12/02/19 13:50 O2 Sat by Pulse Oximetry (%) 90 L 12/02/19 10:00 Constitutional: Yes: No Distress, Obese Eyes: Yes: Conjunctiva Clear Cardiovascular: Yes: Regular Rate and Rhythm, S1, S2 Respiratory: Yes: CTA Bilaterally Gastrointestinal: Yes: Normal Bowel Sounds, Soft. No: Tenderness Extremities: Yes: Other ( LYMPHEDEMA BILATERAL LE) Edema: Yes Labs: CBC, BMP 12/02/19 07:18 12/02/19 07:18 INR, PTT INR 1.18 (0.83-1.09) H 11/17/19 00:50 Assessment/Plan FEVER RESOLVED +BC MRSA LIKELY SKIN SOURCE B/L LE CELLULITIS RESOLVED ESRD MORBID OBESITY LEUKOCYTOSIS REPEAT BC NO GROWTH + URINE C/S ESBL= CONTAMINANT REPEAT VANCOMYCIN LEVEL, BC NOTED ECHO NOTED DAY # 15/28 VANCOMYCIN REDOSE VANCOMYCIN REPEAT RANDOM LEVEL AM
[2019-12-02] MEDS ORDERED: VANCOMYCIN 1 GRAM (PRE-DOCKED) 1,000 MG/250 ML BAG IVPB ONE (14:45)
[2019-12-02 15:49] VITALS: BMI 54.1
[2019-12-02] MEDS ORDERED: PT OWN MED DRAWER 7, Y5N ONE (17:14)
[2019-12-03] MEDS: ACETAMINOPHEN 325 MG TABLET (FP) PO PRN ×5 (01:34→22:50)
[2019-12-03] MEDS: GABAPENTIN 300 MG CAPSULE PO SCH ×3 (06:08→22:51)
[2019-12-03] MEDS: hydrALAZINE HCL 50 MG TABLET (FP) PO SCH ×3 (06:08→22:50)
[2019-12-03] MEDS ORDERED: PT OWN MED DRAWER 7, Y5N ONE ×2 (09:53→17:21)
[2019-12-03] MEDS: FUROSEMIDE 100 MG/10 ML INJECTABLE VIAL IVPB SCH (09:57)
[2019-12-03] MEDS: FERROUS SO4 325 MG TABLET (FP) PO SCH ×2 (09:57→17:22)
[2019-12-03] MEDS: CALCIUM ACETATE 667 MG CAPSULE (FP) PO SCH ×3 (09:57→18:47)
[2019-12-03] MEDS: ALLOPURINOL 100 MG TABLET (FP) PO SCH (09:58)
[2019-12-03] MEDS: PANTOPRAZOLE 20 MG TABLET PO SCH (10:02)
[2019-12-03] MEDS: NIFEdipine E.R. 90 MG TABLET PO SCH (10:02)
[2019-12-03] MEDS: metoPROLOL SUCCINATE 25 MG TAB.SR.24H (FP) PO SCH (10:02)
--- NOTE | 2019-12-03 12:31 | PN ---
Progress Note (short form) - Note Progress Note: PULMONARY VSS/AFEBRILE Gen: NAD on 3 L NC O2 Heart: RRR Lung: distant breath sounds Abd: soft, obese, nontender Ext: + edema, chronic changes LABS/MEDS/NOTES/IMAGES REVIEWED A/P Acute Hypoxic Respiratory Failure Acute on Chronic Renal Failure CHF Cellulitis Morbid Obesity ALEXANDRA/OHS HTN Hyperlipidemia Anemia - Wean Supplemental O2 as tolerated - completed antibiotics - HD per renal for volume removal - monitor urine output, creatinine - NIPPV at night and PRN during day - DVT prophylaxis Andre MAURICIO MD
--- NOTE | 2019-12-03 14:02 | PN ---
Progress Note, Physician History of Present Illness: Fall UTI Hypomagnesemia Anemia Leukocytosis Elevated troponin History of Present Illness: This is a 53 y/o male from [facility] with a significant PMHx of CHF, HTN, CKD Stage 3, Chronic Venous Stasis, Erythema Intertrigo, Severe Obesity. Who presents to the ED s/p unwitnessed fall. Patient reports while getting OOB he fell. Patient denies head trauma or LOC. Patient reports chronic lumbar pain exacerbated while laying on the stretcher. Patient denies fever, chills, cough, SOB, dizziness, HERNANDEZ, CP, palpitations, AP, N/V/D, constipation, dysura. NAD, looks better, denies any pain or SOB, Afebrile BC from 11/30/19 pending UC + ESBL Still gettign HD as per nephrology - Current Medication List Current Medications: Active Medications Acetaminophen (Tylenol -) 650 mg PO Q4H PRN PRN Reason: fever>100.0F Last Admin: 12/03/19 11:22 Dose: 650 mg Documented by: Allopurinol (Zyloprim -) 100 mg PO Q2D [facility] Last Admin: 12/03/19 09:58 Dose: 100 mg Documented by: Calcium Acetate (Phoslo -) 1,334 mg PO TIDCM [facility] Last Admin: 12/03/19 11:22 Dose: 1,334 mg Documented by: Fentanyl (Sublimaze Injection -) 50 mcg IVPUSH [id number] PRN PRN Reason: PAIN-PACU ORDER X 4 DOSES ONLY Ferrous Sulfate (Feosol -) 325 mg PO BIDWM [facility] Last Admin: 12/03/19 09:57 Dose: 325 mg Documented by: Furosemide (Lasix Injection -) 80 mg IVPB DAILY [facility] Last Admin: 12/03/19 09:57 Dose: 80 mg Documented by: Gabapentin (Neurontin -) 300 mg PO TID [facility] Last Admin: 12/03/19 06:08 Dose: 300 mg Documented by: Hydralazine HCl (Apresoline -) 100 mg PO TID [facility] Last Admin: 12/03/19 06:08 Dose: 100 mg Documented by: Metoprolol Succinate (Toprol Xl -) 25 mg PO DAILY [facility] Last Admin: 12/03/19 10:02 Dose: 25 mg Documented by: Nifedipine (Procardia Xl -) 90 mg PO DAILY [facility] Last Admin: 12/03/19 10:02 Dose: 90 mg Documented by: Ondansetron HCl (Zofran Injection) 4 mg IVPUSH Q6H PRN PRN Reason: NAUSEA AND/OR VOMITING Pantoprazole Sodium (Protonix -) 20 mg PO DAILY [facility] Last Admin: 12/03/19 10:02 Dose: 20 mg Documented by: - Objective Vital Signs: Vital Signs Temperature 98.6 F 12/03/19 09:00 Pulse Rate 86 12/03/19 09:00 Respiratory Rate 12/03/19 09:00 Blood Pressure 117/58 L 12/03/19 09:00 O2 Sat by Pulse Oximetry (%) 97 12/03/19 09:12 Cardiovascular: Yes: S1, S2 Respiratory: Yes: Regular, CTA Bilaterally Gastrointestinal: Yes: Normal Bowel Sounds, Soft Labs: CBC, BMP 12/02/19 07:18 12/02/19 07:18 INR, PTT INR 1.18 (0.83-1.09) H 11/17/19 00:50 Assessment/Plan - Problems (1) Anemia Assessment/Plan: -no previous records available -Iron% low -Feosol -B12,FA,Thyroid profile normal -Stool OB + -Seen by GI, who recommended colonoscopy, pt has declined the procedure -No over bleeding, would monitor trend -Transfuse only if Hg<7.0 to avoid fluid overload Problems reviewed: Yes Code(s): D64.9 - ANEMIA, UNSPECIFIED (2) Fall Assessment/Plan: -Physical therapy- refusing- tolerating it poorly -Safety precautions Problems reviewed: Yes Code(s): W19.XXXA - UNSPECIFIED FALL, INITIAL ENCOUNTER (3) Elevated troponin Assessment/Plan: -likely demand ischemia -Seen by cardiology Problems reviewed: Yes Code(s): R79.89 - OTHER SPECIFIED ABNORMAL FINDINGS OF BLOOD CHEMISTRY (4) HTN (hypertension) Assessment/Plan: -Resume home meds -Monitor trend for now Problems reviewed: Yes Code(s): I10 - ESSENTIAL (PRIMARY) HYPERTENSION (5) Hypocalcemia Assessment/Plan: -nephrology consult Problems reviewed: Yes Code(s): E83.51 - HYPOCALCEMIA (6) Hypomagnesemia Assessment/Plan: -resolved Problems reviewed: Yes Code(s): E83.42 - HYPOMAGNESEMIA (7) Morbid obesity Assessment/Plan: -RD consult -Low calorie renal diet Problems reviewed: Yes Code(s): E66.01 - MORBID (SEVERE) OBESITY DUE TO EXCESS CALORIES (8) Leukocytosis Assessment/Plan: -improved Problems reviewed: Yes Code(s): D72.829 - ELEVATED WHITE BLOOD CELL COUNT, UNSPECIFIED (9) UTI (urinary tract infection) Assessment/Plan: -UA + protein,+1 blood, -nitrites, +1 leuks -Cultures: Microbiology 11/30/19 14:45 Urine - Urine Holder Urine Culture - Final Escherichia Coli Esbl Cake Mixer 11/30/19 11:50 Blood - Peripheral Venous Blood Culture - Preliminary NO GROWTH OBTAINED AFTER 24 HOURS, INCUBATION TO CONTINUE FOR 4 DAYS. 11/30/19 11:50 Blood - Peripheral Venous Blood Culture - Preliminary NO GROWTH OBTAINED AFTER 24 HOURS, INCUBATION TO CONTINUE FOR 4 DAYS. 11/24/19 06:34 Blood - Peripheral Venous Blood Culture - Final NO GROWTH AFTER 5 DAYS INCUBATION 11/24/19 06:34 Blood - Peripheral Venous Blood Culture - Final NO GROWTH AFTER 5 DAYS INCUBATION 11/21/19 14:50 Blood - Peripheral Venous Blood Culture - Final NO GROWTH AFTER 5 DAYS INCUBATION 11/21/19 15:20 Blood - Peripheral Venous Blood Culture - Final NO GROWTH AFTER 5 DAYS INCUBATION 11/17/19 00:50 Blood - Peripheral Venous Blood Culture - Final NO GROWTH AFTER 5 DAYS INCUBATION 11/17/19 00:50 Blood - Peripheral Venous Blood Culture - Final S Aureus 11/17/19 02:45 Urine - Urine Clean Catch Urine Culture - Final Lactose Fermenting Neg Bacilli -ID consult appreciated Problems reviewed: Yes Code(s): N39.0 - URINARY TRACT INFECTION, SITE NOT SPECIFIED (10) Fever Assessment/Plan: -CXR negative -Afebrile -Repeat Cultures: Microbiology 11/30/19 14:45 Urine Culture - Final Urine - Urine Holder Escherichia Coli Esbl Cake Mixer 11/30/19 11:50 Blood Culture - Preliminary Blood - Peripheral Venous NO GROWTH OBTAINED AFTER 24 HOURS, INCUBATION TO CONTINUE FOR 4 DAYS. 11/30/19 11:50 Blood Culture - Preliminary Blood - Peripheral Venous NO GROWTH OBTAINED AFTER 24 HOURS, INCUBATION TO CONTINUE FOR 4 DAYS. -ID consult -acetaminophen for fever>100.0F Problems reviewed: Yes Code(s): R50.9 - FEVER, UNSPECIFIED (11) Sepsis Assessment/Plan: -as above Problems reviewed: Yes Code(s): A41.9 - SEPSIS, UNSPECIFIED ORGANISM Qualifiers: Sepsis type: sepsis due to unspecified organism (12) ESRD (end stage renal disease) Assessment/Plan: -Nephrology on board -HD as per renal-tolerating well Problems reviewed: Yes Code(s): N18.6 - END STAGE RENAL DISEASE (13) MRSA bacteremia Assessment/Plan: -Dose vanco as per ID Problems reviewed: Yes Code(s): R78.81 - BACTEREMIA; B95.62 - METHICILLIN RESIS STAPH INFCT CAUSING DISEASES CLASSD ELSWHR (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
[2019-12-04] MEDS: ACETAMINOPHEN 325 MG TABLET (FP) PO PRN ×4 (06:55→22:09)
[2019-12-04] MEDS: hydrALAZINE HCL 50 MG TABLET (FP) PO SCH ×3 (06:55→22:09)
[2019-12-04] MEDS: GABAPENTIN 300 MG CAPSULE PO SCH ×3 (06:56→22:08)
[2019-12-04] MEDS: CALCIUM ACETATE 667 MG CAPSULE (FP) PO SCH ×3 (08:14→17:32)
[2019-12-04] MEDS: FERROUS SO4 325 MG TABLET (FP) PO SCH ×2 (08:14→17:32)
[2019-12-04 08:34] LABS: BASO % 1.3 % (0-2.0); EOS % 4.6 % (0-4.5); HEMATOCRIT 25.5 % (35.4-49); HEMOGLOBIN 7.8 GM/dL (11.7-16.9); LYMPH % 10.7 % (8-40); MCH 24.2 pg (25.7-33.7); MCHC 30.7 g/dl (32.0-35.9); MEAN CELL VOLUME 78.9 fl (80-96); MEAN PLT VOLUME 7.2 fl (7.5-11.1); MONO % 5.3 % (3.8-10.2); NEUT % 78.1 % (42.8-82.8); PLATELET COUNT 336 K/MM3 (134-434); RBC 3.23 M/mm3 (4.00-5.60); RDW 20.7 % (11.9-15.9); WHITE BLOOD COUNT 13.1 K/mm3 (4.0-10.0)
[2019-12-04] MEDS ORDERED: PT OWN MED DRAWER 7, Y5N ONE (08:37)
[2019-12-04 08:51] LABS: CALCIUM 8.2 mg/dL (8.5-10.1); CREATININE 5.9 mg/dL (0.55-1.3)
[2019-12-04 09:00] LABS: BILIRUBIN,TOTAL 0.6 mg/dL (0.2-1); BLOOD UREA NITROGEN 76.2 mg/dL (7-18); TOT PROT 7.5 g/dl (6.4-8.2)
[2019-12-04] MEDS: PANTOPRAZOLE 20 MG TABLET PO SCH (09:02)
[2019-12-04] MEDS: metoPROLOL SUCCINATE 25 MG TAB.SR.24H (FP) PO SCH (09:02)
[2019-12-04] MEDS: FUROSEMIDE 100 MG/10 ML INJECTABLE VIAL IVPB SCH (09:02)
[2019-12-04] MEDS: NIFEdipine E.R. 90 MG TABLET PO SCH (09:02)
--- NOTE | 2019-12-04 13:45 | PN ---
Progress Note, Physician - Current Medication List Current Medications: Active Medications Acetaminophen (Tylenol -) 650 mg PO Q4H PRN PRN Reason: fever>100.0F Last Admin: 12/04/19 12:01 Dose: 650 mg Documented by: Allopurinol (Zyloprim -) 100 mg PO Q2D [facility] Last Admin: 12/03/19 09:58 Dose: 100 mg Documented by: Calcium Acetate (Phoslo -) 1,334 mg PO TIDCM [facility] Last Admin: 12/04/19 11:58 Dose: 1,334 mg Documented by: Fentanyl (Sublimaze Injection -) 50 mcg IVPUSH [id number] PRN PRN Reason: PAIN-PACU ORDER X 4 DOSES ONLY Ferrous Sulfate (Feosol -) 325 mg PO BIDWM [facility] Last Admin: 12/04/19 08:14 Dose: 325 mg Documented by: Furosemide (Lasix Injection -) 80 mg IVPB DAILY [facility] Last Admin: 12/04/19 09:02 Dose: 80 mg Documented by: Gabapentin (Neurontin -) 300 mg PO TID [facility] Last Admin: 12/04/19 13:30 Dose: 300 mg Documented by: Hydralazine HCl (Apresoline -) 100 mg PO TID [facility] Last Admin: 12/04/19 13:29 Dose: 100 mg Documented by: Metoprolol Succinate (Toprol Xl -) 25 mg PO DAILY [facility] Last Admin: 12/04/19 09:02 Dose: 25 mg Documented by: Nifedipine (Procardia Xl -) 90 mg PO DAILY [facility] Last Admin: 12/04/19 09:02 Dose: 90 mg Documented by: Ondansetron HCl (Zofran Injection) 4 mg IVPUSH Q6H PRN PRN Reason: NAUSEA AND/OR VOMITING Pantoprazole Sodium (Protonix -) 20 mg PO DAILY [facility] Last Admin: 12/04/19 09:02 Dose: 20 mg Documented by: - Objective Vital Signs: Vital Signs Temperature 97.6 F 12/04/19 10:00 Pulse Rate 82 12/04/19 10:00 Respiratory Rate 20 12/04/19 10:00 Blood Pressure 123/61 12/04/19 10:00 O2 Sat by Pulse Oximetry (%) 98 12/04/19 10:00 Cardiovascular: Yes: S1, S2 Respiratory: Yes: Regular, CTA Bilaterally Gastrointestinal: Yes: Normal Bowel Sounds, Soft Edema: Yes Integumentary: Yes: Venous Stasis Changes Labs: CBC, BMP 12/04/19 07:50 12/04/19 06:50 INR, PTT INR 1.18 (0.83-1.09) H 11/17/19 00:50 Assessment/Plan - Problems (1) Anemia Assessment/Plan: -no previous records available -Iron% low -Feosol -B12,FA,Thyroid profile normal -Stool OB + -Seen by GI, who recommended colonoscopy, pt has declined the procedure -No over bleeding, would monitor trend -Transfuse only if Hg<7.0 to avoid fluid overload Problems reviewed: Yes Code(s): D64.9 - ANEMIA, UNSPECIFIED (2) Fall Assessment/Plan: -Physical therapy- refusing- tolerating it poorly -Safety precautions Problems reviewed: Yes Code(s): W19.XXXA - UNSPECIFIED FALL, INITIAL ENCOUNTER (3) Elevated troponin Assessment/Plan: -likely demand ischemia -Seen by cardiology Problems reviewed: Yes Code(s): R79.89 - OTHER SPECIFIED ABNORMAL FINDINGS OF BLOOD CHEMISTRY (4) HTN (hypertension) Assessment/Plan: -Resume home meds -Monitor trend for now Problems reviewed: Yes Code(s): I10 - ESSENTIAL (PRIMARY) HYPERTENSION (5) Hypocalcemia Assessment/Plan: -nephrology consult Problems reviewed: Yes Code(s): E83.51 - HYPOCALCEMIA (6) Hypomagnesemia Assessment/Plan: -resolved Problems reviewed: Yes Code(s): E83.42 - HYPOMAGNESEMIA (7) Morbid obesity Assessment/Plan: -RD consult -Low calorie renal diet Problems reviewed: Yes Code(s): E66.01 - MORBID (SEVERE) OBESITY DUE TO EXCESS CALORIES (8) Leukocytosis Assessment/Plan: -improved Problems reviewed: Yes Code(s): D72.829 - ELEVATED WHITE BLOOD CELL COUNT, UNSPECIFIED (9) UTI (urinary tract infection) Assessment/Plan: -UA + protein,+1 blood, -nitrites, +1 leuks -Cultures: Microbiology 11/30/19 14:45 Urine - Urine Holder Urine Culture - Final Escherichia Coli Esbl Milk Driver 11/30/19 11:50 Blood - Peripheral Venous Blood Culture - Preliminary NO GROWTH OBTAINED AFTER 24 HOURS, INCUBATION TO CONTINUE FOR 4 DAYS. 11/30/19 11:50 Blood - Peripheral Venous Blood Culture - Preliminary NO GROWTH OBTAINED AFTER 24 HOURS, INCUBATION TO CONTINUE FOR 4 DAYS. 11/24/19 06:34 Blood - Peripheral Venous Blood Culture - Final NO GROWTH AFTER 5 DAYS INCUBATION 11/24/19 06:34 Blood - Peripheral Venous Blood Culture - Final NO GROWTH AFTER 5 DAYS INCUBATION 11/21/19 14:50 Blood - Peripheral Venous Blood Culture - Final NO GROWTH AFTER 5 DAYS INCUBATION 11/21/19 15:20 Blood - Peripheral Venous Blood Culture - Final NO GROWTH AFTER 5 DAYS INCUBATION 11/17/19 00:50 Blood - Peripheral Venous Blood Culture - Final NO GROWTH AFTER 5 DAYS INCUBATION 11/17/19 00:50 Blood - Peripheral Venous Blood Culture - Final S Aureus 11/17/19 02:45 Urine - Urine Clean Catch Urine Culture - Final Lactose Fermenting Neg Bacilli -ID consult appreciated Problems reviewed: Yes Code(s): N39.0 - URINARY TRACT INFECTION, SITE NOT SPECIFIED (10) Fever Assessment/Plan: -CXR negative -Afebrile -Repeat Cultures: Microbiology 11/30/19 14:45 Urine Culture - Final Urine - Urine Holder Escherichia Coli Esbl Milk Driver 11/30/19 11:50 Blood Culture - Preliminary Blood - Peripheral Venous NO GROWTH OBTAINED AFTER 24 HOURS, INCUBATION TO CONTINUE FOR 4 DAYS. 11/30/19 11:50 Blood Culture - Preliminary Blood - Peripheral Venous NO GROWTH OBTAINED AFTER 24 HOURS, INCUBATION TO CONTINUE FOR 4 DAYS. -ID consult -acetaminophen for fever>100.0F Problems reviewed: Yes Code(s): R50.9 - FEVER, UNSPECIFIED (11) Sepsis Assessment/Plan: -as above Problems reviewed: Yes Code(s): A41.9 - SEPSIS, UNSPECIFIED ORGANISM Qualifiers: Sepsis type: sepsis due to unspecified organism (12) ESRD (end stage renal disease) Assessment/Plan: -Nephrology on board -HD as per renal-tolerating well Problems reviewed: Yes Code(s): N18.6 - END STAGE RENAL DISEASE (13) MRSA bacteremia Assessment/Plan: -Dose vanco as per ID Problems reviewed: Yes Code(s): R78.81 - BACTEREMIA; B95.62 - METHICILLIN RESIS STAPH INFCT CAUSING DISEASES CLASSD ELSWHR (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
[2019-12-04 14:53] LABS: ANISOCYTOSIS 1+; MACROCYTOSIS 1+; PLATELET ESTIMATE NORMAL
--- NOTE | 2019-12-04 21:35 | PN ---
Progress Note (short form) - Note Progress Note: 1. CKD 2. htn 3. dm 4. obesity 5. sepsis 6. cellulitis 7. gout 8. chf 9. ESRD Active Medications Acetaminophen (Tylenol -) 650 mg PO Q4H PRN PRN Reason: fever>100.0F Last Admin: 12/04/19 18:00 Dose: 650 mg Documented by: Allopurinol (Zyloprim -) 100 mg PO Q2D [facility] Last Admin: 12/03/19 09:58 Dose: 100 mg Documented by: Calcium Acetate (Phoslo -) 1,334 mg PO TIDCM [facility] Last Admin: 12/04/19 17:32 Dose: 1,334 mg Documented by: Fentanyl (Sublimaze Injection -) 50 mcg IVPUSH [id number] PRN PRN Reason: PAIN-PACU ORDER X 4 DOSES ONLY Ferrous Sulfate (Feosol -) 325 mg PO BIDWM [facility] Last Admin: 12/04/19 17:32 Dose: 325 mg Documented by: Furosemide (Lasix Injection -) 80 mg IVPB DAILY [facility] Last Admin: 12/04/19 09:02 Dose: 80 mg Documented by: Gabapentin (Neurontin -) 300 mg PO TID [facility] Last Admin: 12/04/19 13:30 Dose: 300 mg Documented by: Hydralazine HCl (Apresoline -) 100 mg PO TID [facility] Last Admin: 12/04/19 13:29 Dose: 100 mg Documented by: Sodium Chloride (Normal Saline -) 250 mls @ 3,000 mls/hr IV PRN PRN PRN Reason: Hypotension during Dialysis Stop: 12/05/19 21:29 Metoprolol Succinate (Toprol Xl -) 25 mg PO DAILY [facility] Last Admin: 12/04/19 09:02 Dose: 25 mg Documented by: Nifedipine (Procardia Xl -) 90 mg PO DAILY [facility] Last Admin: 12/04/19 09:02 Dose: 90 mg Documented by: Ondansetron HCl (Zofran Injection) 4 mg IVPUSH Q6H PRN PRN Reason: NAUSEA AND/OR VOMITING Pantoprazole Sodium (Protonix -) 20 mg PO DAILY [facility] Last Admin: 12/04/19 09:02 Dose: 20 mg Documented by: Last Vital Signs Temp Pulse Resp BP Pulse Ox 98.4 F 80 18 147/64 97 12/04/19 19:06 12/04/19 19:06 12/04/19 19:06 12/04/19 19:06 12/04/19 20:24 CBC, BMP 12/04/19 07:50 12/04/19 06:50 IMP ESRD Plan- HD in am
[2019-12-05] MEDS: GABAPENTIN 300 MG CAPSULE PO SCH ×3 (07:08→23:12)
[2019-12-05] MEDS: hydrALAZINE HCL 50 MG TABLET (FP) PO SCH ×3 (07:08→23:12)
[2019-12-05] MEDS: ACETAMINOPHEN 325 MG TABLET (FP) PO PRN ×2 (07:08→23:12)
[2019-12-05] MEDS: CALCIUM ACETATE 667 MG CAPSULE (FP) PO SCH ×3 (08:47→17:56)
[2019-12-05] MEDS: FERROUS SO4 325 MG TABLET (FP) PO SCH ×2 (08:48→17:56)
[2019-12-05 09:41] LABS: BLOOD UREA NITROGEN 86.2 mg/dL (7-18); CALCIUM 8.4 mg/dL (8.5-10.1); CREATININE 6.3 mg/dL (0.55-1.3); POTASSIUM 4.6 mmol/L (3.5-5.1); TOT PROT 7.7 g/dl (6.4-8.2)
[2019-12-05 09:43] LABS: BILIRUBIN,TOTAL 0.2 mg/dL (0.2-1)
[2019-12-05] MEDS: FUROSEMIDE 100 MG/10 ML INJECTABLE VIAL IVPB SCH (10:00)
[2019-12-05 10:33] LABS: BASO % 0.7 % (0-2.0); HEMATOCRIT 23.7 % (35.4-49); HEMOGLOBIN 7.3 GM/dL (11.7-16.9); LYMPH % 9.4 % (8-40); MCH 24.3 pg (25.7-33.7); MCHC 30.6 g/dl (32.0-35.9); MEAN CELL VOLUME 79.4 fl (80-96); MEAN PLT VOLUME 6.9 fl (7.5-11.1); MONO % 4.8 % (3.8-10.2); NEUT % 81.1 % (42.8-82.8); PLATELET COUNT 320 K/MM3 (134-434); RBC 2.98 M/mm3 (4.00-5.60); RDW 20.4 % (11.9-15.9); WHITE BLOOD COUNT 14.3 K/mm3 (4.0-10.0)
[2019-12-05] MEDS ORDERED: PT OWN MED DRAWER 7, Y5N ONE ×2 (11:13→17:49)
--- NOTE | 2019-12-05 11:18 | PN ---
Progress Note (short form) - Note Progress Note: PULMONARY Sleeping on nasal cannula. No overnight events. No fevers recorded. Vital Signs Period Temp Pulse Resp BP Sys/Rodríguez Pulse Ox Last 24 Hr 97.6 F-98.4 F 71-80 18-20 90-147/47-64 97-100 Gen: NAD at rest Heart: RRR Lung: distant breath sounds Abd: soft, obese, nontender Ext: + edema, chronic changes CBC, BMP 12/05/19 09:25 12/05/19 06:35 Active Medications Acetaminophen (Tylenol -) 650 mg PO Q4H PRN PRN Reason: fever>100.0F Last Admin: 12/05/19 07:08 Dose: 650 mg Documented by: Allopurinol (Zyloprim -) 100 mg PO Q2D [facility] Last Admin: 12/03/19 09:58 Dose: 100 mg Documented by: Calcium Acetate (Phoslo -) 1,334 mg PO TIDCM [facility] Last Admin: 12/05/19 08:47 Dose: 1,334 mg Documented by: Fentanyl (Sublimaze Injection -) 50 mcg IVPUSH [id number] PRN PRN Reason: PAIN-PACU ORDER X 4 DOSES ONLY Ferrous Sulfate (Feosol -) 325 mg PO BIDWM [facility] Last Admin: 12/05/19 08:48 Dose: 325 mg Documented by: Furosemide (Lasix Injection -) 80 mg IVPB DAILY [facility] Last Admin: 12/04/19 09:02 Dose: 80 mg Documented by: Gabapentin (Neurontin -) 300 mg PO TID [facility] Last Admin: 12/05/19 07:08 Dose: 300 mg Documented by: Hydralazine HCl (Apresoline -) 100 mg PO TID [facility] Last Admin: 12/05/19 07:08 Dose: 100 mg Documented by: Sodium Chloride (Normal Saline -) 250 mls @ 3,000 mls/hr IV PRN PRN PRN Reason: Hypotension during Dialysis Stop: 12/05/19 21:29 Metoprolol Succinate (Toprol Xl -) 25 mg PO DAILY [facility] Last Admin: 12/04/19 09:02 Dose: 25 mg Documented by: Nifedipine (Procardia Xl -) 90 mg PO DAILY [facility] Last Admin: 12/04/19 09:02 Dose: 90 mg Documented by: Ondansetron HCl (Zofran Injection) 4 mg IVPUSH Q6H PRN PRN Reason: NAUSEA AND/OR VOMITING Pantoprazole Sodium (Protonix -) 20 mg PO DAILY [facility] Last Admin: 12/04/19 09:02 Dose: 20 mg Documented by: A/P Acute Hypoxic Respiratory Failure Acute on Chronic Renal Failure CHF Cellulitis Morbid Obesity ALEXANDRA/[facility]HS HTN Hyperlipidemia Anemia - completed antibiotics - HD per renal - monitor urine output, creatinine - O2 to keep SpO2 >90% - BiPAP at night and PRN during day - DVT prophylaxis - d/c planning
[2019-12-05] MEDS ORDERED: SODIUM CHLORIDE 250 ML IV PRN ×2 (14:21→14:41)
--- NOTE | 2019-12-05 14:41 | PN ---
Progress Note, Physician History of Present Illness: Pt seen and examined at bedside. He is awake and alert. He still complains of shortness of breath. - Current Medication List Current Medications: Active Medications Acetaminophen (Tylenol -) 650 mg PO Q4H PRN PRN Reason: fever>100.0F Last Admin: 12/05/19 07:08 Dose: 650 mg Documented by: Allopurinol (Zyloprim -) 100 mg PO Q2D [facility] Last Admin: 12/03/19 09:58 Dose: 100 mg Documented by: Calcium Acetate (Phoslo -) 1,334 mg PO TIDCM [facility] Last Admin: 12/05/19 08:47 Dose: 1,334 mg Documented by: Epoetin Raffi (Procrit -) 20,000 unit IVPUSH ONCE ONE Stop: 12/05/19 15:01 Fentanyl (Sublimaze Injection -) 50 mcg IVPUSH [id number] PRN PRN Reason: PAIN-PACU ORDER X 4 DOSES ONLY Ferrous Sulfate (Feosol -) 325 mg PO BIDWM [facility] Last Admin: 12/05/19 08:48 Dose: 325 mg Documented by: Furosemide (Lasix Injection -) 80 mg IVPB DAILY [facility] Last Admin: 12/04/19 09:02 Dose: 80 mg Documented by: Gabapentin (Neurontin -) 300 mg PO TID [facility] Last Admin: 12/05/19 07:08 Dose: 300 mg Documented by: Hydralazine HCl (Apresoline -) 100 mg PO TID [facility] Last Admin: 12/05/19 07:08 Dose: 100 mg Documented by: Metoprolol Succinate (Toprol Xl -) 25 mg PO DAILY [facility] Last Admin: 12/04/19 09:02 Dose: 25 mg Documented by: Nifedipine (Procardia Xl -) 90 mg PO DAILY [facility] Last Admin: 12/04/19 09:02 Dose: 90 mg Documented by: Ondansetron HCl (Zofran Injection) 4 mg IVPUSH Q6H PRN PRN Reason: NAUSEA AND/OR VOMITING Pantoprazole Sodium (Protonix -) 20 mg PO DAILY [facility] Last Admin: 12/04/19 09:02 Dose: 20 mg Documented by: - Objective Vital Signs: Vital Signs Temperature 98.2 F 12/05/19 13:00 Pulse Rate 80 12/05/19 13:40 Respiratory Rate 18 12/05/19 13:40 Blood Pressure 136/68 12/05/19 13:40 O2 Sat by Pulse Oximetry (%) 97 12/05/19 11:01 Constitutional: Yes: Calm Eyes: Yes: Conjunctiva Clear HENT: Yes: Atraumatic Cardiovascular: Yes: S1, S2 Respiratory: Yes: On Nasal O2 Gastrointestinal: Yes: Soft, Abdomen, Obese Genitourinary: Yes: Incontinence Musculoskeletal: Yes: Muscle Weakness Edema: LLE: 2+, RLE: 2+ Neurological: Yes: Oriented Psychiatric: Yes: Oriented Labs: CBC, BMP 12/05/19 09:25 12/05/19 06:35 INR, PTT INR 1.18 (0.83-1.09) H 11/17/19 00:50 Problem List - Problems (1) Anemia Code(s): D64.9 - ANEMIA, UNSPECIFIED (2) CKD (chronic kidney disease) Code(s): N18.9 - CHRONIC KIDNEY DISEASE, UNSPECIFIED (3) Fall Code(s): W19.XXXA - UNSPECIFIED FALL, INITIAL ENCOUNTER Assessment/Plan Current Medications Generic Name Dose Route Start Last Admin Trade Name Freq PRN Reason Stop Dose Admin Acetaminophen 650 mg 11/17/19 11:06 12/05/19 07:08 Tylenol - PO 650 mg Q4H PRN Administration fever>100.0F Allopurinol 100 mg 11/27/19 11:24 12/03/19 09:58 Zyloprim - PO 100 mg Q2D [facility] Administration Calcium Acetate 1,334 mg 11/23/19 09:55 12/05/19 08:47 Phoslo - PO 1,334 mg TIDCM [facility] Administration Epoetin Raffi 20,000 unit 12/05/19 15:00 Procrit - IVPUSH 12/05/19 15:01 ONCE ONE Fentanyl 50 mcg 12/01/19 16:26 Sublimaze Injection - IVPUSH [id number] PRN PAIN-PACU ORDER X 4 DOSES ONLY Ferrous Sulfate 325 mg 11/17/19 17:30 12/05/19 08:48 Feosol - PO 325 mg BIDWM [facility] Administration Furosemide 80 mg 12/03/19 10:00 12/04/19 09:02 Lasix Injection - IVPB 80 mg DAILY [facility] Administration Gabapentin 300 mg 11/17/19 14:00 12/05/19 07:08 Neurontin - PO 300 mg TID [facility] Administration Hydralazine HCl 100 mg 11/17/19 09:00 12/05/19 07:08 Apresoline - PO 100 mg TID [facility] Administration Metoprolol Succinate 25 mg 11/17/19 10:00 12/04/19 09:02 Toprol Xl - PO 25 mg DAILY [facility] Administration Nifedipine 90 mg 11/17/19 10:00 12/04/19 09:02 Procardia Xl - PO 90 mg DAILY [facility] Administration Ondansetron HCl 4 mg 12/01/19 16:26 Zofran Injection IVPUSH Q6H PRN NAUSEA AND/OR VOMITING Pantoprazole Sodium 20 mg 11/29/19 10:00 12/04/19 09:02 Protonix - PO 20 mg DAILY [facility] Administration Impression 1. CKD 2. htn 3. dm 4. obesity 5. sepsis 6. cellulitis 7. gout 8. chf 9. ESRD Plan - HD today - will arrange for HD again tomorrow - epogen for anemia - renal diet - pending placement - cont pt/rehab evals - lasix on non HD days
--- NOTE | 2019-12-05 14:57 | DS ---
Physical Examination Vital Signs: Vital Signs Temperature 98.2 F 12/05/19 13:00 Pulse Rate 80 12/05/19 13:40 Respiratory Rate 18 12/05/19 13:40 Blood Pressure 136/68 12/05/19 13:40 O2 Sat by Pulse Oximetry (%) 97 12/05/19 11:01 Constitutional: Yes: Mild Distress Cardiovascular: Yes: Pulse Irregular Respiratory: Yes: Diminished Gastrointestinal: Yes: Abdomen, Obese Renal/: Yes: Holder Present Musculoskeletal: Yes: Muscle Weakness Neurological: Yes: Pre-Existing Deficit Labs: CBC, BMP 12/05/19 09:25 12/05/19 06:35 Discharge Summary Problems reviewed: Yes Reason For Visit: URINARY TRACT INFECTION,MORBID OBESITY,SEPSIS, Current Active Problems AV fistula thrombosis (Acute) Anemia (Acute) CKD (chronic kidney disease) (Acute) Elevated troponin (Acute) Encounter for screening laboratory testing for COVID-19 virus (Acute) Fall (Acute) Fever (Acute) HLD (hyperlipidemia) (Acute) HTN (hypertension) (Acute) Hypocalcemia (Acute) Hypomagnesemia (Acute) Leukocytosis (Acute) MRSA bacteremia (Acute) Morbid obesity (Acute) Occult GI bleeding (Acute) Sepsis (Acute) UTI (urinary tract infection) (Acute) Procedures: Principal: HEMODIALYSIS Hospital Course: - Problems (1) Anemia Assessment/Plan: -Monitor--One unit prior to dc -Iron% low -Start Feosol -B12,FA,Thyroid profile normal Problems reviewed: Yes Code(s): D64.9 - ANEMIA, UNSPECIFIED (2) Fall Assessment/Plan: -Physical therapy -Safety precautions Problems reviewed: Yes Code(s): W19.XXXA - UNSPECIFIED FALL, INITIAL ENCOUNTER (3) Elevated troponin Assessment/Plan: -likely demand ischemia -Seen by cardiology -recommended no telemetry Problems reviewed: Yes Code(s): R79.89 - OTHER SPECIFIED ABNORMAL FINDINGS OF BLOOD CHEMISTRY (4) HTN (hypertension) Assessment/Plan: -Resume home meds -Low sodium diet -Monitor trend for now Problems reviewed: Yes Code(s): I10 - ESSENTIAL (PRIMARY) HYPERTENSION (5) Hypocalcemia Assessment/Plan: -nephrology consult Problems reviewed: Yes Code(s): E83.51 - HYPOCALCEMIA (6) Hypomagnesemia Assessment/Plan: -Received 1 gm Mg in ER -Repeat labs pending Problems reviewed: Yes Code(s): E83.42 - HYPOMAGNESEMIA (7) Morbid obesity Assessment/Plan: -RD consult -Low calorie diet Problems reviewed: Yes Code(s): E66.01 - MORBID (SEVERE) OBESITY DUE TO EXCESS CALORIES (8) Respiratory failure cxr noted--new rt base changes on zosyn npo ivf bipap--trial of nc Problems reviewed: Yes (9) UTI (urinary tract infection) Assessment/Plan: -UA + protein,+1 blood, -nitrites, +1 leuks -UC: Microbiology 11/17/19 00:50 Blood - Peripheral Venous Blood Culture - Final NO GROWTH AFTER 5 DAYS INCUBATION 11/17/19 00:50 Blood - Peripheral Venous Blood Culture - Final S Aureus 11/17/19 02:45 Urine - Urine Clean Catch Urine Culture - Final Lactose Fermenting Neg Bacilli will discuss with id iv abx dc planning Goals: HALF-WAY WITH HD Condition: Fair - Instructions Diet, Activity, Other Instructions: FOLLOW WITH NEPHROLOGY OUTPATIENT Referrals: Nishant Mansfield MD [Primary Care Provider] - - Home Medications Comprehensive Discharge Medication List: Ambulatory Orders Acetaminophen [Tylenol] 2 tab PO Q48H 08/29/19 Allopurinol [Zyloprim -] 1 tab PO Q48H 08/29/19 Calcium Acetate 667 mg PO TID 08/29/19 Hydralazine HCl 1 tab PO Q8H 08/29/19 Metoprolol Succinate [Toprol Xl] 1 tab PO DAILY 08/29/19 Nifedipine ER [Procardia XL -] 90 mg PO DAILY 08/29/19 Gabapentin 300 mg PO TID 11/14/19 Albuterol 2.5/Ipratropium 0.5 [Duoneb -] 1 amp NEB RQID amp 11/24/19 Ferrous Sulfate [Feosol] 325 mg PO BIDWM ud 11/24/19 Heparin - 5,000 unit SQ BID vial 11/24/19 Piperacillin/Tazob 2.25 gm [Zosyn -] 2.25 gm IVPB Q8H-IV vial 11/24/19
[2019-12-05] MEDS ORDERED: EPOETIN ALFA 20,000 UNIT/1 ML VIAL IVPUSH ONE (15:00)
[2019-12-05] MEDS: metoPROLOL SUCCINATE 25 MG TAB.SR.24H (FP) PO SCH (17:57)
[2019-12-05] MEDS: ALLOPURINOL 100 MG TABLET (FP) PO SCH (17:57)
[2019-12-05] MEDS: PANTOPRAZOLE 20 MG TABLET PO SCH (17:58)
[2019-12-05] MEDS: NIFEdipine E.R. 90 MG TABLET PO SCH (17:58)
[2019-12-06] MEDS: hydrALAZINE HCL 50 MG TABLET (FP) PO SCH ×3 (07:06→21:41)
[2019-12-06] MEDS: GABAPENTIN 300 MG CAPSULE PO SCH ×3 (07:06→21:41)
--- NOTE | 2019-12-06 07:23 | PN ---
Progress Note (short form) - Note Progress Note: MEDICALLY CLEARED FOR DISCHARGE , PENDING COVID-19 RESULTS HD TODAY DC PLANNING AFTER Problem List - Problems (1) Anemia Code(s): D64.9 - ANEMIA, UNSPECIFIED (2) CKD (chronic kidney disease) Code(s): N18.9 - CHRONIC KIDNEY DISEASE, UNSPECIFIED (3) HLD (hyperlipidemia) Code(s): E78.5 - HYPERLIPIDEMIA, UNSPECIFIED (4) HTN (hypertension) Code(s): I10 - ESSENTIAL (PRIMARY) HYPERTENSION (5) MRSA bacteremia Code(s): R78.81 - BACTEREMIA; B95.62 - METHICILLIN RESIS STAPH INFCT CAUSING DISEASES CLASSD ELSWHR (6) ESRD (end stage renal disease) Code(s): N18.6 - END STAGE RENAL DISEASE
[2019-12-06] MEDS ORDERED: PT OWN MED DRAWER 7, Y5N ONE ×2 (07:26→09:06)
[2019-12-06] MEDS ORDERED: IRON SUCROSE INJECTION 100 MG in SODIUM CHLORIDE 95 ML IVPB ONE ×2 (08:00→15:00)
[2019-12-06] MEDS: FERROUS SO4 325 MG TABLET (FP) PO SCH ×2 (09:08→17:01)
[2019-12-06] MEDS: NIFEdipine E.R. 90 MG TABLET PO SCH (09:09)
[2019-12-06] MEDS: CALCIUM ACETATE 667 MG CAPSULE (FP) PO SCH ×3 (09:09→17:02)
[2019-12-06] MEDS: FUROSEMIDE 100 MG/10 ML INJECTABLE VIAL IVPB SCH (09:09)
[2019-12-06] MEDS: PANTOPRAZOLE 20 MG TABLET PO SCH (09:09)
[2019-12-06] MEDS: metoPROLOL SUCCINATE 25 MG TAB.SR.24H (FP) PO SCH (09:09)
--- NOTE | 2019-12-06 10:20 | PN ---
Progress Note (short form) - Note Progress Note: PULMONARY Currently receiving HD. No overnight events. No fevers recorded. Vital Signs Period Temp Pulse Resp BP Sys/Rodríguez Pulse Ox Last 24 Hr 97.3 F-98.7 F 71-97 18-20 126-152/52-90 93-97 Gen: NAD at rest Heart: RRR Lung: distant breath sounds Abd: soft, obese, nontender Ext: + edema, chronic changes CBC, BMP 12/05/19 09:25 12/05/19 06:35 Active Medications Acetaminophen (Tylenol -) 650 mg PO Q4H PRN PRN Reason: fever>100.0F Last Admin: 12/05/19 23:12 Dose: 650 mg Documented by: Allopurinol (Zyloprim -) 100 mg PO Q2D [facility] Last Admin: 12/05/19 17:57 Dose: 100 mg Documented by: Calcium Acetate (Phoslo -) 1,334 mg PO TIDCM [facility] Last Admin: 12/06/19 09:09 Dose: 1,334 mg Documented by: Fentanyl (Sublimaze Injection -) 50 mcg IVPUSH [id number] PRN PRN Reason: PAIN-PACU ORDER X 4 DOSES ONLY Ferrous Sulfate (Feosol -) 325 mg PO BIDWM [facility] Last Admin: 12/06/19 09:08 Dose: 325 mg Documented by: Furosemide (Lasix Injection -) 80 mg IVPB DAILY [facility] Last Admin: 12/06/19 09:09 Dose: 80 mg Documented by: Gabapentin (Neurontin -) 300 mg PO TID [facility] Last Admin: 12/06/19 07:06 Dose: 300 mg Documented by: Hydralazine HCl (Apresoline -) 100 mg PO TID [facility] Last Admin: 12/06/19 07:06 Dose: 100 mg Documented by: Sodium Chloride (Normal Saline -) 250 mls @ 3,000 mls/hr IV PRN PRN PRN Reason: Hypotension during Dialysis Stop: 12/06/19 14:42 Metoprolol Succinate (Toprol Xl -) 25 mg PO DAILY [facility] Last Admin: 12/06/19 09:09 Dose: 25 mg Documented by: Nifedipine (Procardia Xl -) 90 mg PO DAILY [facility] Last Admin: 12/06/19 09:09 Dose: 90 mg Documented by: Ondansetron HCl (Zofran Injection) 4 mg IVPUSH Q6H PRN PRN Reason: NAUSEA AND/OR VOMITING Pantoprazole Sodium (Protonix -) 20 mg PO DAILY [facility] Last Admin: 12/06/19 09:09 Dose: 20 mg Documented by: A/P Acute Hypoxic Respiratory Failure improved Acute on Chronic Renal Failure CHF Cellulitis Morbid Obesity ALEXANDRA/OHS HTN Hyperlipidemia Anemia - completed antibiotics - HD per renal - monitor urine output, creatinine - O2 to keep SpO2 >90% - BiPAP at night and PRN during day - DVT prophylaxis - d/c planning in progress
--- NOTE | 2019-12-06 14:18 | PN ---
Progress Note, Physician History of Present Illness: Pt seen and examined at bedside. He is tolerating HD. - Current Medication List Current Medications: Active Medications Acetaminophen (Tylenol -) 650 mg PO Q4H PRN PRN Reason: fever>100.0F Last Admin: 12/05/19 23:12 Dose: 650 mg Documented by: Allopurinol (Zyloprim -) 100 mg PO Q2D [facility] Last Admin: 12/05/19 17:57 Dose: 100 mg Documented by: Calcium Acetate (Phoslo -) 1,334 mg PO TIDCM [facility] Last Admin: 12/06/19 09:09 Dose: 1,334 mg Documented by: Fentanyl (Sublimaze Injection -) 50 mcg IVPUSH [id number] PRN PRN Reason: PAIN-PACU ORDER X 4 DOSES ONLY Ferrous Sulfate (Feosol -) 325 mg PO BIDWM [facility] Last Admin: 12/06/19 09:08 Dose: 325 mg Documented by: Furosemide (Lasix Injection -) 80 mg IVPB DAILY [facility] Last Admin: 12/06/19 09:09 Dose: 80 mg Documented by: Gabapentin (Neurontin -) 300 mg PO TID [facility] Last Admin: 12/06/19 07:06 Dose: 300 mg Documented by: Hydralazine HCl (Apresoline -) 100 mg PO TID [facility] Last Admin: 12/06/19 07:06 Dose: 100 mg Documented by: Sodium Chloride (Normal Saline -) 250 mls @ 3,000 mls/hr IV PRN PRN PRN Reason: Hypotension during Dialysis Stop: 12/06/19 14:42 Metoprolol Succinate (Toprol Xl -) 25 mg PO DAILY [facility] Last Admin: 12/06/19 09:09 Dose: 25 mg Documented by: Nifedipine (Procardia Xl -) 90 mg PO DAILY [facility] Last Admin: 12/06/19 09:09 Dose: 90 mg Documented by: Ondansetron HCl (Zofran Injection) 4 mg IVPUSH Q6H PRN PRN Reason: NAUSEA AND/OR VOMITING Pantoprazole Sodium (Protonix -) 20 mg PO DAILY [facility] Last Admin: 12/06/19 09:09 Dose: 20 mg Documented by: - Objective Vital Signs: Vital Signs Temperature 98.7 F 12/06/19 09:35 Pulse Rate 87 12/06/19 13:15 Respiratory Rate 18 12/06/19 13:15 Blood Pressure 152/67 12/06/19 13:15 O2 Sat by Pulse Oximetry (%) 95 12/05/19 23:24 Constitutional: Yes: Calm Eyes: Yes: Conjunctiva Clear HENT: Yes: Atraumatic Cardiovascular: Yes: S1, S2 Respiratory: Yes: On Nasal O2 Gastrointestinal: Yes: Soft, Abdomen, Obese Genitourinary: Yes: Incontinence Musculoskeletal: Yes: Muscle Weakness Edema: Yes Edema: LLE: 2+, RLE: 2+ Neurological: Yes: Oriented Psychiatric: Yes: Oriented Labs: CBC, BMP 12/05/19 09:25 12/05/19 06:35 INR, PTT INR 1.18 (0.83-1.09) H 11/17/19 00:50 Problem List - Problems (1) Anemia Code(s): D64.9 - ANEMIA, UNSPECIFIED (2) CKD (chronic kidney disease) Code(s): N18.9 - CHRONIC KIDNEY DISEASE, UNSPECIFIED (3) Fall Code(s): W19.XXXA - UNSPECIFIED FALL, INITIAL ENCOUNTER Assessment/Plan Current Medications Generic Name Dose Route Start Last Admin Trade Name Freq PRN Reason Stop Dose Admin Acetaminophen 650 mg 11/17/19 11:06 12/05/19 23:12 Tylenol - PO 650 mg Q4H PRN Administration fever>100.0F Allopurinol 100 mg 11/27/19 11:24 12/05/19 17:57 Zyloprim - PO 100 mg Q2D [facility] Administration Calcium Acetate 1,334 mg 11/23/19 09:55 12/06/19 09:09 Phoslo - PO 1,334 mg TIDCM [facility] Administration Fentanyl 50 mcg 12/01/19 16:26 Sublimaze Injection - IVPUSH [id number] PRN PAIN-PACU ORDER X 4 DOSES ONLY Ferrous Sulfate 325 mg 11/17/19 17:30 12/06/19 09:08 Feosol - PO 325 mg BIDWM [facility] Administration Furosemide 80 mg 12/03/19 10:00 12/06/19 09:09 Lasix Injection - IVPB 80 mg DAILY [facility] Administration Gabapentin 300 mg 11/17/19 14:00 12/06/19 07:06 Neurontin - PO 300 mg TID [facility] Administration Hydralazine HCl 100 mg 11/17/19 09:00 12/06/19 07:06 Apresoline - PO 100 mg TID [facility] Administration Sodium Chloride 250 mls @ 3,000 mls/hr 12/05/19 14:41 Normal Saline - IV 12/06/19 14:42 PRN PRN Hypotension during Dialysis Metoprolol Succinate 25 mg 11/17/19 10:00 12/06/19 09:09 Toprol Xl - PO 25 mg DAILY [facility] Administration Nifedipine 90 mg 11/17/19 10:00 12/06/19 09:09 Procardia Xl - PO 90 mg DAILY [facility] Administration Ondansetron HCl 4 mg 12/01/19 16:26 Zofran Injection IVPUSH Q6H PRN NAUSEA AND/OR VOMITING Pantoprazole Sodium 20 mg 11/29/19 10:00 12/06/19 09:09 Protonix - PO 20 mg DAILY [facility] Administration Impression 1. CKD 2. htn 3. dm 4. obesity 5. sepsis 6. cellulitis 7. gout 8. chf 9. ESRD Plan - HD today - epogen for anemia - renal diet - cont with PT - pending [facility] for [facility] - will give lasix tomorrow - pt remains volume overloaded
[2019-12-06] MEDS: ACETAMINOPHEN 325 MG TABLET (FP) PO PRN ×2 (14:42→21:42)
[2019-12-07] MEDS: hydrALAZINE HCL 50 MG TABLET (FP) PO SCH ×2 (06:37→13:22)
[2019-12-07] MEDS: GABAPENTIN 300 MG CAPSULE PO SCH ×2 (06:38→13:22)
[2019-12-07] MEDS ORDERED: PT OWN MED DRAWER 7, Y5N ONE ×2 (08:00→10:37)
[2019-12-07] MEDS: ACETAMINOPHEN 325 MG TABLET (FP) PO PRN ×2 (08:07→12:20)
[2019-12-07] MEDS: CALCIUM ACETATE 667 MG CAPSULE (FP) PO SCH ×2 (08:08→12:20)
[2019-12-07] MEDS: FERROUS SO4 325 MG TABLET (FP) PO SCH (08:08)
--- NOTE | 2019-12-07 09:02 | PN ---
Progress Note (short form) - Note Progress Note: MEDICALLY CLEARED FOR DISCHARGE TO [facility] Problem List - Problems (1) Anemia Code(s): D64.9 - ANEMIA, UNSPECIFIED (2) CKD (chronic kidney disease) Code(s): N18.9 - CHRONIC KIDNEY DISEASE, UNSPECIFIED (3) HLD (hyperlipidemia) Code(s): E78.5 - HYPERLIPIDEMIA, UNSPECIFIED (4) HTN (hypertension) Code(s): I10 - ESSENTIAL (PRIMARY) HYPERTENSION (5) MRSA bacteremia Code(s): R78.81 - BACTEREMIA; B95.62 - METHICILLIN RESIS STAPH INFCT CAUSING DISEASES CLASSD ELSWHR (6) ESRD (end stage renal disease) Code(s): N18.6 - END STAGE RENAL DISEASE
--- NOTE | 2019-12-07 10:31 | PN ---
Progress Note, Physician History of Present Illness: Pt seen and examined at bedside. He is awake and alert. He feels that his breathing is improving. - Current Medication List Current Medications: Active Medications Acetaminophen (Tylenol -) 650 mg PO Q4H PRN PRN Reason: fever>100.0F Last Admin: 12/07/19 08:07 Dose: 650 mg Documented by: Allopurinol (Zyloprim -) 100 mg PO Q2D [facility] Last Admin: 12/05/19 17:57 Dose: 100 mg Documented by: Calcium Acetate (Phoslo -) 1,334 mg PO TIDCM [facility] Last Admin: 12/07/19 08:08 Dose: 1,334 mg Documented by: Fentanyl (Sublimaze Injection -) 50 mcg IVPUSH [id number] PRN PRN Reason: PAIN-PACU ORDER X 4 DOSES ONLY Ferrous Sulfate (Feosol -) 325 mg PO BIDWM [facility] Last Admin: 12/07/19 08:08 Dose: 325 mg Documented by: Furosemide (Lasix Injection -) 80 mg IVPB DAILY [facility] Last Admin: 12/06/19 09:09 Dose: 80 mg Documented by: Gabapentin (Neurontin -) 300 mg PO TID [facility] Last Admin: 12/07/19 06:38 Dose: 300 mg Documented by: Hydralazine HCl (Apresoline -) 100 mg PO TID [facility] Last Admin: 12/07/19 06:37 Dose: 100 mg Documented by: Metoprolol Succinate (Toprol Xl -) 25 mg PO DAILY [facility] Last Admin: 12/06/19 09:09 Dose: 25 mg Documented by: Nifedipine (Procardia Xl -) 90 mg PO DAILY [facility] Last Admin: 12/06/19 09:09 Dose: 90 mg Documented by: Ondansetron HCl (Zofran Injection) 4 mg IVPUSH Q6H PRN PRN Reason: NAUSEA AND/OR VOMITING Pantoprazole Sodium (Protonix -) 20 mg PO DAILY [facility] Last Admin: 12/06/19 09:09 Dose: 20 mg Documented by: - Objective Vital Signs: Vital Signs Temperature 98.2 F 12/07/19 06:00 Pulse Rate 84 12/07/19 06:00 Respiratory Rate 20 12/07/19 06:00 Blood Pressure 138/62 12/07/19 06:00 O2 Sat by Pulse Oximetry (%) 97 12/06/19 21:42 Constitutional: Yes: Calm Eyes: Yes: Conjunctiva Clear HENT: Yes: Atraumatic Neck: Yes: Supple Cardiovascular: Yes: S1, S2 Respiratory: Yes: CTA Bilaterally Gastrointestinal: Yes: Soft, Abdomen, Obese Genitourinary: Yes: Incontinence Musculoskeletal: Yes: Muscle Weakness Edema: Yes Edema: LLE: 2+, RLE: 2+ Neurological: Yes: Oriented Psychiatric: Yes: Oriented Labs: CBC, BMP 12/05/19 09:25 12/05/19 06:35 INR, PTT INR 1.18 (0.83-1.09) H 11/17/19 00:50 Problem List - Problems (1) Anemia Code(s): D64.9 - ANEMIA, UNSPECIFIED (2) CKD (chronic kidney disease) Code(s): N18.9 - CHRONIC KIDNEY DISEASE, UNSPECIFIED (3) Fall Code(s): W19.XXXA - UNSPECIFIED FALL, INITIAL ENCOUNTER Assessment/Plan Current Medications Generic Name Dose Route Start Last Admin Trade Name Freq PRN Reason Stop Dose Admin Acetaminophen 650 mg 11/17/19 11:06 12/07/19 08:07 Tylenol - PO 650 mg Q4H PRN Administration fever>100.0F Allopurinol 100 mg 11/27/19 11:24 12/05/19 17:57 Zyloprim - PO 100 mg Q2D [facility] Administration Calcium Acetate 1,334 mg 11/23/19 09:55 12/07/19 08:08 Phoslo - PO 1,334 mg TIDCM [facility] Administration Fentanyl 50 mcg 12/01/19 16:26 Sublimaze Injection - IVPUSH [id number] PRN PAIN-PACU ORDER X 4 DOSES ONLY Ferrous Sulfate 325 mg 11/17/19 17:30 12/07/19 08:08 Feosol - PO 325 mg BIDWM [facility] Administration Furosemide 80 mg 12/03/19 10:00 12/06/19 09:09 Lasix Injection - IVPB 80 mg DAILY [facility] Administration Gabapentin 300 mg 11/17/19 14:00 12/07/19 06:38 Neurontin - PO 300 mg TID [facility] Administration Hydralazine HCl 100 mg 11/17/19 09:00 12/07/19 06:37 Apresoline - PO 100 mg TID [facility] Administration Metoprolol Succinate 25 mg 11/17/19 10:00 12/06/19 09:09 Toprol Xl - PO 25 mg DAILY [facility] Administration Nifedipine 90 mg 11/17/19 10:00 12/06/19 09:09 Procardia Xl - PO 90 mg DAILY [facility] Administration Ondansetron HCl 4 mg 12/01/19 16:26 Zofran Injection IVPUSH Q6H PRN NAUSEA AND/OR VOMITING Pantoprazole Sodium 20 mg 11/29/19 10:00 12/06/19 09:09 Protonix - PO 20 mg DAILY [facility] Administration weight 336 Selected Entries 11/16/19 11/29/19 12/07/19 23:31 06:00 06:00 Weight 360 lb 360 lb 6.4 oz 336 lb 14.4 oz Laboratory Tests 11/21/19 11/21/19 14:50 14:50 Hep Bs Antigen Negative Hep C Ab Diagnostic <0.1 Impression 1. CKD 2. htn 3. dm 4. obesity 5. sepsis 6. cellulitis 7. gout 8. chf 9. ESRD Plan - weight improving - HD tomorrow - cont pt/rehab - pt has difficulty with rehab secondary to edema - pending placement in [facility] for Renal Care - discussed with medical team - pt remains volume overloaded
[2019-12-07] MEDS ORDERED: SODIUM CHLORIDE 250 ML IV PRN (10:42)
--- NOTE | 2019-12-07 11:01 | PN ---
Progress Note, Physician History of Present Illness: PULMONARY ALERT,COMFORTABLE,-RESP DISTRESS,-SOB - Current Medication List Current Medications: Active Medications Acetaminophen (Tylenol -) 650 mg PO Q4H PRN PRN Reason: fever>100.0F Last Admin: 12/07/19 08:07 Dose: 650 mg Documented by: Albumin Human (Albumin Human 25%) 12.5 gm IVPB Q30M [facility] Allopurinol (Zyloprim -) 100 mg PO Q2D [facility] Last Admin: 12/05/19 17:57 Dose: 100 mg Documented by: Calcium Acetate (Phoslo -) 1,334 mg PO TIDCM [facility] Last Admin: 12/07/19 08:08 Dose: 1,334 mg Documented by: Epoetin Raffi (Procrit -) 20,000 unit IVPUSH ONCE ONE Stop: 12/08/19 10:43 Fentanyl (Sublimaze Injection -) 50 mcg IVPUSH [id number] PRN PRN Reason: PAIN-PACU ORDER X 4 DOSES ONLY Ferrous Sulfate (Feosol -) 325 mg PO BIDWM [facility] Last Admin: 12/07/19 08:08 Dose: 325 mg Documented by: Furosemide (Lasix Injection -) 80 mg IVPB DAILY [facility] Last Admin: 12/06/19 09:09 Dose: 80 mg Documented by: Gabapentin (Neurontin -) 300 mg PO TID [facility] Last Admin: 12/07/19 06:38 Dose: 300 mg Documented by: Hydralazine HCl (Apresoline -) 100 mg PO TID [facility] Last Admin: 12/07/19 06:37 Dose: 100 mg Documented by: Sodium Chloride (Normal Saline -) 250 mls @ 3,000 mls/hr IV PRN PRN PRN Reason: Hypotension during Dialysis Stop: 12/08/19 10:42 Iron Sucrose 100 mg/ Sodium (Chloride) 100 mls @ 200 mls/hr IVPB ONCE ONE Stop: 12/08/19 11:11 Metoprolol Succinate (Toprol Xl -) 25 mg PO DAILY [facility] Last Admin: 12/06/19 09:09 Dose: 25 mg Documented by: Nifedipine (Procardia Xl -) 90 mg PO DAILY [facility] Last Admin: 12/06/19 09:09 Dose: 90 mg Documented by: Ondansetron HCl (Zofran Injection) 4 mg IVPUSH Q6H PRN PRN Reason: NAUSEA AND/OR VOMITING Pantoprazole Sodium (Protonix -) 20 mg PO DAILY [facility] Last Admin: 12/06/19 09:09 Dose: 20 mg Documented by: - Objective Vital Signs: Vital Signs Temperature 98.2 F 12/07/19 06:00 Pulse Rate 84 12/07/19 06:00 Respiratory Rate 20 12/07/19 06:00 Blood Pressure 138/62 12/07/19 06:00 O2 Sat by Pulse Oximetry (%) 97 12/06/19 21:42 Constitutional: Yes: Calm, Obese Eyes: Yes: WNL HENT: Yes: WNL Neck: Yes: WNL Cardiovascular: Yes: Regular Rate and Rhythm, S1, S2 Respiratory: Yes: CTA Bilaterally Gastrointestinal: Yes: Normal Bowel Sounds, Abdomen, Obese Extremities: Yes: WNL, Other (STASIS CHANGES TACO) Edema: Yes Labs: CBC, BMP 12/05/19 09:25 12/05/19 06:35 INR, PTT INR 1.18 (0.83-1.09) H 11/17/19 00:50 Problem List - Problems (1) Anemia Code(s): D64.9 - ANEMIA, UNSPECIFIED (2) CKD (chronic kidney disease) Code(s): N18.9 - CHRONIC KIDNEY DISEASE, UNSPECIFIED (3) Fall Code(s): W19.XXXA - UNSPECIFIED FALL, INITIAL ENCOUNTER (4) Fever Code(s): R50.9 - FEVER, UNSPECIFIED (5) HLD (hyperlipidemia) Code(s): E78.5 - HYPERLIPIDEMIA, UNSPECIFIED (6) HTN (hypertension) Code(s): I10 - ESSENTIAL (PRIMARY) HYPERTENSION (7) Leukocytosis Code(s): D72.829 - ELEVATED WHITE BLOOD CELL COUNT, UNSPECIFIED (8) Morbid obesity Code(s): E66.01 - MORBID (SEVERE) OBESITY DUE TO EXCESS CALORIES (9) Sepsis Code(s): A41.9 - SEPSIS, UNSPECIFIED ORGANISM Qualifiers: Sepsis type: sepsis due to unspecified organism (10) UTI (urinary tract infection) Code(s): N39.0 - URINARY TRACT INFECTION, SITE NOT SPECIFIED (11) ESRD (end stage renal disease) Code(s): N18.6 - END STAGE RENAL DISEASE Assessment/Plan IMP S/P SEPSIS ALTERED MENTAL STATUS LIKELY TOXIC METABOLIC ENCEPHALOPATHY IMPROVED DYSPNEA IMPROVED S/P MECHANICAL FALL CHF ACUTE ON CKD HTN HLD MORBID OBESITY SUSPECTED OSAS/OHS ANEMIA ACUTE HYPOXEMIC/HYPERCAPNEIC RESP FAILURE IMPROVED PLAN SUPPLEMENTAL O2 NIPPV AT NIGHT AND NEEDED DVT PROPHYLAXIS OUTPATIENT SLEEP STUDIES MONITOR LYTES,RENAL FUNCTION,CBC HD PER RENAL DR ELY Problem List - Problems (1) Anemia Code(s): D64.9 - ANEMIA, UNSPECIFIED (2) CKD (chronic kidney disease) Code(s): N18.9 - CHRONIC KIDNEY DISEASE, UNSPECIFIED (3) Fall Code(s): W19.XXXA - UNSPECIFIED FALL, INITIAL ENCOUNTER (4) Fever Code(s): R50.9 - FEVER, UNSPECIFIED (5) HLD (hyperlipidemia) Code(s): E78.5 - HYPERLIPIDEMIA, UNSPECIFIED (6) HTN (hypertension) Code(s): I10 - ESSENTIAL (PRIMARY) HYPERTENSION (7) Leukocytosis Code(s): D72.829 - ELEVATED WHITE BLOOD CELL COUNT, UNSPECIFIED (8) Morbid obesity Code(s): E66.01 - MORBID (SEVERE) OBESITY DUE TO EXCESS CALORIES (9) Sepsis Code(s): A41.9 - SEPSIS, UNSPECIFIED ORGANISM Qualifiers: Sepsis type: sepsis due to unspecified organism (10) UTI (urinary tract infection) Code(s): N39.0 - URINARY TRACT INFECTION, SITE NOT SPECIFIED (11) ESRD (end stage renal disease) Code(s): N18.6 - END STAGE RENAL DISEASE
[2019-12-07] MEDS: metoPROLOL SUCCINATE 25 MG TAB.SR.24H (FP) PO SCH (11:17)
[2019-12-07] MEDS: PANTOPRAZOLE 20 MG TABLET PO SCH (11:17)
[2019-12-07] MEDS: NIFEdipine E.R. 90 MG TABLET PO SCH (11:17)
[2019-12-07] MEDS: FUROSEMIDE 100 MG/10 ML INJECTABLE VIAL IVPB SCH (11:18)
[2019-12-07] MEDS: ALLOPURINOL 100 MG TABLET (FP) PO SCH (11:18)
[2019-12-07 14:32] VITALS: BP 134/71; PULSE 83; TEMP 98.9
--- NOTE | 2019-12-08 09:35 | OP ---
DATE OF OPERATION: 11/28/2019 PREOPERATIVE DIAGNOSIS: Clotted right arteriovenous fistula. POSTOPERATIVE DIAGNOSIS: Clotted right arteriovenous fistula. PROCEDURE: Venogram right arteriovenous fistula. SURGEON: David Khalil DO ANESTHESIA: Fractional. BLOOD LOSS: 10 mL. INDICATION: Patient is a 53-year-old male that had a difficult cannulation in dialysis yesterday in the hospital and was found to have clots coming out of his fistula, and it was decided that he would need a venogram to assess his fistula. Patient was consented for procedure understanding all risks, benefits and alternatives. PROCEDURE: He was then taken to the operating room. Once in the operating room, he was laid on the operating table in the supine manner and the area of the right AV fistula was prepped and draped in a sterile surgical manner. We then went ahead and under ultrasound guidance visualized the proximal AV fistula above the anastomosis and we were able to inject 10 mL of lidocaine 1% under ultrasound guidance. We then took our micropuncture needle, punctured the fistula. Micropuncture wire was inserted and a micropuncture sheath was inserted. We then shot our venogram through our micropuncture sheath showing that the fistula was completely patent going all the way up into the central veins with no stenosis. At this point we went ahead and used a skin marker and marked the entire AV fistula. We then went ahead and used a 4-0 Biosyn stitch and [id number] stitch was placed around our sheath and the sheath was pulled. Pressure was held for 5 minutes. Afterward there was no bleeding. Areas were wet and dried and Dermabond was placed. Patient tolerated the procedure with no complications. Patient transferred to PACU in stable condition and will be sent to dialysis for cannulation. DAVID KHALIL DO CLINICAL OUTCOMES MANAGER/[id number]
[2019-12-08] MEDS ORDERED: EPOETIN ALFA 20,000 UNIT/1 ML VIAL IVPUSH ONE (10:42)
[2019-12-08] MEDS ORDERED: IRON SUCROSE INJECTION 100 MG in SODIUM CHLORIDE 95 ML IVPB ONE (10:42)
[2019-12-08] MEDS ORDERED: ALBUMIN HUMAN 25% 12.5 GM/50 ML VIAL IVPB SCH (10:45)
[2019-12-09 02:31] LABS: HEP B CORE AB, TOT Negative (Negative)
== END 2019-12-07 15:20 | DRG 720 ==
LOC: JER 23:29 → JERBED 11-17 03:50 → J6S 11-17 18:54 → J8W 11-22 20:40
PROVIDERS: ADMIT Hospitalist; ATTEND Family Medicine
PROC: 5A1D70Z Performance of Urinary Filtration, Intermittent, Less than 6 Hours Per Day (ICD-10-PCS; 2019-11-21)
PROC: 5A1D70Z Performance of Urinary Filtration, Intermittent, Less than 6 Hours Per Day (ICD-10-PCS; 2019-11-23)
PROC: 5A09557 Assistance with Respiratory Ventilation, Greater than 96 Consecutive Hours, Continuous Positive Airway Pressure (ICD-10-PCS; 2019-11-23)
PROC: 30233N1 Transfusion of Nonautologous Red Blood Cells into Peripheral Vein, Percutaneous Approach (ICD-10-PCS; principal; 2019-11-24)
PROC: 5A1D70Z Performance of Urinary Filtration, Intermittent, Less than 6 Hours Per Day (ICD-10-PCS; 2019-11-25)
PROC: 5A1D70Z Performance of Urinary Filtration, Intermittent, Less than 6 Hours Per Day (ICD-10-PCS; 2019-11-28)
PROC: 5A1D70Z Performance of Urinary Filtration, Intermittent, Less than 6 Hours Per Day (ICD-10-PCS; 2019-11-30)
PROC: 5A1D70Z Performance of Urinary Filtration, Intermittent, Less than 6 Hours Per Day (ICD-10-PCS; 2019-12-02)
PROC: 5A1D70Z Performance of Urinary Filtration, Intermittent, Less than 6 Hours Per Day (ICD-10-PCS; 2019-12-05)
PROC: 5A1D70Z Performance of Urinary Filtration, Intermittent, Less than 6 Hours Per Day (ICD-10-PCS; 2019-12-06)
DX: A41.89 Other specified sepsis (principal); N39.0 Urinary tract infection, site not specified; G93.41 Metabolic encephalopathy; E78.5 Hyperlipidemia, unspecified; E83.42 Hypomagnesemia; E83.51 Hypocalcemia; R79.89 Other specified abnormal findings of blood chemistry; E66.01 Morbid (severe) obesity due to excess calories; I13.0 Hypertensive heart and chronic kidney disease with heart failure and stage 1 through stage 4 chronic kidney disease, or unspecified chronic kidney disease; N18.6 End stage renal disease; I50.9 Heart failure, unspecified; N17.9 Acute kidney failure, unspecified; I24.8 Other forms of acute ischemic heart disease; D64.9 Anemia, unspecified; J96.01 Acute respiratory failure with hypoxia; J96.02 Acute respiratory failure with hypercapnia; R19.5 Other fecal abnormalities; M10.9 Gout, unspecified; D72.829 Elevated white blood cell count, unspecified; W18.39XA Other fall on same level, initial encounter; G47.33 Obstructive sleep apnea (adult) (pediatric); B95.62 Methicillin resistant Staphylococcus aureus infection as the cause of diseases classified elsewhere; L03.116 Cellulitis of left lower limb; T82.868A Thrombosis due to vascular prosthetic devices, implants and grafts, initial encounter; L03.115 Cellulitis of right lower limb; R26.89 Other abnormalities of gait and mobility; R50.9 Fever, unspecified; E87.5 Hyperkalemia; L30.4 Erythema intertrigo; Z91.81 History of falling; Z11.59 Encounter for screening for other viral diseases; Z16.11 Resistance to penicillins; Y92.89 Other specified places as the place of occurrence of the external cause; Y83.9 Surgical procedure, unspecified as the cause of abnormal reaction of the patient, or of later complication, without mention of misadventure at the time of the procedure
CPT/HCPCS: 36415; 36430; 36600; 70450-TC; 71045-TC-FY; 80048; 80053; 81003; 82272; 82550; 82553; 82607; 82728; 82746; 82803; 82962; 83036; 83540; 83550; 83605; 83735; 84100; 84439; 84443; 84484; 85025; 85027; 85610; 85730; 86704; 86705; 86706; 86707; 86708; 86709; 86803; 86850; 86900; 86901; 86922; 87040; 87086; 87186; 87340; 87522; 93005; 93010; 93306-TC; 93970-TC; 94640; 94660; 97116-GP; 97162-GP; 99285-25; G0480; J0131; J0885; J1644; J1756; P9047; P9058; Q5106; U0003

== ENCOUNTER 2020-01-16 18:39 | Inpatient (IN) | payer OTHER ==
[2020-01-16 19:59] LABS: BASO % 2.9 % (0-2.0); EOS % 3.9 % (0-4.5); HEMATOCRIT 31.2 % (35.4-49); HEMOGLOBIN 9.3 GM/dL (11.7-16.9); LYMPH % 13.9 % (8-40); MCH 25.6 pg (25.7-33.7); MCHC 29.8 g/dl (32.0-35.9); MEAN PLT VOLUME 7.7 fl (7.5-11.1); MONO % 6.7 % (3.8-10.2); NEUT % 72.6 % (42.8-82.8); PLATELET COUNT 201 K/MM3 (134-434); RBC 3.62 M/mm3 (4.00-5.60); RDW 23.1 % (11.9-15.9)
[2020-01-16] MEDS ORDERED: SODIUM CHLORIDE IV ONE (20:00)
[2020-01-16 20:07] LABS: INR 1.66 (0.83-1.09); PROTHROMBIN TIME (PATIENT) 19.8 SEC (9.7-13.0)
[2020-01-16 20:09] LABS: ACTIVATED PTT 29.9 SECONDS (25.2-36.5)
[2020-01-16 20:11] LABS: CHLORIDE 105 mmol/L (98-107); POTASSIUM 3.3 mmol/L (3.5-5.1); SODIUM 143 mmol/L (136-145)
[2020-01-16 20:12] LABS: CALCIUM 9.1 mg/dL (8.5-10.1)
[2020-01-16 20:13] LABS: ALBUMIN 2.1 g/dl (3.4-5.0); ANION GAP 11 MMOL/L (8-16); CO2 27 mmol/L (21-32); GLUCOSE,RANDOM 81 mg/dL (74-106)
[2020-01-16 20:16] LABS: SGOT/AST 11 U/L (15-37); SGPT/ALT < 6 U/L (13-61)
[2020-01-16 20:18] LABS: BILIRUBIN,TOTAL 0.4 mg/dL (0.2-1)
[2020-01-16 20:19] LABS: ALK PHOS 101 U/L (45-117)
[2020-01-16 20:24] LABS: CREATININE 12.9 mg/dL (0.55-1.3)
[2020-01-16 20:28] LABS: VENOUS BASE EXCESS -3.6 mmol/L (-2-2); VENOUS O2 SATURATION 71.3 % (70-80); VENOUS PCO2 52.8 mmHg (38-52); VENOUS PH 7.269 (7.310-7.410)
[2020-01-16] MEDS ORDERED: SODIUM CHLORIDE 0.9% 500 ML INFUS.BAG IV ONE (20:33)
[2020-01-16 20:54] LABS: ANISOCYTOSIS 0; MACROCYTOSIS 0; OVALOCYTE 1+; PLATELET ESTIMATE NORMAL; TARGET CELLS 1+
[2020-01-16 21:39] LABS: URINE APPEARANCE TURBID; URINE BILIRUBIN SMALL (NEGATIVE); URINE COLOR ORANGE; URINE GLUCOSE (UA) NEGATIVE (NEGATIVE)
[2020-01-16 21:40] LABS: URINE KETONE TRACE (NEGATIVE); URINE LEUK ESTERASE 3+ (NEGATIVE); URINE NITRITE POSITIVE (NEGATIVE); URINE PROTEIN 300 (NEGATIVE)
[2020-01-16 21:41] LABS: EPI CELLS 19.8 /uL (0-25.1); HYALINE CASTS 1366.51 /uL (0-3.1); URINE BACTERIA 133.2 /uL (0-1359); URINE RBC 514.4 /uL (0-23.9)
[2020-01-16 21:42] LABS: YEAST NONE SEEN (NEGATIVE)
[2020-01-16] MEDS: NOREPINEPHRINE BITARTRATE 16,000 MCG in SODIUM CHLORIDE 484 ML IV SCH (23:42)
[2020-01-17] MEDS: MUPIROCIN 2% TOPICAL OINTMENT FOR DECOLONIZATION NS SCH ×3 (01:11→21:34)
[2020-01-17] MEDS ORDERED: HEPARIN NA (PORCINE) 5,000 UNITS/ML 1ML VIAL SQ SCH (02:00)
[2020-01-17] MEDS ORDERED: MEROPENEM 500 MG in DEXTROSE 5%-WATER 100 ML IVPB SCH ×2 (02:30→10:00)
[2020-01-17] MEDS ORDERED: INSULIN SLIDING SCALE (NOVOLOG) 1 VIAL SQ SCH (02:30)
[2020-01-17] MEDS: INSULIN SLIDING SCALE (NOVOLOG) 1 VIAL SQ SCH ×2 (02:38→10:20)
[2020-01-17] MEDS ORDERED: MEROPENEM 500 MG VIAL (RESTRICTED TO ID) IVPB ONE (03:07)
[2020-01-17] MEDS ORDERED: DEXTROSE 5%-WATER 100 ML IVPB ONE (03:07)
[2020-01-17] MEDS: VASOPRESSIN 40 UNITS in SODIUM CHLORIDE 98 ML IVPB SCH (05:38)
[2020-01-17 08:02] LABS: BASO % 1.1 % (0-2.0); EOS % 2.3 % (0-4.5); HEMATOCRIT 34.7 % (35.4-49); HEMOGLOBIN 10.3 GM/dL (11.7-16.9); LYMPH % 9.5 % (8-40); MCH 25.7 pg (25.7-33.7); MCHC 29.7 g/dl (32.0-35.9); MEAN CELL VOLUME 86.4 fl (80-96); MEAN PLT VOLUME 7.8 fl (7.5-11.1); MONO % 7.9 % (3.8-10.2); NEUT % 79.2 % (42.8-82.8); PLATELET COUNT 301 K/MM3 (134-434); RBC 4.02 M/mm3 (4.00-5.60); RDW 23.3 % (11.9-15.9); WHITE BLOOD COUNT 15.3 K/mm3 (4.0-10.0)
[2020-01-17 08:23] LABS: POTASSIUM 3.2 mmol/L (3.5-5.1)
[2020-01-17 08:24] LABS: ALBUMIN 2.3 g/dl (3.4-5.0); BLOOD UREA NITROGEN 79.3 mg/dL (7-18); CALCIUM 8.8 mg/dL (8.5-10.1); MAGNESIUM 1.9 mg/dL (1.8-2.4)
[2020-01-17 08:29] LABS: BILIRUBIN,TOTAL 0.4 mg/dL (0.2-1); TOT PROT 6.6 g/dl (6.4-8.2)
[2020-01-17] MEDS: CALCIUM ACETATE 667 MG CAPSULE (FP) PO SCH ×3 (08:37→17:19)
[2020-01-17 08:39] LABS: CREATININE 12.8 mg/dL (0.55-1.3)
[2020-01-17] MEDS ORDERED: VANCOMYCIN 1 GM in D5W (PRE-DOCKED) 1,000 MG/250 ML IVPB ONE (09:53)
[2020-01-17] MEDS ORDERED: SODIUM CHLORIDE 500 ML IV STA ×2 (09:53→16:42)
[2020-01-17] MEDS: ALLOPURINOL 100 MG TABLET (FP) PO SCH (12:45)
[2020-01-17] MEDS: AMIODARONE HCL 200 MG TABLET PO SCH (12:45)
[2020-01-17] MEDS: APIXABAN 5 MG TABLET PO SCH ×2 (12:45→21:32)
[2020-01-17] MEDS ORDERED: SODIUM CHLORIDE 250 ML IV PRN (13:28)
[2020-01-17] MEDS: ERTAPENEM SODIUM 0.5 GM in SODIUM CHLORIDE 50 ML IVPB SCH (16:02)
[2020-01-17] MEDS ORDERED: POTASSIUM CHLORIDE ORAL LIQUID 20 MEQ/15 ML PO ONE (16:09)
[2020-01-17] MEDS: NOREPINEPHRINE BITARTRATE 16,000 MCG in SODIUM CHLORIDE 484 ML IV SCH (20:15)
[2020-01-17] MEDS: CHLORHEXIDINE GLUCONATE 4% CLEANSER FOR DECOLONIZATION TP SCH (21:35)
[2020-01-18] MEDS ORDERED: MEROPENEM 500 MG in DEXTROSE 5%-WATER 100 ML IVPB SCH (02:30)
[2020-01-18] MEDS: VASOPRESSIN 40 UNITS in SODIUM CHLORIDE 98 ML IVPB SCH (02:38)
[2020-01-18 06:41] LABS: EOS % 3.5 % (0-4.5); HEMATOCRIT 33.6 % (35.4-49); HEMOGLOBIN 10.1 GM/dL (11.7-16.9); LYMPH % 10.4 % (8-40); MCH 25.8 pg (25.7-33.7); MCHC 30.1 g/dl (32.0-35.9); MEAN CELL VOLUME 85.7 fl (80-96); MEAN PLT VOLUME 7.1 fl (7.5-11.1); MONO % 8.5 % (3.8-10.2); NEUT % 75.6 % (42.8-82.8); PLATELET COUNT 235 K/MM3 (134-434); RBC 3.92 M/mm3 (4.00-5.60); RDW 23.1 % (11.9-15.9)
[2020-01-18 07:26] LABS: MAGNESIUM 1.9 mg/dL (1.8-2.4)
[2020-01-18 07:30] LABS: TOT PROT 6.3 g/dl (6.4-8.2)
[2020-01-18 07:33] LABS: BILIRUBIN,TOTAL 0.4 mg/dL (0.2-1)
[2020-01-18 07:34] LABS: BLOOD UREA NITROGEN 45.6 mg/dL (7-18)
[2020-01-18] MEDS ORDERED: SODIUM CHLORIDE 0.45% 500 ML IV ONE (08:01)
[2020-01-18] MEDS: NOREPINEPHRINE BITARTRATE 16,000 MCG in SODIUM CHLORIDE 484 ML IV SCH ×3 (08:20→22:55)
[2020-01-18] MEDS ORDERED: POTASSIUM PHOSPHATE 10 MM in DEXTROSE 5%-WATER - 250 ML IVPB ONE (09:00)
[2020-01-18] MEDS: MUPIROCIN 2% TOPICAL OINTMENT FOR DECOLONIZATION NS SCH ×2 (09:09→21:42)
[2020-01-18] MEDS: AMIODARONE HCL 200 MG TABLET PO SCH (09:09)
[2020-01-18] MEDS: APIXABAN 5 MG TABLET PO SCH ×2 (09:09→21:42)
[2020-01-18] MEDS ORDERED: POTASSIUM CHLORIDE TABS 20 MEQ TABLET.ER (FP) PO ONE (09:35)
[2020-01-18] MEDS: CALCIUM ACETATE 667 MG CAPSULE (FP) PO SCH (09:52)
[2020-01-18] MEDS ORDERED: NAPH,MB-DB/K PH,MBDB POWDER PACKET PO ONE (09:54)
[2020-01-18] MEDS: KCL 10 MEQ IVPB 10 MEQ/100 ML INFUS.BAG IVPB SCH ×2 (10:59→12:21)
[2020-01-18] MEDS ORDERED: LACTATED RINGERS SOLUTION 1000 ML INFUS.BAG IV ONE ×2 (11:34→23:30)
[2020-01-18] MEDS ORDERED: SODIUM CHLORIDE 250 ML IV PRN (12:23)
[2020-01-18] MEDS ORDERED: SODIUM CHLORIDE 0.9% 500 ML INFUS.BAG IV ONE ×2 (13:32→16:37)
[2020-01-18] MEDS ORDERED: PT OWN MED DRAWER 7, Y5N ONE ×2 (14:46→16:01)
[2020-01-18] MEDS: ERTAPENEM SODIUM 0.5 GM in SODIUM CHLORIDE 50 ML IVPB SCH (16:04)
[2020-01-18] MEDS ORDERED: VANCOMYCIN 1 GRAM (PRE-DOCKED) 1,000 MG/250 ML BAG IVPB ONE (20:30)
[2020-01-18] MEDS: CHLORHEXIDINE GLUCONATE 4% CLEANSER FOR DECOLONIZATION TP SCH (21:42)
[2020-01-19] MEDS: VASOPRESSIN 40 UNITS in SODIUM CHLORIDE 98 ML IVPB SCH (02:34)
[2020-01-19 07:22] LABS: HEMATOCRIT 31.3 % (35.4-49); HEMOGLOBIN 9.2 GM/dL (11.7-16.9); MCH 25.4 pg (25.7-33.7); MCHC 29.5 g/dl (32.0-35.9); MEAN CELL VOLUME 86.3 fl (80-96); MEAN PLT VOLUME 6.8 fl (7.5-11.1); PLATELET COUNT 209 K/MM3 (134-434); RBC 3.63 M/mm3 (4.00-5.60); RDW 22.4 % (11.9-15.9); WHITE BLOOD COUNT 12.2 K/mm3 (4.0-10.0)
[2020-01-19 07:35] LABS: POTASSIUM 3.4 mmol/L (3.5-5.1)
[2020-01-19 08:33] LABS: CALCIUM 8.2 mg/dL (8.5-10.1); MAGNESIUM 1.8 mg/dL (1.8-2.4)
[2020-01-19 08:35] LABS: BLOOD UREA NITROGEN 48.6 mg/dL (7-18)
[2020-01-19 08:59] LABS: CREATININE 8.3 mg/dL (0.55-1.3)
[2020-01-19] MEDS ORDERED: KCL 10 MEQ IVPB 10 MEQ/100 ML INFUS.BAG IVPB SCH (09:00)
[2020-01-19] MEDS ORDERED: NAPH,MB-DB/K PH,MBDB POWDER PACKET PO ONE (09:45)
[2020-01-19] MEDS: MUPIROCIN 2% TOPICAL OINTMENT FOR DECOLONIZATION NS SCH ×2 (11:09→21:35)
[2020-01-19] MEDS: AMIODARONE HCL 200 MG TABLET PO SCH (11:09)
[2020-01-19] MEDS: APIXABAN 5 MG TABLET PO SCH ×2 (11:09→21:35)
[2020-01-19] MEDS: ALLOPURINOL 100 MG TABLET (FP) PO SCH (11:09)
[2020-01-19] MEDS ORDERED: EPOETIN ALFA-EPBX 3,000 UNIT/ML VIAL IVPUSH ONE (12:23)
[2020-01-19] MEDS ORDERED: PT OWN MED DRAWER 7, Y5N ONE (14:23)
[2020-01-19] MEDS: ERTAPENEM SODIUM 0.5 GM in SODIUM CHLORIDE 50 ML IVPB SCH (14:30)
[2020-01-19 15:30] LABS: MAGNESIUM 1.5 mg/dL (1.8-2.4)
[2020-01-19 15:33] LABS: PHOSPHOROUS 1.3 mg/dL (2.5-4.9)
[2020-01-19 17:17] LABS: POTASSIUM 3.4 mmol/L (3.5-5.1)
[2020-01-19 17:23] LABS: BLOOD UREA NITROGEN 22.3 mg/dL (7-18); CREATININE 4.6 mg/dL (0.55-1.3)
[2020-01-19] MEDS: CHLORHEXIDINE GLUCONATE 4% CLEANSER FOR DECOLONIZATION TP SCH (21:35)
[2020-01-20] MEDS: NOREPINEPHRINE BITARTRATE 16,000 MCG in SODIUM CHLORIDE 484 ML IV SCH (06:53)
[2020-01-20] MEDS: VASOPRESSIN 40 UNITS in SODIUM CHLORIDE 98 ML IVPB SCH (06:54)
[2020-01-20 07:23] LABS: BASO % 1.9 % (0-2.0); HEMATOCRIT 30.8 % (35.4-49); HEMOGLOBIN 9.2 GM/dL (11.7-16.9); LYMPH % 13.8 % (8-40); MCH 25.7 pg (25.7-33.7); MCHC 29.9 g/dl (32.0-35.9); MEAN CELL VOLUME 86.1 fl (80-96); MEAN PLT VOLUME 6.8 fl (7.5-11.1); NEUT % 69.3 % (42.8-82.8); PLATELET COUNT 220 K/MM3 (134-434); RBC 3.58 M/mm3 (4.00-5.60); RDW 22.2 % (11.9-15.9); WHITE BLOOD COUNT 12.3 K/mm3 (4.0-10.0)
[2020-01-20 07:51] LABS: CHLORIDE 109 mmol/L (98-107); POTASSIUM 3.4 mmol/L (3.5-5.1); SODIUM 144 mmol/L (136-145)
[2020-01-20 08:01] LABS: CALCIUM 8.3 mg/dL (8.5-10.1)
[2020-01-20 08:02] LABS: ALBUMIN 1.8 g/dl (3.4-5.0); ANION GAP 5 MMOL/L (8-16); BLOOD UREA NITROGEN 25.7 mg/dL (7-18); CO2 30 mmol/L (21-32); GLUCOSE,RANDOM 86 mg/dL (74-106); MAGNESIUM 1.8 mg/dL (1.8-2.4)
[2020-01-20 08:05] LABS: CREATININE 5.4 mg/dL (0.55-1.3); PHOSPHOROUS 1.8 mg/dL (2.5-4.9); SGOT/AST 11 U/L (15-37); SGPT/ALT < 6 U/L (13-61)
[2020-01-20 08:07] LABS: BILIRUBIN,TOTAL 0.3 mg/dL (0.2-1); TOT PROT 5.6 g/dl (6.4-8.2)
[2020-01-20 08:08] LABS: ALK PHOS 107 U/L (45-117)
[2020-01-20] MEDS: APIXABAN 5 MG TABLET PO SCH ×2 (09:19→21:09)
[2020-01-20] MEDS: MUPIROCIN 2% TOPICAL OINTMENT FOR DECOLONIZATION NS SCH ×2 (09:19→21:09)
[2020-01-20] MEDS: AMIODARONE HCL 200 MG TABLET PO SCH (09:19)
[2020-01-20] MEDS ORDERED: POTASSIUM PHOSPHATE 10 MM in SODIUM CHLORIDE 250 ML IVPB ONE (10:00)
[2020-01-20 10:58] LABS: ANISOCYTOSIS 1+; MACROCYTOSIS 0; PLATELET ESTIMATE NORMAL
[2020-01-20] MEDS ORDERED: NAPH,MB-DB/K PH,MBDB POWDER PACKET PO ONE (12:15)
[2020-01-20] MEDS ORDERED: PT OWN MED DRAWER 7, Y5N ONE (12:46)
[2020-01-20] MEDS: ERTAPENEM SODIUM 0.5 GM in SODIUM CHLORIDE 50 ML IVPB SCH (13:21)
[2020-01-20] MEDS ORDERED: MAGNESIUM SULF 50% (8.12 MEQ/2 ML-1 GM VIAL) IVPB ONE (16:20)
[2020-01-20] MEDS ORDERED: SODIUM CHLORIDE 250 ML IV PRN (17:18)
[2020-01-20] MEDS ORDERED: POTASSIUM CHLORIDE ORAL LIQUID 20 MEQ/15 ML PO ONE (17:19)
[2020-01-20] MEDS: CHLORHEXIDINE GLUCONATE 4% CLEANSER FOR DECOLONIZATION TP SCH (21:09)
[2020-01-21] MEDS: VASOPRESSIN 40 UNITS in SODIUM CHLORIDE 98 ML IVPB SCH (02:45)
[2020-01-21 07:01] LABS: BASO % 1.4 % (0-2.0); EOS % 8.7 % (0-4.5); HEMATOCRIT 28.8 % (35.4-49); HEMOGLOBIN 8.8 GM/dL (11.7-16.9); LYMPH % 17.8 % (8-40); MCH 26.2 pg (25.7-33.7); MCHC 30.5 g/dl (32.0-35.9); MEAN PLT VOLUME 6.5 fl (7.5-11.1); NEUT % 67.1 % (42.8-82.8); PLATELET COUNT 213 K/MM3 (134-434); RBC 3.34 M/mm3 (4.00-5.60); RDW 21.8 % (11.9-15.9); WHITE BLOOD COUNT 8.9 K/mm3 (4.0-10.0)
[2020-01-21] MEDS: NOREPINEPHRINE BITARTRATE 16,000 MCG in SODIUM CHLORIDE 484 ML IV SCH (07:11)
[2020-01-21 07:31] LABS: POTASSIUM 3.7 mmol/L (3.5-5.1)
[2020-01-21 07:34] LABS: CALCIUM 8.1 mg/dL (8.5-10.1)
[2020-01-21 07:35] LABS: ALBUMIN 1.7 g/dl (3.4-5.0); BLOOD UREA NITROGEN 30.4 mg/dL (7-18); MAGNESIUM 2.1 mg/dL (1.8-2.4)
[2020-01-21 07:38] LABS: CREATININE 6.2 mg/dL (0.55-1.3)
[2020-01-21 07:39] LABS: BILIRUBIN,TOTAL 0.4 mg/dL (0.2-1); TOT PROT 5.2 g/dl (6.4-8.2)
[2020-01-21 07:53] LABS: PHOSPHOROUS 1.1 mg/dL (2.5-4.9)
[2020-01-21] MEDS ORDERED: EPOETIN ALFA-EPBX 4,000 UNIT/ML VIAL IVPUSH ONE (08:00)
[2020-01-21] MEDS ORDERED: NAPH,MB-DB/K PH,MBDB POWDER PACKET PO ONE (08:45)
[2020-01-21 09:27] LABS: ANISOCYTOSIS 2+; MACROCYTOSIS 0; PLATELET ESTIMATE NORMAL; TARGET CELLS 1+
[2020-01-21] MEDS: AMIODARONE HCL 200 MG TABLET PO SCH (09:32)
[2020-01-21] MEDS: ALLOPURINOL 100 MG TABLET (FP) PO SCH (09:32)
[2020-01-21] MEDS: APIXABAN 5 MG TABLET PO SCH ×2 (09:32→21:17)
[2020-01-21] MEDS: MUPIROCIN 2% TOPICAL OINTMENT FOR DECOLONIZATION NS SCH ×2 (09:33→21:17)
[2020-01-21] MEDS ORDERED: PT OWN MED DRAWER 7, Y5N ONE ×2 (14:27→15:30)
[2020-01-21] MEDS: ERTAPENEM SODIUM 0.5 GM in SODIUM CHLORIDE 50 ML IVPB SCH (15:34)
[2020-01-21] MEDS: CHLORHEXIDINE GLUCONATE 4% CLEANSER FOR DECOLONIZATION TP SCH (21:17)
[2020-01-22] MEDS: NOREPINEPHRINE BITARTRATE 16,000 MCG in SODIUM CHLORIDE 484 ML IV SCH (05:42)
[2020-01-22] MEDS: VASOPRESSIN 40 UNITS in SODIUM CHLORIDE 98 ML IVPB SCH (05:42)
[2020-01-22 07:31] LABS: POTASSIUM 3.5 mmol/L (3.5-5.1)
[2020-01-22 07:38] LABS: ALBUMIN 1.7 g/dl (3.4-5.0); BLOOD UREA NITROGEN 20.7 mg/dL (7-18); CALCIUM 7.6 mg/dL (8.5-10.1)
[2020-01-22 07:42] LABS: CREATININE 4.8 mg/dL (0.55-1.3)
[2020-01-22 07:43] LABS: BILIRUBIN,TOTAL 0.3 mg/dL (0.2-1); TOT PROT 5.5 g/dl (6.4-8.2)
[2020-01-22] MEDS: APIXABAN 5 MG TABLET PO SCH ×2 (09:38→22:30)
[2020-01-22] MEDS: AMIODARONE HCL 200 MG TABLET PO SCH (09:38)
[2020-01-22 11:30] LABS: PHOSPHOROUS 1.1 mg/dL (2.5-4.9)
[2020-01-22] MEDS ORDERED: POTASSIUM PHOSPHATE 30 MM in SODIUM CHLORIDE 250 ML IVPB ONE (12:00)
[2020-01-22] MEDS: ERTAPENEM SODIUM 0.5 GM in SODIUM CHLORIDE 50 ML IVPB SCH (13:17)
[2020-01-22] MEDS: AMINO ACIDS/PROTEIN HYDROLYS 30 ML LIQUID.PKT PO SCH (16:38)
[2020-01-22] MEDS: CHLORHEXIDINE GLUCONATE 4% CLEANSER FOR DECOLONIZATION TP SCH (22:30)
[2020-01-23] MEDS: NOREPINEPHRINE BITARTRATE 16,000 MCG in SODIUM CHLORIDE 484 ML IV SCH (00:07)
[2020-01-23] MEDS: VASOPRESSIN 40 UNITS in SODIUM CHLORIDE 98 ML IVPB SCH (05:34)
[2020-01-23 06:44] LABS: BASO % 0.8 % (0-2.0); EOS % 8.6 % (0-4.5); HEMATOCRIT 28.4 % (35.4-49); HEMOGLOBIN 8.8 GM/dL (11.7-16.9); LYMPH % 24.3 % (8-40); MCH 26.1 pg (25.7-33.7); MEAN CELL VOLUME 84.1 fl (80-96); MEAN PLT VOLUME 6.3 fl (7.5-11.1); MONO % 5.2 % (3.8-10.2); NEUT % 61.1 % (42.8-82.8); PLATELET COUNT 198 K/MM3 (134-434); RBC 3.37 M/mm3 (4.00-5.60); RDW 21.7 % (11.9-15.9); WHITE BLOOD COUNT 9.2 K/mm3 (4.0-10.0)
[2020-01-23 07:20] LABS: POTASSIUM 3.5 mmol/L (3.5-5.1)
[2020-01-23 07:22] LABS: CALCIUM 7.4 mg/dL (8.5-10.1)
[2020-01-23 07:23] LABS: ALBUMIN 1.7 g/dl (3.4-5.0); BLOOD UREA NITROGEN 25.2 mg/dL (7-18); MAGNESIUM 1.6 mg/dL (1.8-2.4)
[2020-01-23 07:26] LABS: CREATININE 5.3 mg/dL (0.55-1.3); PHOSPHOROUS 2.2 mg/dL (2.5-4.9)
[2020-01-23 07:27] LABS: BILIRUBIN,TOTAL 0.3 mg/dL (0.2-1)
[2020-01-23 07:28] LABS: TOT PROT 5.4 g/dl (6.4-8.2)
[2020-01-23] MEDS: AMINO ACIDS/PROTEIN HYDROLYS 30 ML LIQUID.PKT PO SCH ×2 (07:40→17:13)
[2020-01-23] MEDS ORDERED: MAGNESIUM OXIDE 400 MG TABLET (FP) PO ONE (09:00)
[2020-01-23] MEDS: AMIODARONE HCL 200 MG TABLET PO SCH (09:09)
[2020-01-23] MEDS: ALLOPURINOL 100 MG TABLET (FP) PO SCH (09:09)
[2020-01-23] MEDS: APIXABAN 5 MG TABLET PO SCH ×2 (09:09→21:30)
[2020-01-23 10:39] LABS: ANISOCYTOSIS 3+; MACROCYTOSIS 1+; PLATELET ESTIMATE ADEQUATE
[2020-01-23] MEDS ORDERED: PT OWN MED DRAWER 7, Y5N ONE (12:09)
[2020-01-23] MEDS ORDERED: SODIUM CHLORIDE 250 ML IV PRN (13:30)
[2020-01-23] MEDS: MIDODRINE HCL 5 MG TABLET PO SCH ×2 (13:33→17:13)
[2020-01-23] MEDS: ERTAPENEM SODIUM 0.5 GM in SODIUM CHLORIDE 50 ML IVPB SCH (14:15)
[2020-01-23] MEDS: CHLORHEXIDINE GLUCONATE 4% CLEANSER FOR DECOLONIZATION TP SCH (21:30)
[2020-01-24] MEDS: VASOPRESSIN 40 UNITS in SODIUM CHLORIDE 98 ML IVPB SCH (06:21)
[2020-01-24] MEDS: NOREPINEPHRINE BITARTRATE 16,000 MCG in SODIUM CHLORIDE 484 ML IV SCH (06:21)
[2020-01-24 07:10] LABS: POTASSIUM 3.4 mmol/L (3.5-5.1)
[2020-01-24 07:11] LABS: CALCIUM 7.7 mg/dL (8.5-10.1)
[2020-01-24 07:12] LABS: BLOOD UREA NITROGEN 30.9 mg/dL (7-18); MAGNESIUM 1.6 mg/dL (1.8-2.4)
[2020-01-24 07:15] LABS: PHOSPHOROUS 2.6 mg/dL (2.5-4.9)
[2020-01-24 07:17] LABS: CREATININE 6.1 mg/dL (0.55-1.3)
[2020-01-24 07:20] LABS: BASO % 2.1 % (0-2.0); EOS % 9.7 % (0-4.5); HEMATOCRIT 29.6 % (35.4-49); HEMOGLOBIN 9.1 GM/dL (11.7-16.9); LYMPH % 20.1 % (8-40); MCH 25.9 pg (25.7-33.7); MCHC 30.8 g/dl (32.0-35.9); MEAN CELL VOLUME 84.1 fl (80-96); MEAN PLT VOLUME 6.4 fl (7.5-11.1); MONO % 4.5 % (3.8-10.2); NEUT % 63.6 % (42.8-82.8); PLATELET COUNT 231 K/MM3 (134-434); RBC 3.52 M/mm3 (4.00-5.60); RDW 21.3 % (11.9-15.9); WHITE BLOOD COUNT 12.5 K/mm3 (4.0-10.0)
[2020-01-24] MEDS: AMINO ACIDS/PROTEIN HYDROLYS 30 ML LIQUID.PKT PO SCH ×2 (09:35→17:19)
[2020-01-24] MEDS: APIXABAN 5 MG TABLET PO SCH ×2 (09:35→21:29)
[2020-01-24] MEDS: AMIODARONE HCL 200 MG TABLET PO SCH (09:35)
[2020-01-24] MEDS: MIDODRINE HCL 5 MG TABLET PO SCH ×3 (09:35→17:19)
[2020-01-24] MEDS ORDERED: EPOETIN ALFA-EPBX 10,000 UNIT/ML VIAL IVPUSH ONE (10:15)
[2020-01-24 10:21] LABS: OVALOCYTE 1+
[2020-01-24] MEDS: ALBUMIN HUMAN 25% 12.5 GM/50 ML VIAL IVPB SCH ×4 (14:40→16:10)
[2020-01-24] MEDS: CHLORHEXIDINE GLUCONATE 4% CLEANSER FOR DECOLONIZATION TP SCH (21:29)
[2020-01-24] MEDS ORDERED: ERTAPENEM SODIUM 0.5 GM in SODIUM CHLORIDE 50 ML IVPB SCH (22:00)
[2020-01-25] MEDS: NOREPINEPHRINE BITARTRATE 16,000 MCG in SODIUM CHLORIDE 484 ML IV SCH (05:30)
[2020-01-25 06:55] LABS: HEMATOCRIT 29.3 % (35.4-49); MCH 25.7 pg (25.7-33.7); MCHC 30.5 g/dl (32.0-35.9); MEAN CELL VOLUME 84.2 fl (80-96); MEAN PLT VOLUME 6.5 fl (7.5-11.1); PLATELET COUNT 208 K/MM3 (134-434); RBC 3.48 M/mm3 (4.00-5.60); RDW 21.3 % (11.9-15.9); WHITE BLOOD COUNT 12.7 K/mm3 (4.0-10.0)
[2020-01-25 07:26] LABS: ALBUMIN 1.7 g/dl (3.4-5.0); BLOOD UREA NITROGEN 19.4 mg/dL (7-18); CALCIUM 7.7 mg/dL (8.5-10.1); MAGNESIUM 1.6 mg/dL (1.8-2.4)
[2020-01-25 07:29] LABS: CREATININE 4.1 mg/dL (0.55-1.3); PHOSPHOROUS 1.9 mg/dL (2.5-4.9)
[2020-01-25 07:30] LABS: BILIRUBIN,TOTAL 0.4 mg/dL (0.2-1); TOT PROT 5.4 g/dl (6.4-8.2)
[2020-01-25] MEDS ORDERED: MAGNESIUM OXIDE 400 MG TABLET (FP) PO ONE (08:34)
[2020-01-25] MEDS: AMINO ACIDS/PROTEIN HYDROLYS 30 ML LIQUID.PKT PO SCH ×2 (09:10→17:23)
[2020-01-25] MEDS: AMIODARONE HCL 200 MG TABLET PO SCH (09:10)
[2020-01-25] MEDS: APIXABAN 5 MG TABLET PO SCH ×2 (09:11→22:34)
[2020-01-25] MEDS: ALLOPURINOL 100 MG TABLET (FP) PO SCH (09:11)
[2020-01-25] MEDS: MIDODRINE HCL 5 MG TABLET PO SCH ×3 (09:12→17:23)
[2020-01-25] MEDS ORDERED: POTASSIUM CHLORIDE TABS 20 MEQ TABLET.ER (FP) PO SCH (10:00)
[2020-01-25] MEDS: FLUDROCORTISONE ACETATE 0.1 MG TABLET (FP) PO SCH (11:57)
[2020-01-25] MEDS ORDERED: NAPH,MB-DB/K PH,MBDB POWDER PACKET PO ONE (13:35)
[2020-01-25] MEDS: ERTAPENEM SODIUM 0.5 GM in SODIUM CHLORIDE 50 ML IVPB SCH (22:34)
[2020-01-25] MEDS: CHLORHEXIDINE GLUCONATE 4% CLEANSER FOR DECOLONIZATION TP SCH (22:34)
[2020-01-26 06:59] LABS: HEMATOCRIT 30.6 % (35.4-49); HEMOGLOBIN 9.3 GM/dL (11.7-16.9); MCH 25.9 pg (25.7-33.7); MCHC 30.5 g/dl (32.0-35.9); MEAN PLT VOLUME 6.9 fl (7.5-11.1); PLATELET COUNT 203 K/MM3 (134-434); RDW 21.4 % (11.9-15.9); WHITE BLOOD COUNT 10.9 K/mm3 (4.0-10.0)
[2020-01-26 07:48] LABS: POTASSIUM 3.8 mmol/L (3.5-5.1)
[2020-01-26 07:57] LABS: ALBUMIN 1.6 g/dl (3.4-5.0); CALCIUM 7.6 mg/dL (8.5-10.1); MAGNESIUM 1.6 mg/dL (1.8-2.4)
[2020-01-26 08:00] LABS: PHOSPHOROUS 3.1 mg/dL (2.5-4.9)
[2020-01-26 08:01] LABS: BILIRUBIN,TOTAL 0.3 mg/dL (0.2-1); TOT PROT 5.4 g/dl (6.4-8.2)
[2020-01-26 08:02] LABS: CREATININE 4.8 mg/dL (0.55-1.3)
[2020-01-26] MEDS ORDERED: MAGNESIUM OXIDE 400 MG TABLET (FP) PO ONE (09:03)
[2020-01-26] MEDS: APIXABAN 5 MG TABLET PO SCH ×2 (09:17→21:27)
[2020-01-26] MEDS: AMINO ACIDS/PROTEIN HYDROLYS 30 ML LIQUID.PKT PO SCH ×2 (09:17→18:38)
[2020-01-26] MEDS: AMIODARONE HCL 200 MG TABLET PO SCH (09:17)
[2020-01-26] MEDS: MIDODRINE HCL 5 MG TABLET PO SCH ×3 (09:17→18:38)
[2020-01-26] MEDS: FLUDROCORTISONE ACETATE 0.1 MG TABLET (FP) PO SCH (09:17)
[2020-01-26] MEDS ORDERED: SODIUM CHLORIDE 250 ML IV PRN (11:00)
[2020-01-26] MEDS ORDERED: EPOETIN ALFA-EPBX 10,000 UNIT/ML VIAL IVPUSH ONE (11:00)
[2020-01-26] MEDS ORDERED: BACITRACIN 15 GM TUBE TOPICAL OINTMENT TP ONE (11:07)
[2020-01-26] MEDS ORDERED: VANCOMYCIN HCL 1,500 MG/500 ML BAG IVPB ONE (12:00)
[2020-01-26] MEDS ORDERED: VANCOMYCIN HCL 1,500 MG in DEXTROSE 5%-WATER - 500 ML IVPB ONE (12:00)
[2020-01-26] MEDS ORDERED: VANCOMYCIN HCL 1,500 MG in DEXTROSE 5%-WATER - 500 ML IVPB SCH (13:00)
[2020-01-26] MEDS ORDERED: PT OWN MED DRAWER 7, Y5N ONE ×2 (15:12→21:12)
[2020-01-26] MEDS: VASOPRESSIN 40 UNITS in SODIUM CHLORIDE 98 ML IVPB SCH ×2 (15:39→15:40)
[2020-01-26] MEDS: CHLORHEXIDINE GLUCONATE 4% CLEANSER FOR DECOLONIZATION TP SCH (21:27)
[2020-01-27] MEDS: AMINO ACIDS/PROTEIN HYDROLYS 30 ML LIQUID.PKT PO SCH ×2 (09:22→17:25)
[2020-01-27] MEDS: AMIODARONE HCL 200 MG TABLET PO SCH (09:28)
[2020-01-27] MEDS: BACITRACIN 15 GM TUBE TOPICAL OINTMENT TP SCH (09:28)
[2020-01-27] MEDS: ALLOPURINOL 100 MG TABLET (FP) PO SCH (09:28)
[2020-01-27] MEDS: APIXABAN 5 MG TABLET PO SCH ×2 (09:28→21:57)
[2020-01-27] MEDS: FLUDROCORTISONE ACETATE 0.1 MG TABLET (FP) PO SCH (09:28)
[2020-01-27] MEDS: MIDODRINE HCL 5 MG TABLET PO SCH ×3 (09:28→17:25)
[2020-01-27] MEDS ORDERED: SODIUM CHLORIDE 250 ML IV PRN (13:47)
[2020-01-27] MEDS ORDERED: PT OWN MED DRAWER 7, Y5N ONE (15:26)
[2020-01-27 16:32] VITALS: BMI 49.7
[2020-01-27] MEDS ORDERED: ERTAPENEM SODIUM 1 GM VIAL ONE (21:53)
[2020-01-27] MEDS ORDERED: SODIUM CHLORIDE 50 ML IVPB ONE (21:54)
[2020-01-27] MEDS: ERTAPENEM SODIUM 0.5 GM in SODIUM CHLORIDE 50 ML IVPB SCH (21:57)
[2020-01-27] MEDS: CHLORHEXIDINE GLUCONATE 4% CLEANSER FOR DECOLONIZATION TP SCH (22:00)
[2020-01-28] MEDS ORDERED: EPOETIN ALFA-EPBX 10,000 UNIT/ML VIAL IVPUSH ONE (12:15)
[2020-01-28 12:16] LABS: HEMATOCRIT 29.8 % (35.4-49); HEMOGLOBIN 9.4 GM/dL (11.7-16.9); MCH 27.2 pg (25.7-33.7); MCHC 31.6 g/dl (32.0-35.9); MEAN CELL VOLUME 86.2 fl (80-96); MEAN PLT VOLUME 6.9 fl (7.5-11.1); PLATELET COUNT 237 K/MM3 (134-434); RBC 3.46 M/mm3 (4.00-5.60); RDW 21.5 % (11.9-15.9); WHITE BLOOD COUNT 9.5 K/mm3 (4.0-10.0)
[2020-01-28 12:28] LABS: POTASSIUM 3.1 mmol/L (3.5-5.1)
[2020-01-28 12:29] LABS: CALCIUM 7.2 mg/dL (8.5-10.1)
[2020-01-28 12:30] LABS: BLOOD UREA NITROGEN 17.4 mg/dL (7-18)
[2020-01-28 12:33] LABS: CREATININE 4.7 mg/dL (0.55-1.3)
[2020-01-28] MEDS: ALBUMIN HUMAN 25% 12.5 GM/50 ML VIAL IVPB SCH ×2 (15:16→15:17)
[2020-01-28] MEDS: FLUDROCORTISONE ACETATE 0.1 MG TABLET (FP) PO SCH (17:05)
[2020-01-28] MEDS: AMIODARONE HCL 200 MG TABLET PO SCH (17:05)
[2020-01-28] MEDS: BACITRACIN 15 GM TUBE TOPICAL OINTMENT TP SCH (17:05)
[2020-01-28] MEDS: AMINO ACIDS/PROTEIN HYDROLYS 30 ML LIQUID.PKT PO SCH (17:05)
[2020-01-28] MEDS: MIDODRINE HCL 5 MG TABLET PO SCH ×3 (17:06→17:45)
[2020-01-28] MEDS: APIXABAN 5 MG TABLET PO SCH ×2 (17:43→21:47)
[2020-01-28] MEDS ORDERED: VANCOMYCIN HCL 1,500 MG/500 ML BAG IVPB ONE (20:34)
[2020-01-28] MEDS ORDERED: SODIUM CHLORIDE 50 ML IVPB ONE (21:03)
[2020-01-28] MEDS ORDERED: ERTAPENEM SODIUM 1 GM VIAL ONE (21:03)
[2020-01-28] MEDS: ERTAPENEM SODIUM 0.5 GM in SODIUM CHLORIDE 50 ML IVPB SCH ×2 (21:47→22:28)
[2020-01-29] MEDS: AMINO ACIDS/PROTEIN HYDROLYS 30 ML LIQUID.PKT PO SCH ×2 (09:45→17:01)
[2020-01-29] MEDS ORDERED: PT OWN MED DRAWER 7, Y5N ONE (10:29)
[2020-01-29] MEDS: MIDODRINE HCL 5 MG TABLET PO SCH ×4 (10:37→17:01)
[2020-01-29] MEDS: APIXABAN 5 MG TABLET PO SCH ×2 (10:37→21:53)
[2020-01-29] MEDS: AMIODARONE HCL 200 MG TABLET PO SCH (10:37)
[2020-01-29] MEDS: ALLOPURINOL 100 MG TABLET (FP) PO SCH (10:38)
[2020-01-29] MEDS: FLUDROCORTISONE ACETATE 0.1 MG TABLET (FP) PO SCH (10:38)
[2020-01-29] MEDS: BACITRACIN 15 GM TUBE TOPICAL OINTMENT TP SCH (15:18)
[2020-01-29] MEDS: ERTAPENEM SODIUM 0.5 GM in SODIUM CHLORIDE 50 ML IVPB SCH (21:52)
[2020-01-30] MEDS ORDERED: PT OWN MED DRAWER 7, Y5N ONE (08:58)
[2020-01-30] MEDS: AMINO ACIDS/PROTEIN HYDROLYS 30 ML LIQUID.PKT PO SCH ×2 (10:15→18:30)
[2020-01-30] MEDS: BACITRACIN 15 GM TUBE TOPICAL OINTMENT TP SCH (10:15)
[2020-01-30] MEDS: AMIODARONE HCL 200 MG TABLET PO SCH (10:19)
[2020-01-30] MEDS: FLUDROCORTISONE ACETATE 0.1 MG TABLET (FP) PO SCH (10:19)
[2020-01-30] MEDS: MIDODRINE HCL 5 MG TABLET PO SCH ×3 (10:19→21:18)
[2020-01-30] MEDS: APIXABAN 5 MG TABLET PO SCH ×2 (10:19→21:18)
[2020-01-30] MEDS ORDERED: SODIUM CHLORIDE 250 ML IV PRN (14:23)
[2020-01-30] MEDS ORDERED: ERTAPENEM SODIUM 1 GM VIAL ONE (21:12)
[2020-01-30] MEDS ORDERED: SODIUM CHLORIDE 50 ML IVPB ONE (21:13)
[2020-01-30] MEDS: MIRTAZAPINE 15 MG TABLET (FP) PO SCH (21:18)
[2020-01-30] MEDS: ERTAPENEM SODIUM 0.5 GM in SODIUM CHLORIDE 50 ML IVPB SCH (21:19)
[2020-01-31] MEDS ORDERED: EPOETIN ALFA-EPBX 10,000 UNIT/ML VIAL IVPUSH ONE (10:45)
[2020-01-31] MEDS ORDERED: EPOETIN ALFA 10,000 UNIT/1 ML VIAL IVPUSH ONE (10:45)
[2020-01-31 11:12] LABS: HEMATOCRIT 28.9 % (35.4-49); HEMOGLOBIN 9.1 GM/dL (11.7-16.9); MCH 27.2 pg (25.7-33.7); MCHC 31.4 g/dl (32.0-35.9); MEAN CELL VOLUME 86.5 fl (80-96); MEAN PLT VOLUME 6.9 fl (7.5-11.1); PLATELET COUNT 244 K/MM3 (134-434); RBC 3.33 M/mm3 (4.00-5.60); WHITE BLOOD COUNT 10.7 K/mm3 (4.0-10.0)
[2020-01-31 11:42] LABS: CALCIUM 7.3 mg/dL (8.5-10.1)
[2020-01-31 11:46] LABS: CREATININE 5.2 mg/dL (0.55-1.3)
[2020-01-31 12:34] LABS: POTASSIUM 2.8 mmol/L (3.5-5.1)
[2020-01-31] MEDS ORDERED: POTASSIUM CHLORIDE ORAL LIQUID 20 MEQ/15 ML PO ONE ×2 (13:43→19:30)
[2020-01-31] MEDS: AMINO ACIDS/PROTEIN HYDROLYS 30 ML LIQUID.PKT PO SCH ×2 (13:57→19:00)
[2020-01-31] MEDS: MIDODRINE HCL 5 MG TABLET PO SCH ×3 (13:58→18:59)
[2020-01-31] MEDS: APIXABAN 5 MG TABLET PO SCH ×2 (16:04→21:17)
[2020-01-31] MEDS: AMIODARONE HCL 200 MG TABLET PO SCH (16:04)
[2020-01-31] MEDS: SERTRALINE HCL 25 MG TABLET (FP) PO SCH (16:07)
[2020-01-31] MEDS: KCL 10 MEQ IVPB 10 MEQ/100 ML INFUS.BAG IVPB SCH ×2 (16:08→18:43)
[2020-01-31] MEDS ORDERED: PT OWN MED DRAWER 7, Y5N ONE ×2 (16:10→20:04)
[2020-01-31] MEDS: AMMONIUM LACTATE 12% LOTION 225 GM BOTTLE TP SCH ×2 (16:15→21:18)
[2020-01-31] MEDS: FLUDROCORTISONE ACETATE 0.1 MG TABLET (FP) PO SCH (16:16)
[2020-01-31] MEDS: ALLOPURINOL 100 MG TABLET (FP) PO SCH (16:16)
[2020-01-31] MEDS: BACITRACIN 15 GM TUBE TOPICAL OINTMENT TP SCH (16:16)
[2020-01-31] MEDS: NYSTATIN POWDER 100,000 UNITS/GM - 15 GM TOPICAL POWDER TP SCH ×2 (16:17→21:19)
[2020-01-31] MEDS: MIRTAZAPINE 15 MG TABLET (FP) PO SCH (21:17)
[2020-02-01 07:47] LABS: POTASSIUM 3.2 mmol/L (3.5-5.1)
[2020-02-01 08:06] LABS: ALBUMIN 1.9 g/dl (3.4-5.0); BLOOD UREA NITROGEN 10.8 mg/dL (7-18); CALCIUM 7.8 mg/dL (8.5-10.1); MAGNESIUM 1.9 mg/dL (1.8-2.4)
[2020-02-01 08:09] LABS: CREATININE 3.8 mg/dL (0.55-1.3)
[2020-02-01 08:11] LABS: BILIRUBIN,TOTAL 0.4 mg/dL (0.2-1); TOT PROT 5.9 g/dl (6.4-8.2)
[2020-02-01] MEDS: MIDODRINE HCL 5 MG TABLET PO SCH (10:25)
[2020-02-01] MEDS: AMIODARONE HCL 200 MG TABLET PO SCH (10:25)
[2020-02-01] MEDS: AMINO ACIDS/PROTEIN HYDROLYS 30 ML LIQUID.PKT PO SCH (10:25)
[2020-02-01] MEDS: FLUDROCORTISONE ACETATE 0.1 MG TABLET (FP) PO SCH (10:26)
[2020-02-01] MEDS: APIXABAN 5 MG TABLET PO SCH (10:26)
[2020-02-01] MEDS: SERTRALINE HCL 25 MG TABLET (FP) PO SCH (10:28)
[2020-02-01] MEDS: BACITRACIN 15 GM TUBE TOPICAL OINTMENT TP SCH (10:28)
[2020-02-01] MEDS: AMMONIUM LACTATE 12% LOTION 225 GM BOTTLE TP SCH (10:28)
[2020-02-01] MEDS: NYSTATIN POWDER 100,000 UNITS/GM - 15 GM TOPICAL POWDER TP SCH (10:28)
[2020-02-01] MEDS ORDERED: POTASSIUM CHLORIDE ORAL LIQUID 20 MEQ/15 ML PO ONE (12:19)
[2020-02-01] MEDS ORDERED: SODIUM CHLORIDE 250 ML IV PRN (12:22)
[2020-02-01 14:56] VITALS: BP 125/65; PULSE 91; TEMP 97.8
[2020-02-02] MEDS ORDERED: EPOETIN ALFA 10,000 UNIT/1 ML VIAL IVPUSH ONE (12:22)
== END 2020-02-01 17:42 | DRG 720 ==
LOC: JER 18:39 → JERBED 23:08 → JICU 23:52 → J7W 01-27 20:24
PROVIDERS: ADMIT Internal Medicine Pulmonary Disease; ATTEND Internal Medicine
DX: A41.9 Sepsis, unspecified organism (principal); J96.01 Acute respiratory failure with hypoxia; E66.01 Morbid (severe) obesity due to excess calories; I87.8 Other specified disorders of veins; G47.33 Obstructive sleep apnea (adult) (pediatric); E87.6 Hypokalemia; D63.1 Anemia in chronic kidney disease; D72.829 Elevated white blood cell count, unspecified; N39.0 Urinary tract infection, site not specified; R65.21 Severe sepsis with septic shock; N18.6 End stage renal disease; Z68.42 Body mass index [BMI] 45.0-49.9, adult; I13.2 Hypertensive heart and chronic kidney disease with heart failure and with stage 5 chronic kidney disease, or end stage renal disease; I48.91 Unspecified atrial fibrillation; I95.9 Hypotension, unspecified; E11.22 Type 2 diabetes mellitus with diabetic chronic kidney disease; F32.9 Major depressive disorder, single episode, unspecified; E87.70 Fluid overload, unspecified; G92 Toxic encephalopathy
CPT/HCPCS: 36415; 70450-TC; 71045-TC-FY; 80048; 80053; 81003; 82728; 82803; 82962; 83036; 83540; 83550; 83605; 83735; 84100; 84439; 84443; 84484; 85025; 85027; 85610; 85730; 87040; 87077; 87086; 93005; 93010; 93306-TC; 99285-25; C9803; G0480; Q5106; U0003

== ENCOUNTER 2020-02-20 23:50 | Emergency (ER) | payer OTHER ==
[2020-02-21 00:07] VITALS: BMI 45.8
[2020-02-21 01:08] LABS: HEMATOCRIT 28.7 % (35.4-49); MCH 27.1 pg (25.7-33.7); MCHC 31.4 g/dl (32.0-35.9); MEAN CELL VOLUME 86.3 fl (80-96); MEAN PLT VOLUME 7.1 fl (7.5-11.1); PLATELET COUNT 305 K/MM3 (134-434); RBC 3.33 M/mm3 (4.00-5.60); RDW 19.4 % (11.9-15.9); WHITE BLOOD COUNT 15.7 K/mm3 (4.0-10.0)
[2020-02-21 08:15] VITALS: BP 113/61; PULSE 88; TEMP 98.3
== END 2020-02-21 08:48 | disposition home or self-care (01) ==
LOC: JER 23:50
DX: R04.0 Epistaxis (principal)
CPT/HCPCS: 36415; 85027; 99283-25

== ENCOUNTER 2020-06-28 14:25 | Inpatient (IN) | payer OTHER ==
[2020-06-28 16:06] LABS: BASO % 0.6 % (0-2.0); HEMATOCRIT 39.1 % (35.4-49); HEMOGLOBIN 12.8 GM/dL (11.7-16.9); LYMPH % 0.9 % (8-40); MCH 28.1 pg (25.7-33.7); MCHC 32.7 g/dl (32.0-35.9); MEAN CELL VOLUME 85.7 fl (80-96); MEAN PLT VOLUME 7.6 fl (7.5-11.1); MONO % 2.9 % (3.8-10.2); NEUT % 95.6 % (42.8-82.8); PLATELET COUNT 182 K/MM3 (134-434); RBC 4.56 M/mm3 (4.00-5.60); RDW 16.1 % (11.9-15.9); WHITE BLOOD COUNT 23.7 K/mm3 (4.0-10.0)
[2020-06-28 16:13] LABS: INR 1.87 (0.83-1.09); PROTHROMBIN TIME (PATIENT) 22.2 SEC (9.7-13.0)
[2020-06-28 16:16] LABS: ACTIVATED PTT 33.1 SECONDS (25.2-36.5)
[2020-06-28 16:28] LABS: CHLORIDE 94 mmol/L (98-107); SODIUM 132 mmol/L (136-145)
[2020-06-28 16:30] LABS: CALCIUM 9.7 mg/dL (8.5-10.1)
[2020-06-28 16:31] LABS: ALBUMIN 3.2 g/dl (3.4-5.0); ANION GAP 9 MMOL/L (8-16); BLOOD UREA NITROGEN 33.9 mg/dL (7-18); CO2 29 mmol/L (21-32); GLUCOSE,RANDOM 127 mg/dL (74-106)
[2020-06-28 16:34] LABS: CREATININE 4.4 mg/dL (0.55-1.3); SGOT/AST 24 U/L (15-37); SGPT/ALT 32 U/L (13-61)
[2020-06-28] MEDS ORDERED: VANCOMYCIN 1 GM in D5W (PRE-DOCKED) 1,000 MG/250 ML IVPB ONE (16:34)
[2020-06-28] MEDS ORDERED: PIPERACILLIN/TAZOB 3.375 GM 3.375 GM in DEXTROSE 5%-WATER - 50 ML IVPB ONE (16:34)
[2020-06-28 16:35] LABS: BILIRUBIN,TOTAL 0.6 mg/dL (0.2-1)
[2020-06-28 16:37] LABS: ALK PHOS 99 U/L (45-117)
[2020-06-28] MEDS ORDERED: VANCOMYCIN 1 GRAM (PRE-DOCKED) 1,000 MG/250 ML BAG IVPB ONE (16:52)
[2020-06-28] MEDS ORDERED: PIPERACILLIN/TAZOB 3.375 GM 3.375 GM/50 ML BAG IVPB ONE (16:52)
[2020-06-28 17:37] LABS: PLATELET ESTIMATE ADEQUATE
[2020-06-28] MEDS ORDERED: SODIUM CHLORIDE 250 ML IV PRN (17:48)
[2020-06-28] MEDS: ALLOPURINOL 100 MG TABLET (FP) PO SCH (20:26)
[2020-06-28] MEDS ORDERED: ACETAMINOPHEN 325 MG TABLET (FP) ONE (21:10)
[2020-06-28] MEDS: ACETAMINOPHEN 325 MG TABLET (FP) PO PRN (21:22)
[2020-06-28] MEDS: APIXABAN 5 MG TABLET PO SCH (22:07)
[2020-06-28 23:22] VITALS: BMI 44.4
[2020-06-29] MEDS ORDERED: PNEUMOC 13-VAL CONJ-DIP CRM/PF 0.5 ML DISP.SYRIN IM ONE (09:00)
[2020-06-29] MEDS ORDERED: PT OWN MED DRAWER 7, Y5N ONE (09:15)
[2020-06-29] MEDS: ACETAMINOPHEN 325 MG TABLET (FP) PO PRN (10:05)
[2020-06-29] MEDS: AMIODARONE HCL 200 MG TABLET PO SCH (10:06)
[2020-06-29] MEDS: APIXABAN 5 MG TABLET PO SCH ×2 (10:06→22:09)
[2020-06-29] MEDS: PANTOPRAZOLE 40 MG TABLET PO SCH (10:06)
[2020-06-29] MEDS ORDERED: VANCOMYCIN 1 GRAM (PRE-DOCKED) 1,000 MG/250 ML BAG IVPB ONE (16:36)
[2020-06-30] MEDS: PANTOPRAZOLE 40 MG TABLET PO SCH (09:51)
[2020-06-30] MEDS: AMIODARONE HCL 200 MG TABLET PO SCH (09:51)
[2020-06-30] MEDS: APIXABAN 5 MG TABLET PO SCH ×2 (09:51→21:02)
[2020-06-30] MEDS: SILVER SULFADIAZINE 1% TOP CREAM 50 GM JAR TP SCH (12:23)
[2020-06-30] MEDS: ALLOPURINOL 100 MG TABLET (FP) PO SCH (17:24)
[2020-07-01] MEDS ORDERED: MORPHINE SULFATE 2 MG/ML VIAL IVPUSH ONE (02:15)
[2020-07-01 08:10] LABS: HEMATOCRIT 34.4 % (35.4-49); HEMOGLOBIN 11.2 GM/dL (11.7-16.9); MCH 28.4 pg (25.7-33.7); MCHC 32.6 g/dl (32.0-35.9); MEAN CELL VOLUME 86.9 fl (80-96); MEAN PLT VOLUME 8.2 fl (7.5-11.1); PLATELET COUNT 149 K/MM3 (134-434); RBC 3.96 M/mm3 (4.00-5.60); RDW 16.1 % (11.9-15.9); WHITE BLOOD COUNT 9.4 K/mm3 (4.0-10.0)
[2020-07-01] MEDS ORDERED: SODIUM CHLORIDE 250 ML IV PRN (08:58)
[2020-07-01] MEDS: ACETAMINOPHEN 325 MG TABLET (FP) PO PRN (10:14)
[2020-07-01] MEDS: APIXABAN 5 MG TABLET PO SCH ×2 (10:15→21:26)
[2020-07-01] MEDS: PANTOPRAZOLE 40 MG TABLET PO SCH (10:15)
[2020-07-01] MEDS: AMIODARONE HCL 200 MG TABLET PO SCH (10:15)
[2020-07-01] MEDS: SILVER SULFADIAZINE 1% TOP CREAM 50 GM JAR TP SCH (10:16)
[2020-07-01] MEDS ORDERED: VANCOMYCIN 500 MG in DEXTROSE 5%-WATER - 100 ML IVPB ONE (12:43)
[2020-07-01] MEDS ORDERED: PT OWN MED DRAWER 7, Y5N ONE ×2 (14:18→14:35)
[2020-07-02] MEDS ORDERED: EPOETIN ALFA-EPBX 10,000 UNIT/ML VIAL SQ ONE (08:58)
[2020-07-02] MEDS: AMIODARONE HCL 200 MG TABLET PO SCH (10:32)
[2020-07-02] MEDS: APIXABAN 5 MG TABLET PO SCH ×2 (10:32→22:15)
[2020-07-02] MEDS: PANTOPRAZOLE 40 MG TABLET PO SCH (10:32)
[2020-07-02] MEDS: SILVER SULFADIAZINE 1% TOP CREAM 50 GM JAR TP SCH (10:33)
[2020-07-02] MEDS: ALLOPURINOL 100 MG TABLET (FP) PO SCH (17:58)
[2020-07-03] MEDS: AMIODARONE HCL 200 MG TABLET PO SCH (09:18)
[2020-07-03] MEDS: PANTOPRAZOLE 40 MG TABLET PO SCH (09:19)
[2020-07-03] MEDS: SILVER SULFADIAZINE 1% TOP CREAM 50 GM JAR TP SCH (09:19)
[2020-07-03] MEDS: APIXABAN 5 MG TABLET PO SCH ×2 (09:19→21:54)
[2020-07-03] MEDS: NYSTATIN POWDER 100,000 UNITS/GM - 15 GM TOPICAL POWDER TP SCH ×2 (16:27→21:59)
[2020-07-04] MEDS ORDERED: VANCOMYCIN 1 GRAM (PRE-DOCKED) 1,000 MG/250 ML BAG IVPB ONE (12:53)
[2020-07-04] MEDS ORDERED: SODIUM CHLORIDE 250 ML IV PRN (14:27)
[2020-07-04] MEDS: NYSTATIN POWDER 100,000 UNITS/GM - 15 GM TOPICAL POWDER TP SCH ×2 (16:51→21:21)
[2020-07-04] MEDS: PANTOPRAZOLE 40 MG TABLET PO SCH (16:52)
[2020-07-04] MEDS: SILVER SULFADIAZINE 1% TOP CREAM 50 GM JAR TP SCH (18:08)
[2020-07-04] MEDS: APIXABAN 5 MG TABLET PO SCH ×2 (19:02→21:13)
[2020-07-04] MEDS ORDERED: PT OWN MED DRAWER 7, Y5N ONE (19:04)
[2020-07-04] MEDS: AMIODARONE HCL 200 MG TABLET PO SCH (19:05)
[2020-07-04] MEDS: ALLOPURINOL 100 MG TABLET (FP) PO SCH (19:05)
[2020-07-05] MEDS ORDERED: PT OWN MED DRAWER 7, Y5N ONE (09:14)
[2020-07-05] MEDS: AMIODARONE HCL 200 MG TABLET PO SCH (09:39)
[2020-07-05] MEDS: APIXABAN 5 MG TABLET PO SCH (09:39)
[2020-07-05] MEDS: PANTOPRAZOLE 40 MG TABLET PO SCH (09:39)
[2020-07-05] MEDS: SILVER SULFADIAZINE 1% TOP CREAM 50 GM JAR TP SCH (09:40)
[2020-07-05] MEDS: NYSTATIN POWDER 100,000 UNITS/GM - 15 GM TOPICAL POWDER TP SCH (09:40)
[2020-07-05 09:46] VITALS: BP 109/65; PULSE 69; TEMP 98
== END 2020-07-05 13:00 | DRG 720 ==
LOC: JER 14:25 → JERBED 17:07 → J7W 21:40
PROVIDERS: ADMIT Internal Medicine; ATTEND Internal Medicine
PROC: 05PYX3Z Removal of Infusion Device from Upper Vein, External Approach (ICD-10-PCS; 2020-06-29)
PROC: 5A1D70Z Performance of Urinary Filtration, Intermittent, Less than 6 Hours Per Day (ICD-10-PCS; principal; 2020-07-04)
DX: A41.9 Sepsis, unspecified organism (principal); Z99.2 Dependence on renal dialysis; R50.9 Fever, unspecified; E66.01 Morbid (severe) obesity due to excess calories; Z68.41 Body mass index [BMI] 40.0-44.9, adult; B95.62 Methicillin resistant Staphylococcus aureus infection as the cause of diseases classified elsewhere; E87.6 Hypokalemia; M10.9 Gout, unspecified; I50.9 Heart failure, unspecified; U07.1 COVID-19; I48.0 Paroxysmal atrial fibrillation; I12.0 Hypertensive chronic kidney disease with stage 5 chronic kidney disease or end stage renal disease; N18.6 End stage renal disease; F39 Unspecified mood [affective] disorder; R00.0 Tachycardia, unspecified
CPT/HCPCS: 36415; 70450-TC; 71045-TC-FY; 76937; 80053; 82550; 83605; 84484; 85025; 85027; 85610; 85730; 86769; 86803; 87040; 87186; 87340; 93005; 93010; 93306-TC; 99285-25; C9803; G0480; U0003; U0005

== ENCOUNTER 2020-11-16 15:57 | Emergency (ER) | payer OTHER ==
[2020-11-16 16:21] VITALS: BMI 47.1
[2020-11-16 17:54] LABS: HEMATOCRIT 37.6 % (35.4-49); HEMOGLOBIN 12.7 GM/dL (11.7-16.9); MCH 29.2 pg (25.7-33.7); MCHC 33.7 g/dl (32.0-35.9); MEAN CELL VOLUME 86.6 fl (80-96); MEAN PLT VOLUME 7.5 fl (7.5-11.1); PLATELET COUNT 235 10^3/uL (134-434); RBC 4.34 M/mm3 (4.00-5.60); RDW 14.6 % (11.9-15.9); WHITE BLOOD COUNT 16.8 K/mm3 (4.0-10.0)
[2020-11-16 18:10] LABS: CHLORIDE 100 mmol/L (98-107); SODIUM 139 mmol/L (136-145)
[2020-11-16 18:12] LABS: ANION GAP 12 MMOL/L (8-16); CALCIUM 8.3 mg/dL (8.5-10.1); CO2 26 mmol/L (21-32); GLUCOSE,RANDOM 116 mg/dL (74-106)
[2020-11-16 18:13] LABS: BLOOD UREA NITROGEN 65.8 mg/dL (7-18)
[2020-11-16 18:15] LABS: CREATININE 6.2 mg/dL (0.55-1.3)
[2020-11-16 18:16] LABS: SGOT/AST 11 U/L (15-37); SGPT/ALT 23 U/L (13-61)
[2020-11-16 18:17] LABS: BILIRUBIN,TOTAL 0.2 mg/dL (0.2-1); TOT PROT 7.4 g/dl (6.4-8.2)
[2020-11-16 18:18] LABS: ALK PHOS 112 U/L (45-117)
[2020-11-16] MEDS ORDERED: ACETAMINOPHEN 325 MG TABLET (FP) PO ONE (19:04)
[2020-11-16] MEDS ORDERED: ACETAMINOPHEN 325 MG TABLET (FP) ONE (19:26)
[2020-11-16 20:28] VITALS: BP 152/75; PULSE 76; TEMP 98.6
== END 2020-11-17 01:25 ==
LOC: JER 15:57
DX: I45.81 Long QT syndrome (principal); S93.491A Sprain of other ligament of right ankle, initial encounter; W05.0XXA Fall from non-moving wheelchair, initial encounter; Y92.9 Unspecified place or not applicable
CPT/HCPCS: 36415; 70450-TC; 71046-TC-FY; 73610-TC-RT-FY; 73630-TC-RT-FY; 80053; 82550; 83735; 84484; 85027; 93005; 93010; 99285-25

== ENCOUNTER 2021-01-12 13:47 | Observation (INO) | payer OTHER ==
[2021-01-12 16:38] LABS: EOS % 3.6 % (0-4.5); HEMATOCRIT 31.9 % (35.4-49); HEMOGLOBIN 10.5 GM/dL (11.7-16.9); LYMPH % 10.6 % (8-40); MCH 27.7 pg (25.7-33.7); MCHC 32.8 g/dl (32.0-35.9); MEAN CELL VOLUME 84.3 fl (80-96); MEAN PLT VOLUME 6.9 fl (7.5-11.1); MONO % 6.4 % (3.8-10.2); NEUT % 78.4 % (42.8-82.8); PLATELET COUNT 300 10^3/uL (134-434); RBC 3.78 M/mm3 (4.00-5.60); RDW 16.6 % (11.9-15.9)
[2021-01-12 16:41] LABS: INR 1.36 (0.83-1.09)
[2021-01-12 16:43] LABS: ACTIVATED PTT 32.8 SECONDS (25.2-36.5)
[2021-01-12 16:54] LABS: CHLORIDE 108 mmol/L (98-107); SODIUM 141 mmol/L (136-145)
[2021-01-12 16:59] LABS: ALBUMIN 2.6 g/dl (3.4-5.0); ANION GAP 13 MMOL/L (8-16); CO2 21 mmol/L (21-32); GLUCOSE,RANDOM 92 mg/dL (74-106); MAGNESIUM 1.9 mg/dL (1.8-2.4)
[2021-01-12 17:01] LABS: CREATININE 6.7 mg/dL (0.55-1.3)
[2021-01-12 17:02] LABS: PHOSPHOROUS 4.3 mg/dL (2.5-4.9); SGOT/AST 10 U/L (15-37); SGPT/ALT 19 U/L (13-61)
[2021-01-12 17:03] LABS: BILIRUBIN,TOTAL 0.2 mg/dL (0.2-1); TOT PROT 7.4 g/dl (6.4-8.2)
[2021-01-12 17:04] LABS: ALK PHOS 94 U/L (45-117)
[2021-01-12 17:06] LABS: BLOOD UREA NITROGEN 120.4 mg/dL (7-18)
[2021-01-12] MEDS ORDERED: SODIUM CHLORIDE 250 ML IV PRN (17:17)
[2021-01-12] MEDS ORDERED: ACETAMINOPHEN 325 MG TABLET (FP) PO PRN (21:17)
[2021-01-12] MEDS ORDERED: POLYETHYLENE GLYCOL 3350 119 GM BTL PO PRN (21:17)
[2021-01-12 23:45] VITALS: BMI 46.2
[2021-01-13] MEDS ORDERED: NITROFURANTOIN MACROCRYSTAL 50 MG CAPSULE (FP) PO SCH (09:20)
[2021-01-13] MEDS ORDERED: LIDOCAINE PATCH REMOVAL MC SCH (10:00)
[2021-01-13 10:26] LABS: BASO % 1.4 % (0-2.0); EOS % 3.7 % (0-4.5); HEMATOCRIT 32.1 % (35.4-49); HEMOGLOBIN 10.4 GM/dL (11.7-16.9); LYMPH % 12.8 % (8-40); MCH 27.4 pg (25.7-33.7); MCHC 32.5 g/dl (32.0-35.9); MEAN CELL VOLUME 84.2 fl (80-96); MEAN PLT VOLUME 7.1 fl (7.5-11.1); MONO % 5.9 % (3.8-10.2); NEUT % 76.2 % (42.8-82.8); PLATELET COUNT 295 10^3/uL (134-434); RBC 3.81 M/mm3 (4.00-5.60); RDW 16.8 % (11.9-15.9); WHITE BLOOD COUNT 7.9 K/mm3 (4.0-10.0)
[2021-01-13] MEDS: APIXABAN 5 MG TABLET PO SCH ×2 (10:29→21:50)
[2021-01-13] MEDS: FERROUS SO4 325 MG TABLET (FP) PO SCH (10:29)
[2021-01-13] MEDS: PANTOPRAZOLE 40 MG TABLET PO SCH (10:30)
[2021-01-13] MEDS: AMIODARONE HCL 200 MG TABLET PO SCH (10:30)
[2021-01-13] MEDS: ALLOPURINOL 100 MG TABLET (FP) PO SCH (10:30)
[2021-01-13] MEDS: VITAMIN B COMP W-C 1 EA TABLET (NEPHRO-VITE) PO SCH (10:30)
[2021-01-13] MEDS: SERTRALINE HCL 25 MG TABLET (FP) PO SCH (10:30)
[2021-01-13 10:58] LABS: CALCIUM 8.4 mg/dL (8.5-10.1)
[2021-01-13 11:02] LABS: CREATININE 4.8 mg/dL (0.55-1.3)
[2021-01-13 11:03] LABS: BLOOD UREA NITROGEN 67.4 mg/dL (7-18)
[2021-01-13] MEDS: BACITRACIN 15 GM TUBE TOPICAL OINTMENT TP SCH (11:35)
[2021-01-13] MEDS: AMMONIUM LACTATE 12% LOTION 225 GM BOTTLE TP SCH ×2 (13:41→21:50)
[2021-01-13] MEDS: NYSTATIN POWDER 100,000 UNITS/GM - 15 GM TOPICAL POWDER TP SCH ×2 (13:41→21:52)
[2021-01-13] MEDS: AMINO ACIDS/PROTEIN HYDROLYS 30 ML LIQUID.PKT PO SCH (17:33)
[2021-01-13] MEDS ORDERED: LIDOCAINE 5% TOPICAL PATCH TP SCH (22:00)
[2021-01-14] MEDS ORDERED: PT OWN MED DRAWER 7, Y5N ONE (10:25)
[2021-01-14] MEDS: FERROUS SO4 325 MG TABLET (FP) PO SCH (10:36)
[2021-01-14] MEDS: PANTOPRAZOLE 40 MG TABLET PO SCH (10:36)
[2021-01-14] MEDS: APIXABAN 5 MG TABLET PO SCH ×2 (10:36→21:33)
[2021-01-14] MEDS: SERTRALINE HCL 25 MG TABLET (FP) PO SCH (10:36)
[2021-01-14] MEDS: AMIODARONE HCL 200 MG TABLET PO SCH (10:36)
[2021-01-14] MEDS: VITAMIN B COMP W-C 1 EA TABLET (NEPHRO-VITE) PO SCH (10:36)
[2021-01-14] MEDS: AMMONIUM LACTATE 12% LOTION 225 GM BOTTLE TP SCH ×2 (10:36→21:33)
[2021-01-14] MEDS: NYSTATIN POWDER 100,000 UNITS/GM - 15 GM TOPICAL POWDER TP SCH ×2 (10:37→21:33)
[2021-01-14] MEDS: BACITRACIN 15 GM TUBE TOPICAL OINTMENT TP SCH (10:37)
[2021-01-14] MEDS: AMINO ACIDS/PROTEIN HYDROLYS 30 ML LIQUID.PKT PO SCH ×2 (10:42→18:39)
[2021-01-14 22:41] VITALS: PULSE 70
[2021-01-15 06:53] VITALS: BP 125/65; TEMP 97.8
[2021-01-15] MEDS ORDERED: SODIUM CHLORIDE 250 ML IV PRN (08:23)
[2021-01-15] MEDS ORDERED: EPOETIN ALFA-EPBX 3,000 UNIT/ML VIAL SQ ONE (08:23)
[2021-01-15] MEDS ORDERED: PT OWN MED DRAWER 7, Y5N ONE (09:29)
[2021-01-15] MEDS: ALLOPURINOL 100 MG TABLET (FP) PO SCH (09:31)
[2021-01-15] MEDS: VITAMIN B COMP W-C 1 EA TABLET (NEPHRO-VITE) PO SCH (09:32)
[2021-01-15] MEDS: SERTRALINE HCL 25 MG TABLET (FP) PO SCH (09:32)
[2021-01-15] MEDS: PANTOPRAZOLE 40 MG TABLET PO SCH (09:32)
[2021-01-15] MEDS: FERROUS SO4 325 MG TABLET (FP) PO SCH (09:32)
[2021-01-15] MEDS: NYSTATIN POWDER 100,000 UNITS/GM - 15 GM TOPICAL POWDER TP SCH (09:32)
[2021-01-15] MEDS: AMMONIUM LACTATE 12% LOTION 225 GM BOTTLE TP SCH (09:32)
[2021-01-15] MEDS: APIXABAN 5 MG TABLET PO SCH (09:32)
[2021-01-15] MEDS: AMINO ACIDS/PROTEIN HYDROLYS 30 ML LIQUID.PKT PO SCH (09:32)
[2021-01-15] MEDS: BACITRACIN 15 GM TUBE TOPICAL OINTMENT TP SCH (09:32)
[2021-01-15] MEDS: AMIODARONE HCL 200 MG TABLET PO SCH (09:33)
== END 2021-01-15 09:56 ==
LOC: JER 13:47 → INTOOBSV 15:30 → JERBED 15:30 → J8W 21:50
PROVIDERS: ADMIT Family Medicine; ATTEND Internal Medicine
DX: I13.2 Hypertensive heart and chronic kidney disease with heart failure and with stage 5 chronic kidney disease, or end stage renal disease (principal); I13.11 Hypertensive heart and chronic kidney disease without heart failure, with stage 5 chronic kidney disease, or end stage renal disease; I48.91 Unspecified atrial fibrillation; E66.01 Morbid (severe) obesity due to excess calories; T82.898A Other specified complication of vascular prosthetic devices, implants and grafts, initial encounter; Z68.42 Body mass index [BMI] 45.0-49.9, adult; E11.22 Type 2 diabetes mellitus with diabetic chronic kidney disease; N18.6 End stage renal disease; Z99.2 Dependence on renal dialysis; Z91.15 Patient's noncompliance with renal dialysis; J44.9 Chronic obstructive pulmonary disease, unspecified
CPT/HCPCS: 36415; 80048; 80053; 83735; 84100; 85025; 85610; 85730; 86803; 86850; 86900; 86901; 87340; 93005; 93010; 93971; 99285-25; C9803; G0378; U0003; U0005

== ENCOUNTER 2021-07-03 14:25 | Inpatient (IN) | payer OTHER ==
[2021-07-03 14:50] VITALS: BMI 45.8
[2021-07-03 16:36] LABS: VENOUS BASE EXCESS -1.8 mmol/L (-2-2); VENOUS O2 SATURATION 38.4 % (70-80); VENOUS PH 7.303 (7.310-7.410)
[2021-07-03 16:49] LABS: BASO % 0.9 % (0-2.0); EOS % 1.1 % (0-4.5); HEMATOCRIT 36.9 % (35.4-49); HEMOGLOBIN 11.9 GM/dL (11.7-16.9); LYMPH % 9.2 % (8-40); MCH 27.1 pg (25.7-33.7); MCHC 32.4 g/dl (32.0-35.9); MEAN CELL VOLUME 83.6 fl (80-96); MEAN PLT VOLUME 7.3 fl (7.5-11.1); MONO % 6.5 % (3.8-10.2); NEUT % 82.3 % (42.8-82.8); PLATELET COUNT 281 10^3/uL (134-434); RBC 4.41 M/mm3 (4.00-5.60); RDW 17.8 % (11.9-15.9); WHITE BLOOD COUNT 15.5 K/mm3 (4.0-10.0)
[2021-07-03 16:54] LABS: ALBUMIN 2.9 g/dl (3.4-5.0); BLOOD UREA NITROGEN 64.8 mg/dL (7-18)
[2021-07-03 16:57] LABS: CREATININE 6.6 mg/dL (0.55-1.3)
[2021-07-03 16:59] LABS: BILIRUBIN,TOTAL 0.3 mg/dL (0.2-1); TOT PROT 7.9 g/dl (6.4-8.2)
[2021-07-03] MEDS ORDERED: VANCOMYCIN 1 GM in D5W (PRE-DOCKED) 1,000 MG/250 ML IVPB ONE (18:08)
[2021-07-03] MEDS ORDERED: PIPERACILLIN/TAZOB 3.375 GM 3.375 GM in DEXTROSE 5%-WATER - 50 ML IVPB ONE (18:09)
[2021-07-03] MEDS ORDERED: PIPERACILLIN/TAZOB 3.375 GM 3.375 GM/50 ML BAG IVPB ONE (19:27)
[2021-07-03] MEDS ORDERED: VANCOMYCIN 1 GRAM (PRE-DOCKED) 1,000 MG/250 ML BAG IVPB ONE (20:25)
[2021-07-03] MEDS ORDERED: POLYETHYLENE GLYCOL (HEALTHYLAX) 3350 17 GM PACKET PO PRN (21:25)
[2021-07-03] MEDS ORDERED: CLOTRIMAZOLE/BETAMET DIPROP 15 GM TUBE TP PRN (21:37)
[2021-07-03] MEDS ORDERED: ACETAMINOPHEN 325 MG TABLET (FP) PO PRN (21:48)
[2021-07-03] MEDS ORDERED: LIDOCAINE 5% TOPICAL PATCH TP SCH (22:00)
[2021-07-03] MEDS ORDERED: LIDOCAINE 5% TOPICAL PATCH ONE (22:50)
[2021-07-03 22:57] LABS: EPI CELLS >36 /uL (0-25.1); HYALINE CASTS 8 /uL (0-3.1); PH,URINE 5.5 (5.0-8.0); URINE APPEARANCE TURBID; URINE BACTERIA 67 /uL (0-1359); URINE BILIRUBIN NEGATIVE (NEGATIVE); URINE COLOR YELLOW; URINE GLUCOSE (UA) NEGATIVE (NEGATIVE); URINE KETONE NEGATIVE (NEGATIVE); URINE LEUK ESTERASE 3+ (NEGATIVE); URINE NITRITE NEGATIVE (NEGATIVE); URINE PROTEIN 2+ (NEGATIVE); URINE UROBILINOGEN 0.2 mg/dL (0.2-1.0); URINE WBC 24212 /uL (0-25.8)
[2021-07-03 23:35] LABS: URINE RBC 315 /uL (0-23.9); YEAST NEGATIVE (NEGATIVE)
[2021-07-04] MEDS: ZINC OXIDE 20% TOPICAL OINTMENT 30 GM TUBE TP SCH ×3 (00:16→22:00)
[2021-07-04] MEDS: NYSTATIN POWDER 100,000 UNITS/GM - 15 GM TOPICAL POWDER TP SCH ×3 (00:16→22:00)
[2021-07-04] MEDS: AMMONIUM LACTATE 12% LOTION 225 GM BOTTLE TP SCH ×3 (00:17→22:00)
[2021-07-04] MEDS: OXYBUTYNIN CHLORIDE 5 MG TABLET PO SCH ×3 (00:17→21:02)
[2021-07-04] MEDS ORDERED: VANCOMYCIN/WATER 1,250 MG/250 ML BAG IVPB SCH ×4 (06:19→16:12)
[2021-07-04 07:40] LABS: CHLORIDE 96 mmol/L (98-107); SODIUM 135 mmol/L (136-145)
[2021-07-04 07:46] LABS: BASO % 1.3 % (0-2.0); EOS % 2.5 % (0-4.5); HEMATOCRIT 34.9 % (35.4-49); HEMOGLOBIN 11.3 GM/dL (11.7-16.9); LYMPH % 12.4 % (8-40); MCH 27.1 pg (25.7-33.7); MCHC 32.3 g/dl (32.0-35.9); MEAN PLT VOLUME 7.3 fl (7.5-11.1); MONO % 6.3 % (3.8-10.2); NEUT % 77.5 % (42.8-82.8); PLATELET COUNT 250 10^3/uL (134-434); RBC 4.15 M/mm3 (4.00-5.60); RDW 18.2 % (11.9-15.9); WHITE BLOOD COUNT 12.2 K/mm3 (4.0-10.0)
[2021-07-04 07:49] LABS: CALCIUM 9.1 mg/dL (8.5-10.1)
[2021-07-04 07:50] LABS: ANION GAP 14 MMOL/L (8-16); BLOOD UREA NITROGEN 81.3 mg/dL (7-18); CO2 25 mmol/L (21-32); GLUCOSE,RANDOM 86 mg/dL (74-106)
[2021-07-04 07:53] LABS: MAGNESIUM 1.9 mg/dL (1.8-2.4); PHOSPHOROUS 6.3 mg/dL (2.5-4.9)
[2021-07-04 08:00] LABS: CREATININE 7.5 mg/dL (0.55-1.3)
[2021-07-04] MEDS: CALCIUM ACETATE 667 MG CAPSULE (FP) PO SCH ×3 (08:09→17:40)
[2021-07-04 08:28] LABS: ACTIVATED PTT 32.7 SECONDS (25.2-36.5); INR 1.29 (0.83-1.09); PROTHROMBIN TIME (PATIENT) 14.9 SEC (9.7-13.0)
[2021-07-04] MEDS ORDERED: SODIUM CHLORIDE 250 ML IV PRN ×2 (09:05→16:12)
[2021-07-04] MEDS ORDERED: FERROUS SO4 325 MG TABLET (FP) PO SCH (10:00)
[2021-07-04] MEDS ORDERED: PIPERACILLIN/TAZOB 2.25 GM 2.25 GM in DEXTROSE 5%-WATER - 50 ML IVPB SCH ×2 (10:00→18:00)
[2021-07-04] MEDS ORDERED: VITAMIN B COMP W-C 1 EA TABLET (NEPHRO-VITE) PO SCH (10:00)
[2021-07-04] MEDS ORDERED: SERTRALINE HCL 25 MG TABLET (FP) PO SCH (10:00)
[2021-07-04] MEDS ORDERED: PANTOPRAZOLE 20 MG TABLET PO SCH (10:00)
[2021-07-04] MEDS ORDERED: AMIODARONE HCL 200 MG TABLET PO SCH (10:00)
[2021-07-04] MEDS ORDERED: LIDOCAINE PATCH REMOVAL TD SCH (10:00)
[2021-07-04] MEDS ORDERED: ALLOPURINOL 100 MG TABLET (FP) PO SCH (10:00)
[2021-07-04] MEDS ORDERED: POVIDONE-IODINE OINTMENT 10% - 28.4 GM TUBE ONE (10:35)
[2021-07-04] MEDS ORDERED: LIDOCAINE HCL 1%, 10 MG/ML (20ML VIAL) ONE ×2 (10:35→14:15)
[2021-07-04] MEDS ORDERED: PAPAVERINE HCL 30 MG/1 ML 10 ML VIAL NR ONE (10:36)
[2021-07-04] MEDS ORDERED: HEPARIN NA (PORCINE) 5,000 UNITS/ML 1ML VIAL ONE (10:37)
[2021-07-04] MEDS ORDERED: LORazepam 1 MG TABLET PO SCH ×2 (11:00→21:33)
[2021-07-04] MEDS ORDERED: PIPERACILLIN/TAZOBACTAM 2.25 GM VIAL IVPB ONE (11:33)
[2021-07-04] MEDS ORDERED: DEXTROSE 5%-WATER - 50 ML IVPB ONE (11:33)
[2021-07-04] MEDS ORDERED: MIDAZOLAM HCL 2 MG/2 ML SINGLE DOSE VIAL ONE (13:49)
[2021-07-04] MEDS ORDERED: ceFAZolin SODIUM 1 GM VIAL ONE (14:10)
[2021-07-04] MEDS ORDERED: ceFAZolin SODIUM 1 GM VIAL IVPB ONE (14:13)
[2021-07-04] MEDS ORDERED: LIDOCAINE HCL 1%, 10 MG/ML (20ML VIAL) INF ONE ×2 (14:13)
[2021-07-04] MEDS ORDERED: VANCOMYCIN 1,000 MG VIAL (RESTRICTED TO ID ONLY) IVPB ONE (14:13)
[2021-07-04] MEDS ORDERED: BUPIVACAINE HCL/PF 0.5% (5MG/ML) 10 ML VIAL ONE ×2 (14:17→14:29)
[2021-07-04] MEDS ORDERED: BUPIVACAINE HCL/PF 0.5% (5 MG/ML) 30 ML VIAL IJ ONE ×2 (14:34)
[2021-07-04] MEDS ORDERED: ONDANSETRON 4 MG/2 ML VIAL IVPUSH PRN ×2 (15:32→16:12)
[2021-07-04] MEDS ORDERED: SODIUM CHLORIDE 1,000 ML IV SCH (15:45)
[2021-07-04] MEDS ORDERED: CLOTRIMAZOLE/BETAMET DIPROP 15 GM TUBE TP PRN (16:12)
[2021-07-04] MEDS ORDERED: POLYETHYLENE GLYCOL (HEALTHYLAX) 3350 17 GM PACKET PO PRN (16:12)
[2021-07-04] MEDS: LORazepam 1 MG TABLET PO SCH (17:40)
[2021-07-04] MEDS ORDERED: VANCOMYCIN/WATER BAGS 1,250 MG/250 ML BAG IVPB ONE (17:47)
[2021-07-04] MEDS: LIDOCAINE 5% TOPICAL PATCH TP SCH (21:08)
[2021-07-05] MEDS: SODIUM CHLORIDE 1,000 ML IV SCH ×2 (07:09→18:08)
[2021-07-05] MEDS: CALCIUM ACETATE 667 MG CAPSULE (FP) PO SCH ×3 (08:46→17:57)
[2021-07-05] MEDS: VITAMIN B COMP W-C 1 EA TABLET (NEPHRO-VITE) PO SCH (10:00)
[2021-07-05] MEDS: FERROUS SO4 325 MG TABLET (FP) PO SCH (10:00)
[2021-07-05] MEDS ORDERED: PIPERACILLIN/TAZOB 2.25 GM 2.25 GM in DEXTROSE 5%-WATER - 50 ML IVPB SCH (10:00)
[2021-07-05] MEDS: SERTRALINE HCL 25 MG TABLET (FP) PO SCH (10:00)
[2021-07-05] MEDS: AMIODARONE HCL 200 MG TABLET PO SCH (10:00)
[2021-07-05] MEDS: PANTOPRAZOLE 20 MG TABLET PO SCH (10:00)
[2021-07-05] MEDS: OXYBUTYNIN CHLORIDE 5 MG TABLET PO SCH ×2 (10:01→21:18)
[2021-07-05] MEDS: AMMONIUM LACTATE 12% LOTION 225 GM BOTTLE TP SCH ×2 (10:01→21:18)
[2021-07-05] MEDS: LIDOCAINE PATCH REMOVAL TD SCH (10:01)
[2021-07-05] MEDS: NYSTATIN POWDER 100,000 UNITS/GM - 15 GM TOPICAL POWDER TP SCH ×3 (10:02→21:42)
[2021-07-05] MEDS: ZINC OXIDE 20% TOPICAL OINTMENT 30 GM TUBE TP SCH ×2 (10:02→21:19)
[2021-07-05] MEDS ORDERED: SODIUM CHLORIDE 250 ML IV PRN (14:02)
[2021-07-05] MEDS: LIDOCAINE 5% TOPICAL PATCH TP SCH (21:18)
[2021-07-06] MEDS: CALCIUM ACETATE 667 MG CAPSULE (FP) PO SCH ×3 (08:04→17:21)
[2021-07-06] MEDS ORDERED: VANCOMYCIN 1 GM/200 ML PREMIX BAG IVPB ONE (09:15)
[2021-07-06 10:24] LABS: BLOOD UREA NITROGEN 58.7 mg/dL (7-18); CALCIUM 8.5 mg/dL (8.5-10.1)
[2021-07-06 10:51] LABS: HEMATOCRIT 32.4 % (35.4-49); HEMOGLOBIN 10.5 GM/dL (11.7-16.9); MCH 27.4 pg (25.7-33.7); MCHC 32.5 g/dl (32.0-35.9); MEAN CELL VOLUME 84.3 fl (80-96); MEAN PLT VOLUME 7.1 fl (7.5-11.1); PLATELET COUNT 227 10^3/uL (134-434); RBC 3.85 M/mm3 (4.00-5.60); RDW 18.1 % (11.9-15.9); WHITE BLOOD COUNT 10.4 K/mm3 (4.0-10.0)
[2021-07-06] MEDS: SERTRALINE HCL 25 MG TABLET (FP) PO SCH (12:17)
[2021-07-06] MEDS: AMIODARONE HCL 200 MG TABLET PO SCH (12:17)
[2021-07-06] MEDS: FERROUS SO4 325 MG TABLET (FP) PO SCH (12:17)
[2021-07-06] MEDS: VITAMIN B COMP W-C 1 EA TABLET (NEPHRO-VITE) PO SCH (12:17)
[2021-07-06] MEDS: ALLOPURINOL 100 MG TABLET (FP) PO SCH (12:18)
[2021-07-06] MEDS: OXYBUTYNIN CHLORIDE 5 MG TABLET PO SCH ×2 (12:18→21:25)
[2021-07-06] MEDS: AMMONIUM LACTATE 12% LOTION 225 GM BOTTLE TP SCH ×2 (12:18→21:26)
[2021-07-06] MEDS: PANTOPRAZOLE 20 MG TABLET PO SCH (12:18)
[2021-07-06] MEDS: ZINC OXIDE 20% TOPICAL OINTMENT 30 GM TUBE TP SCH ×2 (12:18→21:26)
[2021-07-06] MEDS: NYSTATIN POWDER 100,000 UNITS/GM - 15 GM TOPICAL POWDER TP SCH ×2 (12:19→21:25)
[2021-07-06] MEDS: LIDOCAINE PATCH REMOVAL TD SCH (12:19)
[2021-07-06] MEDS ORDERED: VANCOMYCIN 1 GM/200 ML PREMIX BAG IVPB SCH (14:12)
[2021-07-06] MEDS: LORazepam 1 MG TABLET PO SCH (17:19)
[2021-07-06] MEDS: SODIUM CHLORIDE 1,000 ML IV SCH (17:20)
[2021-07-06] MEDS: APIXABAN 5 MG TABLET PO SCH (21:25)
[2021-07-06] MEDS: LIDOCAINE 5% TOPICAL PATCH TP SCH (21:25)
[2021-07-07] MEDS: SERTRALINE HCL 25 MG TABLET (FP) PO SCH (09:55)
[2021-07-07] MEDS: APIXABAN 5 MG TABLET PO SCH ×2 (09:55→22:06)
[2021-07-07] MEDS: CALCIUM ACETATE 667 MG CAPSULE (FP) PO SCH ×3 (09:58→18:48)
[2021-07-07] MEDS: ACETAMINOPHEN 325 MG TABLET (FP) PO PRN ×2 (09:58→22:08)
[2021-07-07] MEDS: FERROUS SO4 325 MG TABLET (FP) PO SCH (09:59)
[2021-07-07] MEDS: AMIODARONE HCL 200 MG TABLET PO SCH (09:59)
[2021-07-07] MEDS: AMMONIUM LACTATE 12% LOTION 225 GM BOTTLE TP SCH ×2 (09:59→22:12)
[2021-07-07] MEDS: LIDOCAINE PATCH REMOVAL TD SCH (09:59)
[2021-07-07] MEDS: VITAMIN B COMP W-C 1 EA TABLET (NEPHRO-VITE) PO SCH (10:00)
[2021-07-07] MEDS: OXYBUTYNIN CHLORIDE 5 MG TABLET PO SCH ×2 (10:01→22:06)
[2021-07-07] MEDS: ZINC OXIDE 20% TOPICAL OINTMENT 30 GM TUBE TP SCH ×2 (10:01→22:12)
[2021-07-07] MEDS: NYSTATIN POWDER 100,000 UNITS/GM - 15 GM TOPICAL POWDER TP SCH ×2 (10:01→22:12)
[2021-07-07] MEDS: PANTOPRAZOLE 20 MG TABLET PO SCH (10:06)
[2021-07-07] MEDS: SODIUM CHLORIDE 1,000 ML IV SCH (17:22)
[2021-07-07] MEDS: LIDOCAINE 5% TOPICAL PATCH TP SCH (22:12)
[2021-07-08] MEDS: CALCIUM ACETATE 667 MG CAPSULE (FP) PO SCH ×2 (07:55→12:34)
[2021-07-08] MEDS: PANTOPRAZOLE 20 MG TABLET PO SCH (10:07)
[2021-07-08] MEDS: FERROUS SO4 325 MG TABLET (FP) PO SCH (10:07)
[2021-07-08] MEDS: AMMONIUM LACTATE 12% LOTION 225 GM BOTTLE TP SCH (10:07)
[2021-07-08] MEDS: ALLOPURINOL 100 MG TABLET (FP) PO SCH (10:07)
[2021-07-08] MEDS: APIXABAN 5 MG TABLET PO SCH (10:07)
[2021-07-08] MEDS: AMIODARONE HCL 200 MG TABLET PO SCH (10:07)
[2021-07-08] MEDS: VITAMIN B COMP W-C 1 EA TABLET (NEPHRO-VITE) PO SCH (10:07)
[2021-07-08] MEDS: OXYBUTYNIN CHLORIDE 5 MG TABLET PO SCH (10:07)
[2021-07-08] MEDS: SERTRALINE HCL 25 MG TABLET (FP) PO SCH (10:07)
[2021-07-08] MEDS: ZINC OXIDE 20% TOPICAL OINTMENT 30 GM TUBE TP SCH (10:08)
[2021-07-08] MEDS: NYSTATIN POWDER 100,000 UNITS/GM - 15 GM TOPICAL POWDER TP SCH (10:08)
[2021-07-08] MEDS: LIDOCAINE PATCH REMOVAL TD SCH (10:15)
[2021-07-08 16:49] VITALS: BP 94/54; PULSE 75; TEMP 98.2
== END 2021-07-08 18:33 | DRG 711 ==
LOC: JER 14:25 → JERBED 19:26 → J4W 23:23
PROVIDERS: ADMIT Hospitalist; ATTEND Internal Medicine
PROC: 05HM33Z Insertion of Infusion Device into Right Internal Jugular Vein, Percutaneous Approach (ICD-10-PCS; 2021-07-04)
PROC: 03183ZF Bypass Left Brachial Artery to Lower Arm Vein, Percutaneous Approach (ICD-10-PCS; principal; 2021-07-04 12:30)
PROC: 02PY33Z Removal of Infusion Device from Great Vessel, Percutaneous Approach (ICD-10-PCS; 2021-07-04 12:30)
PROC: 5A1D70Z Performance of Urinary Filtration, Intermittent, Less than 6 Hours Per Day (ICD-10-PCS; 2021-07-06)
DX: T80.211A Bloodstream infection due to central venous catheter, initial encounter (principal); N18.6 End stage renal disease; I13.2 Hypertensive heart and chronic kidney disease with heart failure and with stage 5 chronic kidney disease, or end stage renal disease; Z68.42 Body mass index [BMI] 45.0-49.9, adult; J90 Pleural effusion, not elsewhere classified; R78.81 Bacteremia; J44.9 Chronic obstructive pulmonary disease, unspecified; E11.22 Type 2 diabetes mellitus with diabetic chronic kidney disease; E66.9 Obesity, unspecified; E78.5 Hyperlipidemia, unspecified; I48.91 Unspecified atrial fibrillation; D72.829 Elevated white blood cell count, unspecified; Y83.9 Surgical procedure, unspecified as the cause of abnormal reaction of the patient, or of later complication, without mention of misadventure at the time of the procedure; K21.9 Gastro-esophageal reflux disease without esophagitis
CPT/HCPCS: 36415; 71045-TC-FY; 80048; 80053; 81003; 82803; 83605; 83735; 84100; 85025; 85027; 85610; 85730; 86803; 87040; 87077; 87081; 87086; 87186; 87340; 93005; 93010; 94760; 99285-25; C9803-CS; J1644; U0003; U0005

== ENCOUNTER 2021-12-28 04:32 | Inpatient (IN) | payer OTHER ==
[2021-12-28] MEDS ORDERED: ACETAMINOPHEN 1000 MG/100 ML BAG IVPB ONE (05:40)
[2021-12-28] MEDS ORDERED: ACETAMINOPHEN INJECTION 100 ML IVPB ONE (05:47)
[2021-12-28 05:51] LABS: BASO % 0.7 % (0-2.0); EOS % 1.2 % (0-4.5); HEMATOCRIT 34.4 % (35.4-49); HEMOGLOBIN 10.9 GM/dL (11.7-16.9); LYMPH % 6.6 % (8-40); MCH 28.4 pg (25.7-33.7); MCHC 31.8 g/dl (32.0-35.9); MEAN CELL VOLUME 89.4 fl (80-96); MEAN PLT VOLUME 7.1 fl (7.5-11.1); MONO % 8.7 % (3.8-10.2); NEUT % 82.8 % (42.8-82.8); PLATELET COUNT 169 10^3/uL (134-434); RBC 3.85 M/mm3 (4.00-5.60); RDW 15.2 % (11.9-15.9)
[2021-12-28 06:16] LABS: CHLORIDE 95 mmol/L (98-107); SODIUM 132 mmol/L (136-145)
[2021-12-28 06:18] LABS: ALBUMIN 2.8 g/dl (3.4-5.0); ANION GAP 12 MMOL/L (8-16); BLOOD UREA NITROGEN 65.6 mg/dL (7-18); CALCIUM 8.9 mg/dL (8.5-10.1); CO2 25 mmol/L (21-32); GLUCOSE,RANDOM 96 mg/dL (74-106); MAGNESIUM 1.7 mg/dL (1.8-2.4)
[2021-12-28 06:21] LABS: SGOT/AST 17 U/L (15-37); SGPT/ALT 23 U/L (13-61)
[2021-12-28 06:23] LABS: BILIRUBIN,TOTAL 0.4 mg/dL (0.2-1); TOT PROT 7.2 g/dl (6.4-8.2)
[2021-12-28 06:25] LABS: ALK PHOS 92 U/L (45-117)
[2021-12-28 06:26] LABS: N-TERMINAL BNP 2646.4 pg/ml (5-125)
[2021-12-28] MEDS ORDERED: SODIUM CHLORIDE 250 ML IV PRN (08:57)
[2021-12-28] MEDS ORDERED: VITAMINS A AND D TOPICAL OINTMENT 60 GM TUBE TP PRN (10:31)
[2021-12-28] MEDS ORDERED: ONDANSETRON 4 MG TABLET PO PRN (10:31)
[2021-12-28] MEDS ORDERED: POLYETHYLENE GLYCOL (HEALTHYLAX) 3350 17 GM PACKET PO PRN (10:31)
[2021-12-28] MEDS ORDERED: ACETAMINOPHEN 325 MG TABLET (FP) PO PRN (10:31)
[2021-12-28] MEDS ORDERED: CLOTRIMAZOLE/BETAMET DIPROP 15 GM TUBE TP PRN (10:31)
[2021-12-28] MEDS ORDERED: ALLOPURINOL 100 MG TABLET (FP) PO SCH (11:00)
[2021-12-28] MEDS: CALCIUM ACETATE 667 MG CAPSULE (FP) PO SCH (11:29)
[2021-12-28] MEDS ORDERED: ACETAMINOPHEN 325 MG TABLET (FP) ONE (20:55)
[2021-12-28] MEDS ORDERED: PATIENT'S OWN MEDICATION (NON-FORMULARY) (Lidocaine Patch Removal 1 EACH Each) MC SCH (22:00)
[2021-12-28] MEDS ORDERED: PATIENT'S OWN MEDICATION (NON-FORMULARY) (Diclofenac Sodium [Voltaren] 100 GM Gel..Gram.) TP SCH (22:00)
[2021-12-29] MEDS: NYSTATIN POWDER 100,000 UNITS/GM - 15 GM TOPICAL POWDER TP SCH ×3 (00:40→22:45)
[2021-12-29] MEDS: AMMONIUM LACTATE 12% LOTION 225 GM BOTTLE TP SCH ×3 (00:40→22:45)
[2021-12-29] MEDS ORDERED: APIXABAN 5 MG TABLET ONE ×2 (00:42→10:12)
[2021-12-29] MEDS: APIXABAN 5 MG TABLET PO SCH ×3 (00:48→21:48)
[2021-12-29] MEDS: CALCIUM ACETATE 667 MG CAPSULE (FP) PO SCH ×4 (00:48→20:14)
[2021-12-29] MEDS ORDERED: MAGNESIUM OXIDE 400 MG TABLET (FP) PO ONE (07:37)
[2021-12-29 09:09] LABS: BASO % 0.6 % (0-2.0); EOS % 0.3 % (0-4.5); HEMATOCRIT 32.5 % (35.4-49); HEMOGLOBIN 10.4 GM/dL (11.7-16.9); LYMPH % 4.5 % (8-40); MCH 28.4 pg (25.7-33.7); MEAN CELL VOLUME 88.9 fl (80-96); MEAN PLT VOLUME 7.5 fl (7.5-11.1); NEUT % 87.6 % (42.8-82.8); PLATELET COUNT 172 10^3/uL (134-434); RBC 3.65 M/mm3 (4.00-5.60); RDW 15.3 % (11.9-15.9); WHITE BLOOD COUNT 16.1 K/mm3 (4.0-10.0)
[2021-12-29] MEDS ORDERED: VANCOMYCIN 1 GM/200 ML PREMIX BAG IVPB ONE (09:29)
[2021-12-29] MEDS ORDERED: PANTOPRAZOLE 40 MG TABLET PO SCH (10:00)
[2021-12-29] MEDS ORDERED: SERTRALINE HCL 25 MG TABLET (FP) PO SCH (10:00)
[2021-12-29] MEDS ORDERED: VITAMIN B COMP W-C 1 EA TABLET (NEPHRO-VITE) PO SCH (10:00)
[2021-12-29] MEDS ORDERED: AMIODARONE HCL 200 MG TABLET PO SCH (10:00)
[2021-12-29] MEDS ORDERED: FERROUS SO4 325 MG TABLET (FP) PO SCH (10:00)
[2021-12-29] MEDS ORDERED: OXYBUTYNIN CHLORIDE 5 MG TABLET PO SCH (10:00)
[2021-12-29] MEDS ORDERED: AMIODARONE HCL 200 MG TABLET ONE (10:12)
[2021-12-29] MEDS ORDERED: PANTOPRAZOLE 40 MG TABLET PO ONE (10:12)
[2021-12-29] MEDS ORDERED: FERROUS SO4 325 MG TABLET (FP) ONE (10:13)
[2021-12-29] MEDS ORDERED: SERTRALINE HCL 50 MG TABLET (FP) ONE (10:13)
[2021-12-29] MEDS ORDERED: VANCOMYCIN/WATER FOR INJ (PEG) 1,000 MG/200 ML BAG IVPB ONE (10:13)
[2021-12-29] MEDS ORDERED: PIPERACILLIN/TAZOB 2.25 GM 2.25 GM/50 ML BAG IVPB ONE ×2 (14:32→17:31)
[2021-12-29] MEDS: PIPERACILLIN/TAZOB 2.25 GM 2.25 GM in DEXTROSE 5%-WATER - 50 ML IVPB SCH ×2 (14:44→20:14)
[2021-12-29] MEDS ORDERED: ONDANSETRON *ODT* 4 MG TABLET SL PRN (20:34)
[2021-12-29] MEDS ORDERED: POLYETHYLENE GLYCOL (HEALTHYLAX) 3350 17 GM PACKET PO PRN (20:34)
[2021-12-29] MEDS ORDERED: SODIUM CHLORIDE 250 ML IV PRN (20:34)
[2021-12-29] MEDS ORDERED: VITAMINS A AND D TOPICAL OINTMENT 60 GM TUBE TP PRN (20:34)
[2021-12-29] MEDS: DOXYCYCLINE INJECTION 100 MG in DEXTROSE 5%-WATER 100 ML IVPB SCH (21:30)
[2021-12-29] MEDS: ACETAMINOPHEN 325 MG TABLET (FP) PO PRN (21:48)
[2021-12-29] MEDS ORDERED: PATIENT'S OWN MEDICATION (NON-FORMULARY) (Diclofenac Sodium [Voltaren] 100 GM) TP SCH (22:00)
[2021-12-29] MEDS ORDERED: LIDOCAINE REMOVAL MC SCH (22:00)
[2021-12-30] MEDS: PIPERACILLIN/TAZOB 2.25 GM 2.25 GM in DEXTROSE 5%-WATER - 50 ML IVPB SCH ×2 (01:00→10:19)
[2021-12-30] MEDS: CALCIUM ACETATE 667 MG CAPSULE (FP) PO SCH ×3 (08:47→16:56)
[2021-12-30] MEDS: PANTOPRAZOLE 40 MG TABLET PO SCH (10:16)
[2021-12-30] MEDS: APIXABAN 5 MG TABLET PO SCH ×2 (10:16→21:25)
[2021-12-30] MEDS: VITAMIN B COMP W-C 1 EA TABLET (NEPHRO-VITE) PO SCH (10:17)
[2021-12-30] MEDS: ALLOPURINOL 100 MG TABLET (FP) PO SCH (10:17)
[2021-12-30] MEDS: SERTRALINE HCL 25 MG TABLET (FP) PO SCH (10:17)
[2021-12-30] MEDS: FERROUS SO4 325 MG TABLET (FP) PO SCH (10:17)
[2021-12-30] MEDS: OXYBUTYNIN CHLORIDE 5 MG TABLET PO SCH (10:18)
[2021-12-30] MEDS: AMIODARONE HCL 200 MG TABLET PO SCH (10:18)
[2021-12-30] MEDS: CLOTRIMAZOLE/BETAMET DIPROP 15 GM TUBE TP PRN (10:21)
[2021-12-30] MEDS: NYSTATIN POWDER 100,000 UNITS/GM - 15 GM TOPICAL POWDER TP SCH ×2 (10:21→21:35)
[2021-12-30] MEDS: AMMONIUM LACTATE 12% LOTION 225 GM BOTTLE TP SCH ×2 (10:21→21:35)
[2021-12-30 12:00] LABS: BASO % 1.1 % (0-2.0); EOS % 2.7 % (0-4.5); HEMATOCRIT 30.8 % (35.4-49); HEMOGLOBIN 9.9 GM/dL (11.7-16.9); LYMPH % 7.9 % (8-40); MCH 28.4 pg (25.7-33.7); MEAN CELL VOLUME 88.7 fl (80-96); MEAN PLT VOLUME 7.8 fl (7.5-11.1); NEUT % 79.3 % (42.8-82.8); PLATELET COUNT 172 10^3/uL (134-434); RBC 3.47 M/mm3 (4.00-5.60); WHITE BLOOD COUNT 11.8 K/mm3 (4.0-10.0)
[2021-12-30] MEDS: DOXYCYCLINE INJECTION 100 MG in DEXTROSE 5%-WATER 100 ML IVPB SCH (13:28)
[2021-12-30] MEDS ORDERED: SODIUM CHLORIDE 250 ML IV PRN (14:30)
[2021-12-30] MEDS ORDERED: VANCOMYCIN 500 MG in DEXTROSE 5%-WATER 100 ML IVPB ONE (15:30)
[2021-12-31 09:06] LABS: HEMATOCRIT 30.4 % (35.4-49); HEMOGLOBIN 10.1 GM/dL (11.7-16.9); MCH 29.3 pg (25.7-33.7); MCHC 33.1 g/dl (32.0-35.9); MEAN CELL VOLUME 88.7 fl (80-96); MEAN PLT VOLUME 7.1 fl (7.5-11.1); PLATELET COUNT 196 10^3/uL (134-434); RBC 3.43 M/mm3 (4.00-5.60); RDW 15.4 % (11.9-15.9); WHITE BLOOD COUNT 12.1 K/mm3 (4.0-10.0)
[2021-12-31 09:26] LABS: CHLORIDE 93 mmol/L (98-107); SODIUM 133 mmol/L (136-145)
[2021-12-31 09:28] LABS: ANION GAP 16 MMOL/L (8-16); BLOOD UREA NITROGEN 79.5 mg/dL (7-18); CO2 24 mmol/L (21-32); GLUCOSE,RANDOM 157 mg/dL (74-106)
[2021-12-31 09:42] LABS: CREATININE 10.8 mg/dL (0.55-1.3)
[2021-12-31] MEDS ORDERED: EPOETIN ALFA-EPBX 4,000 UNIT/ML VIAL SQ ONE (10:00)
[2021-12-31] MEDS ORDERED: SODIUM CHLORIDE 250 ML IV PRN (10:00)
[2021-12-31] MEDS ORDERED: POTASSIUM CHLORIDE TABS 10 MEQ TABLET.ER (FP) PO ONE ×2 (11:07→16:15)
[2021-12-31] MEDS ORDERED: HEPARIN NA (PORCINE) 5,000 UNITS/ML 1ML VIAL IVPUSH ONE (11:46)
[2021-12-31] MEDS: CALCIUM ACETATE 667 MG CAPSULE (FP) PO SCH ×3 (13:17→17:05)
[2021-12-31] MEDS: VITAMIN B COMP W-C 1 EA TABLET (NEPHRO-VITE) PO SCH (13:17)
[2021-12-31] MEDS: SERTRALINE HCL 25 MG TABLET (FP) PO SCH (13:17)
[2021-12-31] MEDS: FERROUS SO4 325 MG TABLET (FP) PO SCH (13:17)
[2021-12-31] MEDS: PANTOPRAZOLE 40 MG TABLET PO SCH (13:17)
[2021-12-31] MEDS: APIXABAN 5 MG TABLET PO SCH ×2 (13:17→22:57)
[2021-12-31] MEDS: AMMONIUM LACTATE 12% LOTION 225 GM BOTTLE TP SCH ×2 (13:18→22:57)
[2021-12-31] MEDS: AMIODARONE HCL 200 MG TABLET PO SCH (13:18)
[2021-12-31] MEDS: OXYBUTYNIN CHLORIDE 5 MG TABLET PO SCH (13:18)
[2021-12-31] MEDS: NYSTATIN POWDER 100,000 UNITS/GM - 15 GM TOPICAL POWDER TP SCH ×2 (14:40→22:57)
[2022-01-01] MEDS: ACETAMINOPHEN 325 MG TABLET (FP) PO PRN (03:15)
[2022-01-01] MEDS: CALCIUM ACETATE 667 MG CAPSULE (FP) PO SCH ×3 (08:29→17:25)
[2022-01-01] MEDS: APIXABAN 5 MG TABLET PO SCH ×2 (09:43→21:14)
[2022-01-01] MEDS: ALLOPURINOL 100 MG TABLET (FP) PO SCH (09:43)
[2022-01-01] MEDS: VITAMIN B COMP W-C 1 EA TABLET (NEPHRO-VITE) PO SCH (09:44)
[2022-01-01] MEDS: AMIODARONE HCL 200 MG TABLET PO SCH (09:44)
[2022-01-01] MEDS: FERROUS SO4 325 MG TABLET (FP) PO SCH (09:44)
[2022-01-01] MEDS: SERTRALINE HCL 25 MG TABLET (FP) PO SCH (09:44)
[2022-01-01] MEDS: OXYBUTYNIN CHLORIDE 5 MG TABLET PO SCH (09:44)
[2022-01-01] MEDS: PANTOPRAZOLE 40 MG TABLET PO SCH (09:44)
[2022-01-01] MEDS: AMMONIUM LACTATE 12% LOTION 225 GM BOTTLE TP SCH ×2 (09:46→21:15)
[2022-01-01] MEDS: NYSTATIN POWDER 100,000 UNITS/GM - 15 GM TOPICAL POWDER TP SCH ×2 (09:46→21:15)
[2022-01-01] MEDS ORDERED: VANCOMYCIN/WATER FOR INJ (PEG) 1,000 MG/200 ML BAG IVPB ONE (14:00)
[2022-01-01] MEDS ORDERED: SODIUM CHLORIDE 250 ML IV PRN (15:49)
[2022-01-02] MEDS: CALCIUM ACETATE 667 MG CAPSULE (FP) PO SCH ×3 (08:05→17:16)
[2022-01-02] MEDS ORDERED: EPOETIN ALFA-EPBX 4,000 UNIT/ML VIAL IVPUSH ONE (09:00)
[2022-01-02 09:11] LABS: HEMATOCRIT 28.5 % (35.4-49); HEMOGLOBIN 9.5 GM/dL (11.7-16.9); MCH 29.6 pg (25.7-33.7); MCHC 33.3 g/dl (32.0-35.9); MEAN CELL VOLUME 89.1 fl (80-96); MEAN PLT VOLUME 6.9 fl (7.5-11.1); PLATELET COUNT 252 10^3/uL (134-434); RDW 15.2 % (11.9-15.9)
[2022-01-02 09:29] LABS: CHLORIDE 100 mmol/L (98-107); SODIUM 137 mmol/L (136-145)
[2022-01-02 09:40] LABS: CALCIUM 8.4 mg/dL (8.5-10.1)
[2022-01-02 09:41] LABS: ANION GAP 14 MMOL/L (8-16); BLOOD UREA NITROGEN 62.4 mg/dL (7-18); CO2 24 mmol/L (21-32); GLUCOSE,RANDOM 178 mg/dL (74-106)
[2022-01-02 10:07] LABS: CREATININE 9.6 mg/dL (0.55-1.3)
[2022-01-02] MEDS: AMIODARONE HCL 200 MG TABLET PO SCH (11:06)
[2022-01-02] MEDS: NYSTATIN POWDER 100,000 UNITS/GM - 15 GM TOPICAL POWDER TP SCH ×2 (11:06→23:31)
[2022-01-02] MEDS: OXYBUTYNIN CHLORIDE 5 MG TABLET PO SCH (11:06)
[2022-01-02] MEDS: FERROUS SO4 325 MG TABLET (FP) PO SCH (11:06)
[2022-01-02] MEDS: AMMONIUM LACTATE 12% LOTION 225 GM BOTTLE TP SCH ×2 (11:06→23:34)
[2022-01-02] MEDS: VITAMIN B COMP W-C 1 EA TABLET (NEPHRO-VITE) PO SCH (11:06)
[2022-01-02] MEDS: APIXABAN 5 MG TABLET PO SCH ×2 (11:06→23:30)
[2022-01-02] MEDS: SERTRALINE HCL 25 MG TABLET (FP) PO SCH (11:07)
[2022-01-02] MEDS: PANTOPRAZOLE 40 MG TABLET PO SCH (11:07)
[2022-01-02] MEDS ORDERED: POTASSIUM CHLORIDE TABS 20 MEQ TABLET.ER (FP) PO ONE (12:58)
[2022-01-03] MEDS: CALCIUM ACETATE 667 MG CAPSULE (FP) PO SCH ×3 (08:43→17:02)
[2022-01-03] MEDS ORDERED: DAPTOMYCIN 800 MG in SODIUM CHLORIDE 50 ML IVPB ONE ×2 (10:02→11:00)
[2022-01-03] MEDS: SERTRALINE HCL 25 MG TABLET (FP) PO SCH (10:23)
[2022-01-03] MEDS: ALLOPURINOL 100 MG TABLET (FP) PO SCH (10:23)
[2022-01-03] MEDS: PANTOPRAZOLE 40 MG TABLET PO SCH (10:23)
[2022-01-03] MEDS: NYSTATIN POWDER 100,000 UNITS/GM - 15 GM TOPICAL POWDER TP SCH ×2 (10:23→22:29)
[2022-01-03] MEDS: APIXABAN 5 MG TABLET PO SCH ×2 (10:23→22:29)
[2022-01-03] MEDS: FERROUS SO4 325 MG TABLET (FP) PO SCH (10:23)
[2022-01-03] MEDS: VITAMIN B COMP W-C 1 EA TABLET (NEPHRO-VITE) PO SCH (10:23)
[2022-01-03] MEDS: AMMONIUM LACTATE 12% LOTION 225 GM BOTTLE TP SCH ×2 (10:24→22:29)
[2022-01-03] MEDS: OXYBUTYNIN CHLORIDE 5 MG TABLET PO SCH (10:24)
[2022-01-03] MEDS: AMIODARONE HCL 200 MG TABLET PO SCH (10:25)
[2022-01-03] MEDS ORDERED: SODIUM CHLORIDE 250 ML IV PRN (15:15)
[2022-01-04] MEDS: CALCIUM ACETATE 667 MG CAPSULE (FP) PO SCH ×3 (08:27→17:14)
[2022-01-04] MEDS ORDERED: EPOETIN ALFA-EPBX 3,000 UNIT/ML VIAL IVPUSH ONE (09:00)
[2022-01-04 09:46] LABS: HEMATOCRIT 30.3 % (35.4-49); MCH 29.5 pg (25.7-33.7); MCHC 32.9 g/dl (32.0-35.9); MEAN CELL VOLUME 89.6 fl (80-96); MEAN PLT VOLUME 6.6 fl (7.5-11.1); PLATELET COUNT 275 10^3/uL (134-434); RBC 3.39 M/mm3 (4.00-5.60); RDW 15.3 % (11.9-15.9); WHITE BLOOD COUNT 11.7 K/mm3 (4.0-10.0)
[2022-01-04 10:07] LABS: CHLORIDE 100 mmol/L (98-107); SODIUM 137 mmol/L (136-145)
[2022-01-04 10:14] LABS: CALCIUM 8.6 mg/dL (8.5-10.1)
[2022-01-04 10:16] LABS: ANION GAP 14 MMOL/L (8-16); BLOOD UREA NITROGEN 70.5 mg/dL (7-18); CO2 24 mmol/L (21-32); GLUCOSE,RANDOM 147 mg/dL (74-106)
[2022-01-04 10:19] LABS: CREATININE 9.3 mg/dL (0.55-1.3)
[2022-01-04] MEDS: VITAMIN B COMP W-C 1 EA TABLET (NEPHRO-VITE) PO SCH (12:56)
[2022-01-04] MEDS: SERTRALINE HCL 25 MG TABLET (FP) PO SCH (12:57)
[2022-01-04] MEDS: PANTOPRAZOLE 40 MG TABLET PO SCH (12:57)
[2022-01-04] MEDS: APIXABAN 5 MG TABLET PO SCH ×2 (12:57→22:03)
[2022-01-04] MEDS: FERROUS SO4 325 MG TABLET (FP) PO SCH (12:57)
[2022-01-04] MEDS: AMIODARONE HCL 200 MG TABLET PO SCH (12:58)
[2022-01-04] MEDS: DAPTOMYCIN 800 MG in SODIUM CHLORIDE 50 ML IVPB SCH (12:58)
[2022-01-04] MEDS: AMMONIUM LACTATE 12% LOTION 225 GM BOTTLE TP SCH ×2 (12:59→22:03)
[2022-01-04] MEDS: NYSTATIN POWDER 100,000 UNITS/GM - 15 GM TOPICAL POWDER TP SCH ×2 (12:59→22:03)
[2022-01-04] MEDS: OXYBUTYNIN CHLORIDE 5 MG TABLET PO SCH (12:59)
[2022-01-04] MEDS ORDERED: DAPTOMYCIN 800 MG in SODIUM CHLORIDE 50 ML IVPB SCH (18:00)
[2022-01-05] MEDS: CALCIUM ACETATE 667 MG CAPSULE (FP) PO SCH ×3 (08:46→16:51)
[2022-01-05] MEDS: ALLOPURINOL 100 MG TABLET (FP) PO SCH (09:28)
[2022-01-05] MEDS: SERTRALINE HCL 25 MG TABLET (FP) PO SCH (09:28)
[2022-01-05] MEDS: VITAMIN B COMP W-C 1 EA TABLET (NEPHRO-VITE) PO SCH (09:28)
[2022-01-05] MEDS: FERROUS SO4 325 MG TABLET (FP) PO SCH (09:28)
[2022-01-05] MEDS: APIXABAN 5 MG TABLET PO SCH ×2 (09:28→22:18)
[2022-01-05] MEDS: PANTOPRAZOLE 40 MG TABLET PO SCH (09:28)
[2022-01-05] MEDS: OXYBUTYNIN CHLORIDE 5 MG TABLET PO SCH (09:28)
[2022-01-05] MEDS: AMIODARONE HCL 200 MG TABLET PO SCH (09:28)
[2022-01-05] MEDS: NYSTATIN POWDER 100,000 UNITS/GM - 15 GM TOPICAL POWDER TP SCH ×2 (10:53→22:19)
[2022-01-05] MEDS: AMMONIUM LACTATE 12% LOTION 225 GM BOTTLE TP SCH ×2 (10:53→22:19)
[2022-01-05] MEDS: AMINO ACIDS/PROTEIN HYDROLYS 30 ML LIQUID.PKT PO SCH (16:52)
[2022-01-06] MEDS: CALCIUM ACETATE 667 MG CAPSULE (FP) PO SCH ×3 (08:03→17:34)
[2022-01-06] MEDS: AMINO ACIDS/PROTEIN HYDROLYS 30 ML LIQUID.PKT PO SCH (08:03)
[2022-01-06] MEDS: DAPTOMYCIN 800 MG in SODIUM CHLORIDE 50 ML IVPB SCH (09:00)
[2022-01-06] MEDS: SERTRALINE HCL 25 MG TABLET (FP) PO SCH (09:37)
[2022-01-06] MEDS: FERROUS SO4 325 MG TABLET (FP) PO SCH (09:37)
[2022-01-06] MEDS: VITAMIN B COMP W-C 1 EA TABLET (NEPHRO-VITE) PO SCH (09:38)
[2022-01-06] MEDS: APIXABAN 5 MG TABLET PO SCH ×2 (09:38→21:31)
[2022-01-06] MEDS: PANTOPRAZOLE 40 MG TABLET PO SCH (09:38)
[2022-01-06] MEDS: OXYBUTYNIN CHLORIDE 5 MG TABLET PO SCH ×3 (09:38→13:16)
[2022-01-06] MEDS: AMIODARONE HCL 200 MG TABLET PO SCH (09:38)
[2022-01-06] MEDS: AMMONIUM LACTATE 12% LOTION 225 GM BOTTLE TP SCH ×2 (09:39→21:32)
[2022-01-06] MEDS: NYSTATIN POWDER 100,000 UNITS/GM - 15 GM TOPICAL POWDER TP SCH ×2 (09:39→21:32)
[2022-01-06] MEDS ORDERED: SODIUM CHLORIDE 250 ML IV PRN (15:37)
[2022-01-07] MEDS: AMINO ACIDS/PROTEIN HYDROLYS 30 ML LIQUID.PKT PO SCH ×2 (08:05→08:59)
[2022-01-07] MEDS: CALCIUM ACETATE 667 MG CAPSULE (FP) PO SCH ×3 (08:05→17:00)
[2022-01-07] MEDS ORDERED: EPOETIN ALFA-EPBX 10,000 UNIT/ML VIAL SQ ONE (10:00)
[2022-01-07 10:28] LABS: HEMATOCRIT 30.5 % (35.4-49); HEMOGLOBIN 10.2 GM/dL (11.7-16.9); MCH 29.8 pg (25.7-33.7); MCHC 33.3 g/dl (32.0-35.9); MEAN CELL VOLUME 89.4 fl (80-96); MEAN PLT VOLUME 6.6 fl (7.5-11.1); PLATELET COUNT 250 10^3/uL (134-434); RBC 3.42 M/mm3 (4.00-5.60); RDW 15.7 % (11.9-15.9); WHITE BLOOD COUNT 10.8 K/mm3 (4.0-10.0)
[2022-01-07 10:48] LABS: CHLORIDE 101 mmol/L (98-107); SODIUM 138 mmol/L (136-145)
[2022-01-07 11:01] LABS: ANION GAP 13 MMOL/L (8-16); BLOOD UREA NITROGEN 86.5 mg/dL (7-18); CALCIUM 8.4 mg/dL (8.5-10.1); CO2 24 mmol/L (21-32); GLUCOSE,RANDOM 101 mg/dL (74-106)
[2022-01-07 11:12] LABS: CREATININE 10.2 mg/dL (0.55-1.3)
[2022-01-07] MEDS: DAPTOMYCIN 800 MG in SODIUM CHLORIDE 50 ML IVPB SCH (12:18)
[2022-01-07] MEDS: APIXABAN 5 MG TABLET PO SCH ×2 (13:36→21:38)
[2022-01-07] MEDS: PANTOPRAZOLE 40 MG TABLET PO SCH (13:36)
[2022-01-07] MEDS: VITAMIN B COMP W-C 1 EA TABLET (NEPHRO-VITE) PO SCH (13:36)
[2022-01-07] MEDS: SERTRALINE HCL 25 MG TABLET (FP) PO SCH (13:36)
[2022-01-07] MEDS: AMMONIUM LACTATE 12% LOTION 225 GM BOTTLE TP SCH ×2 (13:37→21:39)
[2022-01-07] MEDS: NYSTATIN POWDER 100,000 UNITS/GM - 15 GM TOPICAL POWDER TP SCH ×2 (13:37→21:39)
[2022-01-07] MEDS: FERROUS SO4 325 MG TABLET (FP) PO SCH (13:37)
[2022-01-07] MEDS: ALLOPURINOL 100 MG TABLET (FP) PO SCH (13:38)
[2022-01-07] MEDS: OXYBUTYNIN CHLORIDE 5 MG TABLET PO SCH (13:41)
[2022-01-07] MEDS: AMIODARONE HCL 200 MG TABLET PO SCH (13:41)
[2022-01-08] MEDS: CALCIUM ACETATE 667 MG CAPSULE (FP) PO SCH ×3 (08:31→17:07)
[2022-01-08] MEDS: AMINO ACIDS/PROTEIN HYDROLYS 30 ML LIQUID.PKT PO SCH ×2 (08:32→08:34)
[2022-01-08] MEDS: OXYBUTYNIN CHLORIDE 5 MG TABLET PO SCH (09:31)
[2022-01-08] MEDS: FERROUS SO4 325 MG TABLET (FP) PO SCH (09:31)
[2022-01-08] MEDS: APIXABAN 5 MG TABLET PO SCH ×2 (09:31→22:36)
[2022-01-08] MEDS: AMIODARONE HCL 200 MG TABLET PO SCH (09:31)
[2022-01-08] MEDS: SERTRALINE HCL 25 MG TABLET (FP) PO SCH (09:31)
[2022-01-08] MEDS: VITAMIN B COMP W-C 1 EA TABLET (NEPHRO-VITE) PO SCH (09:31)
[2022-01-08] MEDS: PANTOPRAZOLE 40 MG TABLET PO SCH (09:31)
[2022-01-08] MEDS: AMMONIUM LACTATE 12% LOTION 225 GM BOTTLE TP SCH ×2 (09:32→22:38)
[2022-01-08] MEDS: NYSTATIN POWDER 100,000 UNITS/GM - 15 GM TOPICAL POWDER TP SCH ×2 (09:32→22:37)
[2022-01-09] MEDS ORDERED: SODIUM CHLORIDE 250 ML IV PRN (07:00)
[2022-01-09] MEDS ORDERED: EPOETIN ALFA-EPBX 10,000 UNIT/ML VIAL IVPUSH ONE (07:00)
[2022-01-09] MEDS: CALCIUM ACETATE 667 MG CAPSULE (FP) PO SCH ×3 (08:24→16:34)
[2022-01-09] MEDS: AMINO ACIDS/PROTEIN HYDROLYS 30 ML LIQUID.PKT PO SCH (08:25)
[2022-01-09] MEDS: PANTOPRAZOLE 40 MG TABLET PO SCH (10:42)
[2022-01-09] MEDS: SERTRALINE HCL 25 MG TABLET (FP) PO SCH (10:42)
[2022-01-09] MEDS: FERROUS SO4 325 MG TABLET (FP) PO SCH (10:42)
[2022-01-09] MEDS: OXYBUTYNIN CHLORIDE 5 MG TABLET PO SCH (10:42)
[2022-01-09] MEDS: DAPTOMYCIN 800 MG in SODIUM CHLORIDE 50 ML IVPB SCH (10:42)
[2022-01-09] MEDS: AMIODARONE HCL 200 MG TABLET PO SCH (10:42)
[2022-01-09] MEDS: APIXABAN 5 MG TABLET PO SCH ×2 (10:42→22:09)
[2022-01-09] MEDS: VITAMIN B COMP W-C 1 EA TABLET (NEPHRO-VITE) PO SCH (10:42)
[2022-01-09] MEDS: ALLOPURINOL 100 MG TABLET (FP) PO SCH (10:43)
[2022-01-09] MEDS: AMMONIUM LACTATE 12% LOTION 225 GM BOTTLE TP SCH ×2 (10:56→22:10)
[2022-01-09] MEDS: NYSTATIN POWDER 100,000 UNITS/GM - 15 GM TOPICAL POWDER TP SCH ×2 (10:56→22:10)
[2022-01-09 13:41] LABS: HEMATOCRIT 34.6 % (35.4-49); HEMOGLOBIN 10.9 GM/dL (11.7-16.9); MCH 28.5 pg (25.7-33.7); MCHC 31.5 g/dl (32.0-35.9); MEAN CELL VOLUME 90.3 fl (80-96); PLATELET COUNT 280 10^3/uL (134-434); RBC 3.84 M/mm3 (4.00-5.60); RDW 15.8 % (11.9-15.9); WHITE BLOOD COUNT 11.9 K/mm3 (4.0-10.0)
[2022-01-09 13:58] LABS: CHLORIDE 100 mmol/L (98-107); SODIUM 139 mmol/L (136-145)
[2022-01-09 14:04] LABS: ANION GAP 16 MMOL/L (8-16); BLOOD UREA NITROGEN 99.1 mg/dL (7-18); CALCIUM 8.7 mg/dL (8.5-10.1); CO2 23 mmol/L (21-32)
[2022-01-09 14:05] LABS: GLUCOSE,RANDOM 82 mg/dL (74-106)
[2022-01-09 14:15] LABS: CREATININE 11.2 mg/dL (0.55-1.3)
[2022-01-09 23:08] VITALS: BMI 52.4
[2022-01-10] MEDS: AMINO ACIDS/PROTEIN HYDROLYS 30 ML LIQUID.PKT PO SCH ×2 (08:00→08:02)
[2022-01-10] MEDS: CALCIUM ACETATE 667 MG CAPSULE (FP) PO SCH ×3 (08:00→17:08)
[2022-01-10] MEDS: AMIODARONE HCL 200 MG TABLET PO SCH (10:53)
[2022-01-10] MEDS: OXYBUTYNIN CHLORIDE 5 MG TABLET PO SCH (10:53)
[2022-01-10] MEDS: APIXABAN 5 MG TABLET PO SCH ×2 (10:53→21:31)
[2022-01-10] MEDS: SERTRALINE HCL 25 MG TABLET (FP) PO SCH (10:53)
[2022-01-10] MEDS: FERROUS SO4 325 MG TABLET (FP) PO SCH (10:53)
[2022-01-10] MEDS: VITAMIN B COMP W-C 1 EA TABLET (NEPHRO-VITE) PO SCH (10:53)
[2022-01-10] MEDS: AMMONIUM LACTATE 12% LOTION 225 GM BOTTLE TP SCH ×2 (10:54→21:33)
[2022-01-10] MEDS: NYSTATIN POWDER 100,000 UNITS/GM - 15 GM TOPICAL POWDER TP SCH ×2 (10:54→21:33)
[2022-01-10] MEDS: PANTOPRAZOLE 40 MG TABLET PO SCH (10:54)
[2022-01-11] MEDS: AMINO ACIDS/PROTEIN HYDROLYS 30 ML LIQUID.PKT PO SCH ×2 (10:12→10:18)
[2022-01-11] MEDS: CALCIUM ACETATE 667 MG CAPSULE (FP) PO SCH ×3 (10:12→17:45)
[2022-01-11] MEDS: ALLOPURINOL 100 MG TABLET (FP) PO SCH (10:13)
[2022-01-11] MEDS: AMIODARONE HCL 200 MG TABLET PO SCH (10:13)
[2022-01-11] MEDS: PANTOPRAZOLE 40 MG TABLET PO SCH (10:13)
[2022-01-11] MEDS: VITAMIN B COMP W-C 1 EA TABLET (NEPHRO-VITE) PO SCH (10:13)
[2022-01-11] MEDS: FERROUS SO4 325 MG TABLET (FP) PO SCH (10:14)
[2022-01-11] MEDS: SERTRALINE HCL 25 MG TABLET (FP) PO SCH (10:14)
[2022-01-11] MEDS: OXYBUTYNIN CHLORIDE 5 MG TABLET PO SCH (10:14)
[2022-01-11] MEDS ORDERED: LIDOCAINE HCL 1%, 10 MG/ML (20ML VIAL) ONE (10:15)
[2022-01-11] MEDS: CLOTRIMAZOLE/BETAMET DIPROP 15 GM TUBE TP PRN ×2 (10:17→22:04)
[2022-01-11] MEDS ORDERED: SODIUM CHLORIDE IVPB ONE (10:18)
[2022-01-11] MEDS ORDERED: DAPTOMYCIN IVPB ONE (10:18)
[2022-01-11] MEDS: AMMONIUM LACTATE 12% LOTION 225 GM BOTTLE TP SCH ×2 (10:18→22:03)
[2022-01-11] MEDS ORDERED: LIDOCAINE HCL 1%, 10 MG/ML (50 mL VIAL) NR ONE (10:22)
[2022-01-11] MEDS: APIXABAN 5 MG TABLET PO SCH ×2 (10:32→22:03)
[2022-01-11] MEDS: NYSTATIN POWDER 100,000 UNITS/GM - 15 GM TOPICAL POWDER TP SCH ×2 (10:52→22:05)
[2022-01-11] MEDS ORDERED: EPOETIN ALFA-EPBX 10,000 UNIT/ML VIAL IVPUSH ONE ×2 (15:00→16:00)
[2022-01-11] MEDS ORDERED: SODIUM CHLORIDE 250 ML IV PRN (15:00)
[2022-01-11] MEDS: DAPTOMYCIN 800 MG in SODIUM CHLORIDE 50 ML IVPB SCH (18:08)
[2022-01-12] MEDS: FERROUS SO4 325 MG TABLET (FP) PO SCH (10:39)
[2022-01-12] MEDS: CALCIUM ACETATE 667 MG CAPSULE (FP) PO SCH ×3 (10:39→17:29)
[2022-01-12] MEDS: VITAMIN B COMP W-C 1 EA TABLET (NEPHRO-VITE) PO SCH (10:39)
[2022-01-12] MEDS: AMIODARONE HCL 200 MG TABLET PO SCH (10:39)
[2022-01-12] MEDS: OXYBUTYNIN CHLORIDE 5 MG TABLET PO SCH (10:39)
[2022-01-12] MEDS: APIXABAN 5 MG TABLET PO SCH ×2 (10:39→21:49)
[2022-01-12] MEDS: PANTOPRAZOLE 40 MG TABLET PO SCH (10:39)
[2022-01-12] MEDS: SERTRALINE HCL 25 MG TABLET (FP) PO SCH (10:39)
[2022-01-12] MEDS: NYSTATIN POWDER 100,000 UNITS/GM - 15 GM TOPICAL POWDER TP SCH ×2 (10:41→21:49)
[2022-01-12] MEDS: AMINO ACIDS/PROTEIN HYDROLYS 30 ML LIQUID.PKT PO SCH (10:42)
[2022-01-12] MEDS: AMMONIUM LACTATE 12% LOTION 225 GM BOTTLE TP SCH ×2 (10:42→21:49)
[2022-01-13] MEDS ORDERED: DAPTOMYCIN 800 MG in SODIUM CHLORIDE 50 ML IVPB ONE ×2 (10:00→14:40)
[2022-01-13] MEDS: CALCIUM ACETATE 667 MG CAPSULE (FP) PO SCH ×3 (11:04→17:15)
[2022-01-13] MEDS: OXYBUTYNIN CHLORIDE 5 MG TABLET PO SCH (11:05)
[2022-01-13] MEDS: AMINO ACIDS/PROTEIN HYDROLYS 30 ML LIQUID.PKT PO SCH (11:05)
[2022-01-13] MEDS: AMIODARONE HCL 200 MG TABLET PO SCH (11:05)
[2022-01-13] MEDS: APIXABAN 5 MG TABLET PO SCH ×2 (11:05→22:38)
[2022-01-13] MEDS: FERROUS SO4 325 MG TABLET (FP) PO SCH (11:05)
[2022-01-13] MEDS: VITAMIN B COMP W-C 1 EA TABLET (NEPHRO-VITE) PO SCH (11:06)
[2022-01-13] MEDS: NYSTATIN POWDER 100,000 UNITS/GM - 15 GM TOPICAL POWDER TP SCH ×2 (11:07→22:40)
[2022-01-13] MEDS: AMMONIUM LACTATE 12% LOTION 225 GM BOTTLE TP SCH ×2 (11:07→22:41)
[2022-01-13] MEDS: PANTOPRAZOLE 40 MG TABLET PO SCH (11:07)
[2022-01-13] MEDS: SERTRALINE HCL 25 MG TABLET (FP) PO SCH (11:07)
[2022-01-13] MEDS: ALLOPURINOL 100 MG TABLET (FP) PO SCH (11:07)
[2022-01-13] MEDS ORDERED: LIDOCAINE HCL 1%, 10 MG/ML (20ML VIAL) ONE (12:00)
[2022-01-13] MEDS ORDERED: HEPARIN NA (PORCINE) 5,000 UNITS/ML 1ML VIAL ONE (12:01)
[2022-01-13] MEDS ORDERED: SODIUM CHLORIDE 250 ML IV PRN ×2 (12:32→14:40)
[2022-01-13] MEDS ORDERED: MIDAZOLAM HCL 2 MG/2 ML SINGLE DOSE VIAL ONE (13:47)
[2022-01-13] MEDS ORDERED: LIDOCAINE HCL 1%, 10 MG/ML (20ML VIAL) NR ONE (13:56)
[2022-01-13] MEDS ORDERED: VANCOMYCIN 1 GM in NS (PRE-DOCKED) 1,000 MG/250 ML IVPB ONE (13:59)
[2022-01-13] MEDS ORDERED: VITAMINS A AND D TOPICAL OINTMENT 60 GM TUBE TP PRN (14:40)
[2022-01-13] MEDS ORDERED: ONDANSETRON *ODT* 4 MG TABLET SL PRN (14:40)
[2022-01-13] MEDS ORDERED: POLYETHYLENE GLYCOL (HEALTHYLAX) 3350 17 GM PACKET PO PRN (14:40)
[2022-01-13] MEDS ORDERED: ACETAMINOPHEN 325 MG TABLET (FP) PO PRN (14:40)
[2022-01-13] MEDS ORDERED: CLOTRIMAZOLE/BETAMET DIPROP 15 GM TUBE TP PRN (14:40)
[2022-01-14] MEDS: CALCIUM ACETATE 667 MG CAPSULE (FP) PO SCH ×3 (07:53→16:36)
[2022-01-14] MEDS: AMINO ACIDS/PROTEIN HYDROLYS 30 ML LIQUID.PKT PO SCH (07:53)
[2022-01-14] MEDS ORDERED: EPOETIN ALFA-EPBX 4,000 UNIT/ML VIAL IVPUSH ONE (09:00)
[2022-01-14] MEDS: OXYBUTYNIN CHLORIDE 5 MG TABLET PO SCH (09:33)
[2022-01-14] MEDS: VITAMIN B COMP W-C 1 EA TABLET (NEPHRO-VITE) PO SCH (09:33)
[2022-01-14] MEDS: FERROUS SO4 325 MG TABLET (FP) PO SCH (09:33)
[2022-01-14] MEDS: APIXABAN 5 MG TABLET PO SCH ×2 (09:33→22:50)
[2022-01-14] MEDS: SERTRALINE HCL 25 MG TABLET (FP) PO SCH (09:34)
[2022-01-14] MEDS: PANTOPRAZOLE 40 MG TABLET PO SCH (09:34)
[2022-01-14] MEDS ORDERED: AMIODARONE HCL 200 MG TABLET PO SCH (10:00)
[2022-01-14 10:28] LABS: HEMATOCRIT 34.2 % (35.4-49); HEMOGLOBIN 11.1 GM/dL (11.7-16.9); MCHC 32.5 g/dl (32.0-35.9); MEAN CELL VOLUME 89.2 fl (80-96); MEAN PLT VOLUME 7.1 fl (7.5-11.1); PLATELET COUNT 270 10^3/uL (134-434); RBC 3.83 M/mm3 (4.00-5.60); RDW 15.8 % (11.9-15.9); WHITE BLOOD COUNT 9.3 K/mm3 (4.0-10.0)
[2022-01-14 10:51] LABS: CHLORIDE 101 mmol/L (98-107); SODIUM 139 mmol/L (136-145)
[2022-01-14 11:32] LABS: ANION GAP 13 MMOL/L (8-16); CALCIUM 8.8 mg/dL (8.5-10.1); CO2 24 mmol/L (21-32); GLUCOSE,RANDOM 179 mg/dL (74-106)
[2022-01-14 11:36] LABS: BLOOD UREA NITROGEN 62.7 mg/dL (7-18); CREATININE 8.5 mg/dL (0.55-1.3)
[2022-01-14] MEDS ORDERED: EPOETIN ALFA-EPBX 4,000 UNIT/ML VIAL SQ ONE (12:32)
[2022-01-14] MEDS: NYSTATIN POWDER 100,000 UNITS/GM - 15 GM TOPICAL POWDER TP SCH ×2 (13:37→22:52)
[2022-01-14] MEDS: AMMONIUM LACTATE 12% LOTION 225 GM BOTTLE TP SCH ×2 (13:37→22:52)
[2022-01-15] MEDS: CALCIUM ACETATE 667 MG CAPSULE (FP) PO SCH ×3 (08:22→17:10)
[2022-01-15] MEDS: AMINO ACIDS/PROTEIN HYDROLYS 30 ML LIQUID.PKT PO SCH (08:23)
[2022-01-15] MEDS: VITAMIN B COMP W-C 1 EA TABLET (NEPHRO-VITE) PO SCH (09:24)
[2022-01-15] MEDS: PANTOPRAZOLE 40 MG TABLET PO SCH (09:24)
[2022-01-15] MEDS: FERROUS SO4 325 MG TABLET (FP) PO SCH (09:24)
[2022-01-15] MEDS: DRONEDARONE HCL 400 MG TAB (FP) PO SCH ×2 (09:24→23:10)
[2022-01-15] MEDS: APIXABAN 5 MG TABLET PO SCH ×2 (09:24→23:10)
[2022-01-15] MEDS: SERTRALINE HCL 25 MG TABLET (FP) PO SCH (09:24)
[2022-01-15] MEDS: AMMONIUM LACTATE 12% LOTION 225 GM BOTTLE TP SCH ×2 (09:24→23:13)
[2022-01-15] MEDS: NYSTATIN POWDER 100,000 UNITS/GM - 15 GM TOPICAL POWDER TP SCH ×2 (09:24→23:13)
[2022-01-15] MEDS: OXYBUTYNIN CHLORIDE 5 MG TABLET PO SCH (09:24)
[2022-01-15] MEDS ORDERED: ALLOPURINOL 100 MG TABLET (FP) PO SCH (10:00)
[2022-01-16] MEDS ORDERED: EPOETIN ALFA-EPBX 2,000 UNIT/ML VIAL SQ ONE (09:00)
[2022-01-16] MEDS: FERROUS SO4 325 MG TABLET (FP) PO SCH (09:41)
[2022-01-16] MEDS: CALCIUM ACETATE 667 MG CAPSULE (FP) PO SCH ×3 (09:41→17:33)
[2022-01-16] MEDS: VITAMIN B COMP W-C 1 EA TABLET (NEPHRO-VITE) PO SCH (09:41)
[2022-01-16] MEDS: OXYBUTYNIN CHLORIDE 5 MG TABLET PO SCH (09:41)
[2022-01-16] MEDS: SERTRALINE HCL 25 MG TABLET (FP) PO SCH (09:41)
[2022-01-16] MEDS: DRONEDARONE HCL 400 MG TAB (FP) PO SCH (09:41)
[2022-01-16] MEDS: APIXABAN 5 MG TABLET PO SCH ×2 (09:41→21:55)
[2022-01-16] MEDS: PANTOPRAZOLE 40 MG TABLET PO SCH (09:41)
[2022-01-16] MEDS: AMINO ACIDS/PROTEIN HYDROLYS 30 ML LIQUID.PKT PO SCH (09:41)
[2022-01-16] MEDS: AMMONIUM LACTATE 12% LOTION 225 GM BOTTLE TP SCH ×2 (09:42→21:57)
[2022-01-16] MEDS: NYSTATIN POWDER 100,000 UNITS/GM - 15 GM TOPICAL POWDER TP SCH ×2 (09:42→21:55)
[2022-01-16] MEDS ORDERED: DAPTOMYCIN 800 MG in SODIUM CHLORIDE 50 ML IVPB ONE (10:00)
[2022-01-16] MEDS ORDERED: SODIUM CHLORIDE 250 ML IV PRN (11:54)
[2022-01-16] MEDS ORDERED: HEPARIN NA (PORCINE) 5,000 UNITS/ML 1ML VIAL IVPUSH ONE (11:54)
[2022-01-16 12:03] LABS: HEMATOCRIT 35.2 % (35.4-49); HEMOGLOBIN 11.4 GM/dL (11.7-16.9); MCH 28.9 pg (25.7-33.7); MCHC 32.3 g/dl (32.0-35.9); MEAN CELL VOLUME 89.5 fl (80-96); PLATELET COUNT 279 10^3/uL (134-434); RBC 3.93 M/mm3 (4.00-5.60); RDW 15.9 % (11.9-15.9); WHITE BLOOD COUNT 11.3 K/mm3 (4.0-10.0)
[2022-01-16 12:19] LABS: CHLORIDE 98 mmol/L (98-107); SODIUM 137 mmol/L (136-145)
[2022-01-16 12:22] LABS: ANION GAP 13 MMOL/L (8-16); BLOOD UREA NITROGEN 71.7 mg/dL (7-18); CALCIUM 8.7 mg/dL (8.5-10.1); CO2 26 mmol/L (21-32); GLUCOSE,RANDOM 88 mg/dL (74-106)
[2022-01-16 12:29] LABS: CREATININE 10.5 mg/dL (0.55-1.3)
[2022-01-16] MEDS ORDERED: LIDOCAINE HCL 1%, 10 MG/ML (20ML VIAL) ONE (15:07)
[2022-01-16] MEDS ORDERED: HEPARIN NA (PORCINE) 5,000 UNITS/ML 1ML VIAL ONE (15:08)
[2022-01-16] MEDS ORDERED: THROMBIN (BOVINE) 5,000 UNIT VIAL TP ONE (15:08)
[2022-01-16] MEDS ORDERED: POVIDONE-IODINE OINTMENT 10% - 28.4 GM TUBE ONE (16:03)
[2022-01-16] MEDS ORDERED: ceFAZolin SODIUM 1 GM VIAL ONE (16:24)
[2022-01-16] MEDS ORDERED: MIDAZOLAM HCL 2 MG/2 ML SINGLE DOSE VIAL ONE (16:24)
[2022-01-16] MEDS ORDERED: ceFAZolin SODIUM 1 GM VIAL IVPB ONE (16:50)
[2022-01-16] MEDS ORDERED: LIDOCAINE HCL 1%, 10 MG/ML (20ML VIAL) NR ONE (17:05)
[2022-01-16] MEDS ORDERED: ACETAMINOPHEN 325 MG TABLET (FP) PO PRN (18:03)
[2022-01-16] MEDS ORDERED: POLYETHYLENE GLYCOL (HEALTHYLAX) 3350 17 GM PACKET PO PRN (18:03)
[2022-01-16] MEDS ORDERED: VITAMINS A AND D TOPICAL OINTMENT 60 GM TUBE TP PRN (18:03)
[2022-01-16] MEDS ORDERED: CLOTRIMAZOLE/BETAMET DIPROP 15 GM TUBE TP PRN (18:03)
[2022-01-17 07:56] VITALS: RESP 18
[2022-01-17] MEDS ORDERED: AMINO ACIDS/PROTEIN HYDROLYS 30 ML LIQUID.PKT PO SCH (08:00)
[2022-01-17] MEDS: CALCIUM ACETATE 667 MG CAPSULE (FP) PO SCH ×3 (08:00→17:45)
[2022-01-17] MEDS ORDERED: SODIUM CHLORIDE 250 ML IV PRN ×2 (08:45→14:02)
[2022-01-17] MEDS ORDERED: HEPARIN NA (PORCINE) 5,000 UNITS/ML 1ML VIAL IVPUSH ONE (08:45)
[2022-01-17 09:02] LABS: HEMATOCRIT 32.4 % (35.4-49); HEMOGLOBIN 10.7 GM/dL (11.7-16.9); MCH 29.6 pg (25.7-33.7); MEAN CELL VOLUME 89.7 fl (80-96); PLATELET COUNT 238 10^3/uL (134-434); RBC 3.61 M/mm3 (4.00-5.60); WHITE BLOOD COUNT 12.5 K/mm3 (4.0-10.0)
[2022-01-17 09:12] LABS: CALCIUM 8.5 mg/dL (8.5-10.1); CHLORIDE 101 mmol/L (98-107); SODIUM 138 mmol/L (136-145)
[2022-01-17 09:13] LABS: ANION GAP 15 MMOL/L (8-16); BLOOD UREA NITROGEN 83.2 mg/dL (7-18); CO2 22 mmol/L (21-32); GLUCOSE,RANDOM 133 mg/dL (74-106)
[2022-01-17 09:27] LABS: CREATININE 11.4 mg/dL (0.55-1.3)
[2022-01-17] MEDS ORDERED: EPOETIN ALFA-EPBX 2,000 UNIT/ML VIAL SQ ONE (09:30)
[2022-01-17] MEDS ORDERED: DAPTOMYCIN 800 MG in SODIUM CHLORIDE 50 ML IVPB ONE (09:30)
[2022-01-17] MEDS ORDERED: PANTOPRAZOLE 40 MG TABLET PO SCH (10:00)
[2022-01-17] MEDS ORDERED: VITAMIN B COMP W-C 1 EA TABLET (NEPHRO-VITE) PO SCH (10:00)
[2022-01-17] MEDS: FERROUS SO4 325 MG TABLET (FP) PO SCH ×2 (12:22→12:36)
[2022-01-17] MEDS: DRONEDARONE HCL 400 MG TAB (FP) PO SCH ×2 (12:22→17:45)
[2022-01-17] MEDS: APIXABAN 5 MG TABLET PO SCH (12:22)
[2022-01-17] MEDS: ALLOPURINOL 100 MG TABLET (FP) PO SCH ×2 (12:23→12:37)
[2022-01-17] MEDS: SERTRALINE HCL 25 MG TABLET (FP) PO SCH ×2 (12:23→12:37)
[2022-01-17] MEDS: SOLIFENACIN SUCCINATE 5 MG TAB PO SCH ×2 (12:24→12:36)
[2022-01-17] MEDS: AMMONIUM LACTATE 12% LOTION 225 GM BOTTLE TP SCH (12:25)
[2022-01-17] MEDS: NYSTATIN POWDER 100,000 UNITS/GM - 15 GM TOPICAL POWDER TP SCH (12:25)
[2022-01-17 14:40] VITALS: BP 132/86; PULSE 92; TEMP 98.4
[2022-01-18] MEDS ORDERED: EPOETIN ALFA-EPBX 2,000 UNIT/ML VIAL SQ ONE (14:02)
[2022-01-18] MEDS ORDERED: HEPARIN NA (PORCINE) 5,000 UNITS/ML 1ML VIAL IVPUSH ONE (14:02)
[2022-01-18] MEDS ORDERED: HEPARIN NA (PORCINE) 5,000 UNITS/ML 1ML VIAL IVPUSH SCH (14:15)
== END 2022-01-17 21:35 | DRG 182 ==
LOC: JER 04:32 → JERBED 07:31 → J6S 12-29 19:02 → OBSVTOIN 12-30 09:25 → J7W 01-08 12:29
PROVIDERS: ADMIT Internal Medicine; ATTEND Internal Medicine
PROC: 5A1D70Z Performance of Urinary Filtration, Intermittent, Less than 6 Hours Per Day (ICD-10-PCS; 2022-01-06)
PROC: 05CY0ZZ Extirpation of Matter from Upper Vein, Open Approach (ICD-10-PCS; principal; 2022-01-10)
PROC: B51NYZZ Fluoroscopy of Left Upper Extremity Veins using Other Contrast (ICD-10-PCS; 2022-01-10)
PROC: 05CY0ZZ Extirpation of Matter from Upper Vein, Open Approach (ICD-10-PCS; 2022-01-16)
PROC: B51NYZZ Fluoroscopy of Left Upper Extremity Veins using Other Contrast (ICD-10-PCS; 2022-01-16)
DX: I13.2 Hypertensive heart and chronic kidney disease with heart failure and with stage 5 chronic kidney disease, or end stage renal disease (principal); I48.91 Unspecified atrial fibrillation; Z79.01 Long term (current) use of anticoagulants; J44.9 Chronic obstructive pulmonary disease, unspecified; N18.6 End stage renal disease; E66.01 Morbid (severe) obesity due to excess calories; Z99.2 Dependence on renal dialysis; Z68.43 Body mass index [BMI] 50.0-59.9, adult; E78.5 Hyperlipidemia, unspecified; D72.829 Elevated white blood cell count, unspecified; I50.32 Chronic diastolic (congestive) heart failure; I48.92 Unspecified atrial flutter; R07.89 Other chest pain; T82.868A Thrombosis due to vascular prosthetic devices, implants and grafts, initial encounter; I87.2 Venous insufficiency (chronic) (peripheral); R91.1 Solitary pulmonary nodule; M10.9 Gout, unspecified; R78.81 Bacteremia; B95.62 Methicillin resistant Staphylococcus aureus infection as the cause of diseases classified elsewhere; Y83.8 Other surgical procedures as the cause of abnormal reaction of the patient, or of later complication, without mention of misadventure at the time of the procedure; K11.8 Other diseases of salivary glands
CPT/HCPCS: 0241U-QW; 36415; 70490-TC; 71045-TC-FY; 71250-TC; 74176-TC; 76000-TC-FY; 76775-TC; 80048; 80053; 82550; 83735; 83880; 84443; 84484; 85025; 85027; 86803; 87040; 87186; 87340; 87517; 93005; 93010; 93306-TC; 94760; 99285-25; C9803-CS; G0378; G0480; J0878; J1644; Q5106; U0003; U0005

== ENCOUNTER 2022-02-11 11:33 | Inpatient (IN) | payer OTHER ==
[2022-02-11 16:25] LABS: CHLORIDE 99 mmol/L (98-107); SODIUM 136 mmol/L (136-145)
[2022-02-11 16:27] LABS: CALCIUM 8.6 mg/dL (8.5-10.1)
[2022-02-11 16:28] LABS: ALBUMIN 1.9 g/dl (3.4-5.0); CO2 19 mmol/L (21-32); GLUCOSE,RANDOM 103 mg/dL (74-106)
[2022-02-11 16:31] LABS: PHOSPHOROUS 5.4 mg/dL (2.5-4.9); SGOT/AST 49 U/L (15-37); SGPT/ALT 29 U/L (13-61)
[2022-02-11 16:32] LABS: BILIRUBIN,TOTAL 0.6 mg/dL (0.2-1); TOT PROT 6.7 g/dl (6.4-8.2)
[2022-02-11 16:33] LABS: ALK PHOS 104 U/L (45-117)
[2022-02-11 16:35] LABS: HEMATOCRIT 29.7 % (35.4-49); HEMOGLOBIN 9.3 GM/dL (11.7-16.9); MCH 27.4 pg (25.7-33.7); MCHC 31.1 g/dl (32.0-35.9); MEAN CELL VOLUME 88.1 fl (80-96); MEAN PLT VOLUME 6.8 fl (7.5-11.1); PLATELET COUNT 285 10^3/uL (134-434); RBC 3.37 M/mm3 (4.00-5.60); RDW 17.6 % (11.9-15.9); WHITE BLOOD COUNT 18.8 K/mm3 (4.0-10.0)
[2022-02-11 16:40] LABS: ANION GAP 17 MMOL/L (8-16); BLOOD UREA NITROGEN 122.3 mg/dL (7-18); CREATININE 14.4 mg/dL (0.55-1.3)
[2022-02-11 16:44] LABS: INR 2.63 (0.83-1.09); PROTHROMBIN TIME (PATIENT) 30.5 SEC (9.7-13.0)
[2022-02-11 16:47] LABS: ACTIVATED PTT 35.2 SECONDS (25.2-36.5)
[2022-02-11 17:42] LABS: ANISOCYTOSIS 2+; MACROCYTOSIS 1+
[2022-02-11 18:55] LABS: CHLORIDE 101 mmol/L (98-107); SODIUM 138 mmol/L (136-145)
[2022-02-11 18:56] LABS: CO2 21 mmol/L (21-32)
[2022-02-11 18:57] LABS: CALCIUM 8.7 mg/dL (8.5-10.1)
[2022-02-11 18:58] LABS: ALBUMIN 2.1 g/dl (3.4-5.0); GLUCOSE,RANDOM 104 mg/dL (74-106)
[2022-02-11 19:01] LABS: SGOT/AST 16 U/L (15-37); SGPT/ALT 29 U/L (13-61)
[2022-02-11 19:02] LABS: TOT PROT 6.7 g/dl (6.4-8.2)
[2022-02-11 19:03] LABS: BILIRUBIN,TOTAL 0.4 mg/dL (0.2-1)
[2022-02-11 19:04] LABS: ALK PHOS 103 U/L (45-117)
[2022-02-11 19:05] LABS: ANION GAP 16 MMOL/L (8-16); BLOOD UREA NITROGEN 122.8 mg/dL (7-18); CREATININE 14.3 mg/dL (0.55-1.3)
[2022-02-11] MEDS ORDERED: CALCIUM GLUCONATE 10% - 1,000 MG/10 ML VIAL IVPB ONE (19:17)
[2022-02-11] MEDS ORDERED: INSULIN REGULAR HUMAN 100 UNITS/ML *VIAL IVPUSH ONE (19:18)
[2022-02-11] MEDS ORDERED: DEXTROSE 50%-WATER - 25 GM/50 ML VIAL IVPUSH ONE (19:20)
[2022-02-11] MEDS ORDERED: DEXTROSE 50%-WATER 25 GM/50 ML DISP.SYRIN ONE (19:24)
[2022-02-11] MEDS ORDERED: CALCIUM GLUC IN NACL, ISO-OSM 1 GM/50 ML BAG IVPB ONE (19:25)
[2022-02-11] MEDS ORDERED: VANCOMYCIN/WATER 1,250 MG/250 ML BAG (RESTRICTED TO ID ONLY) IVPB ONE ×2 (20:03→20:09)
[2022-02-11] MEDS ORDERED: SODIUM ZIRCONIUM CYCLOSILICATE (LOKELMA) 5 GM PACKET ONE (20:07)
[2022-02-11] MEDS: SODIUM ZIRCONIUM CYCLOSILICATE (LOKELMA) 5 GM PACKET PO SCH (20:16)
[2022-02-11] MEDS ORDERED: VANCOMYCIN/WATER 1250 MG 1,250 MG/250 ML BAG IVPB ONE (21:01)
[2022-02-11] MEDS ORDERED: ACETAMINOPHEN 500 MG TABLET (FP) PO ONE (21:30)
[2022-02-11] MEDS ORDERED: DAPTOMYCIN 800 MG in SODIUM CHLORIDE 50 ML IVPB ONE (21:38)
[2022-02-11] MEDS ORDERED: ACETAMINOPHEN 325 MG TABLET (FP) ONE (21:48)
[2022-02-12] MEDS ORDERED: POLYETHYLENE GLYCOL (HEALTHYLAX) 3350 17 GM PACKET PO PRN (00:45)
[2022-02-12] MEDS: ALLOPURINOL 100 MG TABLET (FP) PO SCH (02:18)
[2022-02-12] MEDS ORDERED: EPOETIN ALFA-EPBX 10,000 UNIT/ML VIAL IVPUSH ONE (06:15)
[2022-02-12] MEDS ORDERED: SODIUM CHLORIDE 250 ML IV PRN ×2 (06:15→12:54)
[2022-02-12 08:48] LABS: HEMATOCRIT 27.9 % (35.4-49); HEMOGLOBIN 8.7 GM/dL (11.7-16.9); MCH 27.4 pg (25.7-33.7); MCHC 31.2 g/dl (32.0-35.9); MEAN CELL VOLUME 87.7 fl (80-96); MEAN PLT VOLUME 6.9 fl (7.5-11.1); PLATELET COUNT 254 10^3/uL (134-434); RBC 3.18 M/mm3 (4.00-5.60); RDW 17.4 % (11.9-15.9); WHITE BLOOD COUNT 24.6 K/mm3 (4.0-10.0)
[2022-02-12 09:04] LABS: CHLORIDE 98 mmol/L (98-107); SODIUM 134 mmol/L (136-145)
[2022-02-12 09:14] LABS: ANION GAP 19 MMOL/L (8-16); CO2 18 mmol/L (21-32)
[2022-02-12 09:15] LABS: ALBUMIN 1.9 g/dl (3.4-5.0); GLUCOSE,RANDOM 108 mg/dL (74-106)
[2022-02-12 09:16] LABS: CALCIUM 8.4 mg/dL (8.5-10.1)
[2022-02-12 09:18] LABS: SGOT/AST 23 U/L (15-37); SGPT/ALT 30 U/L (13-61)
[2022-02-12 09:19] LABS: BILIRUBIN,TOTAL 0.6 mg/dL (0.2-1); TOT PROT 6.4 g/dl (6.4-8.2)
[2022-02-12 09:21] LABS: ALK PHOS 112 U/L (45-117)
[2022-02-12 09:22] LABS: BLOOD UREA NITROGEN 126.3 mg/dL (7-18); CREATININE 15.1 mg/dL (0.55-1.3)
[2022-02-12] MEDS ORDERED: AMIODARONE HCL 200 MG TABLET PO SCH (10:00)
[2022-02-12] MEDS: SODIUM ZIRCONIUM CYCLOSILICATE (LOKELMA) 5 GM PACKET PO SCH (10:45)
[2022-02-12] MEDS: DRONEDARONE HCL 400 MG TAB (FP) PO SCH ×2 (10:45→23:19)
[2022-02-12] MEDS: CALCIUM ACETATE 667 MG CAPSULE (FP) PO SCH (10:45)
[2022-02-12] MEDS: SOLIFENACIN SUCCINATE 5 MG TAB PO SCH (10:46)
[2022-02-12] MEDS: PANTOPRAZOLE 20 MG TABLET PO SCH (10:46)
[2022-02-12] MEDS: APIXABAN 5 MG TABLET PO SCH ×2 (10:46→23:19)
[2022-02-12] MEDS: SERTRALINE HCL 25 MG TABLET (FP) PO SCH (10:47)
[2022-02-12] MEDS ORDERED: SODIUM ZIRCONIUM CYCLOSILICATE (LOKELMA) 5 GM PACKET PO SCH (13:15)
[2022-02-12] MEDS ORDERED: LIDOCAINE HCL 1%, 10 MG/ML (20ML VIAL) ONE (13:42)
[2022-02-12] MEDS ORDERED: PROMETHAZINE HCL 25 MG/1 ML VIAL IVPUSH PRN (14:15)
[2022-02-12] MEDS ORDERED: ONDANSETRON 4 MG/2 ML VIAL IVPUSH PRN (14:15)
[2022-02-12] MEDS ORDERED: oxyCODONE HCL 5 MG TABLET PO PRN (14:15)
[2022-02-12] MEDS ORDERED: KETAMINE HCL 500 MG/10 ML VIAL ONE (14:19)
[2022-02-12] MEDS ORDERED: MIDAZOLAM HCL 2 MG/2 ML SINGLE DOSE VIAL ONE ×2 (14:19→14:38)
[2022-02-12] MEDS ORDERED: LIDOCAINE HCL 1%, 10 MG/ML (20ML VIAL) INF ONE (14:38)
[2022-02-12] MEDS ORDERED: ACETAMINOPHEN 1000 MG/100 ML BAG IVPB PRN (15:22)
[2022-02-12] MEDS ORDERED: HEPARIN NA (PORCINE) 5,000 UNITS/ML 1ML VIAL IVPUSH ONE (16:00)
[2022-02-13] MEDS ORDERED: SODIUM ZIRCONIUM CYCLOSILICATE (LOKELMA) 5 GM PACKET PO ONE (01:00)
[2022-02-13] MEDS: CALCIUM ACETATE 667 MG CAPSULE (FP) PO SCH ×3 (09:44→17:21)
[2022-02-13] MEDS: PANTOPRAZOLE 20 MG TABLET PO SCH (09:45)
[2022-02-13] MEDS: APIXABAN 5 MG TABLET PO SCH ×2 (09:45→22:06)
[2022-02-13] MEDS: DRONEDARONE HCL 400 MG TAB (FP) PO SCH ×2 (09:45→17:21)
[2022-02-13] MEDS: SERTRALINE HCL 25 MG TABLET (FP) PO SCH (09:45)
[2022-02-13] MEDS: SOLIFENACIN SUCCINATE 5 MG TAB PO SCH (09:45)
[2022-02-13] MEDS ORDERED: AMIODARONE HCL 200 MG TABLET PO SCH (10:00)
[2022-02-13] MEDS ORDERED: LOPERAMIDE HCL 2 MG CAPSULE PO ONE (14:00)
[2022-02-13] MEDS ORDERED: SODIUM CHLORIDE 250 ML IV PRN (14:48)
[2022-02-14] MEDS: ALLOPURINOL 100 MG TABLET (FP) PO SCH (01:35)
[2022-02-14] MEDS: CALCIUM ACETATE 667 MG CAPSULE (FP) PO SCH ×5 (08:00→18:03)
[2022-02-14] MEDS ORDERED: VANCOMYCIN 1 GM/200 ML PREMIX BAG (RESTRICTED TO ID ONLY) IVPB ONE (08:30)
[2022-02-14] MEDS: PANTOPRAZOLE 20 MG TABLET PO SCH (10:41)
[2022-02-14] MEDS: APIXABAN 5 MG TABLET PO SCH ×2 (10:41→22:19)
[2022-02-14] MEDS: SOLIFENACIN SUCCINATE 5 MG TAB PO SCH (10:42)
[2022-02-14] MEDS: DRONEDARONE HCL 400 MG TAB (FP) PO SCH ×2 (10:42→18:03)
[2022-02-14] MEDS: SERTRALINE HCL 25 MG TABLET (FP) PO SCH (10:42)
[2022-02-14 16:38] LABS: HEMATOCRIT 25.7 % (35.4-49); HEMOGLOBIN 8.1 GM/dL (11.7-16.9); MCH 27.2 pg (25.7-33.7); MCHC 31.4 g/dl (32.0-35.9); MEAN CELL VOLUME 86.6 fl (80-96); MEAN PLT VOLUME 6.9 fl (7.5-11.1); PLATELET COUNT 285 10^3/uL (134-434); RBC 2.96 M/mm3 (4.00-5.60); RDW 17.4 % (11.9-15.9); WHITE BLOOD COUNT 18.1 K/mm3 (4.0-10.0)
[2022-02-14 16:40] LABS: INR 2.64 (0.83-1.09); PROTHROMBIN TIME (PATIENT) 30.7 SEC (9.7-13.0)
[2022-02-14 16:47] LABS: CHLORIDE 96 mmol/L (98-107); SODIUM 131 mmol/L (136-145)
[2022-02-14 16:50] LABS: ANION GAP 17 MMOL/L (8-16); CALCIUM 8.3 mg/dL (8.5-10.1); CO2 19 mmol/L (21-32)
[2022-02-14 16:51] LABS: GLUCOSE,RANDOM 91 mg/dL (74-106)
[2022-02-14 17:03] LABS: BLOOD UREA NITROGEN 116.2 mg/dL (7-18); CREATININE 14.4 mg/dL (0.55-1.3)
[2022-02-14] MEDS: ACETAMINOPHEN 325 MG TABLET (FP) PO PRN (22:53)
[2022-02-15] MEDS: CALCIUM ACETATE 667 MG CAPSULE (FP) PO SCH ×3 (08:30→17:19)
[2022-02-15] MEDS: DRONEDARONE HCL 400 MG TAB (FP) PO SCH ×2 (08:30→17:19)
[2022-02-15] MEDS: ACETAMINOPHEN 325 MG TABLET (FP) PO PRN (08:33)
[2022-02-15] MEDS ORDERED: SODIUM CHLORIDE IVPB ONE (09:30)
[2022-02-15] MEDS ORDERED: DAPTOMYCIN IVPB ONE (09:30)
[2022-02-15] MEDS: PANTOPRAZOLE 20 MG TABLET PO SCH (09:57)
[2022-02-15] MEDS: SOLIFENACIN SUCCINATE 5 MG TAB PO SCH (09:57)
[2022-02-15] MEDS: APIXABAN 5 MG TABLET PO SCH ×2 (09:58→21:25)
[2022-02-15] MEDS: SERTRALINE HCL 25 MG TABLET (FP) PO SCH (09:58)
[2022-02-15] MEDS ORDERED: DAPTOMYCIN 800 MG in SODIUM CHLORIDE 50 ML IVPB ONE (11:00)
[2022-02-15] MEDS ORDERED: VANCOMYCIN 1 GM/200 ML PREMIX BAG (RESTRICTED TO ID ONLY) IVPB ONE (14:00)
[2022-02-15 15:16] LABS: BASO % 0.5 % (0-2.0); EOS % 1.4 % (0-4.5); HEMATOCRIT 26.1 % (35.4-49); HEMOGLOBIN 8.3 GM/dL (11.7-16.9); LYMPH % 4.5 % (8-40); MCH 27.1 pg (25.7-33.7); MCHC 31.9 g/dl (32.0-35.9); MEAN CELL VOLUME 85.1 fl (80-96); MEAN PLT VOLUME 6.7 fl (7.5-11.1); MONO % 4.2 % (3.8-10.2); NEUT % 89.4 % (42.8-82.8); PLATELET COUNT 350 10^3/uL (134-434); RBC 3.07 M/mm3 (4.00-5.60); RDW 17.2 % (11.9-15.9); WHITE BLOOD COUNT 15.7 K/mm3 (4.0-10.0)
[2022-02-15 15:35] LABS: CALCIUM 8.1 mg/dL (8.5-10.1)
[2022-02-15 15:36] LABS: ALBUMIN 1.8 g/dl (3.4-5.0)
[2022-02-15 15:39] LABS: CREATININE 7.2 mg/dL (0.55-1.3)
[2022-02-15 15:41] LABS: BILIRUBIN,TOTAL 0.4 mg/dL (0.2-1); TOT PROT 6.4 g/dl (6.4-8.2)
[2022-02-15 15:43] LABS: BLOOD UREA NITROGEN 60.3 mg/dL (7-18)
[2022-02-16] MEDS: ALLOPURINOL 100 MG TABLET (FP) PO SCH (05:51)
[2022-02-16] MEDS: ACETAMINOPHEN 325 MG TABLET (FP) PO PRN ×3 (06:25→22:13)
[2022-02-16] MEDS: DRONEDARONE HCL 400 MG TAB (FP) PO SCH ×2 (08:12→17:34)
[2022-02-16] MEDS: CALCIUM ACETATE 667 MG CAPSULE (FP) PO SCH ×3 (08:12→17:34)
[2022-02-16] MEDS: PANTOPRAZOLE 20 MG TABLET PO SCH (10:25)
[2022-02-16] MEDS: APIXABAN 5 MG TABLET PO SCH ×2 (10:25→22:10)
[2022-02-16] MEDS: SERTRALINE HCL 25 MG TABLET (FP) PO SCH (10:27)
[2022-02-16] MEDS: SOLIFENACIN SUCCINATE 5 MG TAB PO SCH (10:27)
[2022-02-16] MEDS ORDERED: SODIUM CHLORIDE 250 ML IV PRN ×2 (13:01→13:02)
[2022-02-17] MEDS ORDERED: DAPTOMYCIN 800 MG in SODIUM CHLORIDE 50 ML IVPB ONE (07:45)
[2022-02-17] MEDS ORDERED: EPOETIN ALFA-EPBX 10,000 UNIT/ML VIAL IVPUSH ONE (07:45)
[2022-02-17 09:55] LABS: HEMATOCRIT 25.1 % (35.4-49); HEMOGLOBIN 7.9 GM/dL (11.7-16.9); MCH 27.3 pg (25.7-33.7); MCHC 31.4 g/dl (32.0-35.9); MEAN CELL VOLUME 86.8 fl (80-96); MEAN PLT VOLUME 6.8 fl (7.5-11.1); PLATELET COUNT 377 10^3/uL (134-434); RBC 2.89 M/mm3 (4.00-5.60); RDW 17.4 % (11.9-15.9); WHITE BLOOD COUNT 14.4 K/mm3 (4.0-10.0)
[2022-02-17 10:15] LABS: CHLORIDE 94 mmol/L (98-107); SODIUM 136 mmol/L (136-145)
[2022-02-17 10:18] LABS: CALCIUM 8.4 mg/dL (8.5-10.1)
[2022-02-17 10:19] LABS: ALBUMIN 1.8 g/dl (3.4-5.0); ANION GAP 16 MMOL/L (8-16); BLOOD UREA NITROGEN 72.1 mg/dL (7-18); CO2 26 mmol/L (21-32); GLUCOSE,RANDOM 87 mg/dL (74-106)
[2022-02-17 10:22] LABS: SGOT/AST 19 U/L (15-37); SGPT/ALT 28 U/L (13-61)
[2022-02-17 10:23] LABS: BILIRUBIN,TOTAL 0.4 mg/dL (0.2-1); PHOSPHOROUS 6.5 mg/dL (2.5-4.9); TOT PROT 6.3 g/dl (6.4-8.2)
[2022-02-17 10:24] LABS: ALK PHOS 99 U/L (45-117); CREATININE 10.1 mg/dL (0.55-1.3)
[2022-02-17] MEDS: CALCIUM ACETATE 667 MG CAPSULE (FP) PO SCH ×3 (11:55→17:22)
[2022-02-17] MEDS: APIXABAN 5 MG TABLET PO SCH ×3 (11:55→21:36)
[2022-02-17] MEDS: DRONEDARONE HCL 400 MG TAB (FP) PO SCH ×2 (11:55→17:22)
[2022-02-17] MEDS: PANTOPRAZOLE 20 MG TABLET PO SCH (11:56)
[2022-02-17] MEDS: SERTRALINE HCL 25 MG TABLET (FP) PO SCH (11:56)
[2022-02-17] MEDS: SOLIFENACIN SUCCINATE 5 MG TAB PO SCH (11:56)
[2022-02-17] MEDS: ACETAMINOPHEN 325 MG TABLET (FP) PO PRN (21:39)
[2022-02-18] MEDS: ALLOPURINOL 100 MG TABLET (FP) PO SCH (00:45)
[2022-02-18] MEDS: ACETAMINOPHEN 325 MG TABLET (FP) PO PRN (02:10)
[2022-02-18] MEDS: PANTOPRAZOLE 20 MG TABLET PO SCH (10:26)
[2022-02-18] MEDS: APIXABAN 5 MG TABLET PO SCH ×2 (10:26→21:43)
[2022-02-18] MEDS: SERTRALINE HCL 25 MG TABLET (FP) PO SCH (10:26)
[2022-02-18] MEDS: CALCIUM ACETATE 667 MG CAPSULE (FP) PO SCH ×3 (10:26→18:31)
[2022-02-18] MEDS: SOLIFENACIN SUCCINATE 5 MG TAB PO SCH (10:26)
[2022-02-18] MEDS: DRONEDARONE HCL 400 MG TAB (FP) PO SCH ×2 (10:27→18:31)
[2022-02-18] MEDS ORDERED: SODIUM CHLORIDE 250 ML IV PRN (14:34)
[2022-02-19] MEDS: CALCIUM ACETATE 667 MG CAPSULE (FP) PO SCH ×3 (08:57→18:47)
[2022-02-19] MEDS: DRONEDARONE HCL 400 MG TAB (FP) PO SCH ×2 (08:57→18:46)
[2022-02-19] MEDS: SERTRALINE HCL 25 MG TABLET (FP) PO SCH (10:25)
[2022-02-19] MEDS: PANTOPRAZOLE 20 MG TABLET PO SCH (10:25)
[2022-02-19] MEDS: APIXABAN 5 MG TABLET PO SCH ×2 (10:25→21:13)
[2022-02-19] MEDS: SOLIFENACIN SUCCINATE 5 MG TAB PO SCH (10:25)
[2022-02-19] MEDS ORDERED: LIDOCAINE HCL 1%, 10 MG/ML (20ML VIAL) ONE (13:58)
[2022-02-19] MEDS ORDERED: HEPARIN NA (PORCINE) 5,000 UNITS/ML 1ML VIAL ONE (13:58)
[2022-02-19] MEDS ORDERED: FENTANYL CITRATE/PF 50 MCG/ML VIAL ONE (14:21)
[2022-02-19] MEDS ORDERED: MIDAZOLAM HCL 2 MG/2 ML SINGLE DOSE VIAL ONE (14:21)
[2022-02-19] MEDS ORDERED: EPOETIN ALFA-EPBX 4,000 UNIT/ML VIAL SQ ONE ×2 (14:34→15:35)
[2022-02-19] MEDS ORDERED: LIDOCAINE HCL 1%, 10 MG/ML (20ML VIAL) NR ONE ×3 (14:48)
[2022-02-19] MEDS ORDERED: HEPARIN NA (PORCINE) 5,000 UNITS/ML 1ML VIAL SQ ONE (14:49)
[2022-02-19] MEDS ORDERED: POLYETHYLENE GLYCOL (HEALTHYLAX) 3350 17 GM PACKET PO PRN (15:35)
[2022-02-19] MEDS ORDERED: DAPTOMYCIN 800 MG in SODIUM CHLORIDE 50 ML IVPB ONE (17:30)
[2022-02-19 17:42] LABS: HEMATOCRIT 27.7 % (35.4-49); HEMOGLOBIN 8.5 GM/dL (11.7-16.9); MCHC 30.8 g/dl (32.0-35.9); MEAN CELL VOLUME 87.5 fl (80-96); MEAN PLT VOLUME 6.8 fl (7.5-11.1); PLATELET COUNT 443 10^3/uL (134-434); RBC 3.16 M/mm3 (4.00-5.60); RDW 17.4 % (11.9-15.9); WHITE BLOOD COUNT 12.8 K/mm3 (4.0-10.0)
[2022-02-19 18:02] LABS: CHLORIDE 97 mmol/L (98-107); SODIUM 136 mmol/L (136-145)
[2022-02-19 18:05] LABS: CALCIUM 8.5 mg/dL (8.5-10.1)
[2022-02-19 18:06] LABS: ANION GAP 12 MMOL/L (8-16); BLOOD UREA NITROGEN 52.6 mg/dL (7-18); CO2 27 mmol/L (21-32); GLUCOSE,RANDOM 90 mg/dL (74-106)
[2022-02-19 18:13] LABS: CREATININE 8.4 mg/dL (0.55-1.3)
[2022-02-19] MEDS: ACETAMINOPHEN 325 MG TABLET (FP) PO PRN (21:12)
[2022-02-20] MEDS: ALLOPURINOL 100 MG TABLET (FP) PO SCH (01:22)
[2022-02-20] MEDS: PANTOPRAZOLE 40 MG TABLET PO SCH (09:04)
[2022-02-20] MEDS: CALCIUM ACETATE 667 MG CAPSULE (FP) PO SCH ×3 (09:04→16:51)
[2022-02-20] MEDS: APIXABAN 5 MG TABLET PO SCH ×2 (09:04→21:22)
[2022-02-20] MEDS: SERTRALINE HCL 25 MG TABLET (FP) PO SCH (09:04)
[2022-02-20] MEDS: SOLIFENACIN SUCCINATE 5 MG TAB PO SCH (09:04)
[2022-02-20] MEDS: DRONEDARONE HCL 400 MG TAB (FP) PO SCH ×2 (09:04→16:51)
[2022-02-20] MEDS ORDERED: SODIUM CHLORIDE 250 ML IV PRN (12:51)
[2022-02-20] MEDS: ACETAMINOPHEN 325 MG TABLET (FP) PO PRN (14:47)
[2022-02-20] MEDS ORDERED: DAPTOMYCIN 800 MG in SODIUM CHLORIDE 50 ML IVPB ONE (15:00)
[2022-02-21] MEDS: DRONEDARONE HCL 400 MG TAB (FP) PO SCH ×2 (08:16→17:19)
[2022-02-21] MEDS: CALCIUM ACETATE 667 MG CAPSULE (FP) PO SCH ×3 (08:16→17:19)
[2022-02-21 09:16] LABS: HEMATOCRIT 23.8 % (35.4-49); HEMOGLOBIN 7.4 GM/dL (11.7-16.9); MCHC 31.1 g/dl (32.0-35.9); MEAN CELL VOLUME 86.8 fl (80-96); MEAN PLT VOLUME 6.8 fl (7.5-11.1); PLATELET COUNT 417 10^3/uL (134-434); RBC 2.74 M/mm3 (4.00-5.60); RDW 17.7 % (11.9-15.9); WHITE BLOOD COUNT 12.1 K/mm3 (4.0-10.0)
[2022-02-21] MEDS: APIXABAN 5 MG TABLET PO SCH ×2 (09:16→21:18)
[2022-02-21 09:31] LABS: CHLORIDE 96 mmol/L (98-107); SODIUM 136 mmol/L (136-145)
[2022-02-21 09:33] LABS: CALCIUM 8.5 mg/dL (8.5-10.1)
[2022-02-21 09:34] LABS: ANION GAP 12 MMOL/L (8-16); BLOOD UREA NITROGEN 44.4 mg/dL (7-18); CO2 28 mmol/L (21-32); GLUCOSE,RANDOM 137 mg/dL (74-106)
[2022-02-21 09:37] LABS: PHOSPHOROUS 4.5 mg/dL (2.5-4.9)
[2022-02-21 09:39] LABS: CREATININE 7.5 mg/dL (0.55-1.3)
[2022-02-21] MEDS ORDERED: DAPTOMYCIN IVPB ONE (10:00)
[2022-02-21] MEDS ORDERED: SODIUM CHLORIDE IVPB ONE (10:00)
[2022-02-21] MEDS ORDERED: HEPARIN NA (PORCINE) 5,000 UNITS/ML 1ML VIAL IVPUSH ONE (10:00)
[2022-02-21] MEDS ORDERED: EPOETIN ALFA-EPBX 10,000 UNIT, EPOETIN ALFA-EPBX 2,000 UNIT IVPUSH ONE (10:00)
[2022-02-21] MEDS ORDERED: EPOETIN ALFA-EPBX 20,000 UNIT/ML VIAL SQ ONE (12:51)
[2022-02-21] MEDS: PANTOPRAZOLE 40 MG TABLET PO SCH (14:20)
[2022-02-21] MEDS: SERTRALINE HCL 25 MG TABLET (FP) PO SCH (14:20)
[2022-02-21] MEDS: SOLIFENACIN SUCCINATE 5 MG TAB PO SCH (14:20)
[2022-02-21] MEDS ORDERED: DAPTOMYCIN 800 MG in SODIUM CHLORIDE 50 ML IVPB ONE (15:00)
[2022-02-22] MEDS: ALLOPURINOL 100 MG TABLET (FP) PO SCH (01:40)
[2022-02-22] MEDS: DRONEDARONE HCL 400 MG TAB (FP) PO SCH ×2 (08:53→17:07)
[2022-02-22] MEDS: CALCIUM ACETATE 667 MG CAPSULE (FP) PO SCH ×3 (08:53→17:07)
[2022-02-22] MEDS: PANTOPRAZOLE 40 MG TABLET PO SCH (09:11)
[2022-02-22] MEDS: APIXABAN 5 MG TABLET PO SCH ×2 (09:11→21:06)
[2022-02-22] MEDS: SERTRALINE HCL 25 MG TABLET (FP) PO SCH (09:11)
[2022-02-22] MEDS: SOLIFENACIN SUCCINATE 5 MG TAB PO SCH (09:11)
[2022-02-23] MEDS: CALCIUM ACETATE 667 MG CAPSULE (FP) PO SCH ×3 (08:30→19:26)
[2022-02-23] MEDS: DRONEDARONE HCL 400 MG TAB (FP) PO SCH ×2 (08:30→19:25)
[2022-02-23] MEDS: APIXABAN 5 MG TABLET PO SCH ×2 (09:47→21:14)
[2022-02-23] MEDS: SOLIFENACIN SUCCINATE 5 MG TAB PO SCH (09:48)
[2022-02-23] MEDS: PANTOPRAZOLE 40 MG TABLET PO SCH (09:48)
[2022-02-23] MEDS: SERTRALINE HCL 25 MG TABLET (FP) PO SCH (09:48)
[2022-02-23] MEDS ORDERED: SODIUM CHLORIDE 250 ML IV PRN (12:43)
[2022-02-24] MEDS: ALLOPURINOL 100 MG TABLET (FP) PO SCH (01:17)
[2022-02-24] MEDS: CALCIUM ACETATE 667 MG CAPSULE (FP) PO SCH ×3 (08:24→16:57)
[2022-02-24] MEDS: DRONEDARONE HCL 400 MG TAB (FP) PO SCH ×2 (08:24→16:57)
[2022-02-24] MEDS ORDERED: EPOETIN ALFA-EPBX 10,000 UNIT, EPOETIN ALFA-EPBX 4,000 UNIT IVPUSH ONE (09:00)
[2022-02-24] MEDS ORDERED: HEPARIN NA (PORCINE) 5,000 UNITS/ML 1ML VIAL IVPUSH ONE (09:00)
[2022-02-24] MEDS: APIXABAN 5 MG TABLET PO SCH ×2 (09:48→21:25)
[2022-02-24] MEDS: SOLIFENACIN SUCCINATE 5 MG TAB PO SCH (09:49)
[2022-02-24] MEDS: PANTOPRAZOLE 40 MG TABLET PO SCH (09:49)
[2022-02-24] MEDS: SERTRALINE HCL 25 MG TABLET (FP) PO SCH (09:49)
[2022-02-24 10:37] LABS: HEMOGLOBIN 7.6 GM/dL (11.7-16.9); MCH 27.7 pg (25.7-33.7); MCHC 31.8 g/dl (32.0-35.9); MEAN CELL VOLUME 87.1 fl (80-96); MEAN PLT VOLUME 6.6 fl (7.5-11.1); PLATELET COUNT 407 10^3/uL (134-434); RBC 2.75 M/mm3 (4.00-5.60); WHITE BLOOD COUNT 10.7 K/mm3 (4.0-10.0)
[2022-02-24 10:47] LABS: CHLORIDE 97 mmol/L (98-107); SODIUM 137 mmol/L (136-145)
[2022-02-24 10:54] LABS: ALBUMIN 2.1 g/dl (3.4-5.0); BLOOD UREA NITROGEN 40.8 mg/dL (7-18); GLUCOSE,RANDOM 107 mg/dL (74-106)
[2022-02-24 10:55] LABS: ANION GAP 13 MMOL/L (8-16); CO2 27 mmol/L (21-32)
[2022-02-24 10:57] LABS: CALCIUM 8.5 mg/dL (8.5-10.1); PHOSPHOROUS 4.6 mg/dL (2.5-4.9); SGOT/AST 12 U/L (15-37)
[2022-02-24 10:59] LABS: BILIRUBIN,TOTAL 0.3 mg/dL (0.2-1); TOT PROT 6.6 g/dl (6.4-8.2)
[2022-02-24] MEDS ORDERED: DAPTOMYCIN 850 MG in SODIUM CHLORIDE 50 ML IVPB ONE (10:59)
[2022-02-24 11:00] LABS: ALK PHOS 85 U/L (45-117)
[2022-02-24 11:01] LABS: SGPT/ALT 19 U/L (13-61)
[2022-02-24 11:02] LABS: CREATININE 8.6 mg/dL (0.55-1.3)
[2022-02-24] MEDS ORDERED: EPOETIN ALFA-EPBX 10,000 UNIT/ML VIAL SQ ONE (12:43)
[2022-02-25] MEDS: DRONEDARONE HCL 400 MG TAB (FP) PO SCH ×2 (08:07→18:10)
[2022-02-25] MEDS: CALCIUM ACETATE 667 MG CAPSULE (FP) PO SCH ×3 (09:17→18:10)
[2022-02-25] MEDS: SOLIFENACIN SUCCINATE 5 MG TAB PO SCH (10:20)
[2022-02-25] MEDS: PANTOPRAZOLE 40 MG TABLET PO SCH (10:20)
[2022-02-25] MEDS: SERTRALINE HCL 25 MG TABLET (FP) PO SCH (10:24)
[2022-02-25] MEDS: APIXABAN 5 MG TABLET PO SCH ×2 (10:24→21:54)
[2022-02-26] MEDS: ALLOPURINOL 100 MG TABLET (FP) PO SCH (01:07)
[2022-02-26] MEDS: AMINO ACIDS/PROTEIN HYDROLYS 30 ML LIQUID.PKT PO SCH (08:50)
[2022-02-26] MEDS: DRONEDARONE HCL 400 MG TAB (FP) PO SCH ×2 (08:50→17:22)
[2022-02-26] MEDS: CALCIUM ACETATE 667 MG CAPSULE (FP) PO SCH ×3 (08:50→17:22)
[2022-02-26] MEDS: PANTOPRAZOLE 40 MG TABLET PO SCH (09:08)
[2022-02-26] MEDS: SOLIFENACIN SUCCINATE 5 MG TAB PO SCH (09:08)
[2022-02-26] MEDS: APIXABAN 5 MG TABLET PO SCH ×2 (09:08→21:51)
[2022-02-26] MEDS: SERTRALINE HCL 25 MG TABLET (FP) PO SCH (09:09)
[2022-02-26] MEDS: ZINC SULFATE 220 MG CAPSULE (FP) PO SCH (09:11)
[2022-02-26] MEDS: VITAMIN B COMP W-C 1 EA TABLET (NEPHRO-VITE) PO SCH (09:11)
[2022-02-26] MEDS ORDERED: SODIUM CHLORIDE 250 ML IV PRN (12:05)
[2022-02-27] MEDS: DRONEDARONE HCL 400 MG TAB (FP) PO SCH ×2 (08:42→17:18)
[2022-02-27] MEDS: AMINO ACIDS/PROTEIN HYDROLYS 30 ML LIQUID.PKT PO SCH (08:42)
[2022-02-27] MEDS: CALCIUM ACETATE 667 MG CAPSULE (FP) PO SCH ×3 (08:42→17:19)
[2022-02-27] MEDS: PANTOPRAZOLE 40 MG TABLET PO SCH (09:51)
[2022-02-27] MEDS: SOLIFENACIN SUCCINATE 5 MG TAB PO SCH (09:51)
[2022-02-27] MEDS: SERTRALINE HCL 25 MG TABLET (FP) PO SCH (09:51)
[2022-02-27] MEDS: APIXABAN 5 MG TABLET PO SCH (09:51)
[2022-02-27] MEDS: ZINC SULFATE 220 MG CAPSULE (FP) PO SCH (09:51)
[2022-02-27] MEDS: VITAMIN B COMP W-C 1 EA TABLET (NEPHRO-VITE) PO SCH (09:51)
[2022-02-27] MEDS ORDERED: LOPERAMIDE HCL 2 MG CAPSULE PO PRN (13:29)
[2022-02-27 16:52] LABS: PROTHROMBIN TIME (PATIENT) 23.2 SEC (9.7-13.0)
[2022-02-27] MEDS ORDERED: PHYTONADIONE 10 MG/1 ML AMP SQ ONE (21:30)
[2022-02-28] MEDS: ALLOPURINOL 100 MG TABLET (FP) PO SCH (01:45)
[2022-02-28] MEDS: ACETAMINOPHEN 325 MG TABLET (FP) PO PRN (04:47)
[2022-02-28] MEDS: PANTOPRAZOLE 40 MG TABLET PO SCH (09:16)
[2022-02-28] MEDS: SERTRALINE HCL 25 MG TABLET (FP) PO SCH (09:16)
[2022-02-28] MEDS: AMINO ACIDS/PROTEIN HYDROLYS 30 ML LIQUID.PKT PO SCH (09:16)
[2022-02-28] MEDS: ZINC SULFATE 220 MG CAPSULE (FP) PO SCH (09:16)
[2022-02-28] MEDS: DRONEDARONE HCL 400 MG TAB (FP) PO SCH ×2 (09:16→17:00)
[2022-02-28] MEDS: SOLIFENACIN SUCCINATE 5 MG TAB PO SCH (09:16)
[2022-02-28] MEDS: CALCIUM ACETATE 667 MG CAPSULE (FP) PO SCH ×3 (09:16→17:01)
[2022-02-28] MEDS: VITAMIN B COMP W-C 1 EA TABLET (NEPHRO-VITE) PO SCH (09:16)
[2022-02-28] MEDS ORDERED: EPOETIN ALFA-EPBX 20,000 UNIT/2 ML MDV IVPUSH ONE (12:30)
[2022-02-28] MEDS ORDERED: DAPTOMYCIN 850 MG in SODIUM CHLORIDE 50 ML IVPB ONE (13:00)
[2022-02-28] MEDS ORDERED: DAPTOMYCIN IVPB ONE (14:30)
[2022-02-28] MEDS ORDERED: SODIUM CHLORIDE IVPB ONE (14:30)
[2022-02-28 15:46] LABS: HEMATOCRIT 26.9 % (35.4-49); HEMOGLOBIN 8.4 GM/dL (11.7-16.9); MCH 26.1 pg (25.7-33.7); MCHC 31.1 g/dl (32.0-35.9); MEAN CELL VOLUME 83.8 fl (80-96); MEAN PLT VOLUME 7.4 fl (7.5-11.1); PLATELET COUNT 234 10^3/uL (134-434); RBC 3.21 M/mm3 (4.00-5.60); RDW 17.9 % (11.9-15.9); WHITE BLOOD COUNT 20.4 K/mm3 (4.0-10.0)
[2022-02-28 15:54] LABS: INR 1.9 (0.83-1.09)
[2022-02-28 16:14] LABS: CHLORIDE 97 mmol/L (98-107); SODIUM 136 mmol/L (136-145)
[2022-02-28 16:17] LABS: ALBUMIN 2.3 g/dl (3.4-5.0); CALCIUM 8.7 mg/dL (8.5-10.1)
[2022-02-28 16:18] LABS: ANION GAP 17 MMOL/L (8-16); BLOOD UREA NITROGEN 61.5 mg/dL (7-18); CO2 22 mmol/L (21-32); GLUCOSE,RANDOM 128 mg/dL (74-106)
[2022-02-28 16:21] LABS: SGOT/AST 20 U/L (15-37); SGPT/ALT 17 U/L (13-61)
[2022-02-28 16:23] LABS: BILIRUBIN,TOTAL 0.7 mg/dL (0.2-1); TOT PROT 7.1 g/dl (6.4-8.2)
[2022-02-28 16:24] LABS: ALK PHOS 87 U/L (45-117)
[2022-03-01] MEDS: AMINO ACIDS/PROTEIN HYDROLYS 30 ML LIQUID.PKT PO SCH (09:00)
[2022-03-01] MEDS: DRONEDARONE HCL 400 MG TAB (FP) PO SCH ×2 (09:42→17:10)
[2022-03-01] MEDS: CALCIUM ACETATE 667 MG CAPSULE (FP) PO SCH ×3 (09:42→17:09)
[2022-03-01] MEDS: PANTOPRAZOLE 40 MG TABLET PO SCH (09:43)
[2022-03-01] MEDS: VITAMIN B COMP W-C 1 EA TABLET (NEPHRO-VITE) PO SCH (09:43)
[2022-03-01] MEDS: SOLIFENACIN SUCCINATE 5 MG TAB PO SCH (09:43)
[2022-03-01] MEDS: SERTRALINE HCL 25 MG TABLET (FP) PO SCH (09:43)
[2022-03-01] MEDS: ZINC SULFATE 220 MG CAPSULE (FP) PO SCH (09:43)
[2022-03-01 11:43] LABS: ARTERIAL BLD GAS O2 SATURATION 93.7 % (95-98); ARTERIAL BLOOD GAS BASE EXCESS 2.1 mmol/L (-2-2); ARTERIAL BLOOD GAS PO2 64.5 mmHg (80-100); ARTERIAL BLOOD GAS pH 7.456 (7.350-7.450)
[2022-03-01 11:44] LABS: ALLENS TEST POSITIVE
[2022-03-01 12:32] LABS: BASO % 0.5 % (0-2.0); HEMATOCRIT 31.3 % (35.4-49); HEMOGLOBIN 9.7 GM/dL (11.7-16.9); LYMPH % 7.3 % (8-40); MCH 25.7 pg (25.7-33.7); MEAN CELL VOLUME 82.9 fl (80-96); MEAN PLT VOLUME 8.1 fl (7.5-11.1); NEUT % 83.2 % (42.8-82.8); PLATELET COUNT 168 10^3/uL (134-434); RBC 3.77 M/mm3 (4.00-5.60); RDW 18.4 % (11.9-15.9); WHITE BLOOD COUNT 15.8 K/mm3 (4.0-10.0)
[2022-03-01 12:45] LABS: CHLORIDE 101 mmol/L (98-107); SODIUM 141 mmol/L (136-145)
[2022-03-01 12:48] LABS: ANION GAP 14 MMOL/L (8-16); CALCIUM 9.7 mg/dL (8.5-10.1); CO2 26 mmol/L (21-32); GLUCOSE,RANDOM 148 mg/dL (74-106)
[2022-03-01 12:49] LABS: ALBUMIN 2.3 g/dl (3.4-5.0); BLOOD UREA NITROGEN 48.6 mg/dL (7-18)
[2022-03-01 12:52] LABS: SGPT/ALT 30 U/L (13-61)
[2022-03-01 12:53] LABS: BILIRUBIN,TOTAL 1.2 mg/dL (0.2-1); TOT PROT 7.5 g/dl (6.4-8.2)
[2022-03-01 12:54] LABS: ALK PHOS 89 U/L (45-117)
[2022-03-01 12:56] LABS: SGOT/AST 39 U/L (15-37)
[2022-03-01] MEDS: SODIUM CHLORIDE 250 ML IV PRN ×2 (14:15→16:15)
[2022-03-01] MEDS: ALBUMIN HUMAN 25% 12.5 GM/50 ML VIAL IV SCH ×2 (16:15→16:20)
[2022-03-01] MEDS ORDERED: SODIUM CHLORIDE 250 ML IV PRN ×3 (17:17→19:41)
[2022-03-01] MEDS ORDERED: SODIUM CHLORIDE 0.9% 500 ML INFUS.BAG IV ONE ×2 (17:22→19:41)
[2022-03-01 18:38] LABS: ARTERIAL BLD GAS O2 SATURATION 99.2 % (95-98); ARTERIAL BLOOD GAS BASE EXCESS 1.8 mmol/L (-2-2); ARTERIAL BLOOD GAS PO2 167.4 mmHg (80-100); ARTERIAL BLOOD GAS pH 7.425 (7.350-7.450)
[2022-03-01 18:39] LABS: ALLENS TEST POSITIVE
[2022-03-01 18:41] LABS: HEMATOCRIT 31.4 % (35.4-49); HEMOGLOBIN 9.4 GM/dL (11.7-16.9); MCH 25.3 pg (25.7-33.7); MEAN CELL VOLUME 84.2 fl (80-96); MEAN PLT VOLUME 8.5 fl (7.5-11.1); PLATELET COUNT 175 10^3/uL (134-434); RBC 3.73 M/mm3 (4.00-5.60); RDW 18.4 % (11.9-15.9); WHITE BLOOD COUNT 17.4 K/mm3 (4.0-10.0)
[2022-03-01 18:59] LABS: ALBUMIN 2.7 g/dl (3.4-5.0); BLOOD UREA NITROGEN 30.5 mg/dL (7-18); CALCIUM 9.3 mg/dL (8.5-10.1)
[2022-03-01 19:02] LABS: CREATININE 4.8 mg/dL (0.55-1.3)
[2022-03-01 19:04] LABS: TOT PROT 7.6 g/dl (6.4-8.2)
[2022-03-01] MEDS ORDERED: LACTATED RINGERS SOLUTION 1,000 ML/1,000 ML INFUS.BAG IV STA (19:05)
[2022-03-01 19:29] LABS: LACTIC ACID 2.4 mmol/L (0.4-2.0)
[2022-03-01] MEDS ORDERED: EPOETIN ALFA-EPBX 10,000 UNIT/ML VIAL SQ ONE (19:41)
[2022-03-01] MEDS ORDERED: LOPERAMIDE HCL 2 MG CAPSULE PO PRN (19:41)
[2022-03-01] MEDS ORDERED: POLYETHYLENE GLYCOL (HEALTHYLAX) 3350 17 GM PACKET PO PRN (19:41)
[2022-03-01] MEDS ORDERED: NOREPINEPHRINE BITARTRATE 4 MG/4 ML ML IV ONE (20:05)
[2022-03-01] MEDS ORDERED: LACTATED RINGERS SOLUTION 1000 ML INFUS.BAG IV ONE (20:30)
[2022-03-01] MEDS: NOREPINEPHRINE BITARTRATE/D5W 8 MG/250 ML BAG IVPB SCH (21:42)
[2022-03-01] MEDS: MUPIROCIN 2% TOPICAL OINTMENT FOR DECOLONIZATION NS SCH (21:42)
[2022-03-01] MEDS: CHLORHEXIDINE GLUCONATE 4% CLEANSER FOR DECOLONIZATION TP SCH (21:42)
[2022-03-01 21:52] LABS: INR 1.66 (0.83-1.09); PROTHROMBIN TIME (PATIENT) 19.2 SEC (9.7-13.0)
[2022-03-01 21:55] LABS: ACTIVATED PTT 27.5 SECONDS (25.2-36.5)
[2022-03-02] MEDS ORDERED: ACETAMINOPHEN 1000 MG/100 ML BAG IVPB ONE (00:43)
[2022-03-02] MEDS: ALLOPURINOL 100 MG TABLET (FP) PO SCH (01:03)
[2022-03-02] MEDS: LACTULOSE 20 GM/30 ML UDC (FOR ORAL USE ONLY) PO ONE ×2 (04:17→04:32)
[2022-03-02 07:05] LABS: ARTERIAL BLD GAS O2 SATURATION 98.8 % (95-98); ARTERIAL BLOOD GAS BASE EXCESS -1.4 mmol/L (-2-2); ARTERIAL BLOOD GAS pH 7.323 (7.350-7.450)
[2022-03-02 07:22] LABS: BLOOD UREA NITROGEN 46.6 mg/dL (7-18)
[2022-03-02 07:26] LABS: CREATININE 6.1 mg/dL (0.55-1.3)
[2022-03-02 07:32] LABS: HEMATOCRIT 32.1 % (35.4-49); HEMOGLOBIN 9.8 GM/dL (11.7-16.9); MCH 25.5 pg (25.7-33.7); MCHC 30.6 g/dl (32.0-35.9); MEAN CELL VOLUME 83.4 fl (80-96); MEAN PLT VOLUME 8.6 fl (7.5-11.1); PLATELET COUNT 209 10^3/uL (134-434); RBC 3.85 M/mm3 (4.00-5.60); RDW 18.9 % (11.9-15.9); WHITE BLOOD COUNT 24.5 K/mm3 (4.0-10.0)
[2022-03-02] MEDS: DRONEDARONE HCL 400 MG TAB (FP) PO SCH ×2 (08:34→18:05)
[2022-03-02] MEDS: AMINO ACIDS/PROTEIN HYDROLYS 30 ML LIQUID.PKT PO SCH (08:34)
[2022-03-02] MEDS: CALCIUM ACETATE 667 MG CAPSULE (FP) PO SCH ×3 (08:34→18:05)
[2022-03-02 08:40] LABS: ANISOCYTOSIS 1+; MACROCYTOSIS 0; PLATELET ESTIMATE INCREASED
[2022-03-02] MEDS: MUPIROCIN 2% TOPICAL OINTMENT FOR DECOLONIZATION NS SCH ×2 (09:14→22:25)
[2022-03-02] MEDS: POTASSIUM CHLORIDE 20 MEQ PREMIX IVPB 100 ML IVPB SCH ×2 (09:14→10:56)
[2022-03-02] MEDS: SERTRALINE HCL 25 MG TABLET (FP) PO SCH (09:15)
[2022-03-02] MEDS: ZINC SULFATE 220 MG CAPSULE (FP) PO SCH (09:15)
[2022-03-02] MEDS: VITAMIN B COMP W-C 1 EA TABLET (NEPHRO-VITE) PO SCH (09:15)
[2022-03-02] MEDS: PANTOPRAZOLE 40 MG TABLET PO SCH (09:15)
[2022-03-02 09:49] LABS: ARTERIAL BLOOD GAS BASE EXCESS -2.3 mmol/L (-2-2); ARTERIAL BLOOD GAS PO2 164.2 mmHg (80-100); ARTERIAL BLOOD GAS pH 7.328 (7.350-7.450)
[2022-03-02] MEDS ORDERED: SOLIFENACIN SUCCINATE 5 MG TAB PO SCH (10:00)
[2022-03-02] MEDS ORDERED: SODIUM CHLORIDE IVPB ONE (12:00)
[2022-03-02] MEDS ORDERED: DAPTOMYCIN IVPB ONE (12:00)
[2022-03-02] MEDS: ACETAMINOPHEN 325 MG TABLET (FP) PO PRN (18:15)
[2022-03-02] MEDS: NOREPINEPHRINE BITARTRATE/D5W 8 MG/250 ML BAG IVPB SCH (20:15)
[2022-03-02] MEDS: CHLORHEXIDINE GLUCONATE 4% CLEANSER FOR DECOLONIZATION TP SCH (22:25)
[2022-03-03] MEDS: ACETAMINOPHEN 325 MG TABLET (FP) PO PRN (01:27)
[2022-03-03] MEDS ORDERED: ACETAMINOPHEN INJECTION 100 ML IVPB ONE (01:41)
[2022-03-03] MEDS ORDERED: ACETAMINOPHEN 1000 MG/100 ML BAG IVPB PRN (03:04)
[2022-03-03 07:45] LABS: HEMATOCRIT 29.2 % (35.4-49); HEMOGLOBIN 9.1 GM/dL (11.7-16.9); MCH 25.9 pg (25.7-33.7); MCHC 31.2 g/dl (32.0-35.9); MEAN CELL VOLUME 83.1 fl (80-96); PLATELET COUNT 133 10^3/uL (134-434); RBC 3.52 M/mm3 (4.00-5.60); RDW 18.8 % (11.9-15.9); WHITE BLOOD COUNT 11.2 K/mm3 (4.0-10.0)
[2022-03-03 08:04] LABS: CHLORIDE 105 mmol/L (98-107); SODIUM 144 mmol/L (136-145)
[2022-03-03 08:09] LABS: CALCIUM 9.1 mg/dL (8.5-10.1)
[2022-03-03 08:10] LABS: ALBUMIN 2.3 g/dl (3.4-5.0); ANION GAP 14 MMOL/L (8-16); BLOOD UREA NITROGEN 68.8 mg/dL (7-18); CO2 25 mmol/L (21-32); GLUCOSE,RANDOM 113 mg/dL (74-106)
[2022-03-03 08:13] LABS: BILIRUBIN,TOTAL 1.1 mg/dL (0.2-1); SGOT/AST 62 U/L (15-37); SGPT/ALT 57 U/L (13-61)
[2022-03-03 08:14] LABS: TOT PROT 6.9 g/dl (6.4-8.2)
[2022-03-03 08:15] LABS: ALK PHOS 77 U/L (45-117)
[2022-03-03 08:22] LABS: CREATININE 8.2 mg/dL (0.55-1.3)
[2022-03-03 08:58] LABS: ANISOCYTOSIS 0; HELMET CELLS 0; HOWELL-JOLLY BODIES 0; MACROCYTOSIS 0; OVALOCYTE 0; ROULEAU 0; SICKELED CELLS 0; TARGET CELLS 0; TEAR DROP CELLS 0; TOXIC GRANULATION 0
[2022-03-03] MEDS: CALCIUM ACETATE 667 MG CAPSULE (FP) PO SCH ×3 (09:09→16:36)
[2022-03-03] MEDS: PANTOPRAZOLE 40 MG TABLET PO SCH (09:09)
[2022-03-03] MEDS: MUPIROCIN 2% TOPICAL OINTMENT FOR DECOLONIZATION NS SCH ×2 (09:09→22:00)
[2022-03-03] MEDS: ZINC SULFATE 220 MG CAPSULE (FP) PO SCH (09:09)
[2022-03-03] MEDS: AMINO ACIDS/PROTEIN HYDROLYS 30 ML LIQUID.PKT PO SCH (09:09)
[2022-03-03] MEDS: DRONEDARONE HCL 400 MG TAB (FP) PO SCH ×2 (09:09→16:36)
[2022-03-03] MEDS: VITAMIN B COMP W-C 1 EA TABLET (NEPHRO-VITE) PO SCH (09:09)
[2022-03-03] MEDS: SERTRALINE HCL 25 MG TABLET (FP) PO SCH (09:09)
[2022-03-03] MEDS: CEFTAROLINE FOSAMIL ACETATE 200 MG in DEXTROSE 5%-WATER - 100 ML IVPB SCH ×2 (11:09→17:01)
[2022-03-03] MEDS: APIXABAN 5 MG TABLET PO SCH ×2 (12:24→22:15)
[2022-03-03] MEDS: NOREPINEPHRINE BITARTRATE/D5W 8 MG/250 ML BAG IVPB SCH ×2 (12:31→20:15)
[2022-03-03] MEDS: AMINO ACIDS 4.25%/D5W 1,000 ML IV SCH (16:09)
[2022-03-03] MEDS: CHLORHEXIDINE GLUCONATE 4% CLEANSER FOR DECOLONIZATION TP SCH (22:15)
[2022-03-04] MEDS: ALLOPURINOL 100 MG TABLET (FP) PO SCH (00:55)
[2022-03-04] MEDS: CEFTAROLINE FOSAMIL ACETATE 200 MG in DEXTROSE 5%-WATER - 100 ML IVPB SCH ×3 (01:47→17:37)
[2022-03-04] MEDS ORDERED: SODIUM CHLORIDE 250 ML IV PRN (08:17)
[2022-03-04] MEDS: ALBUMIN HUMAN 25% 12.5 GM/50 ML VIAL IV SCH ×4 (08:45→10:15)
[2022-03-04 08:47] LABS: HEMATOCRIT 26.5 % (35.4-49); HEMOGLOBIN 8.3 GM/dL (11.7-16.9); MCH 26.1 pg (25.7-33.7); MCHC 31.3 g/dl (32.0-35.9); MEAN CELL VOLUME 83.3 fl (80-96); MEAN PLT VOLUME 8.8 fl (7.5-11.1); PLATELET COUNT 134 10^3/uL (134-434); RBC 3.17 M/mm3 (4.00-5.60); RDW 18.8 % (11.9-15.9); WHITE BLOOD COUNT 10.6 K/mm3 (4.0-10.0)
[2022-03-04] MEDS ORDERED: EPOETIN ALFA-EPBX 10,000 UNIT, EPOETIN ALFA-EPBX 3,000 UNIT, EPOETIN ALFA-EPBX 2,000 UNIT SQ ONE (09:00)
[2022-03-04 09:12] LABS: CHLORIDE 101 mmol/L (98-107); SODIUM 142 mmol/L (136-145)
[2022-03-04 09:14] LABS: CALCIUM 8.7 mg/dL (8.5-10.1)
[2022-03-04 09:15] LABS: ANION GAP 14 MMOL/L (8-16); CO2 27 mmol/L (21-32); GLUCOSE,RANDOM 117 mg/dL (74-106)
[2022-03-04 09:19] LABS: BLOOD UREA NITROGEN 94.6 mg/dL (7-18)
[2022-03-04] MEDS: CALCIUM ACETATE 667 MG CAPSULE (FP) PO SCH ×3 (09:35→16:34)
[2022-03-04] MEDS: AMINO ACIDS/PROTEIN HYDROLYS 30 ML LIQUID.PKT PO SCH (09:35)
[2022-03-04] MEDS: MUPIROCIN 2% TOPICAL OINTMENT FOR DECOLONIZATION NS SCH ×2 (09:35→21:07)
[2022-03-04] MEDS ORDERED: DAPTOMYCIN IVPB SCH (10:30)
[2022-03-04] MEDS ORDERED: SODIUM CHLORIDE IVPB SCH (10:30)
[2022-03-04] MEDS: DRONEDARONE HCL 400 MG TAB (FP) PO SCH ×2 (11:15→16:33)
[2022-03-04] MEDS: PANTOPRAZOLE 40 MG TABLET PO SCH (11:16)
[2022-03-04] MEDS: VITAMIN B COMP W-C 1 EA TABLET (NEPHRO-VITE) PO SCH (11:16)
[2022-03-04] MEDS: APIXABAN 5 MG TABLET PO SCH ×2 (11:16→21:06)
[2022-03-04] MEDS: ZINC SULFATE 220 MG CAPSULE (FP) PO SCH (11:16)
[2022-03-04] MEDS: SERTRALINE HCL 25 MG TABLET (FP) PO SCH (11:16)
[2022-03-04] MEDS ORDERED: EPOETIN ALFA-EPBX 10,000 UNIT/ML VIAL SQ ONE (15:27)
[2022-03-04] MEDS: AMINO ACIDS 4.25%/D5W 1,000 ML IV SCH (16:33)
[2022-03-04] MEDS: CHLORHEXIDINE GLUCONATE 4% CLEANSER FOR DECOLONIZATION TP SCH (21:07)
[2022-03-05] MEDS: CEFTAROLINE FOSAMIL ACETATE 200 MG in DEXTROSE 5%-WATER - 100 ML IVPB SCH ×3 (01:35→17:20)
[2022-03-05 08:50] LABS: HEMATOCRIT 27.5 % (35.4-49); HEMOGLOBIN 8.2 GM/dL (11.7-16.9); MCHC 29.8 g/dl (32.0-35.9); MEAN CELL VOLUME 83.7 fl (80-96); MEAN PLT VOLUME 8.9 fl (7.5-11.1); PLATELET COUNT 161 10^3/uL (134-434); RBC 3.28 M/mm3 (4.00-5.60); RDW 18.7 % (11.9-15.9); WHITE BLOOD COUNT 11.9 K/mm3 (4.0-10.0)
[2022-03-05] MEDS: AMINO ACIDS/PROTEIN HYDROLYS 30 ML LIQUID.PKT PO SCH (09:00)
[2022-03-05] MEDS: DRONEDARONE HCL 400 MG TAB (FP) PO SCH ×2 (09:00→17:19)
[2022-03-05] MEDS: CALCIUM ACETATE 667 MG CAPSULE (FP) PO SCH ×3 (09:00→17:19)
[2022-03-05 09:22] LABS: CALCIUM 8.5 mg/dL (8.5-10.1)
[2022-03-05 09:23] LABS: MAGNESIUM 1.7 mg/dL (1.8-2.4)
[2022-03-05 09:26] LABS: CREATININE 6.1 mg/dL (0.55-1.3); PHOSPHOROUS 1.6 mg/dL (2.5-4.9)
[2022-03-05] MEDS: PANTOPRAZOLE 40 MG TABLET PO SCH (09:27)
[2022-03-05] MEDS: APIXABAN 5 MG TABLET PO SCH ×2 (09:27→21:05)
[2022-03-05] MEDS: ZINC SULFATE 220 MG CAPSULE (FP) PO SCH (09:27)
[2022-03-05] MEDS: SERTRALINE HCL 25 MG TABLET (FP) PO SCH (09:27)
[2022-03-05] MEDS: VITAMIN B COMP W-C 1 EA TABLET (NEPHRO-VITE) PO SCH (09:27)
[2022-03-05] MEDS: MUPIROCIN 2% TOPICAL OINTMENT FOR DECOLONIZATION NS SCH ×2 (09:28→21:05)
[2022-03-05 09:30] LABS: BLOOD UREA NITROGEN 46.9 mg/dL (7-18)
[2022-03-05] MEDS ORDERED: VANCOMYCIN/WATER 2 GRAMS 2,000 MG/400 ML PIGGYBACK IVPB ONE (14:30)
[2022-03-05 14:35] VITALS: BMI 48.1
[2022-03-05] MEDS: NOREPINEPHRINE BITARTRATE/D5W 8 MG/250 ML BAG IVPB SCH ×2 (17:18→21:05)
[2022-03-05] MEDS: CHLORHEXIDINE GLUCONATE 4% CLEANSER FOR DECOLONIZATION TP SCH (21:05)
[2022-03-06] MEDS: ALLOPURINOL 100 MG TABLET (FP) PO SCH (01:25)
[2022-03-06] MEDS: CEFTAROLINE FOSAMIL ACETATE 200 MG in DEXTROSE 5%-WATER - 100 ML IVPB SCH ×3 (01:25→18:17)
[2022-03-06] MEDS: VITAMIN B COMP W-C 1 EA TABLET (NEPHRO-VITE) PO SCH (09:53)
[2022-03-06] MEDS: PANTOPRAZOLE 40 MG TABLET PO SCH (09:53)
[2022-03-06] MEDS: ZINC SULFATE 220 MG CAPSULE (FP) PO SCH (09:53)
[2022-03-06] MEDS: APIXABAN 5 MG TABLET PO SCH (09:53)
[2022-03-06] MEDS: AMINO ACIDS/PROTEIN HYDROLYS 30 ML LIQUID.PKT PO SCH (09:53)
[2022-03-06] MEDS: SERTRALINE HCL 25 MG TABLET (FP) PO SCH (09:53)
[2022-03-06] MEDS: CALCIUM ACETATE 667 MG CAPSULE (FP) PO SCH ×3 (09:53→18:17)
[2022-03-06] MEDS: DRONEDARONE HCL 400 MG TAB (FP) PO SCH ×2 (09:54→18:17)
[2022-03-06] MEDS: MUPIROCIN 2% TOPICAL OINTMENT FOR DECOLONIZATION NS SCH (09:54)
[2022-03-06 18:25] VITALS: PULSE 83; RESP 20
[2022-03-06 20:27] VITALS: BP 94/64; TEMP 97.6
== END 2022-03-06 20:10 | disposition short-term general hospital (02) | DRG 182 ==
LOC: JER 11:33 → JERBED 14:23 → J6S 02-12 19:25 → JICU 03-01 19:50
PROVIDERS: ADMIT Internal Medicine; ATTEND Internal Medicine
PROC: 5A1D70Z Performance of Urinary Filtration, Intermittent, Less than 6 Hours Per Day (ICD-10-PCS; 2022-02-12)
PROC: 03CY0ZZ Extirpation of Matter from Upper Artery, Open Approach (ICD-10-PCS; principal; 2022-02-12 13:00)
PROC: 05CY0ZZ Extirpation of Matter from Upper Vein, Open Approach (ICD-10-PCS; 2022-02-19)
PROC: 03BY0ZZ Excision of Upper Artery, Open Approach (ICD-10-PCS; 2022-02-19)
PROC: 30233N1 Transfusion of Nonautologous Red Blood Cells into Peripheral Vein, Percutaneous Approach (ICD-10-PCS; 2022-02-28)
PROC: 4A133B1 Monitoring of Arterial Pressure, Peripheral, Percutaneous Approach (ICD-10-PCS; 2022-03-01)
PROC: 4A133J1 Monitoring of Arterial Pulse, Peripheral, Percutaneous Approach (ICD-10-PCS; 2022-03-01)
DX: T82.590A Other mechanical complication of surgically created arteriovenous fistula, initial encounter (principal); T82.7XXA Infection and inflammatory reaction due to other cardiac and vascular devices, implants and grafts, initial encounter; T82.868A Thrombosis due to vascular prosthetic devices, implants and grafts, initial encounter; A41.9 Sepsis, unspecified organism; I33.0 Acute and subacute infective endocarditis; N18.6 End stage renal disease; R65.21 Severe sepsis with septic shock; I13.2 Hypertensive heart and chronic kidney disease with heart failure and with stage 5 chronic kidney disease, or end stage renal disease; Y83.9 Surgical procedure, unspecified as the cause of abnormal reaction of the patient, or of later complication, without mention of misadventure at the time of the procedure; I48.92 Unspecified atrial flutter; I50.32 Chronic diastolic (congestive) heart failure; G93.41 Metabolic encephalopathy; E87.5 Hyperkalemia; E66.01 Morbid (severe) obesity due to excess calories; B95.62 Methicillin resistant Staphylococcus aureus infection as the cause of diseases classified elsewhere; D72.829 Elevated white blood cell count, unspecified; D64.9 Anemia, unspecified; I48.91 Unspecified atrial fibrillation; J44.9 Chronic obstructive pulmonary disease, unspecified; E78.5 Hyperlipidemia, unspecified
CPT/HCPCS: 0241U-QW; 36415; 36430; 36600; 70450-TC; 71045-TC-FY; 73030-TC-LT-FY; 76000-TC-FY; 80048; 80053; 82140; 82550; 82803; 82962; 83605; 83735; 84100; 85025; 85027; 85379; 85610; 85730; 86803; 86850; 86900; 86901; 86922; 87040; 87045; 87046; 87070; 87186; 87205; 87209; 87324; 87340; 87449; 93005; 93010; 93306-TC; 94760; 99285-25; C9803-CS; G0480; J0878; J1644; P9047; P9058; Q5106; U0003; U0005

== ENCOUNTER 2022-04-29 10:29 | Observation (INO) | payer OTHER ==
[2022-04-29 13:55] LABS: BASO % 2.2 % (0-2.0); EOS % 3.1 % (0-4.5); HEMATOCRIT 33.3 % (35.4-49); HEMOGLOBIN 10.2 GM/dL (11.7-16.9); LYMPH % 17.2 % (8-40); MCHC 30.8 g/dl (32.0-35.9); MEAN CELL VOLUME 81.3 fl (80-96); MEAN PLT VOLUME 7.7 fl (7.5-11.1); MONO % 5.9 % (3.8-10.2); NEUT % 71.6 % (42.8-82.8); PLATELET COUNT 172 10^3/uL (134-434); RBC 4.09 M/mm3 (4.00-5.60); RDW 17.3 % (11.9-15.9); WHITE BLOOD COUNT 9.6 K/mm3 (4.0-10.0)
[2022-04-29 14:03] LABS: INR 1.07 (0.83-1.09); PROTHROMBIN TIME (PATIENT) 12.4 SEC (9.7-13.0)
[2022-04-29 14:22] LABS: SODIUM 138 mmol/L (136-145)
[2022-04-29 14:25] LABS: CALCIUM 9.7 mg/dL (8.5-10.1); GLUCOSE,RANDOM 90 mg/dL (74-106)
[2022-04-29 14:26] LABS: ALBUMIN 2.4 g/dl (3.4-5.0); CO2 25 mmol/L (21-32)
[2022-04-29 14:27] LABS: SGPT/ALT 28 U/L (13-61)
[2022-04-29 14:30] LABS: BILIRUBIN,TOTAL 0.5 mg/dL (0.2-1); TOT PROT 6.5 g/dl (6.4-8.2)
[2022-04-29 14:31] LABS: ALK PHOS 131 U/L (45-117)
[2022-04-29 14:39] LABS: CHLORIDE 102 mmol/L (98-107); CREATININE 7.9 mg/dL (0.55-1.3)
[2022-04-29 14:40] LABS: ANION GAP 12 MMOL/L (8-16); SGOT/AST 21 U/L (15-37)
[2022-04-29 15:18] LABS: MAGNESIUM 1.8 mg/dL (1.8-2.4)
[2022-04-29] MEDS ORDERED: POTASSIUM CHLORIDE ORAL LIQUID 20 MEQ/15 ML PO ONE ×2 (15:28→15:50)
[2022-04-29] MEDS ORDERED: KCL 10 MEQ IVPB 10 MEQ/100 ML INFUS.BAG IVPB SCH (15:30)
[2022-04-29] MEDS ORDERED: KCL 10 MEQ IVPB 10 MEQ/100 ML INFUS.BAG IVPB ONE (16:15)
[2022-04-29] MEDS ORDERED: POTASSIUM CHLORIDE ORAL LIQUID 20 MEQ/15 ML ONE (16:15)
[2022-04-29] MEDS ORDERED: ACETAMINOPHEN 325 MG TABLET (FP) PO PRN (19:19)
[2022-04-29] MEDS ORDERED: ONDANSETRON 4 MG TABLET PO PRN (19:19)
[2022-04-29] MEDS ORDERED: ALLOPURINOL 100 MG TABLET (FP) PO SCH (19:30)
[2022-04-29 21:06] LABS: CHLORIDE 105 mmol/L (98-107); SODIUM 139 mmol/L (136-145)
[2022-04-29 21:08] LABS: ANION GAP 9 MMOL/L (8-16); BLOOD UREA NITROGEN 25.6 mg/dL (7-18); CALCIUM 9.2 mg/dL (8.5-10.1); CO2 25 mmol/L (21-32); GLUCOSE,RANDOM 122 mg/dL (74-106)
[2022-04-29 21:11] LABS: CREATININE 8.2 mg/dL (0.55-1.3)
[2022-04-30] MEDS ORDERED: APIXABAN 5 MG TABLET ONE ×2 (02:46→09:18)
[2022-04-30] MEDS: APIXABAN 5 MG TABLET PO SCH ×2 (02:48→09:24)
[2022-04-30 07:26] LABS: BASO % 2.8 % (0-2.0); EOS % 4.7 % (0-4.5); HEMATOCRIT 31.3 % (35.4-49); HEMOGLOBIN 9.6 GM/dL (11.7-16.9); LYMPH % 21.1 % (8-40); MCH 25.2 pg (25.7-33.7); MCHC 30.6 g/dl (32.0-35.9); MEAN CELL VOLUME 82.4 fl (80-96); MEAN PLT VOLUME 7.6 fl (7.5-11.1); NEUT % 64.4 % (42.8-82.8); PLATELET COUNT 159 10^3/uL (134-434); RBC 3.79 M/mm3 (4.00-5.60); WHITE BLOOD COUNT 7.7 K/mm3 (4.0-10.0)
[2022-04-30] MEDS: CALCIUM ACETATE 667 MG CAPSULE (FP) PO SCH ×2 (08:09→12:50)
[2022-04-30] MEDS: AMINO ACIDS/PROTEIN HYDROLYS 30 ML LIQUID.PKT PO SCH (08:09)
[2022-04-30] MEDS: DRONEDARONE HCL 400 MG TAB (FP) PO SCH ×2 (08:09→23:03)
[2022-04-30 09:02] LABS: CHLORIDE 106 mmol/L (98-107); SODIUM 139 mmol/L (136-145)
[2022-04-30 09:06] LABS: ANION GAP 6 MMOL/L (8-16); BLOOD UREA NITROGEN 29.8 mg/dL (7-18); CALCIUM 9.2 mg/dL (8.5-10.1); CO2 27 mmol/L (21-32); GLUCOSE,RANDOM 85 mg/dL (74-106)
[2022-04-30 09:10] LABS: CREATININE 8.9 mg/dL (0.55-1.3)
[2022-04-30] MEDS ORDERED: PANTOPRAZOLE 40 MG TABLET PO ONE (09:18)
[2022-04-30] MEDS ORDERED: FERROUS SO4 325 MG TABLET (FP) ONE (09:18)
[2022-04-30] MEDS: SOLIFENACIN SUCCINATE 5 MG TAB PO SCH (09:23)
[2022-04-30] MEDS: PANTOPRAZOLE 20 MG TABLET PO SCH (09:23)
[2022-04-30] MEDS: FERROUS SO4 325 MG TABLET (FP) PO SCH (09:24)
[2022-04-30] MEDS: SERTRALINE HCL 25 MG TABLET (FP) PO SCH (09:24)
[2022-04-30] MEDS ORDERED: MIDAZOLAM HCL 2 MG/2 ML SINGLE DOSE VIAL ONE (13:00)
[2022-04-30 13:54] VITALS: BMI 46.0
[2022-04-30] MEDS ORDERED: SODIUM CHLORIDE 250 ML IV PRN (13:54)
[2022-04-30] MEDS ORDERED: PROPOFOL 20 ML ONE (15:06)
[2022-05-01] MEDS: APIXABAN 2.5 MG TABLET PO SCH (01:34)
[2022-05-01] MEDS: APIXABAN 5 MG TABLET PO SCH ×2 (03:13→18:40)
[2022-05-01] MEDS ORDERED: LIDOCAINE HCL 1%, 10 MG/ML (20ML VIAL) ONE (10:05)
[2022-05-01] MEDS ORDERED: POVIDONE-IODINE OINTMENT 10% - 28.4 GM TUBE ONE (10:07)
[2022-05-01] MEDS ORDERED: PROPOFOL 20 ML ONE (10:58)
[2022-05-01] MEDS ORDERED: ceFAZolin SODIUM 1 GM VIAL IVPB ONE (11:10)
[2022-05-01] MEDS ORDERED: ceFAZolin SODIUM 1 GM VIAL ONE (11:10)
[2022-05-01] MEDS ORDERED: LIDOCAINE HCL 1%, 10 MG/ML (20ML VIAL) INF ONE (11:17)
[2022-05-01] MEDS ORDERED: HEPARIN NA (PORCINE) 5,000 UNITS/ML 1ML VIAL SQ ONE (11:17)
[2022-05-01] MEDS ORDERED: ONDANSETRON 4 MG/2 ML VIAL IVPUSH PRN ×2 (11:17→11:49)
[2022-05-01] MEDS ORDERED: HEPARIN NA (PORCINE) 1,000 UNITS/ML 10ML M-D VIAL SQ ONE (11:28)
[2022-05-01] MEDS ORDERED: LACTATED RINGERS SOLUTION 1,000 ML IV SCH (11:30)
[2022-05-01] MEDS ORDERED: ONDANSETRON *ODT* 4 MG TABLET SL PRN (11:49)
[2022-05-01] MEDS ORDERED: ACETAMINOPHEN 325 MG TABLET (FP) PO PRN (11:49)
[2022-05-01] MEDS ORDERED: EPOETIN ALFA-EPBX 4,000 UNIT/ML VIAL SQ ONE ×2 (13:54→14:15)
[2022-05-01] MEDS ORDERED: HEPARIN NA (PORCINE) 5,000 UNITS/ML 1ML VIAL IVPUSH ONE ×2 (13:54→14:15)
[2022-05-01] MEDS ORDERED: HEPARIN NA (PORCINE) 5,000 UNITS/ML 1ML VIAL IVPUSH SCH (14:00)
[2022-05-01] MEDS ORDERED: SODIUM CHLORIDE 250 ML IV PRN (14:09)
[2022-05-01 15:58] LABS: HEMATOCRIT 32.4 % (35.4-49); HEMOGLOBIN 10.2 GM/dL (11.7-16.9); MCH 25.7 pg (25.7-33.7); MCHC 31.4 g/dl (32.0-35.9); MEAN CELL VOLUME 81.8 fl (80-96); MEAN PLT VOLUME 7.6 fl (7.5-11.1); PLATELET COUNT 194 10^3/uL (134-434); RBC 3.97 M/mm3 (4.00-5.60); RDW 18.1 % (11.9-15.9); WHITE BLOOD COUNT 10.4 K/mm3 (4.0-10.0)
[2022-05-01 16:26] LABS: CHLORIDE 105 mmol/L (98-107); SODIUM 137 mmol/L (136-145)
[2022-05-01 16:30] LABS: ANION GAP 8 MMOL/L (8-16); BLOOD UREA NITROGEN 36.8 mg/dL (7-18); CALCIUM 9.3 mg/dL (8.5-10.1); CO2 23 mmol/L (21-32); GLUCOSE,RANDOM 100 mg/dL (74-106)
[2022-05-01 16:36] LABS: CREATININE 10.3 mg/dL (0.55-1.3)
[2022-05-01] MEDS: CALCIUM ACETATE 667 MG CAPSULE (FP) PO SCH ×3 (18:36→18:40)
[2022-05-01] MEDS: DRONEDARONE HCL 400 MG TAB (FP) PO SCH ×2 (18:37→18:40)
[2022-05-01] MEDS: LACTATED RINGERS SOLUTION 1,000 ML IV SCH (18:38)
[2022-05-01] MEDS: HEPARIN NA (PORCINE) 5,000 UNITS/ML 1ML VIAL IVPUSH SCH (18:38)
[2022-05-01] MEDS: SERTRALINE HCL 25 MG TABLET (FP) PO SCH (18:39)
[2022-05-01] MEDS: FERROUS SO4 325 MG TABLET (FP) PO SCH (18:39)
[2022-05-01] MEDS: SOLIFENACIN SUCCINATE 5 MG TAB PO SCH (18:39)
[2022-05-01] MEDS: PANTOPRAZOLE 20 MG TABLET PO SCH (18:39)
[2022-05-01] MEDS: AMINO ACIDS/PROTEIN HYDROLYS 30 ML LIQUID.PKT PO SCH (18:40)
[2022-05-02] MEDS: CALCIUM ACETATE 667 MG CAPSULE (FP) PO SCH ×3 (12:07→18:35)
[2022-05-02] MEDS: SERTRALINE HCL 25 MG TABLET (FP) PO SCH (12:08)
[2022-05-02] MEDS: FERROUS SO4 325 MG TABLET (FP) PO SCH (12:08)
[2022-05-02] MEDS: ALLOPURINOL 100 MG TABLET (FP) PO SCH (12:08)
[2022-05-02] MEDS: PANTOPRAZOLE 40 MG TABLET PO SCH (12:08)
[2022-05-02] MEDS: APIXABAN 2.5 MG TABLET PO SCH ×2 (12:09→22:35)
[2022-05-02] MEDS: AMINO ACIDS/PROTEIN HYDROLYS 30 ML LIQUID.PKT PO SCH ×2 (12:14→12:21)
[2022-05-02] MEDS: SOLIFENACIN SUCCINATE 5 MG TAB PO SCH (12:16)
[2022-05-02] MEDS: DRONEDARONE HCL 400 MG TAB (FP) PO SCH ×2 (12:16→18:34)
[2022-05-02] MEDS: LACTATED RINGERS SOLUTION 1,000 ML IV SCH (12:22)
[2022-05-02] MEDS ORDERED: SODIUM CHLORIDE 250 ML IV PRN (22:01)
[2022-05-03] MEDS: LACTATED RINGERS SOLUTION 1,000 ML IV SCH ×2 (05:24→22:52)
[2022-05-03] MEDS: SOLIFENACIN SUCCINATE 5 MG TAB PO SCH (08:00)
[2022-05-03 09:21] LABS: BLOOD UREA NITROGEN 20.3 mg/dL (7-18)
[2022-05-03] MEDS: DRONEDARONE HCL 400 MG TAB (FP) PO SCH ×2 (10:36→16:40)
[2022-05-03] MEDS: SERTRALINE HCL 25 MG TABLET (FP) PO SCH (10:37)
[2022-05-03] MEDS: CALCIUM ACETATE 667 MG CAPSULE (FP) PO SCH ×3 (10:37→16:40)
[2022-05-03] MEDS: AMINO ACIDS/PROTEIN HYDROLYS 30 ML LIQUID.PKT PO SCH (10:37)
[2022-05-03] MEDS: FERROUS SO4 325 MG TABLET (FP) PO SCH (10:38)
[2022-05-03] MEDS: PANTOPRAZOLE 40 MG TABLET PO SCH (10:38)
[2022-05-03] MEDS: APIXABAN 2.5 MG TABLET PO SCH ×2 (10:38→22:50)
[2022-05-03 21:42] VITALS: RESP 18
[2022-05-04] MEDS: CALCIUM ACETATE 667 MG CAPSULE (FP) PO SCH ×2 (08:32→12:15)
[2022-05-04] MEDS: DRONEDARONE HCL 400 MG TAB (FP) PO SCH (08:32)
[2022-05-04] MEDS: AMINO ACIDS/PROTEIN HYDROLYS 30 ML LIQUID.PKT PO SCH (08:33)
[2022-05-04] MEDS: PANTOPRAZOLE 40 MG TABLET PO SCH (09:06)
[2022-05-04] MEDS: ALLOPURINOL 100 MG TABLET (FP) PO SCH (09:06)
[2022-05-04] MEDS: SOLIFENACIN SUCCINATE 5 MG TAB PO SCH (09:06)
[2022-05-04] MEDS: FERROUS SO4 325 MG TABLET (FP) PO SCH (09:06)
[2022-05-04] MEDS: SERTRALINE HCL 25 MG TABLET (FP) PO SCH (09:06)
[2022-05-04] MEDS: APIXABAN 2.5 MG TABLET PO SCH (09:06)
[2022-05-04 14:02] VITALS: BP 112/58; PULSE 111; TEMP 98.8
== END 2022-05-04 14:52 ==
LOC: JER 10:29 → JERBED 15:38 → J7W 04-30 18:17
PROVIDERS: ADMIT Internal Medicine; ATTEND Internal Medicine
PROC: 0JPT0XZ Removal of Tunneled Vascular Access Device from Trunk Subcutaneous Tissue and Fascia, Open Approach (ICD-10-PCS; principal; 2022-04-29)
PROC: 0JH60XZ Insertion of Tunneled Vascular Access Device into Chest Subcutaneous Tissue and Fascia, Open Approach (ICD-10-PCS; 2022-04-29)
PROC: 3E03329 Introduction of Other Anti-infective into Peripheral Vein, Percutaneous Approach (ICD-10-PCS; 2022-04-29)
PROC: 3E023GC Introduction of Other Therapeutic Substance into Muscle, Percutaneous Approach (ICD-10-PCS; 2022-04-29)
PROC: 3E0337Z Introduction of Electrolytic and Water Balance Substance into Peripheral Vein, Percutaneous Approach (ICD-10-PCS; 2022-04-29)
DX: T82.49XA Other complication of vascular dialysis catheter, initial encounter (principal); I13.2 Hypertensive heart and chronic kidney disease with heart failure and with stage 5 chronic kidney disease, or end stage renal disease; I48.91 Unspecified atrial fibrillation; I12.0 Hypertensive chronic kidney disease with stage 5 chronic kidney disease or end stage renal disease; N18.6 End stage renal disease; E78.5 Hyperlipidemia, unspecified; J44.9 Chronic obstructive pulmonary disease, unspecified; F41.9 Anxiety disorder, unspecified; D64.9 Anemia, unspecified; E66.01 Morbid (severe) obesity due to excess calories; Z68.42 Body mass index [BMI] 45.0-49.9, adult; Z86.14 Personal history of Methicillin resistant Staphylococcus aureus infection; Z99.2 Dependence on renal dialysis; Y82.8 Other medical devices associated with adverse incidents; Y92.9 Unspecified place or not applicable
CPT/HCPCS: 0241U-QW; 36415; 71045-TC-FY; 74176-TC; 76000-TC-FY; 76705-TC; 80048; 80053; 83735; 85025; 85027; 85610; 85730; 86803; 86850; 86900; 86901; 87040; 87340; 93005; 93010; 94760; 96372; 96374; 99285-25; C1750; G0378; J1644; Q0162; Q5106

== ENCOUNTER 2022-05-18 23:32 | Inpatient (IN) | payer OTHER ==
[2022-05-18 23:52] VITALS: BMI 59.1
[2022-05-19] MEDS ORDERED: METOCLOPRAMIDE HCL INJECTION 10 MG/2 ML VIAL IVPUSH ONE (00:03)
[2022-05-19] MEDS ORDERED: SODIUM CHLORIDE 0.9% 1000 ML INFUS.BAG IV ONE (00:04)
[2022-05-19] MEDS ORDERED: FAMOTIDINE 20 MG/50 ML IVPB 20 MG/50 ML MG IVPB ONE ×2 (00:04→00:47)
[2022-05-19] MEDS ORDERED: MAG HYDROX/AL HYDROX/SIMETH -MYLANTA- ORAL SUSPENSION PO ONE (00:04)
[2022-05-19] MEDS ORDERED: METOCLOPRAMIDE HCL INJECTION 10 MG/2 ML VIAL ONE (00:46)
[2022-05-19] MEDS ORDERED: MAG HYDROX/AL HYDROX/SIMETH 30 ML UNIT-DOSE CUP ONE (00:47)
[2022-05-19] MEDS ORDERED: SODIUM CHLORIDE 0.9% 500 ML INFUS.BAG IV ONE (00:48)
[2022-05-19 01:13] LABS: INR 2.25 (0.83-1.09); PROTHROMBIN TIME (PATIENT) 25.9 SEC (9.7-13.0)
[2022-05-19 01:14] LABS: BASO % 0.3 % (0-2.0); HEMATOCRIT 40.5 % (35.4-49); HEMOGLOBIN 12.1 GM/dL (11.7-16.9); MCH 24.5 pg (25.7-33.7); MCHC 29.8 g/dl (32.0-35.9); MEAN PLT VOLUME 9.2 fl (7.5-11.1); MONO % 2.7 % (3.8-10.2); PLATELET COUNT 136 10^3/uL (134-434); RBC 4.93 M/mm3 (4.00-5.60); RDW 19.6 % (11.9-15.9)
[2022-05-19 01:16] LABS: ACTIVATED PTT 33.8 SECONDS (25.2-36.5)
[2022-05-19 01:21] LABS: CHLORIDE 102 mmol/L (98-107); SODIUM 139 mmol/L (136-145)
[2022-05-19 01:24] LABS: ANION GAP 11 MMOL/L (8-16); BLOOD UREA NITROGEN 14.1 mg/dL (7-18); CO2 26 mmol/L (21-32); GLUCOSE,RANDOM 110 mg/dL (74-106)
[2022-05-19 01:25] LABS: CALCIUM 9.2 mg/dL (8.5-10.1); LIPASE < 10 U/L (73-393); MAGNESIUM 1.6 mg/dL (1.8-2.4)
[2022-05-19 01:26] LABS: WHITE BLOOD COUNT 31.7 K/mm3 (4.0-10.0)
[2022-05-19 01:28] LABS: CREATININE 5.1 mg/dL (0.55-1.3); SGOT/AST 61 U/L (15-37); SGPT/ALT 39 U/L (13-61)
[2022-05-19 01:29] LABS: TOT PROT 5.9 g/dl (6.4-8.2)
[2022-05-19 01:30] LABS: ALK PHOS 151 U/L (45-117); BILIRUBIN,TOTAL 0.6 mg/dL (0.2-1)
[2022-05-19] MEDS ORDERED: VANCOMYCIN 1 GM in D5W (PRE-DOCKED) 1,000 MG/250 ML IVPB ONE (01:36)
[2022-05-19] MEDS ORDERED: PIPERACILLIN/TAZOB 4.5 GM 4.5 GM in DEXTROSE 5%-WATER 100 ML IVPB ONE (01:37)
[2022-05-19] MEDS ORDERED: VANCOMYCIN/WATER FOR INJ (PEG) 1,000 MG/200 ML BAG IVPB ONE (02:15)
[2022-05-19] MEDS ORDERED: PIPERACILLIN/TAZOB 4.5 GM 4.5 GM/100 ML BAG IVPB ONE (02:15)
[2022-05-19 02:16] LABS: LACTIC ACID 4.9 mmol/L (0.4-2.0)
[2022-05-19 04:21] LABS: ANISOCYTOSIS 1+; MACROCYTOSIS 0; OVALOCYTE 2+; TEAR DROP CELLS 1+; TOXIC GRANULATION 1+
[2022-05-19] MEDS ORDERED: MAGNESIUM 1GM/D5W - 1 GM/100 ML IVPB IVPB ONE (05:34)
[2022-05-19] MEDS ORDERED: ACETAMINOPHEN 325 MG TABLET (FP) PO PRN (05:49)
[2022-05-19] MEDS ORDERED: CLOTRIMAZOLE/BETAMET DIPROP 15 GM TUBE TP PRN (05:49)
[2022-05-19] MEDS ORDERED: ZINC OXIDE/PETROLATUM,WHITE 1 APPLIC OINT...G. TP PRN (05:49)
[2022-05-19] MEDS ORDERED: SODIUM PHOSPHATE/NA BIPHOS 133 ML ENEMA RC PRN (06:08)
[2022-05-19] MEDS ORDERED: MAGNESIUM HYDROX 2400MG/30ML ORAL SUSPENSION 30 ML CUP PO PRN (06:10)
[2022-05-19] MEDS ORDERED: POLYETHYLENE GLYCOL (HEALTHYLAX) 3350 17 GM PACKET PO PRN (06:19)
[2022-05-19] MEDS ORDERED: PANTOPRAZOLE 40 MG TABLET PO ONE (08:57)
[2022-05-19] MEDS ORDERED: FERROUS SO4 325 MG TABLET (FP) ONE (08:58)
[2022-05-19] MEDS ORDERED: SERTRALINE HCL 50 MG TABLET (FP) ONE (08:58)
[2022-05-19] MEDS ORDERED: APIXABAN 5 MG TABLET ONE ×2 (08:58→10:55)
[2022-05-19] MEDS ORDERED: ONDANSETRON 4 MG/2 ML VIAL IVPUSH PRN (10:33)
[2022-05-19] MEDS ORDERED: METOCLOPRAMIDE HCL INJECTION 10 MG/2 ML VIAL IVPUSH PRN (10:41)
[2022-05-19] MEDS: FERROUS SO4 325 MG TABLET (FP) PO SCH (10:52)
[2022-05-19] MEDS: OXYBUTYNIN CHLORIDE 5 MG TABLET PO SCH ×2 (10:52→21:30)
[2022-05-19] MEDS: AMMONIUM LACTATE 12% LOTION 225 GM BOTTLE TP SCH ×2 (10:52→21:30)
[2022-05-19] MEDS: APIXABAN 5 MG TABLET PO SCH ×2 (10:52→21:30)
[2022-05-19] MEDS: CALCIUM ACETATE 667 MG CAPSULE (FP) PO SCH ×3 (10:52→18:21)
[2022-05-19] MEDS: PANTOPRAZOLE 40 MG TABLET PO SCH (10:53)
[2022-05-19] MEDS: VITAMIN B COMP W-C 1 EA TABLET (NEPHRO-VITE) PO SCH (10:53)
[2022-05-19] MEDS: SERTRALINE HCL 25 MG TABLET (FP) PO SCH (10:53)
[2022-05-19] MEDS: NYSTATIN POWDER 100,000 UNITS/GM - 15 GM TOPICAL POWDER TP SCH ×2 (10:53→21:31)
[2022-05-19] MEDS: MIDODRINE HCL 5 MG TABLET PO SCH ×3 (10:53→18:21)
[2022-05-19] MEDS: ZINC OXIDE 20% TOPICAL OINTMENT 30 GM TUBE TP SCH ×2 (10:53→21:31)
[2022-05-19] MEDS: ALLOPURINOL 100 MG TABLET (FP) PO SCH (10:54)
[2022-05-19] MEDS: DRONEDARONE HCL 400 MG TAB (FP) PO SCH ×2 (10:57→18:25)
[2022-05-19 12:51] LABS: BASO % 0.6 % (0-2.0); HEMATOCRIT 38.3 % (35.4-49); HEMOGLOBIN 11.7 GM/dL (11.7-16.9); LYMPH % 7.6 % (8-40); MCH 24.9 pg (25.7-33.7); MCHC 30.5 g/dl (32.0-35.9); MEAN CELL VOLUME 81.8 fl (80-96); MEAN PLT VOLUME 9.2 fl (7.5-11.1); NEUT % 86.8 % (42.8-82.8); PLATELET COUNT 139 10^3/uL (134-434); RBC 4.69 M/mm3 (4.00-5.60); RDW 19.8 % (11.9-15.9); WHITE BLOOD COUNT 22.1 K/mm3 (4.0-10.0)
[2022-05-19 13:34] LABS: ANISOCYTOSIS 1+; MACROCYTOSIS 1+
[2022-05-19 14:26] LABS: MAGNESIUM 2.2 mg/dL (1.8-2.4)
[2022-05-19 14:30] LABS: PHOSPHOROUS 1.9 mg/dL (2.5-4.9)
[2022-05-19] MEDS ORDERED: GENTAMICIN 80 MG PREMIXED IVPB 80 MG/100 ML BAG IVPB ONE (16:49)
[2022-05-19] MEDS ORDERED: SODIUM CHLORIDE 250 ML IV PRN (17:30)
[2022-05-19] MEDS ORDERED: DAPTOMYCIN IVPB ONE (18:00)
[2022-05-19] MEDS ORDERED: SODIUM CHLORIDE IVPB ONE (18:00)
[2022-05-19] MEDS: PIPERACILLIN/TAZOB 2.25 GM 2.25 GM in DEXTROSE 5%-WATER - 50 ML IVPB SCH (19:49)
[2022-05-19] MEDS ORDERED: PATIENT'S OWN MEDICATION (NON-FORMULARY) (Lidocaine Patch Removal 1 EACH Each) MC SCH (22:00)
[2022-05-20] MEDS: PIPERACILLIN/TAZOB 2.25 GM 2.25 GM in DEXTROSE 5%-WATER - 50 ML IVPB SCH ×3 (01:03→18:57)
[2022-05-20 07:03] LABS: BLOOD UREA NITROGEN 23.2 mg/dL (7-18); CALCIUM 9.1 mg/dL (8.5-10.1)
[2022-05-20 07:06] LABS: CREATININE 5.8 mg/dL (0.55-1.3)
[2022-05-20] MEDS: MIDODRINE HCL 5 MG TABLET PO SCH ×3 (08:15→18:57)
[2022-05-20] MEDS: CALCIUM ACETATE 667 MG CAPSULE (FP) PO SCH ×3 (08:26→18:57)
[2022-05-20] MEDS: VITAMIN B COMP W-C 1 EA TABLET (NEPHRO-VITE) PO SCH (09:10)
[2022-05-20] MEDS: APIXABAN 5 MG TABLET PO SCH ×2 (09:10→22:09)
[2022-05-20] MEDS: FERROUS SO4 325 MG TABLET (FP) PO SCH (09:10)
[2022-05-20] MEDS: PANTOPRAZOLE 40 MG TABLET PO SCH (09:10)
[2022-05-20] MEDS: SERTRALINE HCL 25 MG TABLET (FP) PO SCH (09:10)
[2022-05-20] MEDS: OXYBUTYNIN CHLORIDE 5 MG TABLET PO SCH (09:11)
[2022-05-20] MEDS: AMMONIUM LACTATE 12% LOTION 225 GM BOTTLE TP SCH ×2 (09:11→22:09)
[2022-05-20] MEDS: NYSTATIN POWDER 100,000 UNITS/GM - 15 GM TOPICAL POWDER TP SCH ×2 (09:12→22:09)
[2022-05-20] MEDS: DRONEDARONE HCL 400 MG TAB (FP) PO SCH ×2 (09:15→18:58)
[2022-05-20] MEDS: ZINC OXIDE 20% TOPICAL OINTMENT 30 GM TUBE TP SCH ×2 (10:00→22:09)
[2022-05-20] MEDS: LORazepam 1 MG TABLET PO SCH (17:21)
[2022-05-21] MEDS: PIPERACILLIN/TAZOB 2.25 GM 2.25 GM in DEXTROSE 5%-WATER - 50 ML IVPB SCH ×3 (01:30→17:16)
[2022-05-21] MEDS: CALCIUM ACETATE 667 MG CAPSULE (FP) PO SCH ×3 (08:12→17:16)
[2022-05-21] MEDS: VITAMIN B COMP W-C 1 EA TABLET (NEPHRO-VITE) PO SCH (10:13)
[2022-05-21] MEDS: SERTRALINE HCL 25 MG TABLET (FP) PO SCH (10:13)
[2022-05-21] MEDS: APIXABAN 5 MG TABLET PO SCH ×2 (10:13→22:21)
[2022-05-21] MEDS: FERROUS SO4 325 MG TABLET (FP) PO SCH (10:13)
[2022-05-21] MEDS: MIDODRINE HCL 5 MG TABLET PO SCH ×3 (10:13→17:16)
[2022-05-21] MEDS: ALLOPURINOL 100 MG TABLET (FP) PO SCH (10:14)
[2022-05-21] MEDS: PANTOPRAZOLE 40 MG TABLET PO SCH (10:14)
[2022-05-21] MEDS: DRONEDARONE HCL 400 MG TAB (FP) PO SCH ×2 (10:15→17:16)
[2022-05-21] MEDS: AMMONIUM LACTATE 12% LOTION 225 GM BOTTLE TP SCH ×2 (10:16→22:21)
[2022-05-21] MEDS: NYSTATIN POWDER 100,000 UNITS/GM - 15 GM TOPICAL POWDER TP SCH ×2 (10:16→22:21)
[2022-05-21] MEDS: OXYBUTYNIN CHLORIDE 5 MG TABLET PO SCH ×3 (10:16→22:14)
[2022-05-21] MEDS: ZINC OXIDE 20% TOPICAL OINTMENT 30 GM TUBE TP SCH ×2 (10:16→22:21)
[2022-05-21] MEDS ORDERED: SODIUM CHLORIDE 250 ML IV PRN (11:46)
[2022-05-21] MEDS: AMINO ACIDS/PROTEIN HYDROLYS 30 ML LIQUID.PKT PO SCH (17:24)
[2022-05-21] MEDS: BANATROL PLUS POWDER PACKET PO SCH (22:21)
[2022-05-22] MEDS: PIPERACILLIN/TAZOB 2.25 GM 2.25 GM in DEXTROSE 5%-WATER - 50 ML IVPB SCH ×3 (01:48→17:33)
[2022-05-22] MEDS: BANATROL PLUS POWDER PACKET PO SCH ×3 (05:40→21:05)
[2022-05-22] MEDS: MIDODRINE HCL 5 MG TABLET PO SCH ×4 (08:06→17:33)
[2022-05-22] MEDS: CALCIUM ACETATE 667 MG CAPSULE (FP) PO SCH ×3 (08:06→17:33)
[2022-05-22] MEDS: LORazepam 1 MG TABLET PO SCH (08:29)
[2022-05-22] MEDS: DRONEDARONE HCL 400 MG TAB (FP) PO SCH ×2 (09:07→17:34)
[2022-05-22] MEDS: AMINO ACIDS/PROTEIN HYDROLYS 30 ML LIQUID.PKT PO SCH ×3 (09:07→17:33)
[2022-05-22 10:08] LABS: HEMATOCRIT 29.4 % (35.4-49); HEMOGLOBIN 9.5 GM/dL (11.7-16.9); MCH 26.4 pg (25.7-33.7); MCHC 32.2 g/dl (32.0-35.9); MEAN PLT VOLUME 8.9 fl (7.5-11.1); PLATELET COUNT 96 10^3/uL (134-434); RBC 3.59 M/mm3 (4.00-5.60); RDW 19.1 % (11.9-15.9); WHITE BLOOD COUNT 10.4 K/mm3 (4.0-10.0)
[2022-05-22 10:24] LABS: BLOOD UREA NITROGEN 16.2 mg/dL (7-18); CALCIUM 8.6 mg/dL (8.5-10.1)
[2022-05-22 10:27] LABS: CREATININE 4.7 mg/dL (0.55-1.3)
[2022-05-22] MEDS: OXYBUTYNIN CHLORIDE 5 MG TABLET PO SCH ×2 (11:55→21:05)
[2022-05-22] MEDS: SERTRALINE HCL 25 MG TABLET (FP) PO SCH (11:55)
[2022-05-22] MEDS: PANTOPRAZOLE 40 MG TABLET PO SCH (11:55)
[2022-05-22] MEDS: FERROUS SO4 325 MG TABLET (FP) PO SCH (11:55)
[2022-05-22] MEDS: APIXABAN 5 MG TABLET PO SCH ×2 (11:55→21:05)
[2022-05-22] MEDS: VITAMIN B COMP W-C 1 EA TABLET (NEPHRO-VITE) PO SCH (11:55)
[2022-05-22] MEDS: NYSTATIN POWDER 100,000 UNITS/GM - 15 GM TOPICAL POWDER TP SCH ×2 (11:56→21:05)
[2022-05-22] MEDS: ZINC OXIDE 20% TOPICAL OINTMENT 30 GM TUBE TP SCH ×2 (11:56→21:05)
[2022-05-22] MEDS: AMMONIUM LACTATE 12% LOTION 225 GM BOTTLE TP SCH ×2 (11:56→21:05)
[2022-05-22] MEDS ORDERED: LOPERAMIDE HCL 2 MG CAPSULE PO PRN (13:45)
[2022-05-22] MEDS ORDERED: POTASSIUM CHLORIDE ORAL LIQUID 20 MEQ/15 ML PO ONE (15:17)
[2022-05-23] MEDS: PIPERACILLIN/TAZOB 2.25 GM 2.25 GM in DEXTROSE 5%-WATER - 50 ML IVPB SCH ×2 (01:51→10:36)
[2022-05-23] MEDS: BANATROL PLUS POWDER PACKET PO SCH ×3 (06:32→21:40)
[2022-05-23] MEDS: MIDODRINE HCL 5 MG TABLET PO SCH ×4 (10:31→17:48)
[2022-05-23] MEDS: OXYBUTYNIN CHLORIDE 5 MG TABLET PO SCH ×3 (10:31→21:40)
[2022-05-23] MEDS: ALLOPURINOL 100 MG TABLET (FP) PO SCH (10:32)
[2022-05-23] MEDS: FERROUS SO4 325 MG TABLET (FP) PO SCH (10:32)
[2022-05-23] MEDS: APIXABAN 5 MG TABLET PO SCH ×4 (10:32→23:12)
[2022-05-23] MEDS: CALCIUM ACETATE 667 MG CAPSULE (FP) PO SCH ×4 (10:32→17:49)
[2022-05-23] MEDS: DRONEDARONE HCL 400 MG TAB (FP) PO SCH ×3 (10:33→17:49)
[2022-05-23] MEDS: AMINO ACIDS/PROTEIN HYDROLYS 30 ML LIQUID.PKT PO SCH ×4 (10:33→17:49)
[2022-05-23] MEDS: AMMONIUM LACTATE 12% LOTION 225 GM BOTTLE TP SCH ×2 (10:33→21:40)
[2022-05-23] MEDS: NYSTATIN POWDER 100,000 UNITS/GM - 15 GM TOPICAL POWDER TP SCH ×2 (10:34→21:40)
[2022-05-23] MEDS: SERTRALINE HCL 25 MG TABLET (FP) PO SCH (10:35)
[2022-05-23] MEDS: ZINC OXIDE 20% TOPICAL OINTMENT 30 GM TUBE TP SCH ×2 (10:35→21:40)
[2022-05-23] MEDS: PANTOPRAZOLE 40 MG TABLET PO SCH (10:36)
[2022-05-23] MEDS: VITAMIN B COMP W-C 1 EA TABLET (NEPHRO-VITE) PO SCH (10:37)
[2022-05-23] MEDS ORDERED: SODIUM CHLORIDE 250 ML IV PRN (14:50)
[2022-05-24] MEDS: BANATROL PLUS POWDER PACKET PO SCH ×3 (05:45→21:40)
[2022-05-24] MEDS: AMINO ACIDS/PROTEIN HYDROLYS 30 ML LIQUID.PKT PO SCH ×3 (08:23→17:54)
[2022-05-24] MEDS: CALCIUM ACETATE 667 MG CAPSULE (FP) PO SCH ×3 (08:24→17:54)
[2022-05-24] MEDS: LORazepam 1 MG TABLET PO SCH (08:44)
[2022-05-24] MEDS: ALBUMIN HUMAN 25% 12.5 GM/50 ML VIAL IV SCH ×4 (09:40→11:10)
[2022-05-24] MEDS: VITAMIN B COMP W-C 1 EA TABLET (NEPHRO-VITE) PO SCH (09:48)
[2022-05-24] MEDS: MIDODRINE HCL 5 MG TABLET PO SCH ×3 (09:48→17:53)
[2022-05-24] MEDS: OXYBUTYNIN CHLORIDE 5 MG TABLET PO SCH ×2 (09:48→21:40)
[2022-05-24] MEDS: APIXABAN 5 MG TABLET PO SCH ×2 (09:48→21:40)
[2022-05-24] MEDS: DRONEDARONE HCL 400 MG TAB (FP) PO SCH ×2 (09:48→17:53)
[2022-05-24] MEDS: FERROUS SO4 325 MG TABLET (FP) PO SCH (09:48)
[2022-05-24] MEDS: PANTOPRAZOLE 40 MG TABLET PO SCH (09:49)
[2022-05-24] MEDS: SERTRALINE HCL 25 MG TABLET (FP) PO SCH (09:49)
[2022-05-24 09:55] LABS: HEMATOCRIT 30.7 % (35.4-49); HEMOGLOBIN 9.4 GM/dL (11.7-16.9); MCH 25.1 pg (25.7-33.7); MCHC 30.7 g/dl (32.0-35.9); MEAN CELL VOLUME 81.8 fl (80-96); MEAN PLT VOLUME 8.8 fl (7.5-11.1); PLATELET COUNT 100 10^3/uL (134-434); RBC 3.76 M/mm3 (4.00-5.60); RDW 19.3 % (11.9-15.9); WHITE BLOOD COUNT 9.6 K/mm3 (4.0-10.0)
[2022-05-24] MEDS ORDERED: EPOETIN ALFA-EPBX 10,000 UNIT/ML VIAL SQ ONE (10:00)
[2022-05-24 10:20] LABS: CALCIUM 8.8 mg/dL (8.5-10.1)
[2022-05-24] MEDS: AMMONIUM LACTATE 12% LOTION 225 GM BOTTLE TP SCH ×2 (10:20→21:40)
[2022-05-24] MEDS: NYSTATIN POWDER 100,000 UNITS/GM - 15 GM TOPICAL POWDER TP SCH ×2 (10:21→21:40)
[2022-05-24] MEDS: ZINC OXIDE 20% TOPICAL OINTMENT 30 GM TUBE TP SCH ×2 (10:21→21:40)
[2022-05-24 10:23] LABS: CREATININE 4.3 mg/dL (0.55-1.3)
[2022-05-24 10:35] LABS: BILIRUBIN,TOTAL 0.9 mg/dL (0.2-1)
[2022-05-24] MEDS ORDERED: ALBUMIN HUMAN 25% 12.5 GM/50 ML VIAL IV SCH (11:00)
[2022-05-25] MEDS: BANATROL PLUS POWDER PACKET PO SCH ×3 (05:38→22:00)
[2022-05-25] MEDS: CALCIUM ACETATE 667 MG CAPSULE (FP) PO SCH ×3 (08:20→18:09)
[2022-05-25] MEDS: MIDODRINE HCL 5 MG TABLET PO SCH ×3 (10:11→18:10)
[2022-05-25] MEDS: VITAMIN B COMP W-C 1 EA TABLET (NEPHRO-VITE) PO SCH (10:11)
[2022-05-25] MEDS: APIXABAN 5 MG TABLET PO SCH ×2 (10:12→22:00)
[2022-05-25] MEDS: PANTOPRAZOLE 40 MG TABLET PO SCH (10:12)
[2022-05-25] MEDS: FERROUS SO4 325 MG TABLET (FP) PO SCH (10:12)
[2022-05-25] MEDS: ALLOPURINOL 100 MG TABLET (FP) PO SCH (10:12)
[2022-05-25] MEDS: SERTRALINE HCL 25 MG TABLET (FP) PO SCH (10:12)
[2022-05-25] MEDS: DRONEDARONE HCL 400 MG TAB (FP) PO SCH ×2 (10:12→18:09)
[2022-05-25] MEDS: NYSTATIN POWDER 100,000 UNITS/GM - 15 GM TOPICAL POWDER TP SCH ×2 (10:13→22:01)
[2022-05-25] MEDS: AMMONIUM LACTATE 12% LOTION 225 GM BOTTLE TP SCH ×2 (10:13→22:01)
[2022-05-25] MEDS: OXYBUTYNIN CHLORIDE 5 MG TABLET PO SCH ×2 (10:13→22:00)
[2022-05-25] MEDS: AMINO ACIDS/PROTEIN HYDROLYS 30 ML LIQUID.PKT PO SCH ×3 (10:13→18:10)
[2022-05-25] MEDS: ZINC OXIDE 20% TOPICAL OINTMENT 30 GM TUBE TP SCH ×2 (10:13→22:01)
[2022-05-26] MEDS: BANATROL PLUS POWDER PACKET PO SCH (05:54)
[2022-05-26 08:27] VITALS: BP 106/59; PULSE 123; RESP 18; TEMP 98.1
[2022-05-26] MEDS: OXYBUTYNIN CHLORIDE 5 MG TABLET PO SCH (10:19)
[2022-05-26] MEDS: PANTOPRAZOLE 40 MG TABLET PO SCH (10:19)
[2022-05-26] MEDS: SERTRALINE HCL 25 MG TABLET (FP) PO SCH (10:19)
[2022-05-26] MEDS: APIXABAN 5 MG TABLET PO SCH (10:19)
[2022-05-26] MEDS: DRONEDARONE HCL 400 MG TAB (FP) PO SCH (10:19)
[2022-05-26] MEDS: MIDODRINE HCL 5 MG TABLET PO SCH (10:19)
[2022-05-26] MEDS: AMINO ACIDS/PROTEIN HYDROLYS 30 ML LIQUID.PKT PO SCH (10:20)
[2022-05-26] MEDS: FERROUS SO4 325 MG TABLET (FP) PO SCH (10:20)
[2022-05-26] MEDS: AMMONIUM LACTATE 12% LOTION 225 GM BOTTLE TP SCH (10:20)
[2022-05-26] MEDS: VITAMIN B COMP W-C 1 EA TABLET (NEPHRO-VITE) PO SCH (10:20)
[2022-05-26] MEDS: CALCIUM ACETATE 667 MG CAPSULE (FP) PO SCH (10:21)
[2022-05-26] MEDS: NYSTATIN POWDER 100,000 UNITS/GM - 15 GM TOPICAL POWDER TP SCH (10:22)
[2022-05-26] MEDS: ZINC OXIDE 20% TOPICAL OINTMENT 30 GM TUBE TP SCH (10:22)
== END 2022-05-26 14:24 | DRG 720 ==
LOC: JER 23:32 → JERBED 05-19 03:35 → J4S 05-19 18:04
PROVIDERS: ADMIT Internal Medicine; ATTEND Internal Medicine
PROC: 5A1D70Z Performance of Urinary Filtration, Intermittent, Less than 6 Hours Per Day (ICD-10-PCS; principal; 2022-05-20)
PROC: 5A1D70Z Performance of Urinary Filtration, Intermittent, Less than 6 Hours Per Day (ICD-10-PCS; 2022-05-22)
PROC: 5A1D70Z Performance of Urinary Filtration, Intermittent, Less than 6 Hours Per Day (ICD-10-PCS; 2022-05-24)
DX: A41.89 Other specified sepsis (principal); E78.5 Hyperlipidemia, unspecified; I48.91 Unspecified atrial fibrillation; I13.2 Hypertensive heart and chronic kidney disease with heart failure and with stage 5 chronic kidney disease, or end stage renal disease; E11.22 Type 2 diabetes mellitus with diabetic chronic kidney disease; N18.6 End stage renal disease; I50.32 Chronic diastolic (congestive) heart failure; D72.829 Elevated white blood cell count, unspecified; E87.20 Acidosis, unspecified; J44.9 Chronic obstructive pulmonary disease, unspecified; I48.92 Unspecified atrial flutter; E66.01 Morbid (severe) obesity due to excess calories; Z68.43 Body mass index [BMI] 50.0-59.9, adult; M10.9 Gout, unspecified; R79.89 Other specified abnormal findings of blood chemistry; D64.9 Anemia, unspecified; I95.9 Hypotension, unspecified; R11.2 Nausea with vomiting, unspecified; Z99.2 Dependence on renal dialysis
CPT/HCPCS: 0241U-QW; 36415; 71045-TC-FY; 74176-TC; 80048; 80053; 82962; 83605; 83690; 83735; 84100; 84484; 85025; 85027; 85610; 85730; 87040; 87045; 87046; 87209; 87324; 87449; 93005; 93010; 93306-TC; 99285-25; J0878; P9047; Q5106

== ENCOUNTER 2022-05-29 13:56 | Inpatient (IN) | payer OTHER ==
[2022-05-29 14:15] VITALS: BMI 59.1
[2022-05-29 16:39] LABS: BASO % 1.3 % (0-2.0); EOS % 0.3 % (0-4.5); HEMATOCRIT 35.2 % (35.4-49); HEMOGLOBIN 10.6 GM/dL (11.7-16.9); LYMPH % 14.1 % (8-40); MCH 25.2 pg (25.7-33.7); MEAN CELL VOLUME 83.9 fl (80-96); MEAN PLT VOLUME 8.5 fl (7.5-11.1); MONO % 4.2 % (3.8-10.2); NEUT % 80.1 % (42.8-82.8); PLATELET COUNT 175 10^3/uL (134-434); RDW 19.9 % (11.9-15.9); WHITE BLOOD COUNT 15.6 K/mm3 (4.0-10.0)
[2022-05-29 16:47] LABS: INR 1.93 (0.83-1.09); PROTHROMBIN TIME (PATIENT) 22.2 SEC (9.7-13.0)
[2022-05-29 16:49] LABS: ACTIVATED PTT 30.2 SECONDS (25.2-36.5)
[2022-05-29 17:03] LABS: CHLORIDE 100 mmol/L (98-107); SODIUM 138 mmol/L (136-145)
[2022-05-29 17:06] LABS: ALBUMIN 2.1 g/dl (3.4-5.0); BLOOD UREA NITROGEN 11.4 mg/dL (7-18); CALCIUM 8.9 mg/dL (8.5-10.1); CO2 28 mmol/L (21-32); GLUCOSE,RANDOM 71 mg/dL (74-106); LIPASE 20 U/L (73-393)
[2022-05-29 17:09] LABS: CREATININE 5.8 mg/dL (0.55-1.3); SGOT/AST 60 U/L (15-37); SGPT/ALT 60 U/L (13-61)
[2022-05-29 17:11] LABS: BILIRUBIN,TOTAL 0.8 mg/dL (0.2-1); TOT PROT 5.8 g/dl (6.4-8.2)
[2022-05-29 17:12] LABS: ALK PHOS 128 U/L (45-117)
[2022-05-29 17:18] LABS: ANION GAP 10 MMOL/L (8-16)
[2022-05-29] MEDS ORDERED: DEXTROSE 50%-WATER - 25 GM/50 ML VIAL IVPUSH ONE (18:04)
[2022-05-29] MEDS ORDERED: KCL 10 MEQ IVPB 10 MEQ/100 ML INFUS.BAG IVPB ONE (18:42)
[2022-05-29] MEDS ORDERED: DEXTROSE 50%-WATER 25 GM/50 ML DISP.SYRIN ONE (18:42)
[2022-05-29] MEDS: KCL 10 MEQ IVPB 10 MEQ/100 ML INFUS.BAG IVPB SCH ×2 (19:41→21:09)
[2022-05-30] MEDS ORDERED: SODIUM CHLORIDE 250 ML IV PRN (07:34)
[2022-05-30] MEDS ORDERED: PNEUMOC 20-VAL CONJ-DIP CRM/PF 0.5 ML SYRINGE IM ONE (10:00)
[2022-05-30] MEDS: APIXABAN 5 MG TABLET PO SCH ×2 (10:06→21:48)
[2022-05-30] MEDS: VITAMIN B COMP W-C 1 EA TABLET (NEPHRO-VITE) PO SCH (10:06)
[2022-05-30] MEDS: FERROUS SO4 325 MG TABLET (FP) PO SCH (10:06)
[2022-05-30] MEDS ORDERED: METOPROLOL TARTRATE 25 MG TABLET (FP) PO SCH ×2 (10:15→13:38)
[2022-05-30] MEDS: CALCIUM ACETATE 667 MG CAPSULE (FP) PO SCH ×4 (11:18→17:16)
[2022-05-30] MEDS: AMINO ACIDS/PROTEIN HYDROLYS 30 ML LIQUID.PKT PO SCH ×4 (11:18→17:16)
[2022-05-30] MEDS: DRONEDARONE HCL 400 MG TAB (FP) PO SCH ×2 (12:04→21:48)
[2022-05-30] MEDS ORDERED: TRIMETHOBENZAMIDE HCL 200MG/2ML INJ IM PRN (12:41)
[2022-05-30] MEDS: MIDODRINE HCL 5 MG TABLET PO SCH ×2 (13:22→17:10)
[2022-05-30] MEDS ORDERED: EPOETIN ALFA-EPBX 10,000 UNIT/ML VIAL SQ ONE (14:00)
[2022-05-30] MEDS: ZINC OXIDE 20% TOPICAL OINTMENT 454 GM JAR TP SCH (14:17)
[2022-05-30 14:53] LABS: BASO % 0.4 % (0-2.0); EOS % 0.1 % (0-4.5); HEMATOCRIT 33.5 % (35.4-49); HEMOGLOBIN 10.2 GM/dL (11.7-16.9); LYMPH % 7.4 % (8-40); MCH 25.9 pg (25.7-33.7); MCHC 30.3 g/dl (32.0-35.9); MEAN CELL VOLUME 85.3 fl (80-96); MONO % 2.1 % (3.8-10.2); PLATELET COUNT 176 10^3/uL (134-434); RBC 3.92 M/mm3 (4.00-5.60); RDW 20.9 % (11.9-15.9); WHITE BLOOD COUNT 18.8 K/mm3 (4.0-10.0)
[2022-05-30 15:12] LABS: CALCIUM 8.6 mg/dL (8.5-10.1)
[2022-05-30 15:13] LABS: BLOOD UREA NITROGEN 14.8 mg/dL (7-18)
[2022-05-30 15:16] LABS: CREATININE 6.5 mg/dL (0.55-1.3)
[2022-05-30 15:18] LABS: BILIRUBIN,TOTAL 0.8 mg/dL (0.2-1); TOT PROT 5.3 g/dl (6.4-8.2)
[2022-05-30 15:32] LABS: ANISOCYTOSIS 1+; MACROCYTOSIS 1+; TARGET CELLS 1+
[2022-05-30] MEDS ORDERED: VITAMINS A AND D TOPICAL OINTMENT 60 GM TUBE TP PRN (16:00)
[2022-05-30] MEDS: POTASSIUM CHLORIDE ORAL LIQUID 20 MEQ/15 ML PO ONE ×2 (17:10→17:16)
[2022-05-30] MEDS: AMMONIUM LACTATE 12% LOTION 225 GM BOTTLE TP SCH (23:57)
[2022-05-30] MEDS: NYSTATIN POWDER 100,000 UNITS/GM - 15 GM TOPICAL POWDER TP SCH (23:57)
[2022-05-31] MEDS ORDERED: SODIUM CHLORIDE 250 ML IV STA ×4 (01:21→04:28)
[2022-05-31] MEDS ORDERED: MIDODRINE HCL 5 MG TABLET PO ONE (05:53)
[2022-05-31] MEDS ORDERED: SODIUM CHLORIDE 500 ML IV STA ×2 (07:52→22:41)
[2022-05-31] MEDS ORDERED: VANCOMYCIN/WATER FOR INJ (PEG) 1,000 MG/200 ML BAG IVPB ONE (08:28)
[2022-05-31] MEDS ORDERED: PIPERACILLIN/TAZOB 2.25 GM 2.25 GM in DEXTROSE 5%-WATER - 50 ML IVPB ONE (08:29)
[2022-05-31] MEDS ORDERED: METOPROLOL TARTRATE 25 MG TABLET (FP) PO SCH (10:00)
[2022-05-31] MEDS ORDERED: METOPROLOL TARTRATE 50 MG TABLET (FP) PO SCH (10:00)
[2022-05-31 10:01] LABS: HEMATOCRIT 31.4 % (35.4-49); HEMOGLOBIN 9.9 GM/dL (11.7-16.9); MCH 26.4 pg (25.7-33.7); MCHC 31.4 g/dl (32.0-35.9); MEAN CELL VOLUME 84.3 fl (80-96); MEAN PLT VOLUME 9.1 fl (7.5-11.1); PLATELET COUNT 142 10^3/uL (134-434); RBC 3.73 M/mm3 (4.00-5.60); WHITE BLOOD COUNT 20.5 K/mm3 (4.0-10.0)
[2022-05-31] MEDS: AMINO ACIDS/PROTEIN HYDROLYS 30 ML LIQUID.PKT PO SCH ×3 (10:06→16:31)
[2022-05-31] MEDS: VITAMIN B COMP W-C 1 EA TABLET (NEPHRO-VITE) PO SCH (10:07)
[2022-05-31] MEDS: FERROUS SO4 325 MG TABLET (FP) PO SCH (10:07)
[2022-05-31] MEDS: CALCIUM ACETATE 667 MG CAPSULE (FP) PO SCH ×3 (10:07→16:30)
[2022-05-31] MEDS: SERTRALINE HCL 25 MG TABLET (FP) PO SCH (10:07)
[2022-05-31] MEDS: APIXABAN 5 MG TABLET PO SCH ×2 (10:07→21:27)
[2022-05-31] MEDS: AMMONIUM LACTATE 12% LOTION 225 GM BOTTLE TP SCH ×2 (10:07→21:33)
[2022-05-31 11:05] LABS: ANISOCYTOSIS 2+; MACROCYTOSIS 0; OVALOCYTE 1+; TARGET CELLS 1+
[2022-05-31] MEDS: MIDODRINE HCL 5 MG TABLET PO SCH ×3 (11:09→21:27)
[2022-05-31] MEDS: DRONEDARONE HCL 400 MG TAB (FP) PO SCH ×2 (11:09→21:28)
[2022-05-31] MEDS: ZINC OXIDE 20% TOPICAL OINTMENT 454 GM JAR TP SCH (11:10)
[2022-05-31] MEDS: SOLIFENACIN SUCCINATE 5 MG TAB PO SCH (11:11)
[2022-05-31] MEDS ORDERED: MIDODRINE HCL 5 MG TABLET PO SCH (11:52)
[2022-05-31] MEDS ORDERED: ONDANSETRON 4 MG/2 ML VIAL IVPUSH PRN (12:10)
[2022-05-31] MEDS ORDERED: SODIUM CHLORIDE 0.9% 500 ML INFUS.BAG IV STA (12:43)
[2022-05-31] MEDS: NYSTATIN POWDER 100,000 UNITS/GM - 15 GM TOPICAL POWDER TP SCH ×2 (13:16→21:28)
[2022-05-31 13:24] LABS: CHLORIDE 106 mmol/L (98-107); SODIUM 143 mmol/L (136-145)
[2022-05-31 13:27] LABS: ALBUMIN 1.8 g/dl (3.4-5.0); CO2 28 mmol/L (21-32); GLUCOSE,RANDOM 128 mg/dL (74-106)
[2022-05-31 13:30] LABS: CREATININE 3.9 mg/dL (0.55-1.3); SGOT/AST 80 U/L (15-37); SGPT/ALT 61 U/L (13-61)
[2022-05-31 13:31] LABS: BILIRUBIN,TOTAL 0.8 mg/dL (0.2-1)
[2022-05-31 13:32] LABS: TOT PROT 4.8 g/dl (6.4-8.2)
[2022-05-31 13:33] LABS: ALK PHOS 114 U/L (45-117)
[2022-05-31 14:04] LABS: ANION GAP 8 MMOL/L (8-16)
[2022-05-31] MEDS ORDERED: PHENYLEPHRINE HCL 10 MG/1 ML SINGLE DOSE VIAL ONE (16:10)
[2022-05-31] MEDS: PHENYLEPHRINE NS PREMIX 50,000 MCG/500 ML BAG CVP SCH ×5 (17:32→23:00)
[2022-05-31] MEDS: PIPERACILLIN/TAZOB 3.375 GM 3.375 GM in DEXTROSE 5%-WATER - 50 ML IVPB SCH (22:06)
[2022-05-31] MEDS: DEXMEDETOMIDINE PREMIX 400 MCG/100 ML BAG IVPB SCH (22:07)
[2022-06-01] MEDS ORDERED: VASOPRESSIN 20 UNITS/ML VIAL IV ONE (04:42)
[2022-06-01] MEDS: VASOPRESSIN 40 UNITS/100 ML BAG IV SCH ×2 (04:54→18:14)
[2022-06-01] MEDS: HYDROCORTISONE SOD SUCCINATE 100 MG/2 ML VIAL IVPB SCH ×3 (05:48→17:42)
[2022-06-01 07:08] LABS: HEMATOCRIT 32.4 % (35.4-49); HEMOGLOBIN 10.1 GM/dL (11.7-16.9); MCH 26.3 pg (25.7-33.7); MEAN CELL VOLUME 84.6 fl (80-96); MEAN PLT VOLUME 9.5 fl (7.5-11.1); PLATELET COUNT 185 10^3/uL (134-434); RBC 3.83 M/mm3 (4.00-5.60); RDW 20.3 % (11.9-15.9); WHITE BLOOD COUNT 22.7 K/mm3 (4.0-10.0)
[2022-06-01 07:28] LABS: BLOOD UREA NITROGEN 12.6 mg/dL (7-18); MAGNESIUM 1.5 mg/dL (1.8-2.4)
[2022-06-01 07:32] LABS: CREATININE 4.4 mg/dL (0.55-1.3); PHOSPHOROUS 1.9 mg/dL (2.5-4.9)
[2022-06-01] MEDS ORDERED: POTASSIUM PHOSPHATE 30 MM in DEXTROSE 5%-WATER - 500 ML IVPB ONE (08:57)
[2022-06-01] MEDS ORDERED: KCL 10 MEQ IVPB 10 MEQ/100 ML INFUS.BAG IVPB SCH (09:00)
[2022-06-01] MEDS ORDERED: MAGNESIUM SULFATE IN WATER 2 GM/50 ML IVPB IVPB ONE (09:00)
[2022-06-01] MEDS ORDERED: NAPH,MB-DB/K PH,MBDB POWDER PACKET PO ONE (09:15)
[2022-06-01] MEDS: MIDODRINE HCL 5 MG TABLET PO SCH ×3 (09:16→22:06)
[2022-06-01] MEDS: AMINO ACIDS/PROTEIN HYDROLYS 30 ML LIQUID.PKT PO SCH ×3 (09:49→17:35)
[2022-06-01] MEDS: SERTRALINE HCL 25 MG TABLET (FP) PO SCH (09:51)
[2022-06-01] MEDS: CALCIUM ACETATE 667 MG CAPSULE (FP) PO SCH ×3 (09:51→17:35)
[2022-06-01] MEDS: SOLIFENACIN SUCCINATE 5 MG TAB PO SCH (09:52)
[2022-06-01] MEDS: FERROUS SO4 325 MG TABLET (FP) PO SCH (09:52)
[2022-06-01] MEDS: VITAMIN B COMP W-C 1 EA TABLET (NEPHRO-VITE) PO SCH (09:52)
[2022-06-01] MEDS: APIXABAN 5 MG TABLET PO SCH ×2 (09:52→22:05)
[2022-06-01] MEDS: PIPERACILLIN/TAZOB 3.375 GM 3.375 GM in DEXTROSE 5%-WATER - 50 ML IVPB SCH ×2 (09:53→13:04)
[2022-06-01] MEDS: NYSTATIN POWDER 100,000 UNITS/GM - 15 GM TOPICAL POWDER TP SCH ×2 (09:55→22:00)
[2022-06-01] MEDS: AMMONIUM LACTATE 12% LOTION 225 GM BOTTLE TP SCH ×2 (09:55→22:07)
[2022-06-01] MEDS: ZINC OXIDE 20% TOPICAL OINTMENT 454 GM JAR TP SCH (09:57)
[2022-06-01] MEDS ORDERED: PANTOPRAZOLE SODIUM 40 MG VIAL IVPUSH SCH (11:00)
[2022-06-01] MEDS: PHENYLEPHRINE NS PREMIX 50,000 MCG/500 ML BAG CVP SCH ×2 (12:20→18:09)
[2022-06-01 12:27] LABS: ARTERIAL BLD GAS O2 SATURATION 96.5 % (95-98); ARTERIAL BLOOD GAS BASE EXCESS -5.4 mmol/L (-2-2); ARTERIAL BLOOD GAS PO2 86.1 mmHg (80-100); ARTERIAL BLOOD GAS pH 7.378 (7.350-7.450)
[2022-06-01] MEDS ORDERED: VANCOMYCIN/WATER FOR INJ (PEG) 1 GM/200 ML BAG IVPB ONE (12:30)
[2022-06-01] MEDS: PIPERACILLIN/TAZOB 2.25 GM 2.25 GM in DEXTROSE 5%-WATER - 50 ML IVPB SCH (17:42)
[2022-06-01] MEDS: DEXMEDETOMIDINE PREMIX 400 MCG/100 ML BAG IVPB SCH (21:54)
[2022-06-01] MEDS ORDERED: RAPID SEQUENCE INTUBATION KIT NR ONE (23:22)
[2022-06-01] MEDS ORDERED: ROCURONIUM BROMIDE 50 MG/5 ML VIAL ONE (23:23)
[2022-06-01] MEDS ORDERED: ROCURONIUM BROMIDE 50 MG/5 ML VIAL IV ONE (23:33)
[2022-06-01] MEDS ORDERED: ETOMIDATE 40 MG/20 ML VIAL IVPUSH ONE (23:34)
[2022-06-01] MEDS ORDERED: FENTANYL NS IVPB 500 MCG/100 ML BAG IVPB SCH (23:45)
[2022-06-01] MEDS ORDERED: NOREPINEPHRINE 0.9 % NACL 8 MG/250 ML BAG IVPB SCH (23:45)
[2022-06-01] MEDS ORDERED: fentaNYL CITRATE 250 MCG/5 ML VIAL ONE (23:47)
[2022-06-01] MEDS ORDERED: SODIUM CHLORIDE 250 ML IV PRN (23:48)
[2022-06-01] MEDS ORDERED: PROPOFOL 1,000,000 MCG/100 ML VIAL ONE (23:54)
[2022-06-02] MEDS ORDERED: EPINEPHrine 1:1,000 1,000 MCG in DEXTROSE 5%-WATER - 249 ML IVPB SCH (02:15)
[2022-06-02 02:22] LABS: ARTERIAL BLD GAS O2 SATURATION 99.4 % (95-98); ARTERIAL BLOOD GAS BASE EXCESS -28.6 mmol/L (-2-2); ARTERIAL BLOOD GAS pH 6.849 (7.350-7.450)
[2022-06-02 02:27] LABS: VENT MODE A/C
[2022-06-02 02:28] LABS: VENT RATE 20
[2022-06-02 02:30] LABS: ARTERIAL BLOOD GAS PO2 340.4 mmHg (80-100)
[2022-06-02] MEDS ORDERED: SODIUM BICARBONATE 8.4% 50 MEQ/50 ML DISP.SYRIN IVPUSH ONE ×5 (02:30→06:07)
[2022-06-02] MEDS ORDERED: SODIUM BICARBONATE 8.4% 50 MEQ/50 ML DISP.SYRIN ONE (03:17)
[2022-06-02] MEDS: PIPERACILLIN/TAZOB 2.25 GM 2.25 GM in DEXTROSE 5%-WATER - 50 ML IVPB SCH (03:24)
[2022-06-02] MEDS: HYDROCORTISONE SOD SUCCINATE 100 MG/2 ML VIAL IVPB SCH (03:24)
[2022-06-02] MEDS ORDERED: DEXTROSE 5%-WATER - 1,000 ML with SODIUM BICARBONATE 8.4% - 150 MEQ IV SCH (06:30)
[2022-06-02] MEDS: VASOPRESSIN 40 UNITS/100 ML BAG IV SCH (06:43)
[2022-06-02 07:11] LABS: HEMATOCRIT 34.4 % (35.4-49); HEMOGLOBIN 9.4 GM/dL (11.7-16.9); MCH 26.1 pg (25.7-33.7); MCHC 27.2 g/dl (32.0-35.9); MEAN CELL VOLUME 95.9 fl (80-96); MEAN PLT VOLUME 9.7 fl (7.5-11.1); PLATELET COUNT 152 10^3/uL (134-434); RBC 3.59 M/mm3 (4.00-5.60); RDW 20.9 % (11.9-15.9); WHITE BLOOD COUNT 26.6 K/mm3 (4.0-10.0)
[2022-06-02 07:35] LABS: CALCIUM 8.2 mg/dL (8.5-10.1)
[2022-06-02 07:36] LABS: BLOOD UREA NITROGEN 17.1 mg/dL (7-18); MAGNESIUM 2.4 mg/dL (1.8-2.4)
[2022-06-02 07:39] LABS: CREATININE 4.7 mg/dL (0.55-1.3); PHOSPHOROUS 7.6 mg/dL (2.5-4.9)
[2022-06-02 08:45] VITALS: RESP 23
[2022-06-02 09:22] VITALS: BP 71/37; PULSE 113; TEMP 95
== END 2022-06-02 10:23 | disposition expired | DRG 710 ==
LOC: JER 13:56 → JERBED 15:44 → J4W 05-30 04:56 → OBSVTOIN 05-30 12:17 → JICU 05-31 08:55
PROVIDERS: ADMIT Internal Medicine; ATTEND Internal Medicine
PROC: 5A1D70Z Performance of Urinary Filtration, Intermittent, Less than 6 Hours Per Day (ICD-10-PCS; 2022-05-30)
PROC: 05HB33Z Insertion of Infusion Device into Right Basilic Vein, Percutaneous Approach (ICD-10-PCS; 2022-05-31)
PROC: B54MZZA Ultrasonography of Right Upper Extremity Veins, Guidance (ICD-10-PCS; 2022-05-31)
PROC: 03HY32Z Insertion of Monitoring Device into Upper Artery, Percutaneous Approach (ICD-10-PCS; principal; 2022-06-01)
PROC: 4A133B1 Monitoring of Arterial Pressure, Peripheral, Percutaneous Approach (ICD-10-PCS; 2022-06-01)
PROC: 4A133J1 Monitoring of Arterial Pulse, Peripheral, Percutaneous Approach (ICD-10-PCS; 2022-06-01)
PROC: 04HY32Z Insertion of Monitoring Device into Lower Artery, Percutaneous Approach (ICD-10-PCS; 2022-06-01)
PROC: 4A133B1 Monitoring of Arterial Pressure, Peripheral, Percutaneous Approach (ICD-10-PCS; 2022-06-01)
PROC: 4A133J1 Monitoring of Arterial Pulse, Peripheral, Percutaneous Approach (ICD-10-PCS; 2022-06-01)
PROC: 5A1935Z Respiratory Ventilation, Less than 24 Consecutive Hours (ICD-10-PCS; 2022-06-01)
PROC: 0BH17EZ Insertion of Endotracheal Airway into Trachea, Via Natural or Artificial Opening (ICD-10-PCS; 2022-06-01)
PROC: 06HN33Z Insertion of Infusion Device into Left Femoral Vein, Percutaneous Approach (ICD-10-PCS; 2022-06-02)
PROC: B54CZZA Ultrasonography of Left Lower Extremity Veins, Guidance (ICD-10-PCS; 2022-06-02)
DX: A41.9 Sepsis, unspecified organism (principal); J96.90 Respiratory failure, unspecified, unspecified whether with hypoxia or hypercapnia; G93.41 Metabolic encephalopathy; I13.2 Hypertensive heart and chronic kidney disease with heart failure and with stage 5 chronic kidney disease, or end stage renal disease; I48.91 Unspecified atrial fibrillation; N18.6 End stage renal disease; I50.32 Chronic diastolic (congestive) heart failure; Z68.41 Body mass index [BMI] 40.0-44.9, adult; I48.92 Unspecified atrial flutter; J44.9 Chronic obstructive pulmonary disease, unspecified; E66.01 Morbid (severe) obesity due to excess calories; Z99.2 Dependence on renal dialysis; M10.9 Gout, unspecified; F41.9 Anxiety disorder, unspecified; E86.1 Hypovolemia; R19.7 Diarrhea, unspecified; I87.2 Venous insufficiency (chronic) (peripheral); E78.5 Hyperlipidemia, unspecified; E65 Localized adiposity; E87.20 Acidosis, unspecified; Z79.01 Long term (current) use of anticoagulants
CPT/HCPCS: 0241U-QW; 36415; 36600; 71045-TC-FY; 74176-TC; 80048; 80053; 82272; 82803; 82962; 83605; 83690; 83735; 84100; 84484; 85025; 85027; 85610; 85730; 86803; 87040; 87324; 87340; 87449; 93005; 93010; 94002; 94660; 99285-25; G0378; G0480; J3490; Q5106